=== PATIENT | female | born 1935 | race Caucasian/White ===

== ENCOUNTER → 2017-12-08 15:29 | Outpatient (REF) | payer MEDICARE, SELFPAY | LOC: LAB 15:29 | PROVIDERS: Family Provider Internal Medicine; PCP Internal Medicine; Visit Provider Otolaryngology | DX: R19.7 Diarrhea, unspecified (principal); Z53.9 Procedure and treatment not carried out, unspecified reason ==

== ENCOUNTER 2017-12-13 20:22 | Emergency (ER) | payer MEDICARE, OTHER, SELFPAY ==
[2017-12-13 20:31] VITALS: BP 154/69; PULSE 68; RESP 20; TEMP 37.3; O2SAT 98
--- NOTE | 2017-12-13 21:31 | ED_ITS ---
HPI - Abdominal Pain General Chief Complaint: Abdominal Pain Stated Complaint: C-DIFF, DIARRHEA Time Seen by Provider: 12/13/17 21:10 Source: patient and EMS Mode of arrival: EMS Limitations: no limitations History of Present Illness HPI narrative: Patient is an 82-year-old female presenting with abdominal pain. She was diagnosed with C diff last week and started on vancomycin orally. She actually had C diff in October of 2017. She says that she is now having formed stool. She ate for the 1st time today when had a small amount of hamburger. She then started having abdominal pain and nausea no actual vomiting.. She denies any fever or chills she was drinking fluids pretty regularly until she started having pain. MD complaint: abdominal pain Onset (ago): hour(s) Pain Consistency: constant Location: diffuse Related Data Home Medications Medication Instructions Recorded Confirmed glimepiride [Amaryl] 2 mg PO QDAY #0 09/29/12 oxybutynin chloride 5 mg PO BID #0 10/13/16 [LACTOBACILLIS RHAMNO] 2 cap PO QDAY #0 11/11/17 [OMEGA 3 DHA-EPA FISH] 1,000 mg PO QDAY #0 11/11/17 acetaminophen 650 mg PO Q6HP PRN #0 11/11/17 aspirin 81 mg PO QDAY #0 11/11/17 atorvastatin 40 mg PO HS #0 11/11/17 calcium carbonate-vitamin D3 1 tab PO BIDCC #0 11/11/17 [Oyster Shell Calcium-Vit D3] carvedilol [Coreg] 3.125 mg PO BIDCC #0 11/11/17 insulin aspart U-100 [Novolog 100 u SQ SLIDE #0 11/11/17 PenFill U-100 Insulin] insulin glargine [Lantus Solostar 22 unit SQ QPM #0 11/11/17 U-100 Insulin] lisinopril 10 mg PO QDAY #0 11/11/17 zktpsevk-hmov-WD-calcium-mins 1 tab PO QDAY #0 11/11/17 [Thera M Plus (ferrous fumarat)] nitroglycerin [Nitrostat] 0.4 mg SUBLINGUAL PRN PRN #0 11/11/17 nystatin [Nystop] 100,000 unit TOPICAL QID #0 11/11/17 ondansetron HCl 8 mg PO Q8HP PRN #0 11/11/17 pantoprazole 20 mg PO QDAY #0 11/11/17 polyethylene glycol 3350 [Miralax] 17 gm PO QDAYP PRN #0 11/11/17 vit C,I-Tz-vkjej-lutein-zeaxan 1 cap PO QDAY #0 11/11/17 [Ocuvite Lutein and Zeaxanthin] Previous Rx's Medication Instructions Recorded ondansetron [Zofran ODT] 4 mg PO Q6H PRN #10 tab 12/14/17 Allergies Allergy/AdvReac Type Severity Reaction Status Date / Time Sulfa (Sulfonamide Allergy Severe hives Verified 12/13/17 20:35 Antibiotics) [SULFA (SULFONAMIDE ANTIBIOTICS)] adhesive [ADHESIVE] AdvReac Severe tape Verified 12/13/17 20:35 causes blisters Review of Systems Review of Systems All systems reviewed & are unremarkable except as noted in HPI and below Constitutional Reports anorexia, Denies fever(s), Denies frequent falls and Reports poor appetite ENT Ears, Nose, Mouth, and Throat: Denies vertigo, Denies dizziness and Denies dry mouth Cardiovascular Denies chest pain, Denies syncope, Denies lightheadedness and Denies dyspnea Respiratory Denies cough and Denies dyspnea Gastrointestinal Gastrointestinal: Reports as per HPI, Reports abdominal pain, Denies coffee ground emesis and Reports nausea Genitourinary Denies urinary frequency Neurologic Denies vertigo, Denies dizziness, Denies syncope and Denies frequent falls PFSH Medical History C. difficile colitis (Acute) Diabetes (Acute) Diarrhea (Acute) Surgical History H/O hemicolectomy (Acute) Social History Smoking Status: Unknown if ever smoked Exam Const General: cooperative and No acute distress Nutritional Appearance: obese Orientation: alert, awake and oriented x3 HENMT Head: normal to inspection and normocephalic Mouth: No moist mucous membranes Eyes General: appearance normal, both eyes and all related structures Neck Neck: normal visual inspection and trachea midline Resp Effort & Inspection: normal respiratory effort and able to speak in complete sentences Cardio Rate: regular rate Rhythm: regular rhythm Heart Sounds: S1 normal and S2 normal GI Inspection: obesity Palpation: soft Other: Mild epigastric pain no guarding no rebound no real localization of pain Skin General: no rashes or lesions noted, turgor normal, No dry skin and No ecchymosis Neuro General: alert and awake MDM - Abdominal Pain MDM Narrative Medical decision making narrative: The patient initially still having some nausea. CT ordered shows large a ventral hernia without obstruction. Blood work within normal limits. Now tolerating a small amount of water. Lab Data Attestation: I reviewed the patient's lab results. Result diagrams: 12/13/17 22:40 12/13/17 22:40 Lab Results 12/13/17 12/13/17 12/13/17 Range/Units 22:40 22:40 22:40 WBC 8.5 (4.5-11.0) X10^3/uL RBC 3.90 L (4.0-5.2) X10^6/uL Hgb 11.3 L (12.0-16.0) g/dL Hct 33.7 L (36-46) % MCV 86.4 (80-100) fL MCH 28.9 (26-34) PG MCHC 33.5 (30-36) % RDW 14.6 (11.6-14.8) % Plt Count 363 (150-400) X10^3/uL Neut % (Auto) 63.0 (50-75) % Lymph % (Auto) 25.4 (25-40) % [place] % (Auto) 7.6 (3-14) % Eos % (Auto) 3.0 (2-4) % Baso % (Auto) 1.0 (0-2) % Neut # (Auto) 5400 (1545-9719) /uL Sodium 139 (137-145) mmol/L Potassium 3.2 L (3.4-5.1) mmol/L Chloride 100.0 (98-107) mmol/L Carbon Dioxide 28.0 (22-32) mmol/L BUN 8.0 (7-17) mg/dL Creatinine 0.50 L (0.52-1.04) mg/dL Estimated GFR > 60.0 (>60) mL/min BUN/Creatinine Ratio 16.0 (6-22) Glucose 217 H (80-110) mg/dL Lactate 1.3 (0.7-2.1) mmol/L Calcium 8.8 (8.4-10.2) mg/dL Total Bilirubin 0.3 (0.2-1.3) mg/dL AST 17 (14-36) IU/L ALT 18 (9-52) IU/L Alkaline Phosphatase 89 (38-126) U/L Total Protein 6.4 (6.3-8.2) g/dL Albumin 3.3 L (3.5-5.0) g/dL Globulin 3.1 (1.7-4.1) g/dL Albumin/Globulin Ratio 1.1 (1.0-2.8) Lipase 123 (23-300) U/L Imaging Data CT scan - abdomen: Radiologist's impression: 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 No proximal obstruction. Incarceration and strangulation cannot usual out by CT. Discharge Plan Departure Patient Disposition: Home, Self-Care Clinical Impression: Abdominal pain Discharge Date/Time: 12/14/17 04:19 Interventions: ED Discharge Assessment Last Done: 12/14/17 03:23 Instructions: DI for Abdominal Pain-Adult Activity Restrictions/Additional Instructions: *You have been diagnosed with abdominal pain *What to do: At this time blood work and CAT scan within normal limits, increase diet as tolerated, continue drinking fluids *Take medications as directed -Zofran all 4 mg every 4-6 hours if needed for nausea or vomiting *Follow up with your primary care provider in 2-3 days *Return to ER if you should have worsening abdominal pain, inability to tolerate fluids or any new, worsening or concerning symptoms Prescriptions: New ondansetron [Zofran ODT] 4 mg tablet,disintegrating 4 mg PO Q6H PRN (Reason: nausea and vomiting) Qty: 10 RF: 0 No Action glimepiride [Amaryl] 2 MG tablet 2 mg PO QDAY Qty: 0 RF: 0 oxybutynin chloride 5 MG tablet 5 mg PO BID Qty: 0 RF: 0 acetaminophen 325 MG tablet 650 mg PO Q6HP PRNQty: 0 RF: 0 atorvastatin 40 MG tablet 40 mg PO HS Qty: 0 RF: 0 aspirin 81 MG tablet,delayed release (DR/EC) 81 mg PO QDAY Qty: 0 RF: 0 carvedilol [Coreg] 3.125 MG tablet 3.125 mg PO BIDCC Qty: 0 RF: 0 calcium carbonate-vitamin D3 [Oyster Shell Calcium-Vit D3] 500 mg(1,250mg) - 200 unit Tablet 1 tab PO BIDCC Qty: 0 RF: 0 insulin aspart U-100 [Novolog PenFill U-100 Insulin] 100 UNIT/1 ML cartridge 100 u SQ SLIDE Qty: 0 RF: 0 insulin glargine [Lantus Solostar U-100 Insulin] 100 UNIT/1 ML insulin pen 22 unit SQ QPM Qty: 0 RF: 0 [LACTOBACILLIS RHAMNO] 2 cap PO QDAY Qty: 0 RF: 0 lisinopril 10 MG tablet 10 mg PO QDAY Qty: 0 RF: 0 vit C,S-Cl-oeusk-lutein-zeaxan [Ocuvite Lutein and Zeaxanthin] 1 EACH capsule 1 cap PO QDAY Qty: 0 RF: 0 szvmauiw-aqvu-VG-calcium-mins [Thera M Plus (ferrous fumarat)] 1 EACH tablet 1 tab PO QDAY Qty: 0 RF: 0 nitroglycerin [Nitrostat] 0.4 MG tablet, sublingual 0.4 mg Sublingual PRN PRNQty: 0 RF: 0 nystatin [Nystop] 30 GM powder 100,000 unit Topical QID Qty: 0 RF: 0 [OMEGA 3 DHA-EPA FISH] 1,000 mg PO QDAY Qty: 0 RF: 0 ondansetron HCl 8 MG tablet 8 mg PO Q8HP PRNQty: 0 RF: 0 polyethylene glycol 3350 [Miralax] 17 GM powder in packet 17 gm PO QDAYP PRNQty: 0 RF: 0 pantoprazole 20 MG tablet,delayed release (DR/EC) 20 mg PO QDAY Qty: 0 RF: 0 Referrals: Tyson Wang MD [Primary Care Provider] -
[2017-12-13] MEDS: SODIUM CHLORIDE 0.9% 1,000 ML 150 ML IV (22:45)
[2017-12-13 22:58] VITALS: BP 167/56; PULSE 70; RESP 16; O2SAT 97
[2017-12-13 23:01] LABS: Add Manual Diff / Slide Review NO; Hematocrit 33.7 % (36-46); Hemoglobin 11.3 g/dL (12.0-16.0); Lymphocytes Percent Auto 25.4 % (25-40); Mean Corpuscular HGB Conc 33.5 % (30-36); Mean Corpuscular Hemoglobin 28.9 PG (26-34); Mean Corpuscular Volume 86.4 fL (80-100); Monocytes Percent Auto 7.6 % (3-14); Neutrophils Absolute Auto 5400 /uL (3000-5900); Platelet Count 363 X10^3/uL (150-400); Red Cell Distribution Width 14.6 % (11.6-14.8); White Blood Cell Count 8.5 X10^3/uL (4.5-11.0)
[2017-12-13 23:06] VITALS: BP 167/56; PULSE 76; RESP 13; O2SAT 95
[2017-12-13 23:14] LABS: Alanine Aminotransferase 18 IU/L (9-52); Albumin 3.3 g/dL (3.5-5.0); Albumin Globulin Ratio 1.1 (1.0-2.8); Alkaline Phosphatase 89 U/L (38-126); Aspartate Aminotransferase 17 IU/L (14-36); Bilirubin Total 0.3 mg/dL (0.2-1.3); Calcium 8.8 mg/dL (8.4-10.2); Estimated Glomerular Filt Rate > 60.0 mL/min (>60); Globulin 3.1 g/dL (1.7-4.1); Glucose 217 mg/dL (80-110); HEMOLYSIS < 15 (0-50); Lactate (Lactic Acid) 1.3 mmol/L (0.7-2.1); Lipase 123 U/L (23-300); Potassium 3.2 mmol/L (3.4-5.1); Sodium 139 mmol/L (137-145); Total Protein 6.4 g/dL (6.3-8.2)
[2017-12-13] MEDS: ONDANSETRON 4 MG/2 ML INJ IV (23:15)
--- NOTE | 2017-12-14 00:53 | DI.CT.S_ITS ---
PROCEDURE: CT ABDOMEN PELVIS W CON INDICATIONS: abdomal pain persistant with vomiting TECHNIQUE: After the administration of intravenous contrast, 5 mm thick sections acquired from the diaphragm to the symphysis. 5 mm coronal and sagittal reformats were acquired. For radiation dose reduction, the following was used: automated exposure control, adjustment of mA and/or kV according to patient size. COMPARISON: [facility], MR, MR LUMBAR SPINE WO CON, 05/02/2015, 15:29. FINDINGS: Image quality: Excellent. ABDOMEN: Lung bases: Scattered bibasilar scarring/atelectasis. Nonspecific 3 mm right middle lobe pulmonary nodule image 5 series 3, technically indeterminate the absence of a relevant comparison study. Solid organs: Liver is normal in size and enhancement. Gallbladder contains a 9 mm gallstone, however no definite gallbladder wall thickening or pericholecystic inflammation. . Biliary system is non dilated. Pancreas enhances normally. Spleen is normal in size and enhancement. No adrenal nodules. Kidneys demonstrate normal size and enhancement, without hydronephrosis. Large simple appearing left renal cyst measuring 9.5 cm. Subcentimeter right renal lesion demonstrates mildly increased attenuation measuring 22 Hounsfield units. This could be hyperdense/hemorrhagic renal cyst, technically indeterminate and recommend followup. Peritoneum and bowel: Small hiatal hernia. No evidence of bowel obstruction. A ventral wall hernia containing loop of colon however no evidence of bowel obstruction at this time. Of note, technically incarceration or strangulation cannot be excluded by CT. No associated bowel wall thickening is seen. The appendix is not seen however no definite secondary signs of acute appendicitis Nodes and vessels: No retroperitoneal or mesenteric adenopathy by size criteria. Aorta and inferior vena cava are normal in size. Miscellaneous: No ventral hernias. PELVIS: Genitourinary: Bladder wall thickness is normal. Miscellaneous: No inguinal hernias or adenopathy. Bones: Possible chronic appearing right sacral ala insufficiency fracture with sclerosis. Diffuse degenerative changes throughout the thoracic and lumbar spine. IMPRESSION: Midline ventral hernia containing bowel loops however no CT evidence of obstruction at this time. Recommend clinical correlation to exclude incarceration or strangulation. Large exophytic simple appearing left renal cyst. Hyperdense subcentimeter right renal lesion, possibly hemorrhagic/hyperdense cyst although technically indeterminate. Recommend followup with dedicated renal ultrasound to exclude solid lesion/neoplasm. Incidental cholelithiasis. Additional chronic incidental findings as above. Dictated by: Nash Byrnes M.D. on 12/14/2017 at 7:37 Approved by: Nash Byrnes M.D. on 12/14/2017 at 7:48
[2017-12-14 01:29] VITALS: BP 155/66; PULSE 74; O2SAT 97
[2017-12-14] MEDS: ONDANSETRON 4 MG/2 ML INJ IV (02:18)
[2017-12-14 02:54] VITALS: BP 144/71; PULSE 71; RESP 16; O2SAT 99
--- NOTE | 2017-12-14 02:56 | PC.NURSE ---
pt incontinet of urine.
--- NOTE | 2018-01-13 13:00 | PC.NURSE ---
Pt IV stopped at 0323, 900ml's intake of NS.
== END 2017-12-14 04:19 | disposition home or self-care (01) ==
PROVIDERS: Emergency Provider Emergency Medicine; Family Provider Internal Medicine; PCP Internal Medicine
DX: R10.9 Unspecified abdominal pain (principal)
CPT/HCPCS: 36591; 74177; 80053; 83605; 83690; 85025; 87040; 96361; 96374; 96376; 99283; 99284; J2405; Q9967

== ENCOUNTER → 2018-01-06 15:15 | Outpatient (CLI) | payer MEDICARE, OTHER, SELFPAY ==
[2018-01-06 16:35] LABS: Blood Urea Nitrogen 16 mg/dL (7-17); Calcium 8.9 mg/dL (8.4-10.2); Carbon Dioxide 28 mmol/L (22-32); Chloride 95 mmol/L (98-107); Estimated Glomerular Filt Rate > 60.0 mL/min (>60); Glucose 270 mg/dL (80-110); HEMOLYSIS < 15 (0-50); Potassium 4.5 mmol/L (3.4-5.1); Sodium 135 mmol/L (137-145)
== END ==
PROVIDERS: Family Provider Internal Medicine; PCP Internal Medicine; Visit Provider Student in an Organized Health Care Education/Training Program
DX: R19.7 Diarrhea, unspecified (principal)
CPT/HCPCS: 36415; 80048

== ENCOUNTER 2018-01-20 17:55 | Observation (INO) | payer MEDICARE, OTHER, SELFPAY ==
[2018-01-20 18:10] VITALS: BP 143/63; PULSE 70; RESP 16; TEMP 36.9; O2SAT 94; BMI 47.2
--- NOTE | 2018-01-20 18:15 | DI.RAD.S_ITS ---
PROCEDURE: XR CHEST 2V INDICATIONS: shortness of breath TECHNIQUE: 2 views of the chest were acquired. COMPARISON: [facility], CHEST 1 VIEW, 11/11/2017, 8:35. [facility], CHEST 2 VIEW, 12/15/2007, 11:33. FINDINGS: Surgical changes and devices: None. Lungs and pleura: No pleural effusions or pneumothorax. Lungs are clear. Shallow inspiration. Mediastinum: Enlarged cardiomediastinal contours. Bones and chest wall: No suspicious bony abnormalities. Soft tissues appear unremarkable. IMPRESSION: No radiographic evidence of acute cardiopulmonary pathology. Dictated by: Mitch Angeles M.D. on 01/20/2018 at 19:13 Approved by: Mitch Angeles M.D. on 01/20/2018 at 19:13
[2018-01-20 18:25] LABS: Add Manual Diff / Slide Review NO; Basophils Percent Auto 1.2 % (0-2); Eosinophils Percent Auto 2.3 % (2-4); Hematocrit 27.7 % (36-46); Hemoglobin 9.3 g/dL (12.0-16.0); Lymphocytes Percent Auto 27.3 % (25-40); Mean Corpuscular HGB Conc 33.5 % (30-36); Mean Corpuscular Volume 83.6 fL (80-100); Monocytes Percent Auto 6.9 % (3-14); Neutrophils Absolute Auto 6300 /uL (3000-5900); Neutrophils Percent Auto 62.3 % (50-75); Platelet Count 370 X10^3/uL (150-400); Red Blood Cell Count 3.32 X10^6/uL (4.0-5.2); Red Cell Distribution Width 15.4 % (11.6-14.8); White Blood Cell Count 10.2 X10^3/uL (4.5-11.0)
[2018-01-20 18:28] LABS: Alanine Aminotransferase 22 IU/L (9-52); Albumin 3.5 g/dL (3.5-5.0); Albumin Globulin Ratio 1.1 (1.0-2.8); Alkaline Phosphatase 71 U/L (38-126); Aspartate Aminotransferase 22 IU/L (14-36); BUN Creatinine Ratio 23.3 (6-22); Bilirubin Total 0.4 mg/dL (0.2-1.3); Blood Urea Nitrogen 14 mg/dL (7-17); Calcium 8.8 mg/dL (8.4-10.2); Carbon Dioxide 26 mmol/L (22-32); Chloride 101 mmol/L (98-107); Estimated Glomerular Filt Rate > 60.0 mL/min (>60); Globulin 3.1 g/dL (1.7-4.1); Glucose 136 mg/dL (80-110); HEMOLYSIS 49 (0-50); Potassium 4.1 mmol/L (3.4-5.1); Sodium 138 mmol/L (137-145); Total Protein 6.6 g/dL (6.3-8.2)
[2018-01-20] MEDS: ONDANSETRON 4 MG/2 ML INJ IV ×2 (18:31→22:53)
--- NOTE | 2018-01-20 18:32 | PC.NURSE ---
GRANDDAUGHTER RANI IN ROOM AT THIS TIME--REPORTS THAT SHE WILL BE ABLE TO PICK PT UP IF D/C [phone] ADVISED TO CALL DAUGHTER BRITTANYSHIRLENE WHO LIVES IN [place] WITH PLAN OF CARE UPDATE [phone].
--- NOTE | 2018-01-20 18:33 | ED_ITS ---
HPI - SOB/Dyspnea General Chief Complaint: Shortness of Breath/Dyspnea Stated Complaint: Shortness of Breath Time Seen by Provider: 01/20/18 18:14 Source: patient Mode of arrival: ambulatory Limitations: no limitations History of Present Illness The patient developed shortness of breath about 4:00 p.m. today, she was not exerting herself at that time. She has no asthma, she denies peripheral edema or orthopnea. She has had no fever, cough or rhinorrhea. She denies chest pain. She does have a history of CAD. She does have mid abdominal discomfort. She denies vomiting but has had nausea. She has a history of C diff, apparently recently treated. She denies current diarrhea. She denies hematemesis or melena. The shortness of breath has resolved when she arrived to the ER. She arrives by EMS, she is not requiring oxygen. Related Data Home Medications Medication Instructions Recorded Confirmed glimepiride [Amaryl] 2 mg PO QDAY #0 09/29/12 01/20/18 oxybutynin chloride 5 mg PO BID #0 10/13/16 01/20/18 acetaminophen 650 mg PO Q6HP PRN #0 11/11/17 01/20/18 aspirin 81 mg PO QDAY #0 11/11/17 01/20/18 calcium carbonate-vitamin D3 1 tab PO BIDCC #0 11/11/17 01/20/18 [Oyster Shell Calcium-Vit D3] carvedilol [Coreg] 3.125 mg PO BIDCC #0 11/11/17 01/20/18 insulin glargine [Lantus Solostar 22 unit SQ QPM #0 11/11/17 01/20/18 U-100 Insulin] nitroglycerin [Nitrostat] 0.4 mg SUBLINGUAL PRN PRN #0 11/11/17 01/20/18 nystatin [Nystop] 100,000 unit TOPICAL QID #0 11/11/17 01/20/18 pantoprazole 40 mg PO BID #0 11/11/17 01/20/18 polyethylene glycol 3350 [Miralax] 17 gm PO QDAYP PRN #0 11/11/17 01/20/18 Acidophilus Probiotic Complex 1 tab PO DAILY 01/20/18 01/20/18 atorvastatin 40 mg PO DAILY 01/20/18 01/20/18 bisacodyl 10 mg OK DAILY 01/20/18 01/20/18 citalopram 10 mg PO DAILY 01/20/18 01/20/18 cranberry 500 mg PO DAILY 01/20/18 01/20/18 ibuprofen 200 mg PO DAILY 01/20/18 01/20/18 insulin lispro [Humalog KwikPen See Label Instructions .ROUTE 01/20/18 01/20/18 Insulin] .COMPLEX omega 0-qvc-wgv-fish oil [Fish Oil] 1,000 mg PO DAILY 01/20/18 01/20/18 promethazine 25 mg PO Q12H PRN 01/20/18 01/20/18 simvastatin 20 mg PO QPM 01/20/18 01/20/18 vancomycin 125 mg PO QID 01/20/18 01/20/18 vit A,C and X-iifycn-nnfuxojp 1 tab PO DAILY 01/20/18 01/20/18 [I-Mellisa] Previous Rx's Medication Instructions Recorded ondansetron [Zofran ODT] 4 mg PO Q6H PRN #10 tab 12/14/17 Allergies Allergy/AdvReac Type Severity Reaction Status Date / Time Sulfa (Sulfonamide Allergy Severe hives Verified 12/13/17 20:35 Antibiotics) [SULFA (SULFONAMIDE ANTIBIOTICS)] metformin Allergy Mild Diarrhea Verified 01/20/18 23:13 darifenacin [From [employer]] Allergy Unknown Verified 01/20/18 23:13 ketoconazole Allergy Unknown Verified 01/20/18 23:13 adhesive [ADHESIVE] AdvReac Severe tape Verified 12/13/17 20:35 causes blisters Review of Systems Review of Systems All systems reviewed & are unremarkable except as noted in HPI and below Constitutional Denies chills, Denies fever(s), Denies lethargy and Denies weakness Eyes Denies change in vision, Denies eye discharge, Denies irritation and Denies loss of vision ENT Ears, Nose, Mouth, and Throat: Denies change in voice, Denies neck pain and Denies sore throat Cardiovascular Denies chest pain, Denies irregular heart rhythm, Denies lightheadedness, Denies palpitations, Reports dyspnea and Denies orthopnea Respiratory Reports as per HPI, Denies cough, Denies hemoptysis and Reports dyspnea Gastrointestinal Gastrointestinal: Reports abdominal pain, Denies change in bowel habits, Denies diarrhea, Denies nausea and Denies vomiting Genitourinary Denies dysuria and Denies urinary urgency Musculoskeletal Denies arthralgias and Denies neck pain Comments: No back pain Integumentary/Breasts Denies pruritus, Denies erythema, Denies rash and Denies wounds Neurologic Denies loss of vision and Denies weakness Endocrine Denies palpitations [facility] Medical History Anxiety disorder (Acute) Colon cancer (Acute) Hypercholesteremia (Acute) Mild cognitive impairment, so stated (Acute) Obesity (Acute) Other sleep apnea (Acute) Postprocedural hypertension (Acute) Solitary pulmonary nodule (Acute) Spinal stenosis of lumbar region (Acute) Syncope and collapse (Acute) Unspecified urinary incontinence (Acute) C. difficile colitis (Acute) Diabetes (Acute) Diarrhea (Acute) Surgical History H/O hemicolectomy (Acute) Social History Smoking Status: Former smoker Exam Initial Vital Signs Initial Vital Signs: Vital Signs Temperature 98.5 F 01/20/18 18:10 Pulse Rate 70 01/20/18 18:10 Respiratory Rate 16 01/20/18 18:10 Blood Pressure 143/63 H 01/20/18 18:10 Pulse Oximetry 94 01/20/18 18:10 Const General: cooperative and well developed Nutritional Appearance: well nourished Orientation: alert, awake, oriented x3 and not confused Other: She seems fatigued. [facility] Head: normal to inspection, normocephalic and atraumatic Face and sinus: normal facial exam and sinuses nontender Mouth: oral mucosae normal Throat: posterior oropharynx normal Eyes Conjunctivae: conjunctivae normal Sclera: sclerae normal Pupils: PERRL EOM: EOM intact bilaterally Neck Neck: normal visual inspection Thyroid: thyroid normal Carotids: normal carotid upstroke Lymphatic: No lymphadenopathy Other: No JVD Resp Effort & Inspection: normal respiratory effort Auscultation: clear to auscultation bilaterally Cardio Rhythm: regular rhythm Heart Sounds: S1 normal, S2 normal, no gallops and no murmurs GI Inspection: non-distended Palpation: soft, no hepatosplenomegaly, No guarding, No pulsatile mass and No tender Auscultation: normal bowel sounds Rectal Exam: visual inspection normal, normal sphincter tone and heme positive stool Back/Spine/Pelvis Back: No CVA tenderness Cervical Spine: cervical ROM normal and No pain with cervical ROM Thoracic/Lumbar Spine: thoracic and lumbar spine normal to inspection Skin General: no rashes or lesions noted, No jaundice and No petechiae Neuro General: alert, oriented x3, gait normal and no focal motor deficits Speech: speech normal Extrem General: full ROM, no clubbing, cyanosis or edema, no pedal edema and no calf tenderness Course Orders Ordered: ED Orders 01/20/18 18:08 Complete Blood Count AUTO DIFF Stat Comprehensive Metabolic Panel Stat 01/20/18 18:15 Consult to Respiratory Therapy Evaluate & Treat XR chest 2V Stat EKG-12 Lead Stat Sodium Chloride (Normal Saline 0.9%) 1,000 mls @ 125 mls/hr IV CONT ZURI Last Admin: 01/20/18 23:06 Dose: 125 mls/hr Discontinued Medications Ondansetron HCl (Zofran) 4 mg IV NOW ONE Stop: 01/20/18 18:31 Last Admin: 01/20/18 18:31 Dose: 4 mg Ondansetron HCl (Zofran) 4 mg IV NOW ONE Stop: 01/20/18 23:05 Last Admin: 01/20/18 22:53 Dose: 4 mg Pantoprazole Sodium (Protonix) 40 mg IV NOW ONE Stop: 01/20/18 20:24 Last Admin: 01/20/18 20:46 Dose: 40 mg Vital Signs - 8 hr 01/20/18 18:10 01/20/18 21:10 01/20/18 22:00 Temperature 98.5 F Pulse Rate 70 83 81 Respiratory Rate 16 11 L 17 Blood Pressure 143/63 H Blood Pressure [Right Arm] 176/98 H 170/58 H Pulse Oximetry 94 94 93 01/20/18 22:30 Temperature Pulse Rate 83 Respiratory Rate 14 Blood Pressure Blood Pressure [Right Arm] 172/81 H Pulse Oximetry 94 MDM - SOB/Dyspnea Medical Records Attestation: I reviewed the patient's medical records. Lab Data Attestation: I reviewed the patient's lab results. Result diagrams: 01/20/18 18:08 01/20/18 18:08 Lab Results 01/20/18 01/20/18 01/20/18 Range/Units 18:08 18:08 Unknown WBC 10.2 (4.5-11.0) X10^3/uL RBC 3.32 L (4.0-5.2) X10^6/uL Hgb 9.3 L (12.0-16.0) g/dL Hct 27.7 L (36-46) % MCV 83.6 (80-100) fL MCH 28.0 (26-34) PG MCHC 33.5 (30-36) % RDW 15.4 H (11.6-14.8) % Plt Count 370 (150-400) X10^3/uL Neut % (Auto) 62.3 (50-75) % Lymph % (Auto) 27.3 (25-40) % [place] % (Auto) 6.9 (3-14) % Eos % (Auto) 2.3 (2-4) % Baso % (Auto) 1.2 (0-2) % Neut # (Auto) 6300 H (8559-9316) /uL Sodium 138 (137-145) mmol/L Potassium 4.1 (3.4-5.1) mmol/L Chloride 101 (98-107) mmol/L Carbon Dioxide 26 (22-32) mmol/L BUN 14 (7-17) mg/dL Creatinine 0.60 (0.52-1.04) mg/dL Estimated GFR > 60.0 (>60) mL/min BUN/Creatinine Ratio 23.3 H (6-22) Glucose 136 H (80-110) mg/dL Lactate 0.8 (0.7-2.1) mmol/L Calcium 8.8 (8.4-10.2) mg/dL Total Bilirubin 0.4 (0.2-1.3) mg/dL AST 22 (14-36) IU/L ALT 22 (9-52) IU/L Alkaline Phosphatase 71 (38-126) U/L Total Protein 6.6 (6.3-8.2) g/dL Albumin 3.5 (3.5-5.0) g/dL Globulin 3.1 (1.7-4.1) g/dL Albumin/Globulin Ratio 1.1 (1.0-2.8) Imaging Data Chest x-ray: Radiologist's impression: Normal, no acute findings. ECG Data Attestation: I personally reviewed and interpreted this ECG as follows: (Normal sinus rhythm rate [address] T wave changes. No ectopy. QT interval of 466, intervals are otherwise normal. No acute findings.) MDM Narrative Medical decision making narrative: I reviewed labs back over the last 6 months. She has had a slow, progressive decline in her H/H. She has intermittent abdominal pain over the last several months. On rectal exam she is heme- positive. I have started her on maintenance IV fluids and IV Protonix. I discussed her care with the hospitalist, Dr. Martinez. The patient will be admitted. Discharge Plan Departure Patient Disposition: Admitted as Observation Clinical Impression: GI (gastrointestinal bleed), Anemia Admit Date/Time: 01/20/18 23:25 Admit Provider: Raquel Martinez
--- NOTE | 2018-01-20 18:35 | PC.NURSE ---
PT SITTING UP IN BED- HELPED WITH REPOSITIONING. WAS SIPPING ONWATER, STARTING TO FEEL NAUSEOUS, WATER TAKEN AWAY AND PT GIVEN EMESIS BAG AND ZOFRAN. ADVISED NPO AT THIS TIME. SATS 95% ON RA, SOB WITH EXERTION AND SPEAKING IN SHORT CLEAR SENTENCES. REPORTS 31 YEAR SMOKER AND INCREASED SOB AND ABD STARTED THIS MORNING. H/O CDIFF WITH TREATMENT AND REPORTS HAVING FORMED STOOLS. VITALS ALL WITHIN NORMAL AND PT RESTING.
[2018-01-20 18:56] LABS: Lactate (Lactic Acid) 0.8 mmol/L (0.7-2.1)
[2018-01-20] MEDS: PANTOPRAZOLE 40 MG VIAL IV (20:46)
[2018-01-20 21:10] VITALS: BP 176/98; PULSE 83; RESP 11; O2SAT 94
[2018-01-20 22:00] VITALS: BP 170/58; PULSE 81; RESP 17; O2SAT 93
[2018-01-20 22:30] VITALS: BP 172/81; PULSE 83; RESP 14; O2SAT 94
--- NOTE | 2018-01-20 22:57 | PC.NURSE ---
Addendum entered by Erlinda Simmons R.N. 01/20/18 23:00: Previous note written by LINDSAY Coffey accidentally charted under LINDSAY Perdomo. Original Note: Spoke to daughter Cindy, gave her the plan of care that pt will be admitted for GI Bleed. Reports that she will call tomorrow. Checked on pt. Reports nausea and dry mouth. Given wet mouth swab. NS bolus infusing and pt given another dose of IV Zofran for nausea. Awaiting admit bed upstairs. Pt content at this time. Needs met.
[2018-01-20] MEDS: SODIUM CHLORIDE 0.9% 1,000 ML 125 ML IV (23:06)
[2018-01-20 23:46] VITALS: BP 171/70; PULSE 83; RESP 14; O2SAT 96
--- NOTE | 2018-01-20 23:47 | PC.NURSE ---
2316: RN witnessed run of SVT at 160 H for 6 seconds on cafeteria monitor. Pt converted back into NSR, entered room to find pt resting. Dr Lilly immediately made aware. No new orders at this time.
[2018-01-21 00:03] LABS: Troponin I 0.033 ng/mL (0.01-0.034)
[2018-01-21 00:12] VITALS: BP 151/75; PULSE 85; RESP 16; O2SAT 94
[2018-01-21 00:15] VITALS: BP 174/81; PULSE 85; RESP 15; TEMP 36.9; O2SAT 93
[2018-01-21 00:29] VITALS: BMI 47.2
--- NOTE | 2018-01-21 01:22 | PC.NURSE ---
pt arrived at 0015 via stretcher. pt was able to get up and transfer to the bed via stand and pivot. intermittent dry heaves. 94%RA. BTX4. passing gas. pt reports she is dealing with a lot of stress at home. bed alarm active. call light in reach. oriented pt to the room .
[2018-01-21] MEDS: ONDANSETRON 4 MG/2 ML INJ IV (05:19)
[2018-01-21 05:34] VITALS: BP 132/70; PULSE 84; RESP 14; TEMP 36.9; O2SAT 95
[2018-01-21 05:52] LABS: Add Manual Diff / Slide Review NO; Basophils Percent Auto 0.8 % (0-2); Hematocrit 30.3 % (36-46); Hemoglobin 9.9 g/dL (12.0-16.0); Lymphocytes Percent Auto 15.6 % (25-40); Mean Corpuscular HGB Conc 32.5 % (30-36); Mean Corpuscular Hemoglobin 27.1 PG (26-34); Mean Corpuscular Volume 83.3 fL (80-100); Monocytes Percent Auto 2.3 % (3-14); Neutrophils Absolute Auto 8900 /uL (3000-5900); Neutrophils Percent Auto 81.3 % (50-75); Platelet Count 408 X10^3/uL (150-400); Red Blood Cell Count 3.64 X10^6/uL (4.0-5.2)
[2018-01-21 05:58] LABS: Blood Urea Nitrogen 11 mg/dL (7-17); Calcium 8.8 mg/dL (8.4-10.2); Carbon Dioxide 23 mmol/L (22-32); Chloride 97 mmol/L (98-107); Estimated Glomerular Filt Rate > 60.0 mL/min (>60); Glucose 219 mg/dL (80-110); HEMOLYSIS < 15 (0-50); Potassium 3.7 mmol/L (3.4-5.1); Sodium 134 mmol/L (137-145)
[2018-01-21 08:00] VITALS: BP 136/54; PULSE 84; RESP 16; TEMP 37; O2SAT 97
[2018-01-21] MEDS: PROCHLORPERAZINE 10 MG/2 ML VIAL IV (08:55)
[2018-01-21] MEDS: INSULIN ASPART 100 UNIT/ML INSULN PEN SUBCUT ×2 (08:58→12:27)
[2018-01-21 12:00] VITALS: BP 121/57; PULSE 74; RESP 18; TEMP 36.4; O2SAT 95
[2018-01-21] MEDS: DEXTROSE 5%-0.45% NS 1,000 ML 125 ML IV (12:25)
--- NOTE | 2018-01-21 12:32 | PM.HP.1 ---
History of Present Illness Date Patient Seen: 01/21/18 Time Patient Seen: 09:20 Chief complaint: Shortness of Breath Narrative: The patient states that she woke up feeling poorly yesterday, with poor appetite. This may have been going on for couple of days. In the afternoon she started to have more abdominal discomfort and bloating and a feeling of shortness of breath with gasping, and presented to the emergency department for evaluation. There she had a fairly unremarkable evaluation and was admitted overnight for further observation. She is seen with her at bedside. She states she feels much better this morning after hydration and antiemetic overnight. She had a history of Clostridium difficile colitis treated last month but denies any diarrhea lately. Patient History Medical History Anxiety disorder (Acute) Clostridium difficile colitis (Acute) Colon cancer (Acute) Coronary artery disease (Acute) Hypercholesteremia (Acute) Mild cognitive impairment, so stated (Acute) Obesity (Acute) Other sleep apnea (Acute) Postprocedural hypertension (Acute) Solitary pulmonary nodule (Acute) Spinal stenosis of lumbar region (Acute) Syncope and collapse (Acute) Unspecified urinary incontinence (Acute) C. difficile colitis (Acute) Diabetes (Acute) Diarrhea (Acute) Surgical History H/O peritonsillar abscess drainage (Acute) History of partial colectomy (Acute) Hx of cataract surgery (Acute) H/O hemicolectomy (Acute) Family & Social History Family History: Reviewed 01/21/18 by Dario Ramos MD Social History: household members spouse Prior Living Arrangements House Safety & Behavioral: Feels Safe in Current Yes Environment Been Physically Hurt or No Threatened By a Person Suicidal Ideation Description None Suicide Plan Description No Plan Tobacco & Substance use: Smoking Status Former smoker alcohol intake never alcohol intake frequency other Substance Use Type does not use Meds Home Medications Medication Instructions Recorded Confirmed Type glimepiride [Amaryl] 2 mg PO QDAY #0 09/29/12 01/20/18 History oxybutynin chloride 5 mg PO BID #0 10/13/16 01/20/18 History acetaminophen 650 mg PO Q6HP PRN #0 11/11/17 01/20/18 History aspirin 81 mg PO QDAY #0 11/11/17 01/20/18 History calcium carbonate-vitamin D3 1 tab PO BIDCC #0 11/11/17 01/20/18 History [Oyster Shell Calcium-Vit D3] carvedilol [Coreg] 3.125 mg PO BIDCC #0 11/11/17 01/20/18 History insulin glargine [Lantus Solostar 22 unit SQ QPM #0 11/11/17 01/20/18 History U-100 Insulin] nitroglycerin [Nitrostat] 0.4 mg SUBLINGUAL PRN PRN #0 11/11/17 01/20/18 History nystatin [Nystop] 100,000 unit TOPICAL QID #0 11/11/17 01/20/18 History pantoprazole 40 mg PO BID #0 11/11/17 01/20/18 History polyethylene glycol 3350 [Miralax] 17 gm PO QDAYP PRN #0 11/11/17 01/20/18 History ondansetron [Zofran ODT] 4 mg PO Q6H PRN #10 tab 12/14/17 01/20/18 Rx Acidophilus Probiotic Complex 1 tab PO DAILY 01/20/18 01/20/18 History atorvastatin 40 mg PO DAILY 01/20/18 01/20/18 History bisacodyl 10 mg [place] DAILY 01/20/18 01/20/18 History citalopram 10 mg PO DAILY 01/20/18 01/20/18 History cranberry 500 mg PO DAILY 01/20/18 01/20/18 History ibuprofen 200 mg PO DAILY 01/20/18 01/20/18 History insulin lispro [Humalog KwikPen See Label Instructions .ROUTE 01/20/18 01/20/18 History Insulin] .COMPLEX omega 2-sru-fat-fish oil [Fish Oil] 1,000 mg PO DAILY 01/20/18 01/20/18 History promethazine 25 mg PO Q12H PRN 01/20/18 01/20/18 History simvastatin 20 mg PO QPM 01/20/18 01/20/18 History vancomycin 125 mg PO QID 01/20/18 01/20/18 History vit A,C and Y-lrkhwq-yfvongul 1 tab PO DAILY 01/20/18 01/20/18 History [I-Mellisa] Allergies Allergy/AdvReac Type Severity Reaction Status Date / Time Sulfa (Sulfonamide Allergy Severe hives Verified 12/13/17 20:35 Antibiotics) [SULFA (SULFONAMIDE ANTIBIOTICS)] metformin Allergy Mild Diarrhea Verified 01/20/18 23:13 darifenacin [From Enablex] Allergy Unknown Verified 01/20/18 23:13 ketoconazole Allergy Unknown Verified 01/20/18 23:13 adhesive [ADHESIVE] AdvReac Severe tape Verified 12/13/17 20:35 causes blisters Review of Systems Review of Systems All systems reviewed & are unremarkable except as noted in HPI and below Cardiovascular Cardiovascular: Denies chest pain, Denies shortness of breath and Denies shortness of breath with activity Respiratory Respiratory: Denies chest congestion, Denies cough, Denies pain on inspiration, Denies dyspnea, Denies dyspnea on exertion and Denies wheezing Gastrointestinal Gastrointestinal: Denies melena, Denies change in bowel habits, Denies change in stool character, Denies constipation, Denies loose stools, Reports nausea, Denies vomiting, Denies hematemesis and Reports other Allergic/Immunologic Allergic/Immunologic: Denies wheezing Exam Vital Signs (past 8 hours): Vital Signs - 8 hr 01/21/18 05:34 01/21/18 08:00 Temperature 98.4 F 98.6 F Pulse Rate 84 84 Respiratory Rate 14 16 Blood Pressure 132/70 H 136/54 H Pulse Oximetry 95 97 Pulse Oximetry 97 Oxygen Delivery Method Room Air Oxygen Flow Rate 0 Narrative Exam Narrative: General: Pleasant, obese female, appears comfortable HEENT: Pupils equal round reactive, mucous membranes pink and moist Neck: Supple Lungs: Clear to auscultation Cardiac: Regular rate and rhythm Abdomen: Soft, obese, nontender; large reducible nontender ventral hernia palpable Extremities: Without edema Neurologic: Alert, oriented, no focal deficits Dermatologic: No rash or skin lesions Objective Imaging Chest x-ray: Radiologist's impression: No radiographic evidence of acute cardiopulmonary pathology. CT scan - abdomen: Radiologist's impression: Midline ventral hernia containing bowel loops however no CT evidence of obstruction at this time. Recommend clinical correlation to exclude incarceration or strangulation. Large exophytic simple appearing left renal cyst. Hyperdense subcentimeter right renal lesion, possibly hemorrhagic/hyperdense cyst although technically indeterminate. Recommend followup with dedicated renal ultrasound to exclude solid lesion/neoplasm. Incidental cholelithiasis. Additional chronic incidental findings as above. Labs Result Diagrams: 01/21/18 05:20 01/21/18 05:20 Labs: Laboratory Results - last 24 hr 01/20/18 01/20/18 01/20/18 18:08 18:08 Unknown WBC 10.2 RBC 3.32 L Hgb 9.3 L Hct 27.7 L MCV 83.6 MCH 28.0 MCHC 33.5 RDW 15.4 H Plt Count 370 Neut % (Auto) 62.3 Lymph % (Auto) 27.3 [place] % (Auto) 6.9 Eos % (Auto) 2.3 Baso % (Auto) 1.2 Neut # (Auto) 6300 H Sodium 138 Potassium 4.1 Chloride 101 Carbon Dioxide 26 BUN 14 Creatinine 0.60 Estimated GFR > 60.0 BUN/Creatinine Ratio 23.3 H Glucose 136 H Lactate 0.8 Calcium 8.8 Total Bilirubin 0.4 AST 22 ALT 22 Alkaline Phosphatase 71 Troponin I B-Natriuretic Peptide Total Protein 6.6 Albumin 3.5 Globulin 3.1 Albumin/Globulin Ratio 1.1 01/20/18 01/20/18 01/21/18 Unknown Unknown 05:20 WBC 11.0 RBC 3.64 L Hgb 9.9 L Hct 30.3 L MCV 83.3 MCH 27.1 MCHC 32.5 RDW 15.0 H Plt Count 408 H Neut % (Auto) 81.3 H Lymph % (Auto) 15.6 L [place] % (Auto) 2.3 L Eos % (Auto) 0.0 L Baso % (Auto) 0.8 Neut # (Auto) 8900 H Sodium Potassium Chloride Carbon Dioxide BUN Creatinine Estimated GFR BUN/Creatinine Ratio Glucose Lactate Calcium Total Bilirubin AST ALT Alkaline Phosphatase Troponin I 0.033 B-Natriuretic Peptide 160.0 H Total Protein Albumin Globulin Albumin/Globulin Ratio 01/21/18 05:20 WBC RBC Hgb Hct MCV MCH MCHC RDW Plt Count Neut % (Auto) Lymph % (Auto) [place] % (Auto) Eos % (Auto) Baso % (Auto) Neut # (Auto) Sodium 134 L Potassium 3.7 Chloride 97 L Carbon Dioxide 23 BUN 11 Creatinine 0.50 L Estimated GFR > 60.0 BUN/Creatinine Ratio 22.0 Glucose 219 H Lactate Calcium 8.8 Total Bilirubin AST ALT Alkaline Phosphatase Troponin I B-Natriuretic Peptide Total Protein Albumin Globulin Albumin/Globulin Ratio Assessment & Plan Plan: Assessment/Plan Narrative: 1. Nausea, abdominal pain. Etiology unclear. Possible viral gastroenteritis. No evidence of recurrent Clostridium difficile colitis. Clinically improved this morning. Advance diet, stop IV hydration and follow clinically. Possible discharge home if doing well. 2. Heme-positive stool, anemia. Etiology unclear she has chronic anemia with hematocrit near baseline, improved today. Possibly secondary to 1. Continue to monitor but possible discharge home if doing well with outpatient follow-up and workup if indicated. 3. Renal cysts, possibly hemorrhagic on the right. Outpatient renal ultrasound advised in primary care follow-up. 4. Diabetes mellitus, type 2. Resume routine insulin dosing when taking orals. 5. Other medical issues appear stable. She will resume her routine medications when taking orals. 6. Disposition: Admit to observation status. Possibly discharge home later if doing well, otherwise further evaluation as indicated. Quality VTE Deep Vein Thrombosis/Pulmonary Embolism Present on Admission: No
--- NOTE | 2018-01-21 13:37 | CM.DANOTE ---
DCP: assessment: case received, EMR reviewed, noted that Dr. Ramos anticipates likely d/c home later today is all tests continue to support this. Met with pt and her Campos. Introduced self and role. DCP: template completed with info currently available. Pt is an 82 year old female who lives with her in [place]. Admitted late last night to care of hospitalist team. PCP: Dr. Wang Payer: Medicare and [facility] Admission status: currently observation: confirmed by UR RN. Pt and her are supported at home by his sister : Victoria Flaherty. She is at the home 3x week to help pt. Rest of time spouse says he assists. [facility] RN and PT are involved. (see template for specifics) Meals on Wheels is ongoing. Victoria has brought pt's here today and is currently at lunch, standing by to take pt home if she is ok'd for same. P: home as stated, either today or tomorrow.
== END 2018-01-21 15:20 | disposition home or self-care (01) ==
LOC: ED 20:33 → AC 23:26
PROVIDERS: Admitting Provider Internal Medicine; Emergency Provider Emergency Medicine; Family Provider Internal Medicine; PCP Internal Medicine; Visit Provider Internal Medicine
DX: R06.00 Dyspnea, unspecified (principal); F41.9 Anxiety disorder, unspecified; E78.00 Pure hypercholesterolemia, unspecified; E66.9 Obesity, unspecified; G47.33 Obstructive sleep apnea (adult) (pediatric); E11.9 Type 2 diabetes mellitus without complications; Z87.891 Personal history of nicotine dependence; Z79.4 Long term (current) use of insulin; N28.1 Cyst of kidney, acquired; E86.0 Dehydration; D64.9 Anemia, unspecified; K92.1 Melena; R19.5 Other fecal abnormalities
CPT/HCPCS: 36415; 36591; 71046; 80048; 80053; 82962; 83605; 83880; 84484; 85025; 93005; 99283; G0378; C9113; J0780; J2405

== ENCOUNTER 2018-01-24 17:56 | Inpatient (IN) | payer MEDICARE, OTHER, SELFPAY ==
[2018-01-24] VITALS (8 sets, daily range): BP systolic 92–120; BP diastolic 32–64; PULSE 76–82; RESP 15–22; TEMP 36.4–36.6; O2SAT 95–100; BMI 40.8
--- NOTE | 2018-01-24 18:29 | DI.RAD.S_ITS ---
PROCEDURE: XR CHEST 2V INDICATIONS: presyncope TECHNIQUE: 2 views of the chest were acquired. COMPARISON: [facility], CR, XR CHEST 2V, 01/20/2018, 18:36. FINDINGS: Surgical changes and devices: None. Lungs and pleura: No pleural effusions or pneumothorax. Lungs are clear. Mediastinum: Mediastinal contours are normal. Heart size is normal. Bones and chest wall: No suspicious bony abnormalities. Soft tissues appear unremarkable. IMPRESSION: No acute process. Dictated by: Juan Carson M.D. on 01/24/2018 at 19:15 Approved by: Juan Carson M.D. on 01/24/2018 at 19:16
[2018-01-24 18:38] LABS: Add Manual Diff / Slide Review NO; Basophils Percent Auto 0.5 % (0-2); Eosinophils Percent Auto 0.5 % (2-4); Hematocrit 31.8 % (36-46); Hemoglobin 10.3 g/dL (12.0-16.0); INR 1.2 (0.9-1.3); Lymphocytes Percent Auto 13.5 % (25-40); Mean Corpuscular HGB Conc 32.5 % (30-36); Mean Corpuscular Volume 83.3 fL (80-100); Monocytes Percent Auto 8.3 % (3-14); Neutrophils Absolute Auto 13200 /uL (3000-5900); Neutrophils Percent Auto 77.2 % (50-75); Platelet Count 427 X10^3/uL (150-400); Prothrombin Time 13.2 SECONDS (10.1-12.7); Red Blood Cell Count 3.82 X10^6/uL (4.0-5.2); Red Cell Distribution Width 15.2 % (11.6-14.8); White Blood Cell Count 17.1 X10^3/uL (4.5-11.0)
[2018-01-24 18:42] LABS: Alanine Aminotransferase 19 IU/L (9-52); Albumin 3.6 g/dL (3.5-5.0); Albumin Globulin Ratio 1.1 (1.0-2.8); Alkaline Phosphatase 74 U/L (38-126); Aspartate Aminotransferase 17 IU/L (14-36); BUN Creatinine Ratio 17.3 (6-22); Bilirubin Total 0.6 mg/dL (0.2-1.3); Blood Urea Nitrogen 19 mg/dL (7-17); Carbon Dioxide 26 mmol/L (22-32); Chloride 96 mmol/L (98-107); Estimated Glomerular Filt Rate 47.7 mL/min (>60); Globulin 3.2 g/dL (1.7-4.1); Glucose 169 mg/dL (80-110); HEMOLYSIS < 15 (0-50); Potassium 3.4 mmol/L (3.4-5.1); Sodium 135 mmol/L (137-145); Total Protein 6.8 g/dL (6.3-8.2)
[2018-01-24 18:54] LABS: Troponin I 0.077 ng/mL (0.01-0.034)
[2018-01-24] MEDS: SODIUM CHLORIDE 0.9% 1,000 ML 1000 ML IV ×2 (19:15→20:27)
[2018-01-24] MEDS: ASPIRIN 81 MG TAB 324 MG PO (20:26)
[2018-01-24 20:37] LABS: RBC Urine None Seen (0-5/HPF)
[2018-01-24 20:39] LABS: Bilirubin Urine UA NEGATIVE (NEGATIVE); Color Urine UA YELLOW; Glucose Urine UA NEGATIVE (Normal); Ketones Urine UA 1+ (NEGATIVE); Leukocyte Esterase Urine UA 1+ (NEGATIVE); Nitrite Urine UA POSITIVE (Negative); Occult Blood Urine UA TRACE-LYSED (Negative); Protein Urine UA 1+ (Negative); Specific Gravity Urine UA 1.025 (1.000-1.035); Urobilinogen Urine UA 0.2 E.U./dL (0.2)
[2018-01-24 20:44] LABS: Appearance Urine UA Slightly Cloudy
[2018-01-24 21:03] LABS: Bacteria Urine Many (>30); Culture Indicated Urine Specimen Cultured; Hyaline Casts Urine 1-5/LPF; Mucus Urine 1+ (Negative); Squamous Epithelial Cell Urine 0-1 /HPF; WBC Urine 10-30/HPF (0-5/HPF)
--- NOTE | 2018-01-24 21:09 | ED_ITS ---
HPI - Nausea/Vomiting/Diarrhea General Chief complaint: Nausea/Vomiting/Diarrhea Stated complaint: Diarrhea, recent C-Dif Time Seen by Provider: 01/24/18 17:57 History of Present Illness HPI Narrative: HPI 82-year-old obese female with history of GI bleed, DM, C. difficile, colon CA, and anxiety presents for evaluation of an episode of weakness/presyncope, patient was leaving the shower at home when she became weak and was unable to stand. Patient notes that she also had one episode of loose watery stools this afternoon is concerned that she may now have C. difficile. Patient denies recent antibiotics. * Denies chest pain, shortness of breath, double vision, neck pain, vertigo, headache, arm pain, arm paresthesias, arm numbness, or focal weakness or sensory at change now or the time of their event. * Denies a history of seizures. No incontinence today, denies post-syncope confusion. M/S/F/SocHx notable for: please see HPI; remainder reviewed with patient and in chart. ROS: Negative constitutional, eye, cardiovascular, pulmonary, GI, , MSK, skin , neurologic, psychiatric, endocrine unless noted in the HPI. Exam Gen: Pleasant, non-toxic appearing, resting comfortably. HEENT: NC, AT, PEERL, EOMI. Resp: Clear to auscultation bilaterally with a normal work of breathing and no accessory muscle usage. Card: Regular rate and rhythm with no murmurs rubs or gallops, extremities are warm and well perfused, no JVD. GI: Nontender to palpation throughout all quadrants, nondistended : Deferred MSK: No visible deformities, strength and tone WNL. Skin: mildly pale skin, otherwise normal color with no visible lesions. Neuro: Gen AO x 3, no facial asymmetry, no gaze preference, no slurring of speech. Pupils equal and reactive, EOMI, no facial asymmetry, no nystagmus, phonation intact, SCM 5/5 bilaterally. Cerebellar: bilateral upper extremities without dysmetria. Psych: Mood and affect appropriate. Labs / Imaging (pertinent): WBC 17.1, HB 10.3, PT/INR 1.2, Na 135, K 3.4, Cr 1.1 (baseline 0.50), troponin 0.077, lactic 2.0 UA - positive nitrate, 1+ leukocyte esterase. CXR: no acute cardiopulmonary disease process. EKG: SR with sinus arrhythmia and PACs with a ventricular rate at [address]-segment elevations or depressions, T-wave inversions or new LBBB. KS interval 176 msec, QTc 375 msec, no delta waves, epsilon waves, coved or saddle ST-segment changes in leads V1-3, preseptal or inferior lead Q-waves, biphasic P -waves, or T-wave inversions; no LVH. MDM Previous chart, nursing note, and vitals reviewed. A: 82-year-old obese female with history of GI bleed, DM, C. difficile, colon CA , and anxiety presents for evaluation of an episode of weakness/presyncope, patient was leaving the shower at home when she became weak and was unable to stand. DDx and evaluation: patient with weakness, JOAQUIN, and an inability to walk, given her marked leukocytosis and loose watery stools suspect suspect recurrent C. difficile with secondary dehydration leading to renal injury. Patient given 2 L normal saline, C. difficile studies ordered, and patient given p.o. vancomycin. Patient has a mild troponin elevation, no clear evidence of ischemia on ECG, tentatively suspect this is secondary to demand. Patient was given p.o. aspirin. Patient will require trending of troponins and further evaluation as appropriate. Patient is also noted to have UTI, however given the absence of dysuria or urinary frequency it is unclear if this is the cause of the patient weakness and leukocytosis. As or urinary tract infection may be causing her overall symptoms she was given ciprofloxacin. Patient admitted for further care. Impression: suspected C. difficile colitis, JOAQUIN, NSTEMI (type II suspected). (please reference below for remainder of encounter information) Critical Care Time Organ system(s): Cardiopulmonary, renal Intervention: Assessment of the patient, interpretation of studies, communication related to patient care. Time: 30 minutes were spent directly related to patient care exclusive of separately billed procedures. Related Data Home Medications Medication Instructions Recorded Confirmed glimepiride [Amaryl] 2 mg PO QDAY #0 09/29/12 01/20/18 oxybutynin chloride 5 mg PO BID #0 10/13/16 01/20/18 acetaminophen 650 mg PO Q6HP PRN #0 11/11/17 01/20/18 aspirin 81 mg PO QDAY #0 11/11/17 01/20/18 calcium carbonate-vitamin D3 1 tab PO BIDCC #0 11/11/17 01/20/18 [Oyster Shell Calcium-Vit D3] carvedilol [Coreg] 3.125 mg PO BIDCC #0 11/11/17 01/20/18 insulin glargine [Lantus Solostar 22 unit SQ QPM #0 11/11/17 01/20/18 U-100 Insulin] nitroglycerin [Nitrostat] 0.4 mg SUBLINGUAL PRN PRN #0 11/11/17 01/20/18 nystatin [Nystop] 100,000 unit TOPICAL QID #0 11/11/17 01/20/18 pantoprazole 40 mg PO BID #0 11/11/17 01/20/18 polyethylene glycol 3350 [Miralax] 17 gm PO QDAYP PRN #0 11/11/17 01/20/18 Acidophilus Probiotic Complex 1 tab PO DAILY 01/20/18 01/20/18 atorvastatin 40 mg PO DAILY 01/20/18 01/20/18 bisacodyl 10 mg KS DAILY 01/20/18 01/20/18 citalopram 10 mg PO DAILY 01/20/18 01/20/18 cranberry 500 mg PO DAILY 01/20/18 01/20/18 ibuprofen 200 mg PO DAILY 01/20/18 01/20/18 insulin lispro [Humalog KwikPen See Label Instructions .ROUTE 01/20/18 01/20/18 Insulin] .COMPLEX omega 3-ugf-uhg-fish oil [Fish Oil] 1,000 mg PO DAILY 01/20/18 01/20/18 promethazine 25 mg PO Q12H PRN 01/20/18 01/20/18 simvastatin 20 mg PO QPM 01/20/18 01/20/18 vancomycin 125 mg PO QID 01/20/18 01/20/18 vit A,C and K-nxepqp-vlyfdfmf 1 tab PO DAILY 01/20/18 01/20/18 [I-Mellisa] Previous Rx's Medication Instructions Recorded ondansetron [Zofran ODT] 4 mg PO Q6H PRN #10 tab 12/14/17 Allergies Allergy/AdvReac Type Severity Reaction Status Date / Time Sulfa (Sulfonamide Allergy Severe hives Verified 12/13/17 20:35 Antibiotics) [SULFA (SULFONAMIDE ANTIBIOTICS)] metformin Allergy Mild Diarrhea Verified 01/20/18 23:13 darifenacin [From Enablex] Allergy Unknown Verified 01/20/18 23:13 ketoconazole Allergy Unknown Verified 01/20/18 23:13 adhesive [ADHESIVE] AdvReac Severe tape Verified 12/13/17 20:35 causes blisters PFSH Social History household members: spouse and caregiver Smoking Status: Former smoker alcohol intake: never Exam Initial Vital Signs Initial Vital Signs: Vital Signs Pulse Rate 80 01/24/18 18:02 Respiratory Rate 22 01/24/18 18:02 Blood Pressure 92/34 L 01/24/18 18:02 Pulse Oximetry 96 01/24/18 18:02 Course Orders Ordered: ED Orders 01/24/18 18:05 Complete Blood Count AUTO DIFF Stat Comprehensive Metabolic Panel Stat Lactate (Lactic Acid) Stat Procalcitonin Stat Prothrombin Time INR Stat Troponin I Stat 01/24/18 18:29 XR chest 2V Stat Clostridium Difficile Tox PCR Stat EKG-12 Lead Stat 01/24/18 20:08 Urinalysis and Microscopic Stat Urine Culture Stat 01/24/18 20:45 Lactate (Lactic Acid) Stat Discontinued Medications Aspirin (Aspirin Chew) 324 mg PO NOW ONE Stop: 01/24/18 19:49 Last Admin: 01/24/18 20:26 Dose: 324 mg Ciprofloxacin (Cipro) 500 mg PO NOW ONE Stop: 01/24/18 20:55 Sodium Chloride (Normal Saline 0.9%) 1,000 mls @ 1,000 mls/hr IV BOLUS ONE Stop: 01/24/18 19:28 Last Infusion: 01/24/18 20:53 Dose: 0 mls/hr Admin: 01/24/18 19:15 Dose: 1,000 mls/hr Sodium Chloride (Normal Saline 0.9%) 1,000 mls @ 1,000 mls/hr IV BOLUS ONE Stop: 01/24/18 20:32 Last Admin: 01/24/18 20:27 Dose: 1,000 mls/hr Vancomycin HCl (Vancomycin) 125 mg PO NOW ONE Stop: 01/24/18 20:55 Vital Signs - 8 hr 01/24/18 18:02 01/24/18 18:20 01/24/18 19:11 Pulse Rate 80 81 78 Respiratory Rate 22 18 Blood Pressure 92/34 L Blood Pressure [Left Arm] 106/32 L 119/52 L Pulse Oximetry 96 98 98 01/24/18 20:18 Pulse Rate 78 Respiratory Rate 15 Blood Pressure Blood Pressure [Left Arm] 116/55 L Pulse Oximetry 98 MDM - Nausea/Vomiting/Diarrhea Lab Data Result diagrams: 01/24/18 18:05 01/24/18 18:05 Lab Results 01/24/18 01/24/18 01/24/18 Range/Units 18:05 18:05 18:05 WBC 17.1 H (4.5-11.0) X10^3/uL RBC 3.82 L (4.0-5.2) X10^6/uL Hgb 10.3 L (12.0-16.0) g/dL Hct 31.8 L (36-46) % MCV 83.3 (80-100) fL MCH 27.0 (26-34) PG MCHC 32.5 (30-36) % RDW 15.2 H (11.6-14.8) % Plt Count 427 H (150-400) X10^3/uL Neut % (Auto) 77.2 H (50-75) % Lymph % (Auto) 13.5 L (25-40) % [place] % (Auto) 8.3 (3-14) % Eos % (Auto) 0.5 L (2-4) % Baso % (Auto) 0.5 (0-2) % Neut # (Auto) 11067 H (8498-1246) /uL PT (10.1-12.7) SECONDS INR (0.9-1.3) Sodium 135 L (137-145) mmol/L Potassium 3.4 (3.4-5.1) mmol/L Chloride 96 L (98-107) mmol/L Carbon Dioxide 26 (22-32) mmol/L BUN 19 H (7-17) mg/dL Creatinine 1.10 H (0.52-1.04) mg/dL Estimated GFR 47.7 L (>60) mL/min BUN/Creatinine Ratio 17.3 (6-22) Glucose 169 H (80-110) mg/dL Lactate 2.0 (0.7-2.1) mmol/L Calcium 9.0 (8.4-10.2) mg/dL Total Bilirubin 0.6 (0.2-1.3) mg/dL AST 17 (14-36) IU/L ALT 19 (9-52) IU/L Alkaline Phosphatase 74 (38-126) U/L Troponin I 0.077 H (0.01-0.034) ng/mL Total Protein 6.8 (6.3-8.2) g/dL Albumin 3.6 (3.5-5.0) g/dL Globulin 3.2 (1.7-4.1) g/dL Albumin/Globulin Ratio 1.1 (1.0-2.8) Urine Color Urine Appearance Urine pH (4.5-8.0) Ur Specific [place] (1.000-1.035) Urine Protein (Negative) Urine Glucose (UA) (Normal) g/dL Urine Ketones (NEGATIVE) Urine Occult Blood (Negative) Urine Nitrate (Negative) Urine Bilirubin (NEGATIVE) Urine Urobilinogen (0.2) E.U./dL Ur Leukocyte Esterase (NEGATIVE) Urine RBC (0-5/HPF) Urine WBC (0-5/HPF) Ur Squamous Epith Cells Urine Bacteria (None) Hyaline Casts (None) Urine Mucus (Negative) Ur Culture Indicated? Micro UA Comment 01/24/18 01/24/18 Range/Units 18:05 20:08 WBC (4.5-11.0) X10^3/uL RBC (4.0-5.2) X10^6/uL Hgb (12.0-16.0) g/dL Hct (36-46) % MCV (80-100) fL MCH (26-34) PG MCHC (30-36) % RDW (11.6-14.8) % Plt Count (150-400) X10^3/uL Neut % (Auto) (50-75) % Lymph % (Auto) (25-40) % [place] % (Auto) (3-14) % Eos % (Auto) (2-4) % Baso % (Auto) (0-2) % Neut # (Auto) (4124-9455) /uL PT 13.2 H (10.1-12.7) SECONDS INR 1.2 (0.9-1.3) Sodium (137-145) mmol/L Potassium (3.4-5.1) mmol/L Chloride (98-107) mmol/L Carbon Dioxide (22-32) mmol/L BUN (7-17) mg/dL Creatinine (0.52-1.04) mg/dL Estimated GFR (>60) mL/min BUN/Creatinine Ratio (6-22) Glucose (80-110) mg/dL Lactate (0.7-2.1) mmol/L Calcium (8.4-10.2) mg/dL Total Bilirubin (0.2-1.3) mg/dL AST (14-36) IU/L ALT (9-52) IU/L Alkaline Phosphatase (38-126) U/L Troponin I (0.01-0.034) ng/mL Total Protein (6.3-8.2) g/dL Albumin (3.5-5.0) g/dL Globulin (1.7-4.1) g/dL Albumin/Globulin Ratio (1.0-2.8) Urine Color Yellow Urine Appearance Slightly cloudy Urine pH 5.0 (4.5-8.0) Ur Specific [place] 1.025 (1.000-1.035) Urine Protein 1+ H (Negative) Urine Glucose (UA) Negative (Normal) g/dL Urine Ketones 1+ H (NEGATIVE) Urine Occult Blood Trace-lysed (Negative) Urine Nitrate Positive H (Negative) Urine Bilirubin Negative (NEGATIVE) Urine Urobilinogen 0.2 (0.2) E.U./dL Ur Leukocyte Esterase 1+ H (NEGATIVE) Urine RBC None seen (0-5/HPF) Urine WBC 10-30/hpf H (0-5/HPF) Ur Squamous Epith Cells 0-1 /hpf Urine Bacteria Many (>30) H (None) Hyaline Casts 1-5/lpf (None) Urine Mucus 1+ H (Negative) Ur Culture Indicated? Specimen cultured Micro UA Comment Not Reportable Discharge Plan Departure Prescriptions: No Action glimepiride [Amaryl] 2 MG tablet 2 mg PO QDAY Qty: 0 RF: 0 oxybutynin chloride 5 MG tablet 5 mg PO BID Qty: 0 RF: 0 acetaminophen 325 MG tablet 650 mg PO Q6HP PRN (Reason: Pain (Scale Score 1-3)) Qty: 0 RF: 0 aspirin 81 MG tablet,delayed release (DR/EC) 81 mg PO QDAY Qty: 0 RF: 0 carvedilol [Coreg] 3.125 MG tablet 3.125 mg PO BIDCC Qty: 0 RF: 0 calcium carbonate-vitamin D3 [Oyster Shell Calcium-Vit D3] 500 mg(1,250mg) - 200 unit Tablet 1 tab PO BIDCC Qty: 0 RF: 0 insulin glargine [Lantus Solostar U-100 Insulin] 100 UNIT/1 ML insulin pen 22 unit SQ QPM Qty: 0 RF: 0 nitroglycerin [Nitrostat] 0.4 MG tablet, sublingual 0.4 mg Sublingual PRN PRN (Reason: Chest Pain) Qty: 0 RF: 0 nystatin [Nystop] 30 GM powder 100,000 unit Topical QID Qty: 0 RF: 0 polyethylene glycol 3350 [Miralax] 17 GM powder in packet 17 gm PO QDAYP PRN (Reason: Constipation) Qty: 0 RF: 0 pantoprazole 20 MG tablet,delayed release (DR/EC) 40 mg PO BID Qty: 0 RF: 0 ondansetron [Zofran ODT] 4 mg tablet,disintegrating 4 mg PO Q6H PRN (Reason: nausea and vomiting) Qty: 10 RF: 0 Acidophilus Probiotic Complex 1 tab PO DAILY RF: 0 atorvastatin 40 mg Tablet 40 mg PO DAILY RF: 0 citalopram 10 mg Tablet 10 mg PO DAILY RF: 0 bisacodyl 10 mg Suppository 10 mg KS DAILY RF: 0 simvastatin 20 mg Tablet 20 mg PO QPM RF: 0 cranberry 500 mg Capsule 500 mg PO DAILY RF: 0 vit A,C and P-ammozb-todnentj [I-Mellisa] 1,000 unit-200 mg-60 unit-2 mg Tablet 1 tab PO DAILY RF: 0 omega 7-lva-zfi-fish oil [Fish Oil] 1,000 mg (120 mg-180 mg) Capsule 1,000 mg PO DAILY RF: 0 vancomycin 125 mg Capsule 125 mg PO QID RF: 0 promethazine 25 mg Tablet 25 mg PO Q12H PRN (Reason: Nausea) RF: 0 ibuprofen 200 mg Tablet 200 mg PO DAILY RF: 0 insulin lispro [Humalog KwikPen Insulin] 100 unit/mL Insulin Pen See Label Instructions .ROUTE .COMPLEX RF: 0
[2018-01-24 21:11] LABS: Lactate (Lactic Acid) 0.8 mmol/L (0.7-2.1)
[2018-01-24 21:20] LABS: Procalcitonin 0.12 ng/mL (<0.5)
--- NOTE | 2018-01-24 22:04 | PC.NURSE ---
Nursing Coorinator notified for PO antibiotic meds from night pharmacy. She will pull and give to floor nurse to administer upstairs.
[2018-01-24] MEDS: VANCOMYCIN 125 MG CAPSULE PO (22:27)
[2018-01-24] MEDS: CIPROFLOXACIN 500 MG TABLET PO (22:27)
[2018-01-25 00:59] LABS: Clostridium Difficile Tox PCR Positive for C. diff
--- NOTE | 2018-01-25 01:00 | PC.NURSE ---
stool sample sent to lab aprx 0030, call rec'd at 0100 Gretchen in lab to report stool is positive for C-diff. pt has been on contact precautions since admitted to floor.
[2018-01-25 04:35] VITALS: BP 106/56; PULSE 63; RESP 16; TEMP 36.4; O2SAT 94
[2018-01-25 08:00] VITALS: BP 126/59; PULSE 71; RESP 16; TEMP 36.9; O2SAT 98
--- NOTE | 2018-01-25 08:53 | CM.DANOTE ---
DCP/Assessment: Reviewed chart. Patient is a 82yr old female admitted under OBS status with diarrhea/C-Dif. PCP is Dr. Dev Martinez. Primary payor is 1)[employer] 2)[facility]. Met with patient explained CM/SW role. Patient alert during visit, on the phone with her spouse upon POWER WHEELCHAIR MECHANIC arrival. Patient reports that she has not been the same since heart attack in July 2017. Patient resides with spouse in 1 level home in [place]. Patient uses both walker/wheelchair at baseline. Patient has ramp to enter residence. Patient and spouse currently receive meals on wheels daily. Patient reports that she is no longer able to prepare daily meals. Currently patient reports that she receives HH from [facility] for CHARGING OPERATOR. Patient unsure if she still has additional services such as PT/OT/RN. Patient believes that skilled services have been stopped? POWER WHEELCHAIR MECHANIC placed call to Sana ph# [phone] at [facility]. Sana reports that she will check with agency and patient's current services. POWER WHEELCHAIR MECHANIC requested that Sana let POWER WHEELCHAIR MECHANIC know if anything needed prior to discharge for PT/OT/RN/CHARGING OPERATOR/POWER WHEELCHAIR MECHANIC. At this time unclear if patient will remain OBS status or switch to inpatient. Patient would benefit from PT/OT evaluations during hospitalization for weakness and ADL training. P: Pending. CM team to follow closely for d/c planning needs. Anticipate that patient will return home with HH resumed through [facility]. CHARITY Knox
--- NOTE | 2018-01-25 08:59 | P.HP_ITS ---
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 She was in the shower in either slipped or fell her I had difficulty and unable to get back up however at baseline she does not get out of the wheelchair and walk so that is not too unusual for her although she does feeling weaker. She has had this ongoing complaint of abdominal discomfort and pain she has been in and out of the hospital with C diff over the past several months 2 previously documented episodes. She was seen in the emergency room earlier this month with some nausea vomiting and epigastric pain she had a guaiac-positive stool that time but hematocrit did not drop significantly with that she stop the aspirin and was sent home after overnight observation she was then seen by Dr. Martinez who is her new primary care provider after having transferred physicians again and at that time Dr. Martinez ordered an EGD and a CT scan to further evaluate her symptoms. CT scan was actually scheduled for today. She had completed the treatment for clostridia back in December and really has not had any symptoms of diarrhea since then until Thursday evening when she came into the hospital she denies any fevers. Patient History Medical History Diarrhea (Acute) Anxiety disorder (Chronic) C. difficile colitis (Chronic) Colon cancer (Chronic) Coronary artery disease (Chronic) Diabetes (Chronic) Hypercholesteremia (Chronic) Mild cognitive impairment, so stated (Chronic) Obesity (Chronic) Other sleep apnea (Chronic) Solitary pulmonary nodule (Chronic) Spinal stenosis of lumbar region (Chronic) Unspecified urinary incontinence (Chronic) Clostridium difficile colitis (Resolved) Postprocedural hypertension (Resolved) Syncope and collapse (Resolved) Surgical History H/O peritonsillar abscess drainage (Acute) History of partial colectomy (Acute) Hx of cataract surgery (Acute) H/O hemicolectomy (Chronic) Family & Social History Social History: household members spouse,caregiver Safety & Behavioral: Feels Safe in Current Yes Environment Been Physically Hurt or No Threatened By a Person Suicidal Ideation Description None Suicide Plan Description No Plan Tobacco & Substance use: Smoking Status Former smoker alcohol intake never alcohol intake frequency other Substance Use Type does not use Meds Home Medications Medication Instructions Recorded Confirmed Type glimepiride [Amaryl] 2 mg PO QDAY #0 09/29/12 01/20/18 History oxybutynin chloride 5 mg PO BID #0 10/13/16 01/20/18 History acetaminophen 650 mg PO Q6HP PRN #0 11/11/17 01/20/18 History aspirin 81 mg PO QDAY #0 11/11/17 01/20/18 History calcium carbonate-vitamin D3 1 tab PO BIDCC #0 11/11/17 01/20/18 History [Oyster Shell Calcium-Vit D3] carvedilol [Coreg] 3.125 mg PO BIDCC #0 11/11/17 01/20/18 History insulin glargine [Lantus Solostar 22 unit SQ QPM #0 11/11/17 01/20/18 History U-100 Insulin] nitroglycerin [Nitrostat] 0.4 mg SUBLINGUAL PRN PRN #0 11/11/17 01/20/18 History nystatin [Nystop] 100,000 unit TOPICAL QID #0 11/11/17 01/20/18 History pantoprazole 40 mg PO BID #0 11/11/17 01/20/18 History polyethylene glycol 3350 [Miralax] 17 gm PO QDAYP PRN #0 11/11/17 01/20/18 History ondansetron [Zofran ODT] 4 mg PO Q6H PRN #10 tab 12/14/17 01/20/18 Rx Acidophilus Probiotic Complex 1 tab PO DAILY 01/20/18 01/20/18 History atorvastatin 40 mg PO DAILY 01/20/18 01/20/18 History bisacodyl [address] DAILY 01/20/18 01/20/18 History citalopram 10 mg PO DAILY 01/20/18 01/20/18 History cranberry 500 mg PO DAILY 01/20/18 01/20/18 History ibuprofen 200 mg PO DAILY 01/20/18 01/20/18 History insulin lispro [Humalog KwikPen See Label Instructions .ROUTE 01/20/18 01/20/18 History Insulin] .COMPLEX omega 4-tjl-xsg-fish oil [Fish Oil] 1,000 mg PO DAILY 01/20/18 01/20/18 History promethazine 25 mg PO Q12H PRN 01/20/18 01/20/18 History simvastatin 20 mg PO QPM 01/20/18 01/20/18 History vancomycin 125 mg PO QID 01/20/18 01/20/18 History vit A,C and N-pqxcct-xuvzqnpn 1 tab PO DAILY 01/20/18 01/20/18 History [I-Mellisa] Allergies Allergy/AdvReac Type Severity Reaction Status Date / Time Sulfa (Sulfonamide Allergy Severe hives Verified 12/13/17 20:35 Antibiotics) [SULFA (SULFONAMIDE ANTIBIOTICS)] metformin Allergy Mild Diarrhea Verified 01/20/18 23:13 darifenacin [From Enablex] Allergy Unknown Verified 01/20/18 23:13 ketoconazole Allergy Unknown Verified 01/20/18 23:13 adhesive [ADHESIVE] AdvReac Severe tape Verified 12/13/17 20:35 causes blisters Review of Systems Review of Systems All systems reviewed & are unremarkable except as noted in HPI and below Exam Vital Signs (past 8 hours): Vital Signs - 8 hr 3 01/25/18 04:35 01/25/18 08:00 Temperature 97.6 F 98.4 F Pulse Rate 63 71 Respiratory Rate 16 16 Blood Pressure 106/56 L 126/59 H Pulse Oximetry 94 98 Pulse Oximetry 98 Oxygen Delivery Method Room Air Narrative Exam Narrative: Awake alert pleasant in no acute distress she readily recognizes me speech normal HEENT exam unremarkable oropharynx clear Neck is supple Lungs Clear to auscultation Heart regular rhythm Abdomen obese mild generalized tenderness bowel sounds present Lower extremities trace edema Skin warm and dry Neuro exam awake alert no focal deficits Objective Labs Result Diagrams: 01/24/18 18:05 01/24/18 18:05 Labs: Laboratory Results - last 24 hr 01/24/18 01/24/18 01/24/18 18:05 18:05 18:05 WBC 17.1 H RBC 3.82 L Hgb 10.3 L Hct 31.8 L MCV 83.3 MCH 27.0 MCHC 32.5 RDW 15.2 H Plt Count 427 H Neut % (Auto) 77.2 H Lymph % (Auto) 13.5 L [place] % (Auto) 8.3 Eos % (Auto) 0.5 L Baso % (Auto) 0.5 Neut # (Auto) 40633 H PT INR Sodium 135 L Potassium 3.4 Chloride 96 L Carbon Dioxide 26 BUN 19 H Creatinine 1.10 H Estimated GFR 47.7 L BUN/Creatinine Ratio 17.3 Glucose 169 H Lactate 2.0 Calcium 9.0 Total Bilirubin 0.6 AST 17 ALT 19 Alkaline Phosphatase 74 Troponin I 0.077 H Total Protein 6.8 Albumin 3.6 Globulin 3.2 Albumin/Globulin Ratio 1.1 Procalcitonin Urine Color Urine Appearance Urine pH Ur Specific [place] Urine Protein Urine Glucose (UA) Urine Ketones Urine Occult Blood Urine Nitrate Urine Bilirubin Urine Urobilinogen Ur Leukocyte Esterase Urine RBC Urine WBC Ur Squamous Epith Cells Urine Bacteria Hyaline Casts Urine Mucus Ur Culture Indicated? Micro UA Comment C. difficile Tox (PCR) 01/24/18 01/24/18 01/24/18 18:05 18:05 20:08 WBC RBC Hgb Hct MCV MCH MCHC RDW Plt Count Neut % (Auto) Lymph % (Auto) [place] % (Auto) Eos % (Auto) Baso % (Auto) Neut # (Auto) PT 13.2 H INR 1.2 Sodium Potassium Chloride Carbon Dioxide BUN Creatinine Estimated GFR BUN/Creatinine Ratio Glucose Lactate Calcium Total Bilirubin AST ALT Alkaline Phosphatase Troponin I Total Protein Albumin Globulin Albumin/Globulin Ratio Procalcitonin 0.12 Urine Color Yellow Urine Appearance Slightly cloudy Urine pH 5.0 Ur Specific [place] 1.025 Urine Protein 1+ H Urine Glucose (UA) Negative Urine Ketones 1+ H Urine Occult Blood Trace-lysed Urine Nitrate Positive H Urine Bilirubin Negative Urine Urobilinogen 0.2 Ur Leukocyte Esterase 1+ H Urine RBC None seen Urine WBC 10-30/hpf H Ur Squamous Epith Cells 0-1 /hpf Urine Bacteria Many (>30) H Hyaline Casts 1-5/lpf Urine Mucus 1+ H Ur Culture Indicated? Specimen cultured Micro UA Comment Not Reportable C. difficile Tox (PCR) 01/24/18 01/24/18 20:45 23:30 WBC RBC Hgb Hct MCV MCH MCHC RDW Plt Count Neut % (Auto) Lymph % (Auto) [place] % (Auto) Eos % (Auto) Baso % (Auto) Neut # (Auto) PT INR Sodium Potassium Chloride Carbon Dioxide BUN Creatinine Estimated GFR BUN/Creatinine Ratio Glucose Lactate 0.8 Calcium Total Bilirubin AST ALT Alkaline Phosphatase Troponin I Total Protein Albumin Globulin Albumin/Globulin Ratio Procalcitonin Urine Color Urine Appearance Urine pH Ur Specific [place] Urine Protein Urine Glucose (UA) Urine Ketones Urine Occult Blood Urine Nitrate Urine Bilirubin Urine Urobilinogen Ur Leukocyte Esterase Urine RBC Urine WBC Ur Squamous Epith Cells Urine Bacteria Hyaline Casts Urine Mucus Ur Culture Indicated? Micro UA Comment C. difficile Tox (PCR) Positive for c. diff H Assessment & Plan Plan: Assessment/Plan Narrative: One. Acute C difficile colitis with elevated white counts systemic symptoms weakness. This is her 3rd episode documented in the past several months. Patient we placed on IV fluids placed her on oral vancomycin she might need a tapered dose slowly with the vancomycin and since this is her 3rd episode consider a fecal stool transplant at some point. 2. Urinary tract infection she is growing out a gram-negative bacillus in her urine this will need to be treated will plan to place her on ceftriaxone initially. 3. Generalized weakness this is been ongoing for months 4. Anemia plan to check iron levels her hematocrit is stable from previous she had a endoscopy back in October that showed hiatal hernia otherwise no gastritis was seen. 5. Ongoing abdominal discomfort is again been going on for several months off and on a CT scan was scheduled for today we will hold on that get the clostridia treated and diarrhea controlled and then follow up with a CT scan at some point she does have a previous history of colon cancer. 6. Coronary artery disease with a non ST elevation [place] back in July 2017 plan to hold her aspirin for now due to the possible GI bleeding 7. Diabetes type 2 on insulin plan to continue I will hold the glimepiride for now. While she is NPO. Time Spent With Patient Time with patient: Greater than 35 minutes Quality VTE Deep Vein Thrombosis/Pulmonary Embolism Present on Admission: No
[2018-01-25] MEDS: CARVEDILOL 3.125 MG TABLET PO ×2 (09:29→21:23)
[2018-01-25] MEDS: SODIUM CHLORIDE 0.9% 1,000 ML 100 ML IV (09:30)
[2018-01-25] MEDS: CEFTRIAXONE 1 GM/50 ML FROZ.PIGGY IV (09:30)
[2018-01-25] MEDS: VANCOMYCIN 125 MG CAPSULE 250 MG PO ×4 (09:30→21:24)
[2018-01-25] MEDS: OXYBUTYNIN 5 MG TABLET PO ×2 (09:31→21:32)
[2018-01-25 09:50] LABS: Troponin I 0.094 ng/mL (0.01-0.034)
--- NOTE | 2018-01-25 10:40 | PC.NURSE ---
Addendum entered by Ani Victor R.N. 01/25/18 14:26: Patient has continued to have loose/diarrhea stools during shift (4-5). Family in room (educated on contact precautions). Original Note: Ceftriaxone started for UTI. Vanco, PO, started for c.dif. Patient denies pain/n/v and has had one bout of diarrhea thus far. Patient is poor historian and unable to assist with med rec; awaiting for pharmacy to assist with reconciliation.
--- NOTE | 2018-01-25 11:00 | CM.DPC ---
DCP/continued: Patient inpatient status from time of admit 01-24-18. [facility] confirmed with Dr. Wang and UR/RN Shanti. Dr. Wang anticipates that patient will return home when medically stable with HH resumed. P: CM team to follow closely. CHARITY Knox
[2018-01-25 11:27] VITALS: BMI 40.8
[2018-01-25 11:52] LABS: HEMOLYSIS 18 (0-50); Iron 24 ug/dL (37-170)
[2018-01-25 12:02] LABS: Percent Iron Saturation 6 % (15-50); Total Iron Binding Capacity 389 ug/dL (265-497); Transferrin 296 mg/dL (206-381)
[2018-01-25 12:12] VITALS: BP 113/57; PULSE 62; RESP 16; TEMP 36.7; O2SAT 95
[2018-01-25] MEDS: INSULIN ASPART 100 UNIT/ML INSULN PEN SUBCUT ×2 (12:52→16:59)
[2018-01-25 15:19] VITALS: BP 117/64; PULSE 61; RESP 20; TEMP 36.2; O2SAT 97
[2018-01-25 20:47] VITALS: BP 135/69; PULSE 57; RESP 20; TEMP 36.1; O2SAT 96
[2018-01-25] MEDS: ATORVASTATIN 20 MG TABLET 40 MG PO (21:23)
[2018-01-25] MEDS: INSULIN GLARGINE 100 UNIT/ML 3ML PEN 30 UNIT SUBCUT (21:23)
[2018-01-26] VITALS (8 sets, daily range): BP systolic 113–149; BP diastolic 46–70; PULSE 56–78; RESP 14–20; TEMP 36.1–36.8; O2SAT 92–99
[2018-01-26] MEDS: SODIUM CHLORIDE 0.9% 1,000 ML 100 ML IV (05:59)
[2018-01-26] MEDS: ONDANSETRON 4 MG/2 ML INJ IV (06:24)
[2018-01-26 06:54] LABS: Add Manual Diff / Slide Review NO; Basophils Percent Auto 0.6 % (0-2); Eosinophils Percent Auto 4.7 % (2-4); Hematocrit 27.5 % (36-46); Lymphocytes Percent Auto 19.8 % (25-40); Mean Corpuscular HGB Conc 32.9 % (30-36); Mean Corpuscular Hemoglobin 27.4 PG (26-34); Mean Corpuscular Volume 83.4 fL (80-100); Neutrophils Absolute Auto 7000 /uL (3000-5900); Neutrophils Percent Auto 65.9 % (50-75); Platelet Count 320 X10^3/uL (150-400); Red Blood Cell Count 3.29 X10^6/uL (4.0-5.2); Red Cell Distribution Width 15.5 % (11.6-14.8); White Blood Cell Count 10.7 X10^3/uL (4.5-11.0)
[2018-01-26 07:06] LABS: HEMOLYSIS < 15 (0-50)
[2018-01-26 07:07] LABS: Alanine Aminotransferase 16 IU/L (9-52); Albumin 2.9 g/dL (3.5-5.0); Alkaline Phosphatase 64 U/L (38-126); Aspartate Aminotransferase 12 IU/L (14-36); Bilirubin Total 0.3 mg/dL (0.2-1.3); Blood Urea Nitrogen 10 mg/dL (7-17); Calcium 8.2 mg/dL (8.4-10.2); Carbon Dioxide 26 mmol/L (22-32); Chloride 105 mmol/L (98-107); Estimated Glomerular Filt Rate > 60.0 mL/min (>60); Globulin 2.8 g/dL (1.7-4.1); Glucose 97 mg/dL (80-110); Potassium 2.8 mmol/L (3.4-5.1); Sodium 138 mmol/L (137-145); Total Protein 5.7 g/dL (6.3-8.2)
[2018-01-26] MEDS: OXYBUTYNIN 5 MG TABLET PO ×2 (08:21→19:24)
[2018-01-26] MEDS: VANCOMYCIN 125 MG CAPSULE 250 MG PO ×4 (08:21→22:11)
[2018-01-26] MEDS: CARVEDILOL 3.125 MG TABLET PO ×2 (08:21→19:24)
[2018-01-26] MEDS: CEFTRIAXONE 1 GM/50 ML FROZ.PIGGY IV (08:22)
--- NOTE | 2018-01-26 11:17 | P.PN_ITS ---
Subjective Date Patient Seen: 01/26/18 Time Patient Seen: 11:12 Interval history: Feeling better and diarrhea has improved already no abdominal pain heating better once more diet Exam Vital Signs (past 8 hours): Vital Signs - 8 hr 3 01/26/18 06:26 01/26/18 08:21 01/26/18 08:52 Temperature 97.7 F 97.0 F L Pulse Rate 60 78 Respiratory Rate 18 14 Blood Pressure 146/70 H 118/63 149/68 H Pulse Oximetry 97 92 Pulse Oximetry 92 Oxygen Delivery Method Room Air Oxygen Flow Rate 0 Narrative Exam Narrative: Resting comfortably HEENT exam unremarkable oropharynx clear mucous membranes moist Lungs are clear Heart regular rhythm Abdomen was soft nontender today to palpation bowel sounds are present no masses Lower extremities no edema Neuro exam awake alert no focal deficits Objective Labs Result Diagrams: 01/26/18 06:40 01/26/18 06:40 Labs: Laboratory Results - last 24 hr 01/24/18 01/25/18 01/26/18 18:05 09:15 06:40 WBC 10.7 RBC 3.29 L Hgb 9.0 L Hct 27.5 L MCV 83.4 MCH 27.4 MCHC 32.9 RDW 15.5 H Plt Count 320 Neut % (Auto) 65.9 Lymph % (Auto) 19.8 L [place] % (Auto) 9.0 Eos % (Auto) 4.7 H Baso % (Auto) 0.6 Neut # (Auto) 7000 H Sodium Potassium Chloride Carbon Dioxide BUN Creatinine Estimated GFR BUN/Creatinine Ratio Glucose Calcium Iron 24 L TIBC 389 % Saturation 6 L Transferrin 296 Ferritin 16.0 Total Bilirubin AST ALT Alkaline Phosphatase Total Protein Albumin Globulin Albumin/Globulin Ratio 01/26/18 06:40 WBC RBC Hgb Hct MCV MCH MCHC RDW Plt Count Neut % (Auto) Lymph % (Auto) [place] % (Auto) Eos % (Auto) Baso % (Auto) Neut # (Auto) Sodium 138 Potassium 2.8 L Chloride 105 Carbon Dioxide 26 BUN 10 Creatinine 0.50 L Estimated GFR > 60.0 BUN/Creatinine Ratio 20.0 Glucose 97 Calcium 8.2 L Iron TIBC % Saturation Transferrin Ferritin Total Bilirubin 0.3 AST 12 L ALT 16 Alkaline Phosphatase 64 Total Protein 5.7 L Albumin 2.9 L Globulin 2.8 Albumin/Globulin Ratio 1.0 Assessment & Plan Plan: Assessment/Plan Narrative: One. Acute C difficile colitis with elevated white counts systemic symptoms weakness. This is her 3rd episode documented in the past several months. Patient we placed on IV fluids placed her on oral vancomycin she might need a tapered dose slowly with the vancomycin and since this is her 3rd episode consider a fecal stool transplant at some point. She has improved and the diarrhea already isn't getting better. 2. Urinary tract infection she is growing out a gram-negative bacillus in her urine this will need to be treated will plan to place her on ceftriaxone initially. Klebsiella has grown out and is sensitive to ceftriaxone also sensitive to Keflex 3. Generalized weakness this is been ongoing for months 4. Anemia her hematocrit is stable from previous she had a endoscopy back in October that showed hiatal hernia otherwise no gastritis was seen. She does have low iron. Probably needs and a colonoscopy with a history of colon cancer although she has been very hesitant are resistant to do a colonoscopy because it is so uncomfortable for her the prep. She is no longer having any CT scan 5. Ongoing abdominal discomfort is again been going on for several months off and on a CT scan was scheduled for January 25 we will hold on that get the clostridia treated and diarrhea controlled and then follow up with a CT scan at some point she does have a previous history of colon cancer. 6. Coronary artery disease with a non ST elevation [place] back in July 2017 plan to hold her aspirin for now due to the possible GI bleeding 7. Diabetes type 2 on insulin plan to continue I will hold the glimepiride for now. Plan to advance her diet Quality VTE Deep Vein Thrombosis/Pulmonary Embolism Present on Admission: No
[2018-01-26] MEDS: INSULIN ASPART 100 UNIT/ML INSULN PEN SUBCUT (12:17)
--- NOTE | 2018-01-26 16:09 | PT.IPTN ---
Physical Therapy Treatment Note M3 PT-IP Subjective Start: 01/26/18 16:08 Freq: NEEDED Status: Active Protocol: Document 01/26/18 16:08 AB (Rec: 01/26/18 16:09 AB [id number]) Subjective Physical Therapy Visit Type Type Patient Refusal Notes checked on pt for PT eval but pt refused. pt educated on importance of PT but pt continues to refuse. PLOF and home set up obtained from pt.
[2018-01-26] MEDS: POTASSIUM CHLORIDE 20 MEQ TAB PO (19:21)
[2018-01-26] MEDS: ATORVASTATIN 20 MG TABLET 40 MG PO (19:24)
[2018-01-26] MEDS: INSULIN GLARGINE 100 UNIT/ML 3ML PEN 30 UNIT SUBCUT (21:24)
--- NOTE | 2018-01-26 21:56 | PC.NURSE ---
Pt had uneventful evening. Denies any discomfort. CBG = 179 & 198. One stool this evening. Taking full liqs w/o incidence. Call light w/in reach. Bed alarm on for pt safety. Continue w/plan of care.
[2018-01-27 03:36] VITALS: BP 120/54; PULSE 63; RESP 16; TEMP 36.7; O2SAT 97
[2018-01-27 05:55] LABS: Add Manual Diff / Slide Review NO; Basophils Percent Auto 0.6 % (0-2); Eosinophils Percent Auto 5.6 % (2-4); Hematocrit 26.5 % (36-46); Hemoglobin 8.7 g/dL (12.0-16.0); Lymphocytes Percent Auto 22.5 % (25-40); Mean Corpuscular HGB Conc 32.9 % (30-36); Mean Corpuscular Hemoglobin 27.4 PG (26-34); Mean Corpuscular Volume 83.4 fL (80-100); Monocytes Percent Auto 9.1 % (3-14); Neutrophils Absolute Auto 6100 /uL (3000-5900); Neutrophils Percent Auto 62.2 % (50-75); Platelet Count 311 X10^3/uL (150-400); Red Blood Cell Count 3.18 X10^6/uL (4.0-5.2); Red Cell Distribution Width 14.8 % (11.6-14.8); White Blood Cell Count 9.9 X10^3/uL (4.5-11.0)
[2018-01-27 06:08] LABS: Alanine Aminotransferase 23 IU/L (9-52); Albumin 2.5 g/dL (3.5-5.0); Albumin Globulin Ratio 0.9 (1.0-2.8); Alkaline Phosphatase 60 U/L (38-126); Aspartate Aminotransferase 12 IU/L (14-36); Bilirubin Total 0.2 mg/dL (0.2-1.3); Blood Urea Nitrogen 6 mg/dL (7-17); Calcium 8.2 mg/dL (8.4-10.2); Carbon Dioxide 28 mmol/L (22-32); Chloride 105 mmol/L (98-107); Estimated Glomerular Filt Rate > 60.0 mL/min (>60); Globulin 2.8 g/dL (1.7-4.1); Glucose 103 mg/dL (80-110); HEMOLYSIS < 15 (0-50); Potassium 3.1 mmol/L (3.4-5.1); Sodium 138 mmol/L (137-145); Total Protein 5.3 g/dL (6.3-8.2)
[2018-01-27 08:00] VITALS: BP 137/63; PULSE 62; RESP 14; TEMP 36.7; O2SAT 97
[2018-01-27] MEDS: POTASSIUM CHLORIDE 20 MEQ TAB PO ×2 (08:17→17:04)
[2018-01-27] MEDS: CARVEDILOL 3.125 MG TABLET PO ×2 (08:17→21:16)
[2018-01-27] MEDS: CEFTRIAXONE 1 GM/50 ML FROZ.PIGGY IV (08:17)
[2018-01-27] MEDS: ACIDOPHILUS/L.BULG/BIF.B/S.THERMOP TABLET 1 EACH PO (08:17)
[2018-01-27] MEDS: VANCOMYCIN 125 MG CAPSULE 250 MG PO ×4 (08:17→21:12)
[2018-01-27] MEDS: OXYBUTYNIN 5 MG TABLET PO ×2 (08:17→21:13)
[2018-01-27] MEDS: ONDANSETRON 4 MG/2 ML INJ IV (09:00)
--- NOTE | 2018-01-27 12:07 | PT.IPTN ---
Current Diagnoses Weakness (01/24/18) Physical Therapy Treatment Note M3 PT-IP Subjective Start: 01/26/18 16:08 Freq: NEEDED Status: Active Protocol: Document 01/27/18 11:56 AB (Rec: 01/27/18 12:07 AB [id number]) Subjective Physical Therapy Visit Type Type Patient Refusal Notes checked on ~905 am and pt refused PT. stated that he is just getting comfortable and she does not want PT. checked on pt again ~ 1035 am and pt again refused PT stated that she is just getting settled. pt is getting agitated and refused PT. educated pt on importance of PT but continues to refuse. informed nurse regarding refusal and that PT will d/c PT order due to pt's refusals . nurse agreed.
[2018-01-27 12:15] VITALS: BP 118/48; PULSE 64; RESP 16; TEMP 36.7; O2SAT 95
[2018-01-27] MEDS: INSULIN ASPART 100 UNIT/ML INSULN PEN SUBCUT ×2 (13:12→17:03)
--- NOTE | 2018-01-27 13:20 | PM.PN.1 ---
Subjective Date Patient Seen: 01/27/18 Time Patient Seen: 13:20 Interval history: She denies any abdominal pain still has intermittent loose stool Exam Vital Signs (past 8 hours): Vital Signs - 8 hr 01/27/18 08:00 Temperature 98.1 F Pulse Rate 62 Respiratory Rate 14 Blood Pressure 137/63 H Pulse Oximetry 97 Pulse Oximetry 97 Oxygen Delivery Method Room Air Oxygen Flow Rate 0 Narrative Exam Narrative: Sitting up in a chair she is conversant HEENT exam unremarkable Lungs clear Heart regular rhythm Abdomen soft nontender bowel sounds present Lower extremities trace edema Neuro exam awake alert oriented x3 no focal deficits Skin warm and dry Objective Labs Result Diagrams: 01/27/18 05:31 01/27/18 05:31 Labs: Laboratory Results - last 24 hr 01/27/18 01/27/18 05:31 05:31 WBC 9.9 RBC 3.18 L Hgb 8.7 L Hct 26.5 L MCV 83.4 MCH 27.4 MCHC 32.9 RDW 14.8 Plt Count 311 Neut % (Auto) 62.2 Lymph % (Auto) 22.5 L [place] % (Auto) 9.1 Eos % (Auto) 5.6 H Baso % (Auto) 0.6 Neut # (Auto) 6100 H Sodium 138 Potassium 3.1 L Chloride 105 Carbon Dioxide 28 BUN 6 L Creatinine 0.50 L Estimated GFR > 60.0 BUN/Creatinine Ratio 12.0 Glucose 103 Calcium 8.2 L Total Bilirubin 0.2 AST 12 L ALT 23 Alkaline Phosphatase 60 Total Protein 5.3 L Albumin 2.5 L Globulin 2.8 Albumin/Globulin Ratio 0.9 L Assessment & Plan Plan: Assessment/Plan Narrative: One. Acute C difficile colitis with elevated white counts systemic symptoms weakness. This is her 3rd episode documented in the past several months. Patient we placed on IV fluids placed her on oral vancomycin she might need a tapered dose slowly with the vancomycin and since this is her 3rd episode consider a fecal stool transplant at some point. Diarrhea has improved. The plan would be for her to go home on a slow vancomycin taper which would be 125 vancomycin q.i.d. for 14 days then 125 twice a day for 7 days then 125 once a day for 7 days then 125 every 2 days for 2-4 weeks and then stop. If that does not work then a fecal transplant may be considered 2. Urinary tract infection she is growing out Klebsiella in her urine this will need to be treated will plan to place her on ceftriaxone initially. Klebsiella has grown out and is sensitive to ceftriaxone also sensitive to Keflex. At this point we will stop the IV ceftriaxone and switch her to Keflex for a total of 7 days treatment 3. Generalized weakness this is been ongoing for months 4. Anemia her hematocrit is stable from previous she had a endoscopy back in October that showed hiatal hernia otherwise no gastritis was seen. She does have low iron. Probably needs and a colonoscopy with a history of colon cancer although she has been very hesitant are resistant to do a colonoscopy because it is so uncomfortable for her the prep. 5. Ongoing abdominal discomfort is again been going on for several months off and on a CT scan was scheduled for January 25 this was not done because she was here in the hospital. Since being here this abdominal pain and discomfort has resolved so I will not pursue a CT scan at this point but this can be done again as an outpatient if needed 6. Coronary artery disease with a non ST elevation [place] back in July 2017 plan to hold her aspirin for now due to the possible GI bleeding 7. Diabetes type 2 on insulin plan to continue advance her diet and place her back on glimepiride 8. Disposition. Most likely being able to discharge home tomorrow. She has lots of help at home she is basically wheelchair bound at home so her level of functioning is about the same now. She should follow up with Dr. Martinez with whom she has recently established care in the next week or 2. Quality VTE Deep Vein Thrombosis/Pulmonary Embolism Present on Admission: No
--- NOTE | 2018-01-27 15:18 | PC.NURSE ---
dc worklist filled out in error (wrong patient).
--- NOTE | 2018-01-27 15:18 | PC.NURSE ---
Patient without complaint today, wants to be discharged soon. Refused P.T. up to chair and commode with [address], using barrier cream for moisture associated damage due to stool and urine incontinence. Assist with barbra care and brief changes. Guiac stool today negative. Tolerating full liquids, states she's hungry and wants more food. chair and bed alarm for safety. Call light within reach.
[2018-01-27 15:26] LABS: Magnesium 1.9 mg/dL (1.6-2.3)
[2018-01-27 15:45] VITALS: BP 119/55; PULSE 65; RESP 18; TEMP 36.6; O2SAT 97
[2018-01-27] MEDS: cephALEXin 250 MG CAPSULE PO ×2 (17:03→21:12)
[2018-01-27 20:30] VITALS: BP 142/60; PULSE 69; RESP 18; TEMP 37; O2SAT 97
[2018-01-27] MEDS: ATORVASTATIN 20 MG TABLET 40 MG PO (21:12)
[2018-01-27] MEDS: INSULIN GLARGINE 100 UNIT/ML 3ML PEN 30 UNIT SUBCUT (21:14)
[2018-01-27 21:16] VITALS: BP 142/60; PULSE 69
[2018-01-28] VITALS: BP 136/59; PULSE 66; RESP 18; TEMP 36.9; O2SAT 97
[2018-01-28 05:33] VITALS: BP 113/62; PULSE 64; RESP 20; TEMP 37; O2SAT 97
[2018-01-28 05:39] LABS: Add Manual Diff / Slide Review NO; Basophils Percent Auto 0.7 % (0-2); Eosinophils Percent Auto 5.5 % (2-4); Hematocrit 26.7 % (36-46); Hemoglobin 8.8 g/dL (12.0-16.0); Lymphocytes Percent Auto 23.1 % (25-40); Mean Corpuscular HGB Conc 32.9 % (30-36); Mean Corpuscular Hemoglobin 27.4 PG (26-34); Mean Corpuscular Volume 83.2 fL (80-100); Monocytes Percent Auto 11.1 % (3-14); Neutrophils Absolute Auto 6100 /uL (3000-5900); Neutrophils Percent Auto 59.6 % (50-75); Platelet Count 303 X10^3/uL (150-400); Red Blood Cell Count 3.21 X10^6/uL (4.0-5.2); Red Cell Distribution Width 15.1 % (11.6-14.8); White Blood Cell Count 10.3 X10^3/uL (4.5-11.0)
[2018-01-28 05:50] LABS: Alanine Aminotransferase 16 IU/L (9-52); Albumin 2.6 g/dL (3.5-5.0); Albumin Globulin Ratio 0.9 (1.0-2.8); Alkaline Phosphatase 56 U/L (38-126); Aspartate Aminotransferase 10 IU/L (14-36); Bilirubin Total 0.2 mg/dL (0.2-1.3); Blood Urea Nitrogen 7 mg/dL (7-17); Calcium 8.3 mg/dL (8.4-10.2); Carbon Dioxide 28 mmol/L (22-32); Chloride 101 mmol/L (98-107); Estimated Glomerular Filt Rate > 60.0 mL/min (>60); Globulin 2.9 g/dL (1.7-4.1); Glucose 129 mg/dL (80-110); HEMOLYSIS < 15 (0-50); Potassium 3.9 mmol/L (3.4-5.1); Sodium 138 mmol/L (137-145); Total Protein 5.5 g/dL (6.3-8.2)
[2018-01-28 08:24] VITALS: BP 117/57; PULSE 66; RESP 15; TEMP 36.7; O2SAT 100
[2018-01-28] MEDS: CARVEDILOL 3.125 MG TABLET PO (09:05)
[2018-01-28] MEDS: POTASSIUM CHLORIDE 20 MEQ TAB PO (09:05)
[2018-01-28] MEDS: OXYBUTYNIN 5 MG TABLET PO (09:05)
[2018-01-28] MEDS: VANCOMYCIN 125 MG CAPSULE 250 MG PO ×2 (09:05→12:23)
[2018-01-28] MEDS: ACIDOPHILUS/L.BULG/BIF.B/S.THERMOP TABLET 1 EACH PO (09:05)
[2018-01-28] MEDS: GLIMEPIRIDE 2 MG TABLET PO (09:06)
[2018-01-28] MEDS: cephALEXin 250 MG CAPSULE PO ×2 (09:06→12:23)
--- NOTE | 2018-01-28 11:41 | P.DS_ITS ---
History of Present Illness Date Patient Seen: 01/28/18 Time Patient Seen: 11:37 Chief complaint: Diarrhea, recent C-Dif Narrative: 82-year-old female whose had recurrent C difficile colitis presents with sudden onset of diarrhea and weakness. She was in the shower in either slipped or fell her I had difficulty and unable to get back up however at baseline she does not get out of the wheelchair and walk so that is not too unusual for her although she does feeling weaker. She has had this ongoing complaint of abdominal discomfort and pain she has been in and out of the hospital with C diff over the past several months 2 previously documented episodes. She was seen in the emergency room earlier this month with some nausea vomiting and epigastric pain she had a guaiac-positive stool that time but hematocrit did not drop significantly with that she stop the aspirin and was sent home after overnight observation she was then seen by Dr. Martinez who is her new primary care provider after having transferred physicians again and at that time Dr. Martinez ordered an EGD and a CT scan to further evaluate her symptoms. CT scan was actually scheduled for today. She had completed the treatment for clostridia back in December and really has not had any symptoms of diarrhea since then until Thursday evening when she came into the hospital she denies any fevers. Discharge Providers Date of admission: 01/24/18 21:45 Primary care physician: Raquel Martinez MD Consults: 01/24/18 21:10 Consult to Physician Routine Comment: Consulting Provider: Tyson Wang Reason for consultation: JOAQUIN, diarrhea, UTI, troponin elevation Has provider been notified: Yes 01/24/18 22:20 Consult to Dietitian, Adult Routine Comment: Reason For Exam: pt states she has not been able to eat 01/26/18 11:17 Consult to Physical Therapy Evaluate & Treat Comment: Physician Instructions: Evaluate and Treat Discharge provider: ESSENCE Zimmer Summary Discharge Diagnosis: 1. Acute C diff colitis 2. Urinary tract infection 3. Generalized weakness 4. Anemia (chronic) 5. Coronary artery disease (chronic) 6. Type 2 diabetes Hospital Course: This is a summary for 3 day hospitalization for this pleasant 82-year-old patient who came in initially with complaints of sudden onset diarrhea and weakness. Serology was positive for C diff. Urine cultures positive for Klebsiella pneumoniae sensitive to cephalosporins. She was placed on appropriate isolation precautions and started Rocephin which was changed to oral Keflex and oral vancomycin. Her appetite is improved, she is without nausea, abdominal discomfort resolved and her weakness has also resolved. She has been afebrile since admission and denies any dysuria at this point in time. She has refused to work with physical therapy over the past several days but ambulates with a walker to the bathroom without difficulty. Her stools have become less frequent and less in volume over the last 24 hr. In light of her recurrent episodes of C diff her family is considering a fecal transplant and will follow up with primary care provider to see if this is a possibility. Regarding her anemia, she has had no active bleeding in the hospital but her hematocrit is stable from previous. She had an endoscopy back in October that showed a hiatal hernia with no gastritis. She does have a low iron content and needs a colonoscopy since there is a history of colon cancer in the family. Advise holding aspirin and ibuprofen which places her at risk for bleeding. She will continue to be treated on her outpatient medications for coronary artery disease and her type 2 diabetes. New discharge medications include vancomycin at a tapering scale for her C diff. In addition she is being discharged on Keflex and management of the UTI. Exam Vital Signs (past 8 hours): Vital Signs - 8 hr 3 01/28/18 05:33 01/28/18 08:24 Temperature 98.6 F 98.0 F Pulse Rate 64 66 Respiratory Rate 20 15 Blood Pressure 113/62 117/57 L Pulse Oximetry 97 100 Pulse Oximetry 100 Oxygen Delivery Method Room Air Oxygen Flow Rate 0 Const General: cooperative and comfortable Nutritional Appearance: obese Orientation: alert, awake and oriented x3 [facility] Head: normal to inspection, normocephalic and atraumatic Eyes General: appearance normal, both eyes and all related structures Pupils: PERRL Neck Neck: normal visual inspection and supple Other: No neck vein distention or lymphadenopathy. Chest Chest: normal inspection of the chest Resp Effort & Inspection: normal respiratory effort and able to speak in complete sentences Auscultation: clear to auscultation bilaterally Cardio Rate: regular rate Heart Sounds: S1 normal and S2 normal GI Inspection: obesity Palpation: soft Auscultation: normal bowel sounds Other: Nontender to palpation Other: No dysuria Skin General: no rashes or lesions noted Neuro General: alert, awake and oriented x3 Cognition: normal cognition Speech: speech normal Gait: gait assisted Method: walker Motor: muscle tone normal throughout Sensory Exam: no sensory deficits noted Extrem General: normal to inspection and no pedal edema Psych Appearance: grossly normal Mental Status: mental status grossly normal Mood: congruent mood Affect: normal affect Attitude: cooperative Thought Process: normal Thought Content: normal Judgment: judgment good Objective Labs Result Diagrams: 01/28/18 05:20 01/28/18 05:20 Labs: Laboratory Results - last 24 hr 01/27/18 01/28/18 01/28/18 14:40 05:20 05:20 WBC 10.3 RBC 3.21 L Hgb 8.8 L Hct 26.7 L MCV 83.2 MCH 27.4 MCHC 32.9 RDW 15.1 H Plt Count 303 Neut % (Auto) 59.6 Lymph % (Auto) 23.1 L [place] % (Auto) 11.1 Eos % (Auto) 5.5 H Baso % (Auto) 0.7 Neut # (Auto) 6100 H Sodium 138 Potassium 3.9 Chloride 101 Carbon Dioxide 28 BUN 7 Creatinine 0.50 L Estimated GFR > 60.0 BUN/Creatinine Ratio 14.0 Glucose 129 H Calcium 8.3 L Magnesium 1.9 Total Bilirubin 0.2 AST 10 L ALT 16 Alkaline Phosphatase 56 Total Protein 5.5 L Albumin 2.6 L Globulin 2.9 Albumin/Globulin Ratio 0.9 L Discharge Plan Discharge Plan Patient Disposition: Home, Self-Care Provider Discharge Instructions Diet: Carb-consistent/Diabetic Activity: As tolerated with walker Oxygen: Room air Discharge Data Primary Care Provider: Raquel Martinez Attending Provider: Tyson Wang Admit Date/Time: 01/24/18 21:45 Quality VTE Deep Vein Thrombosis/Pulmonary Embolism Present on Admission: No
[2018-01-28] MEDS: INSULIN ASPART 100 UNIT/ML INSULN PEN SUBCUT (12:23)
--- NOTE | 2018-01-28 13:44 | CM.DPNOTE ---
DC Note: DC order for home completed. Spoke w/pt, her family is on the way this afternoon to p/u and take her home. Pt eager to leave hospital and remains agreeable to [facility] . No PT assessment while pt admitted, pt refused. TC placed to [facility], spoke w/Maylin. 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 Faxed order and DC summary to [facility] at F [phone]. Updated pt. MEHREEN
--- NOTE | 2018-01-28 14:51 | PC.NURSE ---
patient discharged to home with and daughter. discharge instructions and home care handouts reviewed with patient and daughter, they state understanding and have no further questions or concerns. iv dc'd intact. patient assisted to wheelchair and escorted out via sheet metal lay out worker to be discharged to home. Patient instructed to follow up with Dr Martinez in one week.
== END 2018-01-28 14:54 | disposition home or self-care (01) | DRG 372 ==
LOC: ED 21:42 → AC 21:45
PROVIDERS: Admitting Provider Internal Medicine; Emergency Provider Emergency Medicine; Family Provider Internal Medicine; PCP Internal Medicine; Visit Provider Internal Medicine
DX: A04.71 Enterocolitis due to Clostridium difficile, recurrent (principal); N39.0 Urinary tract infection, site not specified; Z68.41 Body mass index [BMI] 40.0-44.9, adult; B96.1 Klebsiella pneumoniae [K. pneumoniae] as the cause of diseases classified elsewhere; E66.9 Obesity, unspecified; R53.1 Weakness; D50.9 Iron deficiency anemia, unspecified; I25.10 Atherosclerotic heart disease of native coronary artery without angina pectoris; E11.9 Type 2 diabetes mellitus without complications; Z79.4 Long term (current) use of insulin
CPT/HCPCS: 36415; 36591; 71046; 80048; 80053; 81001; 82728; 82962; 83540; 83550; 83605; 83735; 83880; 84145; 84484; 85025; 85610; 87077; 87086; 87186; 87493; 93005; 96360; 96361; 99283; 99284; 99285; G0378; C9113; J0780; J2405

== ENCOUNTER → 2018-03-12 12:11 | Outpatient (CLI) | payer MEDICARE, OTHER, SELFPAY ==
[2018-01-24 22:03] VITALS: BMI 40.8
--- NOTE | 2018-03-12 | DI.CT.S_ITS ---
PROCEDURE: CT CHEST ABDOMEN PELVIS W CON INDICATIONS: COLON MASS. TECHNIQUE: After the administration of oral and intravenous contrast, 5 mm thick sections acquired from the thoracic inlet to the pubic symphysis. 5 mm thick coronal and sagittal reformats were performed. For radiation dose reduction, the following was used: automated exposure control, adjustment of mA and/or kV according to patient size. COMPARISON: [facility], CT, CT ABDOMEN PELVIS W CON, 12/14/2017, 1:28. FINDINGS: Image quality: Excellent. Thoracic inlet: Subcentimeter hypoattenuating oval thyroid nodules noted anteriorly. No subclavicular lymphadenopathy. Mediastinum: No pericardial effusion. Mild coronary artery calcifications noted. There is mild calcification of the aortic arch and branch vessels. No mediastinal lymphadenopathy. No cardiac chamber enlargement. Lungs and pleura: Multiple bilateral lower lobe and right middle lobe pulmonary nodules, measuring up to 6 mm in greatest diameter. No pleural effusion or pneumothorax. Mild bilateral posterior dependent atelectasis. Solid organs: 4 mm hypoattenuating focus in hepatic segment 4A is too small to characterize on this exam but is unchanged from prior exam, and likely represents a hepatic cyst or hemangioma. Cholelithiasis again demonstrated. No intrahepatic or extrahepatic biliary ductal dilatation. Pancreas is unremarkable. There is a small anteroinferior splenule. The adrenal glands are unremarkable. 9.8 cm simple renal cyst arising from the mid-left kidney, not significantly changed from prior exam. 1.8 cm oval hypoattenuating cystic focus demonstrates attenuation characteristics of 30 Hounsefield units, arises from the anterior right kidney, and is unchanged from prior exam; this may represent a hemorrhagic or proteinaceous cyst. Peritoneum and bowel: There is redemonstration of a wide-mouth midline ventral abdominal hernia containing a herniated loop of transverse colon. A short segment of the partially herniated transverse colon on the right of the hernia measuring approximately 6.3 cm in length demonstrates increased circumferential wall thickening and pericolonic fat stranding consistent with edema. There is no evidence of bowel disruption. Anastomotic suture is noted along the colon and the left lower quadrant of the abdomen. Nodes and vessels: No retroperitoneal or mesenteric adenopathy. Aorta and inferior vena cava are normal in caliber. There is mild calcification of the abdominal aorta and branch vessels. Miscellaneous: There is a small fat-containing ventral abdominal hernia just superior to the bowel-containing ventral abdominal hernia described above. Genitourinary: Bladder is decompressed, precluding full evaluation of the bladder wall. Bones: There are moderate multilevel degenerative changes of the spine with resultant 0.9 cm of anterolisthesis of L4 on L5 and narrowing of the spinal canal at this level. There are mild degenerative changes of the bilateral glenohumeral joints. IMPRESSION: #1. Findings concerning for short segment colitis of the right transverse colon versus a circumferential colonic mass with surrounding mesenteric edema. #2. Multiple bilateral pulmonary nodules measuring up to 6 mm in greatest diameter. Followup CT of the chest recommended in 6-12 months. #3. Multilevel degenerative changes of the spine with resultant 0.9 cm of anterolisthesis of L4 on L5 resulting in moderate spinal canal stenosis at that level. Dictated by: Reed Harrison M.D. on 03/12/2018 at 13:29 Approved by: Reed Harrison M.D. on 03/12/2018 at 14:13
--- NOTE | 2018-04-15 11:06 | ONC.NAV ---
Description: Home Health Referral Activity: Compiled pt's ONC records, completed the referral form and faxed to [facility].
== END ==
PROVIDERS: Family Provider Internal Medicine; PCP Internal Medicine; Visit Provider Internal Medicine Gastroenterology
DX: K63.89 Other specified diseases of intestine (principal); R91.8 Other nonspecific abnormal finding of lung field; M48.061 Spinal stenosis, lumbar region without neurogenic claudication
CPT/HCPCS: 71260; 74177; Q9967

== ENCOUNTER → 2018-03-23 17:01 | Outpatient (CLI) | payer MEDICARE, OTHER, SELFPAY ==
[2018-03-17 11:38] VITALS: BMI 40.8
[2018-03-23 20:02] LABS: Add Manual Diff / Slide Review NO; Basophils Percent Auto 0.9 % (0-2); Eosinophils Percent Auto 4.7 % (2-4); Hematocrit 23.3 % (36-46); Hemoglobin 7.4 g/dL (12.0-16.0); Lymphocytes Percent Auto 31.5 % (25-40); Mean Corpuscular HGB Conc 31.8 % (30-36); Mean Corpuscular Hemoglobin 23.1 PG (26-34); Mean Corpuscular Volume 72.8 fL (80-100); Monocytes Percent Auto 8.8 % (3-14); Neutrophils Absolute Auto 4400 /uL (3000-5900); Neutrophils Percent Auto 54.1 % (50-75); Platelet Count 395 X10^3/uL (150-400); Red Cell Distribution Width 16.8 % (11.6-14.8); White Blood Cell Count 8.1 X10^3/uL (4.5-11.0)
[2018-03-23 20:36] LABS: HEMOLYSIS < 15 (0-50); Iron 11 ug/dL (37-170)
[2018-03-23 20:38] LABS: Alanine Aminotransferase 17 IU/L (9-52); Albumin 3.2 g/dL (3.5-5.0); Albumin Globulin Ratio 1.1 (1.0-2.8); Alkaline Phosphatase 70 U/L (38-126); Aspartate Aminotransferase 14 IU/L (14-36); Bilirubin Total 0.2 mg/dL (0.2-1.3); Blood Urea Nitrogen 15 mg/dL (7-17); Carbon Dioxide 29 mmol/L (22-32); Chloride 102 mmol/L (98-107); Estimated Glomerular Filt Rate > 60.0 mL/min (>60); Globulin 2.8 g/dL (1.7-4.1); Glucose 109 mg/dL (80-110); HEMOLYSIS < 15 (0-50); Potassium 4.6 mmol/L (3.4-5.1); Sodium 141 mmol/L (137-145)
[2018-03-23 20:47] LABS: Percent Iron Saturation 3 % (15-50); Total Iron Binding Capacity 374 ug/dL (265-497); Transferrin 321 mg/dL (206-381)
[2018-03-23 21:14] LABS: Ferritin 6.8 ng/mL (11.1-264)
--- NOTE | 2018-06-29 10:18 | ONC.NAV ---
Description: Transportation Activity: Pt called to request assistance with obtaining transportation to her appointment on Thursday, 07/05 at 4:00pm. DIRECTOR OF PRODUCT MARKETING called the [employer], provided pt's info and requested the ride. They will f/u with her by tomorrow to make arrangements.
== END ==
PROVIDERS: Family Provider Internal Medicine; PCP Internal Medicine; Visit Provider Internal Medicine Hematology & Oncology
DX: I10 Essential (primary) hypertension (principal)
CPT/HCPCS: 36415; 80053; 82728; 83540; 83550; 85025

== ENCOUNTER → 2018-04-05 09:29 | Outpatient (CLI) | payer MEDICARE, OTHER, SELFPAY ==
[2018-03-17 11:38] VITALS: BMI 40.8
--- NOTE | 2018-04-05 09:36 | DI.RAD.S_ITS ---
PROCEDURE: XR CHEST 2V INDICATIONS: Multiple pulmonary nodules. TECHNIQUE: 2 views of the chest were acquired. COMPARISON: [facility], CT, CT CHEST ABD PEL W CON, 03/12/2018, 13:01. [facility], CR, XR CHEST 2V, 01/24/2018, 18:17. [facility], CR, XR CHEST 2V, 01/20/2018, 18:36. [facility], CR, CHEST 1 VIEW, 11/11/2017, 8:35. [facility], CR, CHEST 2 VIEW, 12/15/2007, 11:33. FINDINGS: Surgical changes and devices: None. Lungs and pleura: No pleural effusions or pneumothorax. There is prominence of the bilateral pulmonary vasculature. Minimal left basilar atelectasis noted. Pulmonary nodules seen on comparison CT of the chest of 03/12/18 are not radiographically apparent on this exam. Mediastinum: Mediastinal contours are normal. Heart size is normal. Bones and chest wall: No suspicious bony abnormalities. Soft tissues appear unremarkable. There are multilevel degenerative changes of the spine. IMPRESSION: #1. Minimal left basilar atelectasis. #2. Pulmonary nodules apparent on comparison CT of the chest of 03/12/18 are not radiographically apparent on this exam. Recommend followup CT of the chest in 6-12 months. Dictated by: Reed Harrison M.D. on 04/05/2018 at 10:59 Approved by: Reed Harrison M.D. on 04/05/2018 at 11:15
== END ==
PROVIDERS: Family Provider Internal Medicine; PCP Internal Medicine; Visit Provider Internal Medicine Hematology & Oncology
DX: R91.8 Other nonspecific abnormal finding of lung field (principal); C18.9 Malignant neoplasm of colon, unspecified; Z53.8 Procedure and treatment not carried out for other reasons
CPT/HCPCS: 71046

== ENCOUNTER → 2018-06-04 12:15 | Outpatient (CLI) | payer MEDICARE, OTHER, SELFPAY ==
[2018-04-05 11:56] VITALS: BMI 40.8
--- NOTE | 2018-06-04 12:19 | DI.CT.S_ITS ---
PROCEDURE: CT CHEST ABD PEL W CON INDICATIONS: Colon cancer surveillance TECHNIQUE: After the administration of oral and intravenous contrast, 5 mm thick sections acquired from the lung apices to the symphysis. 5 mm coronal and sagittal reformats were performed, with additional 7 mm coronal MIP reformats through the lungs. For radiation dose reduction, the following was used: automated exposure control, adjustment of mA and/or kV according to patient size. COMPARISON: [facility], CT, CT ABDOMEN PELVIS W CON, 12/14/2017, 1:28. [facility], CT, CT CHEST ABD PEL W CON, 03/12/2018, 13:01. FINDINGS: Image quality: Excellent. CHEST: Lungs and pleura: No acute consolidation. There is scattered scarring/atelectasis. 4 mm subpleural left lower lobe pulmonary nodule image 40 series 3 spheres slightly increased in size previously 3 mm. Additional subpleural right pulmonary nodule measuring 4 mm also appears slightly more conspicuous previously 3 mm. However at this size, slice registration artifact is a consideration. 3 mm up subpleural right upper lobe pulmonary nodule grossly unchanged. No pleural effusions or pneumothorax. Central and peripheral airways appear patent and normal in caliber. Mediastinum: Heart size is enlarged. No pericardial effusion. Coronary artery calcifications are present. No mediastinal or hilar adenopathy by size criteria. Thoracic aorta and central pulmonary arteries are normal in size. Esophagus is normal in caliber. No hiatal hernia. Chest wall: No axillary or supraclavicular adenopathy by size criteria. Thyroid gland negative. ABDOMEN: Solid organs: Nonspecific 3 mm hypodensity seen in the dome of the liver on image 42, too small to characterize although grossly stable. Gallbladder contains a 7 mm presumed non-radiopaque gallstone grossly unchanged. Biliary system is non dilated. Pancreas enhances normally. Spleen is normal in size and enhancement. No adrenal nodules. Kidneys demonstrate normal size and enhancement, without hydronephrosis. Large simple appearing left renal cyst measuring 9.9 cm in diameter. Simple appearing small right renal cyst is seen measuring 1.5 cm. Peritoneum and bowel: There is redemonstration of right colon segmental wall thickening, most of which appears to be located outside of the previously seen ventral hernia which may reflect slight repositioning of bowel since the prior study. Left abdominal surgical bowel anastomosis is again noted. No free fluid or air. Nodes and vessels: No retroperitoneal or mesenteric adenopathy by size criteria. Aorta and inferior vena cava are normal in size. Miscellaneous: Redemonstration of grossly unchanged midline ventral hernia containing loop of colon. No evidence of bowel obstruction currently. PELVIS: Genitourinary: Bladder is largely collapsed otherwise unremarkable. Miscellaneous: Small bilateral fat containing inguinal hernias. No pelvic adenopathy by size criteria. Bones: No suspicious bony lesions. No vertebral body compression fractures. IMPRESSION: Redemonstration of bilateral subcentimeter pulmonary nodules as detailed above, a few of which appear to be slightly increased in size although this is within the realm of slice registration artifact. Therefore recommend continued close observation on subsequent CT examinations. Segmental right colonic wall thickening, as before although surrounding inflammatory appearance is slightly less conspicuous. Differential again includes colitis versus neoplasm. Elsewhere, stable examination with chronic and incidental findings as above. Dictated by: Nash Byrnes M.D. on 06/04/2018 at 14:57 Approved by: Nash Byrnes M.D. on 06/04/2018 at 15:13
== END ==
PROVIDERS: PCP Internal Medicine; Visit Provider Nurse Practitioner Gerontology
DX: C18.9 Malignant neoplasm of colon, unspecified (principal); R91.8 Other nonspecific abnormal finding of lung field
CPT/HCPCS: 71260; 74177

== ENCOUNTER → 2018-06-09 13:53 | Outpatient (CLI) | payer MEDICARE, OTHER, SELFPAY ==
[2018-04-05 11:56] VITALS: BMI 40.8
--- NOTE | 2018-06-09 13:57 | DI.ECHO.S_ITS ---
[place] +---------+ [facility] +---------+ : : [address] : : : : [id number] : : : : Phone: [phone] Echocardiogram Report + + :Name: GAIL RAZA Study Date: 06/09/2018 Height: 62 in : :[facility] Exam Location: [facility] Weight: 218 lb : : Gender: Female BSA: 2.0 m2 : :: 1935 Age: 83 yrs BP: 112/58 mmHg: :Reason For Study: Pre-Operative : : Performed By: Whitney Dejesus : :Referring: TEDDY PAREDES : + + Interpretation Summary 1) Mild concentric left ventricular hypertrophy with normal size, wall motion, and systolic function (EF 65-70%). 2) Normal right ventricular size with low normal function. 3) No significant valvular abnormalities. 4) Compared to the Echo done 08/05/2017, no significant change. Procedure: A two-dimensional transthoracic echocardiogram with color flow and Doppler was performed. The study quality was technically adequate. Comparison is made with the echocardiogram of 08/05/2017. The patient was in normal sinus rhythm during the exam. Left Ventricle: The left ventricle is normal in size. There is mild concentric left ventricular hypertrophy. The ejection fraction is estimated to be 65-70%. Left ventricular systolic function is normal without focal wall motion abnormalities. Right Ventricle: The right ventricle is normal size. Right ventricular systolic function is at the lower limits of normal. Atria: The left atrium is mildly dilated. Right atrial size is normal. The interatrial septum is intact with no evidence for an atrial septal defect. Mitral Valve: The mitral valve is normal in structure and function. There is trace mitral regurgitation. Aortic Valve: The aortic valve is grossly normal. There is no aortic valve stenosis. No aortic regurgitation is present. Tricuspid Valve: The tricuspid valve is not well visualized, but is grossly normal. There is a trace or physiologic amount of tricuspid regurgitation. The right ventricular systolic pressure is estimated to be at least 21 mmHg based on an estimated right atrial pressure of 3 mm Hg. Pulmonic Valve: The pulmonic valve is not well visualized. Great Vessels: The ascending aorta is at the upper limits of normal in size. The IVC is of normal diameter and collapses greater than 50% with a sniff. This suggests a low right atrial pressure of 3 mm Hg. Pericardium/ Pleura There is no pericardial effusion. There is an anterior echo-free space consistent with a fat pad. There is no pleural effusion. MMode/2D Measurements & Calculations LVIDd: 4.0 cm LVOT diam: 2.4 cm LVIDs: 2.5 cm asc Aorta Diam: 4.0 cm FS: 37.1 % IVSd: 1.2 cm LVPWd: 1.1 cm LV park. diameter/BSA (cm/m^2): 2.0 LV sys. diameter/BSA (cm/m^2): 1.3 LA A2 area: 17.9 cm2 RA long axis: 3.8 cm LA A4 area: 26.5 cm2 RA area: 8.3 cm2 LA length (vol): 5.5 cm RA vol: 15.3 ml LA vol: 73.2 ml RA : 7.7 ml/m2 LA vol index: 36.9 ml/m2 TAPSE: 1.6 cm Doppler Measurements & Calculations Ao V2 max: 112.9 cm/sec LVOT Max Abraham: 94.7 cm/sec Ao V2 mean: 83.7 cm/sec LV V1 max P.6 mmHg Ao max P.1 mmHg LV V1 VTI: 22.2 cm Ao mean P.1 mmHg SYDNI(I,D): 4.0 cm2 Ao V2 VTI: 24.6 cm SYDNI(V,D): 3.7 cm2 sev ratio: 0.90 SYDNI indexed to BSA (cm^2/m^2): 2.0 MV E max abraham: 55.7 cm/sec TR max abraham: 210.1 cm/sec MV A max abraham: 71.7 cm/sec TR max P.7 mmHg MV E/A: 0.78 PA V2 max: 103.3 cm/sec MV dec time: 0.23 sec PA V2 mean: 60.5 cm/sec PA mean P.7 mmHg PA pr(Accel): 6.6 mmHg Reading Physician:06:21 PM
== END ==
PROVIDERS: PCP Internal Medicine; Visit Provider Internal Medicine Hematology & Oncology
DX: Z01.810 Encounter for preprocedural cardiovascular examination (principal); C18.9 Malignant neoplasm of colon, unspecified
CPT/HCPCS: 93306

== ENCOUNTER → 2018-09-16 11:57 | Outpatient (CLI) | payer MEDICARE, OTHER, SELFPAY ==
[2018-04-05 11:56] VITALS: BMI 40.8
--- NOTE | 2018-09-16 12:53 | DI.CT.S_ITS ---
PROCEDURE: CT CHEST ABD PEL W CON INDICATIONS: Colon cancer. surveillance TECHNIQUE: After the administration of oral and intravenous contrast, 5 mm thick sections acquired from the lung apices to the symphysis. 5 mm coronal and sagittal reformats were performed, with additional 7 mm coronal MIP reformats through the lungs. For radiation dose reduction, the following was used: automated exposure control, adjustment of mA and/or kV according to patient size. COMPARISON: [facility], CT, CT CHEST ABD PEL W CON, 06/04/2018, 13:19. FINDINGS: Image quality: Excellent. CHEST: Lungs and pleura: No acute airspace opacities. Scattered atelectasis/scarring are again seen. Previously described 4 mm subpleural nodule in left lower lobe is unchanged in size and appearance series 3 image 45. Previously noted 4 mm subpleural right middle lobe nodule is also unchanged series 3 image 43. Bibasilar scarring/atelectasis is seen. No new pulmonary nodular mass is noted. No pleural effusions or pneumothorax. Central and peripheral airways appear patent and normal in caliber. Mediastinum: Heart size is enlarged. No pericardial effusion. No mediastinal or hilar adenopathy by size criteria. Thoracic aorta and central pulmonary arteries are normal in size. Esophagus is normal in caliber. No hiatal hernia. Chest wall: Right chest wall Port-A-Cath tip is in SVC. No axillary or supraclavicular adenopathy by size criteria. Thyroid gland is within normal limits. ABDOMEN: Solid organs: Liver is normal in size. Nonspecific 3 mm hypodensity in left hepatic dome is again seen and unchanged. Gallbladder again show multiple calcified stones in its dependent portion. No gross gallbladder wall thickening or pericholecystic fluid.. Biliary system is non dilated. Pancreas enhances normally. Spleen is normal in size and enhancement. No adrenal nodules. Kidneys demonstrate normal size and enhancement, without hydronephrosis. Large left renal cyst is again seen and unchanged. Small right renal cyst is also unchanged. Peritoneum and bowel: Previously described segmental wall thickening involving right colonic wall is again seen outside of ventral herniation sac. No evidence of bowel obstruction. No area of abnormal bowel thickening. No free fluid or free air. Nodes and vessels: No retroperitoneal or mesenteric adenopathy by size criteria. Aorta and inferior vena cava are normal in size. Miscellaneous: Ventral hernia is again seen containing a segment of transverse colon. No evidence of incarceration. PELVIS: Genitourinary: Urinary bladder is partially distended. Mild diffuse bladder wall thickening is seen. No gross discrete bladder wall mass is noted. Miscellaneous: Small bilateral fat-containing inguinal hernias are again seen. No pelvic lymphadenopathy. Bones: No suspicious bony lesions. No vertebral body compression fractures. Degenerative disc disease throughout thoracic and lumbar spine is seen with grade 1 anterolisthesis of L4 on L5. IMPRESSION: 1. No significant changes from previous study. Stable subcentimeter bilateral pulmonary nodules unchanged from previous study. No new pulmonary nodule mass is seen. 2. Stable segmental right colonic wall thickening not significantly changed from prior study. This could represent posttreatment changes. Local recurrence cannot be entirely excluded. 3. Cholelithiasis, no CT evidence of acute cholecystitis. 4. Mild diffuse bladder wall thickening. Bilateral renal cysts. No hydronephrosis. Dictated by: Christos Luna M.D. on 09/16/2018 at 15:21 Approved by: Christos Luna M.D. on 09/16/2018 at 15:49
== END ==
PROVIDERS: Family Provider Internal Medicine; PCP Internal Medicine; Visit Provider Internal Medicine Hematology & Oncology
DX: C18.9 Malignant neoplasm of colon, unspecified (principal); R91.8 Other nonspecific abnormal finding of lung field; K80.80 Other cholelithiasis without obstruction; N28.1 Cyst of kidney, acquired; K40.20 Bilateral inguinal hernia, without obstruction or gangrene, not specified as recurrent
CPT/HCPCS: 71260; 74177; Q9967

== ENCOUNTER 2019-04-25 15:00 | Inpatient (IN) | payer MEDICARE, OTHER, SELFPAY ==
[2018-04-05 11:56] VITALS: BMI 40.8
[2019-04-25 15:01] VITALS: BP 146/69; PULSE 72; RESP 16; TEMP 37.1; O2SAT 96
--- NOTE | 2019-04-25 15:05 | DI.RAD.S_ITS ---
PROCEDURE: XR CHEST 1V INDICATIONS: CHEST PAIN TECHNIQUE: One view of the chest was acquired. COMPARISON: [facility], CR, XR CHEST 2V, 04/05/2018, 9:22. FINDINGS: Lung apices are partially obscured secondary to kyphotic position by the patient's chin. Surgical changes and devices: Right IJ Mediport. Lungs and pleura: Mild linear horizontal left lateral lung base scar. Mild chronic thickening of the interstitium, decreased compared to the prior study. Lungs are otherwise clear. No pleural effusions or pneumothorax. Mediastinum: Mediastinal contours appear normal. Heart size is normal. Bones and chest wall: No suspicious bony lesions. Overlying soft tissues appear unremarkable. IMPRESSION: 1. Interval placement of right IJ Mediport. 2. Given kyphotic position, the visible lung mccoy demonstrate chronic, slightly improved interstitial congestion and left lateral lower lung scarring. No acute process. Dictated by: Marilin Horvath M.D. on 04/25/2019 at 15:44 Approved by: Marilin Horvath M.D. on 04/25/2019 at 15:46
[2019-04-25 15:27] LABS: Add Manual Diff / Slide Review NO; Basophils Absolute Auto 100 /uL (0-100); Basophils Percent Auto 0.8 % (0-2); Eosinophils Absolute Auto 0 /uL (0-450); Eosinophils Percent Auto 0.2 % (2-4); Hematocrit 42.5 % (36-46); Hemoglobin 14.4 g/dL (12.0-16.0); Lymphocytes Absolute Auto 1100 /uL (1100-4500); Lymphocytes Percent Auto 8.8 % (25-40); Mean Corpuscular Volume 91.4 fL (80-100); Monocytes Absolute Auto 1000 /uL (0-900); Monocytes Percent Auto 7.5 % (3-14); Neutrophils Absolute Auto 10700 /uL (1500-7000); Neutrophils Percent Auto 82.7 % (50-75); Platelet Count 329 X10^3/uL (150-400); Red Blood Cell Count 4.65 X10^6/uL (4.0-5.2); Red Cell Distribution Width 13.1 % (11.6-14.8)
[2019-04-25 15:28] LABS: INR 1.1 (0.9-1.3); Prothrombin Time 12.4 SECONDS (10.1-12.7)
--- NOTE | 2019-04-25 15:30 | ED_ITS ---
HPI - Altered Mental Status General Chief Complaint: Altered Mental Status Stated Complaint: ams - UTI Time Seen by Provider: 04/25/19 15:13 Source: patient and EMS Limitations: no limitations History of Present Illness HPI narrative: Patient is an 84-year-old female with history of stage III colon cancer, diabetes and NE presents with increased confusion and urinary incontinence. Her in February she has had a hard time breathing according to the daughter. Last week she was able to walk to and from the car she seemed to be okay yesterday daughter noticed significant change in mental status and had significant urinary incontinence. She is shaking but is afebrile in the. She does seem mildly confused but able to follow commands she denies having any pain although daughter states she has had some right upper quadrant pain. MD complaint: confusion Related Data Home Medications Medication Instructions Recorded Confirmed oxybutynin chloride 10 mg PO BID #0 10/13/16 04/25/19 Lantus Solostar U-100 Insulin 15 unit SQ QPM #0 11/11/17 04/25/19 nitroglycerin [Nitrostat] 0.4 mg SUBLINGUAL PRN PRN #0 11/11/17 04/25/19 atorvastatin 10 mg PO DAILY 09/09/18 04/25/19 nystatin 1 applic TOPICAL BID 04/25/19 04/25/19 sertraline 100 mg PO DAILY 04/25/19 04/25/19 Previous Rx's Medication Instructions Recorded polyethylene glycol 3350 [Miralax] 17 g PO DAILY #30 ea 08/19/18 levothyroxine 50 mcg PO DAILY #60 tab 12/06/18 Allergies Allergy/AdvReac Type Severity Reaction Status Date / Time Sulfa (Sulfonamide Allergy Severe hives Verified 04/25/19 15:01 Antibiotics) [SULFA (SULFONAMIDE ANTIBIOTICS)] metformin Allergy Mild Diarrhea Verified 04/25/19 15:01 darifenacin [From Enablex] Allergy Unknown Verified 04/25/19 15:01 ketoconazole Allergy Unknown Verified 04/25/19 15:01 promethazine [From Phenergan] Allergy Verified 04/25/19 15:01 adhesive [ADHESIVE] AdvReac Severe tape Verified 04/25/19 15:01 causes blisters Review of Systems Constitutional Constitutional: Reports chills, Denies increased appetite, Reports poor appetite and Reports weakness Cardiovascular Cardiovascular: Denies chest pain, Denies dyspnea and Denies dyspnea on exertion Respiratory Respiratory: Denies cough, Denies dyspnea, Denies dyspnea on exertion and Denies wheezing Gastrointestinal Gastrointestinal: Reports abdominal pain (Right upper quadrant) Genitourinary Genitourinary: Reports as per HPI Musculoskeletal Musculoskeletal: Denies back pain, Denies muscle weakness, Denies numbness and Denies tingling Integumentary/Breasts Skin/Breast: Denies pruritus, Denies erythema, Denies rash and Denies wounds Neurologic Neurologic: Denies numbness, Denies tingling and Reports weakness Allergic/Immunologic Allergic/Immunologic: Denies wheezing Exam Initial Vital Signs Initial Vital Signs: Vital Signs Temperature 98.7 F 04/25/19 15:01 Pulse Rate 72 04/25/19 15:01 Respiratory Rate 16 04/25/19 15:01 Blood Pressure 146/69 H 04/25/19 15:01 Pulse Oximetry 96 04/25/19 15:01 GENERAL: Alert week elderly oriented to person only HEENT: Head atraumatic,EOMI, pupils reactive, face symmetric, no meningeal signs CARDIOVASCULAR: Regular rate and rhythm without murmurs, rubs or gallops. RESPIRATORY: Breath sounds equal bilaterally, no wheezes rales or rhonchi. ABDOMEN: Soft, minimal right upper quadrant pain no guarding no rebound EXTREMITIES: Normal range of motion, no clubbing or edema. Neurovascularly intact NEUROLOGICAL: Alert. Generalized weakness pulp grinder strength equal by laterally a little lift both legs up off the gurney SKIN: Warm, dry, no laceration, no petechiae, no rashes or lesions. Scores GCS [place] coma scale eye opening: Spontaneous [place] coma scale verbal response: Confused [place] coma scale motor response: Obey commands [place] coma scale total score: 14 Course Orders Ordered: ED Orders 04/25/19 13:05 Complete Blood Count AUTO DIFF Stat Comprehensive Metabolic Panel Stat Lactate (Lactic Acid) Stat Partial Thromboplastin Time Stat Procalcitonin Stat Prothrombin Time INR Stat 04/25/19 15:05 XR chest 1V Stat 04/25/19 15:13 Ictotest Urine Stat Urinalysis Sreen (Dip Only) Stat 04/25/19 15:36 Blood Culture Stat 04/25/19 15:52 CT abdomen pelvis w con Stat 04/25/19 17:56 CT head/brain wo con Stat 04/25/19 18:46 Urine Microscopic Stat Discontinued Medications Sodium Chloride (Normal Saline 0.9%) 1,000 mls @ 1,000 mls/hr IV BOLUS ONE Stop: 04/25/19 16:42 Last Infusion: 04/25/19 17:50 Dose: 0 mls/hr Documented by: Admin: 04/25/19 15:51 Dose: 1,000 mls/hr Documented by: [email or web address] Vital Signs Vital signs: Vital Signs - 8 hr 04/25/19 15:01 04/25/19 16:30 04/25/19 17:30 Temperature 98.7 F Pulse Rate 72 77 78 Respiratory Rate 16 Blood Pressure 146/69 H Blood Pressure [Right Arm] 169/105 H 154/110 H Pulse Oximetry 96 98 97 MDM - Altered Mental Status Lab Data Attestation: I reviewed the patient's lab results. Result diagrams: 04/25/19 13:05 04/25/19 13:05 Labs: Lab Results 04/25/19 04/25/19 04/25/19 Range/Units 13:05 13:05 13:05 WBC 13.0 H (4.5-11.0) X10^3/uL RBC 4.65 (4.0-5.2) X10^6/uL Hgb 14.4 (12.0-16.0) g/dL Hct 42.5 (36-46) % MCV 91.4 (80-100) fL MCH 31.0 (26-34) PG MCHC 34.0 (30-36) % RDW 13.1 (11.6-14.8) % Plt Count 329 (150-400) X10^3/uL Neut % (Auto) 82.7 H (50-75) % Lymph % (Auto) 8.8 L (25-40) % [place] % (Auto) 7.5 (3-14) % Eos % (Auto) 0.2 L (2-4) % Baso % (Auto) 0.8 (0-2) % Neut # (Auto) 51217 H (7248-4194) /uL Lymph # (Auto) 1100 (8057-2643) /uL [place] # (Auto) 1000 H (0-900) /uL Eos # (Auto) 0 (0-450) /uL Baso # (Auto) 100 (0-100) /uL PT 12.4 (10.1-12.7) SECONDS INR 1.1 (0.9-1.3) APTT 30 (26.4-36.2) SECONDS Sodium (137-145) mmol/L Potassium (3.4-5.1) mmol/L Chloride (98-107) mmol/L Carbon Dioxide (22-32) mmol/L BUN (7-17) mg/dL Creatinine (0.52-1.04) mg/dL Estimated GFR (>60) mL/min BUN/Creatinine Ratio (6-22) Glucose (80-110) mg/dL Lactate (0.7-2.1) mmol/L Calcium (8.4-10.2) mg/dL Total Bilirubin (0.2-1.3) mg/dL AST (14-36) IU/L ALT (9-52) IU/L Alkaline Phosphatase (38-126) U/L Total Protein (6.3-8.2) g/dL Albumin (3.5-5.0) g/dL Globulin (1.7-4.1) g/dL Albumin/Globulin Ratio (1.0-2.8) Procalcitonin < 0.05 (<0.5) ng/mL Urine Color Urine Appearance Urine pH (4.5-8.0) Ur Specific [place] (1.000-1.035) Urine Protein (Negative) Urine Glucose (UA) (Negative) g/dL Urine Ketones (NEGATIVE) Urine Occult Blood (Negative) Urine Nitrate (Negative) Urine Bilirubin (NEGATIVE) Urine Ictotest (Negative) Urine Urobilinogen (0.2) E.U./dL Ur Leukocyte Esterase (NEGATIVE) 04/25/19 04/25/19 04/25/19 Range/Units 13:05 13:05 15:13 WBC (4.5-11.0) X10^3/uL RBC (4.0-5.2) X10^6/uL Hgb (12.0-16.0) g/dL Hct (36-46) % MCV (80-100) fL MCH (26-34) PG MCHC (30-36) % RDW (11.6-14.8) % Plt Count (150-400) X10^3/uL Neut % (Auto) (50-75) % Lymph % (Auto) (25-40) % [place] % (Auto) (3-14) % Eos % (Auto) (2-4) % Baso % (Auto) (0-2) % Neut # (Auto) (7961-3196) /uL Lymph # (Auto) (9971-7879) /uL [place] # (Auto) (0-900) /uL Eos # (Auto) (0-450) /uL Baso # (Auto) (0-100) /uL PT (10.1-12.7) SECONDS INR (0.9-1.3) APTT (26.4-36.2) SECONDS Sodium 139 (137-145) mmol/L Potassium 4.4 (3.4-5.1) mmol/L Chloride 96 L (98-107) mmol/L Carbon Dioxide 27 (22-32) mmol/L BUN 24 H (7-17) mg/dL Creatinine 0.70 (0.52-1.04) mg/dL Estimated GFR > 60.0 (>60) mL/min BUN/Creatinine Ratio 34.3 H (6-22) Glucose 247 H (80-110) mg/dL Lactate 1.9 (0.7-2.1) mmol/L Calcium 10.0 (8.4-10.2) mg/dL Total Bilirubin 0.9 (0.2-1.3) mg/dL AST 51 H (14-36) IU/L ALT 18 (9-52) IU/L Alkaline Phosphatase 87 (38-126) U/L Total Protein 8.4 H (6.3-8.2) g/dL Albumin 4.4 (3.5-5.0) g/dL Globulin 4.0 (1.7-4.1) g/dL Albumin/Globulin Ratio 1.1 (1.0-2.8) Procalcitonin (<0.5) ng/mL Urine Color Yellow Urine Appearance Sl cloudy Urine pH 5.0 (4.5-8.0) Ur Specific [place] 1.025 (1.000-1.035) Urine Protein 1+ H (Negative) Urine Glucose (UA) Trace H (Negative) g/dL Urine Ketones Negative (NEGATIVE) Urine Occult Blood Trace-lysed (Negative) Urine Nitrate Negative (Negative) Urine Bilirubin 1+ H (NEGATIVE) Urine Ictotest Negative (Negative) Urine Urobilinogen 1.0 (0.2) E.U./dL Ur Leukocyte Esterase Negative (NEGATIVE) Imaging Data Chest x-ray: Radiologist's impression: PROCEDURE: XR CHEST 1V INDICATIONS: CHEST PAIN TECHNIQUE: One view of the chest was acquired. COMPARISON: [facility], CR, XR CHEST 2V, 04/05/2018, 9:22. FINDINGS: Lung apices are partially obscured secondary to kyphotic position by the patient's chin. Surgical changes and devices: Right IJ Mediport. Lungs and pleura: Mild linear horizontal left lateral lung base scar. Mild chronic thickening of the interstitium, decreased compared to the prior study. Lungs are otherwise clear. No pleural effusions or pneumothorax. Mediastinum: Mediastinal contours appear normal. Heart size is normal. Bones and chest wall: No suspicious bony lesions. Overlying soft tissues appear unremarkable. IMPRESSION: 1. Interval placement of right IJ Mediport. 2. Given kyphotic position, the visible lung mccoy demonstrate chronic, slight ly improved interstitial congestion and left lateral lower lung scarring. No acute process. Dictated by: Marilin Horvath M.D. on 04/25/2019 at 15:44 CT scan - abdomen: Radiologist's impression: PROCEDURE: CT ABDOMEN PELVIS W CON INDICATIONS: ruq pain hx conon ca TECHNIQUE: After the administration of intravenous contrast, 5 mm thick sections acquired from the diaphragm to the symphysis. 5 mm coronal and sagittal reformats were acquired. For radiation dose reduction, the following was used: automated exposure control, adjustment of mA and/or kV according to patient size. COMPARISON: [facility], CT, CT CHEST ABD PEL W CON, 09/16/2018, 12:52. [facility], CT, CT ABDOMEN PELVIS W CON, 12/14/2017, 1:28. FINDINGS: Image quality: Excellent. ABDOMEN: Lung bases: Scarring/atelectasis in posterior aspect of bilateral lung bases are seen. Heart size is normal. Solid organs: Liver is normal in size and enhancement. Stable 3 mm hypodensity in hepatic dome is again seen and unchanged likely represent tiny hepatic cyst. Gallbladder contains a calcified stone within its dependent portion. No CT evidence of acute cholecystitis. Biliary system is non dilated. Pancreas enhances normally. Spleen is normal in size and enhancement. No adrenal nodules. Kidneys demonstrate normal size and enhancement, without hydronephrosis. Bilateral renal cysts are unchanged in size and appearance. Peritoneum and bowel: There is prior partial colectomy. No evidence of bowel obs truction. Fecal stasis in the colon is seen. No abnormal bowel wall thickening or mesenteric fat stranding. No free fluid or free air. Nodes and vessels: No retroperitoneal or mesenteric adenopathy by size criteria. Aorta and inferior vena cava are normal in size. Miscellaneous: Previously described large ventral hernia is again seen containing a segment of transverse colon. No evidence of incarceration. PELVIS: Genitourinary: Carrizales catheter is seen in the decompressed urinary bladder. No gross abnormality is seen in uterus and bilateral adnexa. Miscellaneous: No inguinal hernias or adenopathy. Bones: No suspicious bony lesions. No vertebral body compression fractures. Degenerative disc disease throughout lower thoracic and lumbar spine is again seen. IMPRESSION: 1. Large ventral hernia containing a segment of transverse colon. No abnormal bowel wall thickening. No evidence of incarceration. Prior partial colectomy. No bowel obstruction. No free fluid or free air. 2. Cholelithiasis, no CT evidence of acute cholecystitis. No biliary ductal dilatation. 3. Stable tiny hypodensity in left hepatic dome likely represent benign cysts. 4. Large left renal cyst and small right renal cyst. No hydronephrosis. Dictated by: Christos Luna M.D. on 04/25/2019 at 16:30 CT scan - head: Radiologist's impression: PROCEDURE: CT HEAD/BRAIN WO CON INDICATIONS: confusion per dr james TECHNIQUE: Noncontrast 4.5 mm thick angled axial sections acquired from the foramen magnum to the vertex, with coronal and sagittal reformats. For radiation dose reduction, the following was used: automated exposure control, adjustment of mA and/or kV according to patient size. COMPARISON: [facility], MR, BRAIN WITHOUT CONTRAST, 11/11/2017, 15:20. [facility], CT, CT ABDOMEN PELVIS W CON, 04/25/2019, 15:56. [facility], CT, HEAD WITHOUT CONTRAST, 11/11/2017, 9:07. FINDINGS: Image quality: Excellent. CSF spaces: Basal cisterns are patent. No extra-axial fluid collections. The ventricles are symmetric in size and shape. Brain: No intracranial bleeds or masses. There is cerebral volume loss for age, with resultant ventricular and sulcal prominence. There are periventricular and deep white matter chronic small vessel ischemic changes. There is intracranial internal carotid artery atherosclerosis. Skull and face: Calvarium and visualized facial bones appear intact, without suspicious lesions. Sinuses: Visualized sinuses and mastoids are clear. IMPRESSION: No acute intracranial abnormality can be seen. Age-appropriate brain parenchymal volume loss and chronic small vessel ischemic changes are seen. No significant change from the prior examinations. Dictated by: Tyron Lott M.D. on 04/25/2019 at 18:19 MDM Narrative Medical decision making narrative: Patient has significant confusion. Daughter states this is new for in the last 2 days. She is clearly you went urinary incontinent however urine does not indicate any sort of infection. His have called lab to ask for a micro however is not indicated they will run 1 anyway. Blood cultures pending. She is afebrile no pneumonia she has no meningeal signs. She really has no abdominal pain of although slightly tender in her right upper quadrant. She scheduled for an outpatient CT at this time will get that done now.. No cause of in infection identified abdominal CT is negative. Spoken with who is requesting head CT. She will admit for metabolic encephalopathy probable UTI however only observation at this time Discharge Plan Departure Patient Disposition: Admitted as Observation Clinical Impression: Acute metabolic encephalopathy Discharge Date/Time: 04/25/19 19:46 Admit Date/Time: 04/25/19 19:39 Admit Provider: Brianna James
[2019-04-25 15:31] LABS: PTT Partial Thromboplastin Tim 30 SECONDS (26.4-36.2)
[2019-04-25 15:34] LABS: Appearance Urine UA SL CLOUDY; Bilirubin Urine UA 1+ (NEGATIVE); Color Urine UA YELLOW; Glucose Urine UA TRACE g/dL (Negative); Ketones Urine UA NEGATIVE (NEGATIVE); Leukocyte Esterase Urine UA NEGATIVE (NEGATIVE); Nitrite Urine UA NEGATIVE (Negative); Occult Blood Urine UA TRACE-LYSED (Negative); Protein Urine UA 1+ (Negative); Specific Gravity Urine UA 1.025 (1.000-1.035)
--- NOTE | 2019-04-25 15:37 | PC.NURSE ---
Pt arrived via EMS, AAOx1. confused. daughter arrived with pt. Daughter reports that pt lost her in february and has been grieving and not acting right. reports she is usually self care and uses mobile WC and has caregiver named Riana. Daughter found pt this morning in WC soaked in urine and feces. reports pt is not usually incontinent although pt arrived wearing 2+ briefs. Strong smell of urine. h/o colon CA being treated with chemo. last chemo 4 days ago. denies pain at this time, although confused. Pt straight cath'd. Dark cloudy yellow urine. appears to be retaining. Carrizales placed and draining appropriately. IV by EMS, labs drawn including BC x 1 and lactate. placed on cardiac monitoring. NSR 80-90. RR even and unlabored. Daughter inquiring about placement into custodial and advised she will be able to speak with social work after admission.
--- NOTE | 2019-04-25 15:44 | PC.NURSE ---
Skin noted to be red on inner thighs and buttock and sacral area. Nonblanchable. Barrier cream applied. Pt noted to have large amount of yeast under skin folds which was cleansed and barrier cream applied.
[2019-04-25 15:47] LABS: Alanine Aminotransferase 18 IU/L (9-52); Albumin 4.4 g/dL (3.5-5.0); Albumin Globulin Ratio 1.1 (1.0-2.8); Alkaline Phosphatase 87 U/L (38-126); Aspartate Aminotransferase 51 IU/L (14-36); BUN Creatinine Ratio 34.3 (6-22); Bilirubin Total 0.9 mg/dL (0.2-1.3); Blood Urea Nitrogen 24 mg/dL (7-17); Carbon Dioxide 27 mmol/L (22-32); Chloride 96 mmol/L (98-107); Estimated Glomerular Filt Rate > 60.0 mL/min (>60); Glucose 247 mg/dL (80-110); HEMOLYSIS 17 (0-50); Lactate (Lactic Acid) 1.9 mmol/L (0.7-2.1); Potassium 4.4 mmol/L (3.4-5.1); Sodium 139 mmol/L (137-145); Total Protein 8.4 g/dL (6.3-8.2)
[2019-04-25] MEDS: SODIUM CHLORIDE 0.9% 1,000 ML 1000 ML IV (15:51)
--- NOTE | 2019-04-25 15:52 | DI.CT.S_ITS ---
PROCEDURE: CT ABDOMEN PELVIS W CON INDICATIONS: ruq pain hx conon ca TECHNIQUE: After the administration of intravenous contrast, 5 mm thick sections acquired from the diaphragm to the symphysis. 5 mm coronal and sagittal reformats were acquired. For radiation dose reduction, the following was used: automated exposure control, adjustment of mA and/or kV according to patient size. COMPARISON: [facility], CT, CT CHEST ABD PEL W CON, 09/16/2018, 12:52. [facility], CT, CT ABDOMEN PELVIS W [facility], 12/14/2017, 1:28. FINDINGS: Image quality: Excellent. ABDOMEN: Lung bases: Scarring/atelectasis in posterior aspect of bilateral lung bases are seen. Heart size is normal. Solid organs: Liver is normal in size and enhancement. Stable 3 mm hypodensity in hepatic dome is again seen and unchanged likely represent tiny hepatic cyst. Gallbladder contains a calcified stone within its dependent portion. No CT evidence of acute cholecystitis. Biliary system is non dilated. Pancreas enhances normally. Spleen is normal in size and enhancement. No adrenal nodules. Kidneys demonstrate normal size and enhancement, without hydronephrosis. Bilateral renal cysts are unchanged in size and appearance. Peritoneum and bowel: There is prior partial colectomy. No evidence of bowel obstruction. Fecal stasis in the colon is seen. No abnormal bowel wall thickening or mesenteric fat stranding. No free fluid or free air. Nodes and vessels: No retroperitoneal or mesenteric adenopathy by size criteria. Aorta and inferior vena cava are normal in size. Miscellaneous: Previously described large ventral hernia is again seen containing a segment of transverse colon. No evidence of incarceration. PELVIS: Genitourinary: Carrizales catheter is seen in the decompressed urinary bladder. No gross abnormality is seen in uterus and bilateral adnexa. Miscellaneous: No inguinal hernias or adenopathy. Bones: No suspicious bony lesions. No vertebral body compression fractures. Degenerative disc disease throughout lower thoracic and lumbar spine is again seen. IMPRESSION: 1. Large ventral hernia containing a segment of transverse colon. No abnormal bowel wall thickening. No evidence of incarceration. Prior partial colectomy. No bowel obstruction. No free fluid or free air. 2. Cholelithiasis, no CT evidence of acute cholecystitis. No biliary ductal dilatation. 3. Stable tiny hypodensity in left hepatic dome likely represent benign cysts. 4. Large left renal cyst and small right renal cyst. No hydronephrosis. Dictated by: Christos Luna M.D. on 04/25/2019 at 16:30 Approved by: Christos Luna M.D. on 04/25/2019 at 16:43
[2019-04-25 15:53] LABS: Ictotest Urine Negative (Negative)
[2019-04-25 16:03] LABS: Procalcitonin < 0.05 ng/mL (<0.5)
[2019-04-25 16:30] VITALS: BP 169/105; PULSE 77; RESP 19; O2SAT 98
[2019-04-25 17:30] VITALS: BP 154/110; PULSE 78; RESP 19; O2SAT 97
--- NOTE | 2019-04-25 17:56 | DI.CT.S_ITS ---
PROCEDURE: CT HEAD/BRAIN WO CON INDICATIONS: confusion per dr james TECHNIQUE: Noncontrast 4.5 mm thick angled axial sections acquired from the foramen magnum to the vertex, with coronal and sagittal reformats. For radiation dose reduction, the following was used: automated exposure control, adjustment of mA and/or kV according to patient size. COMPARISON: [facility], MR, BRAIN WITHOUT CONTRAST, 11/11/2017, 15:20. [facility], CT, CT ABDOMEN PELVIS W CON, 04/25/2019, 15:56. [facility], CT, HEAD WITHOUT CONTRAST, 11/11/2017, 9:07. FINDINGS: Image quality: Excellent. CSF spaces: Basal cisterns are patent. No extra-axial fluid collections. The ventricles are symmetric in size and shape. Brain: No intracranial bleeds or masses. There is cerebral volume loss for age, with resultant ventricular and sulcal prominence. There are periventricular and deep white matter chronic small vessel ischemic changes. There is intracranial internal carotid artery atherosclerosis. Skull and face: Calvarium and visualized facial bones appear intact, without suspicious lesions. Sinuses: Visualized sinuses and mastoids are clear. IMPRESSION: No acute intracranial abnormality can be seen. Age-appropriate brain parenchymal volume loss and chronic small vessel ischemic changes are seen. No significant change from the prior examinations. Dictated by: Tyron Lott M.D. on 04/25/2019 at 18:19 Approved by: Tyron Lott M.D. on 04/25/2019 at 18:21
[2019-04-25 19:46] LABS: Amorphous Sediment Urine 2+; Bacteria Urine Few (2-10); Culture Indicated Urine Specimen Cultured; Mucus Urine 2+ (Negative); RBC Urine 0-1/HPF (0-5/HPF); Squamous Epithelial Cell Urine 1-5 /HPF (0-5/HPF); WBC Urine 1-5/HPF (0-5/HPF)
[2019-04-25 19:55] VITALS: BP 134/74; PULSE 74; RESP 15; TEMP 36.6
[2019-04-25 20:03] VITALS: BMI 37.9
--- NOTE | 2019-04-25 20:33 | PC.NURSE ---
1945 - Pt to room from ER. Transfer via sliderboard. Pt oriented to self and place, but unable to reports circumstances of admission. No family with pt at time of admission. Pt denies pain at rest, however grimaces with light stimuli. When reviewing admission question, pt is poor historian and not able to answer all the questions however when asked about self harm pt reports having suicidal thoughts since my . Pt denies having a plan. Reports feeling depressed. Pt reports decreased PO intake and recent weight loss, but not able to stay how much weight. When asking if she has been feeling confused in the last couple of days, the pt states yes, but unsure why. Also states that she thinks that she has been hearing her 's voice at home. Denies hearing anything since she has been at the hospital. Pt reports hx of urinary inc. Skin to barbra-anal erythemic will several areas that are non-blanchable. Photos taken. Barrier cream. Oriented to room and routine, safety and call light use. Call light in reach. Bed alarm on.
--- NOTE | 2019-04-25 22:31 | P.HP_ITS ---
History of Present Illness History of Present Illness Date Patient Seen: 04/25/19 Time Patient Seen: 22:31 Chief complaint: ams - UTI Narrative: HPI is obtained via direct patient interview, review of records, communication/feedbac from patient's nurse and daughter's comments left in the form of a note. The patient is an 84-year-old female with PMH of CAD (prior h/o [place], 07/2017), IDDM 2T, FRANCISCO J (poor adherence w/ CPAP), obesity, Fe deficiency anemia, hypothyroidism, HLD, cognitive/memory impairment, anxiety disorder, spinal stenosis, large ventral hernia, priro GIB, h/o c diff and h/o of colon cancer. Colon cancer stage III (initially dx in 2001, s/p resection w/ 6 mo of leucovorin and 5FU; 03/29/18 dx w/ recurrence and tx w/4 cycles of 5 FU, marivel covorin, and Keytruda). Currently patient is undergoing immunotherapy with pembrolizumab. Her oncologist is Dr. Emery. Patient presented to the ED on 04/25/2019 out of concern for confusion. Associ ated symptoms include lower extremity weakness and difficulty with mobility at least 4-5 days. Also, recently complaining of RUQ and epigastric pain. Patient lives with daughter. She is known to have underlying memory deficits, however no diagnosis of dementia. Patient was noted to have progressive confusion with an 24 hours prior to ED presentation. Patient was found this morning by daughter in a wheelchair in continent of urine and stool. Records note that patient does not have urinary fecal incontinence; however, there are multiple notations in regard to prior urinary frequency and urinary incontinence. No prior mention of fecal incontinence. It is being reported that patient has recently suffered a of her in February of 2019. It appears she's had hard time with coping. Family notes patient is grieving. The daughter also communicated that patient has expressed thoughts of harming self; however, does not have a plan in place. Patient herself has also noted thoughts of harm full ideation toward self. ED presentation and workup VS: T 98.7 BP 146/69 HR 72 RR 16 04/25/2019 @ 1305 WBC 13.0 HGB 14.4 HCT 42.5 PLT 329 Lactate 1.9 PT 12.4 INR 1.1 APTT 30 NA 139 K 4.4 CL 96 CA 10 GLU 247 CO2 27 BUN 24 CR 0.7 AST 51 ALT 18 Alk Phos 87 T.BILI 0.9 CXR. Chronic, slightly improved interstitial congestion and left lateral lower lung scarring. No acute process. Head CT. No intra cranial bleeds or masses. Cerebral volume loss for age. Chronic small vessel ischemic changes. CT A/P. Large ventral hernia containing a segment of transverse colon. No abnormal bowel wall thickening. No evidence of incarceration. Prior partial colectomy. No bowel obstruction. No free fluid or free air. Cholelithiasis, no CT evidence of acute cholecystitis. No biliary ductal dilatation. Stable tiny hypodensity in left hepatic dome likely represent benign cysts. Large left renal cyst and small right renal cyst. No hydronephrosis. In the ED patient received 1 L of normal saline. Patient is being admitted for acute metabolic encephalopathy. Patient History Medical History Anxiety disorder (Chronic) Asthma (Chronic) C. difficile colitis (Chronic) Clostridium difficile colitis (Resolved) Colon cancer (Chronic) COPD (chronic obstructive pulmonary disease) (Chronic) Coronary artery disease (Chronic) Diabetes (Chronic) Diarrhea (Acute) DJD (degenerative joint disease) (Chronic) History of tremor (Chronic) Hypercholesteremia (Chronic) Mild cognitive impairment, so stated (Chronic) Neuropathy (Chronic) Obesity (Chronic) Other sleep apnea (Chronic) Postprocedural hypertension (Resolved) Sleep apnea (Chronic) Solitary pulmonary nodule (Chronic) Spinal stenosis of lumbar region (Chronic) Syncope and collapse (Resolved) Unspecified urinary incontinence (Chronic) Surgical History H/O hemicolectomy (Chronic) H/O peritonsillar abscess drainage (Resolved) History of partial colectomy (Inactive) Hx of cataract surgery (Resolved) Family History Father No problems noted. Mother Age: 100 No problems noted. Sister Breast cancer Diabetes mellitus Social History household members: caregiver Smoking Status: Former smoker alcohol intake: never Family & Social History Family History Father No problems noted. Mother Age: 100 No problems noted. Sister Breast cancer Diabetes mellitus Social History: household members caregiver Prior Living Arrangements House Safety & Behavioral: Feels Safe in Current Yes Environment Been Physically Hurt or No Threatened By a Person Suicidal Ideation Description Vague Suicide Plan Description No Plan Tobacco & Substance use: Smoking Status Former smoker alcohol intake never alcohol intake frequency other Substance Use Type does not use Meds Home Medications and Allergies Home Medications Medication Instructions Recorded Confirmed Type oxybutynin chloride 10 mg PO BID #0 10/13/16 04/25/19 History Lantus Solostar U-100 Insulin 15 unit SQ QPM #0 11/11/17 04/25/19 History nitroglycerin [Nitrostat] 0.4 mg SUBLINGUAL PRN PRN #0 11/11/17 04/25/19 History polyethylene glycol 3350 [Miralax] 17 g PO DAILY #30 ea 08/19/18 04/25/19 Rx atorvastatin 10 mg PO DAILY 09/09/18 04/25/19 History levothyroxine 50 mcg PO DAILY #60 tab 12/06/18 03/10/19 Rx nystatin 1 applic TOPICAL BID 04/25/19 04/25/19 History sertraline 100 mg PO DAILY 04/25/19 04/25/19 History Allergies Allergy/AdvReac Type Severity Reaction Status Date / Time Sulfa (Sulfonamide Allergy Severe hives Verified 04/25/19 15:01 Antibiotics) [SULFA (SULFONAMIDE ANTIBIOTICS)] metformin Allergy Mild Diarrhea Verified 04/25/19 15:01 darifenacin [From Enablex] Allergy Unknown Verified 04/25/19 15:01 ketoconazole Allergy Unknown Verified 04/25/19 15:01 promethazine [From Phenergan] Allergy Verified 04/25/19 15:01 adhesive [ADHESIVE] AdvReac Severe tape Verified 04/25/19 15:01 causes blisters Review of Systems Review of Systems ROS Unobtainable: unobtainable due to mental condition and unobtainable due to mental status (minimally communicative, metabolic encephalopathy) Exam Vital Signs (past 8 hours): - 04/25/19 15:01 04/25/19 16:30 04/25/19 17:30 Temperature 98.7 F Pulse Rate 72 77 78 Respiratory Rate 16 19 19 Blood Pressure 146/69 H Blood Pressure [Right Arm] 169/105 H 154/110 H Pulse Oximetry 96 98 97 04/25/19 19:55 Temperature 97.9 F Pulse Rate 74 Respiratory Rate 15 Blood Pressure 134/74 Blood Pressure [Right Arm] Pulse Oximetry Oxygen Delivery Method Room Air Narrative Exam Narrative: Constitutional: NAD, sleeping on presentation, easily arousable with verbal stimuli Neurologic: Oriented to person and place. Recalls that she was soiled and b javiereves this is the reason she is in the hospital. Unable to name correct year or month, not attempting, minimally communicative She does follow commands. There appears to be diminished movement of RLE. Generalized weakness. Psych: Flat affect Head: NC, AT Eyes: PERRL, EOMI, Ears: external ears normal, no otorrhea Nose: external nose normal, no rhinorrhea or epistaxis Throat: MMM, oropharynx w/o exudate Neck: no masses, lymphadenopathy, or JVD Chest / Respiratory: equal chest rise, unlabored respiratory effort, no tachypnea, diminished bases bilaterally, on room air Heart / CV: S1S2, no murmur Abdomen / GI: round, NT, ND, hypoactive bowel sounds : no suprapubic tenderness, barragan catheter present / to DD, draining cadence appearing contents Peripheral / Vascular: warm to touch, DP and PT pulses palpable BLE edema, R 3+ > L 1-2+, pitting, tenderness of right cath and hip Musc: RLE with diminished ROM Skin: no ecchymosis, coccyx / sacral area with stage I pressure ulcer Objective Labs Result Diagrams: 04/25/19 13:05 04/25/19 13:05 Labs: Laboratory Results - last 24 hr 04/25/19 04/25/19 04/25/19 13:05 13:05 13:05 WBC 13.0 H RBC 4.65 Hgb 14.4 Hct 42.5 MCV 91.4 MCH 31.0 MCHC 34.0 RDW 13.1 Plt Count 329 Neut % (Auto) 82.7 H Lymph % (Auto) 8.8 L [place] % (Auto) 7.5 Eos % (Auto) 0.2 L Baso % (Auto) 0.8 Neut # (Auto) 07612 H Lymph # (Auto) 1100 [place] # (Auto) 1000 H Eos # (Auto) 0 Baso # (Auto) 100 PT 12.4 INR 1.1 APTT 30 Sodium Potassium Chloride Carbon Dioxide BUN Creatinine Estimated GFR BUN/Creatinine Ratio Glucose Lactate Calcium Total Bilirubin AST ALT Alkaline Phosphatase Total Protein Albumin Globulin Albumin/Globulin Ratio Procalcitonin < 0.05 Urine Color Urine Appearance Urine pH Ur Specific [place] Urine Protein Urine Glucose (UA) Urine Ketones Urine Occult Blood Urine Nitrate Urine Bilirubin Urine Ictotest Urine Urobilinogen Ur Leukocyte Esterase Urine RBC Urine WBC Ur Squamous Epith Cells Amorphous Sediment Urine Bacteria Urine Mucus Ur Culture Indicated? Nasal Screen MRSA (PCR) 04/25/19 04/25/19 04/25/19 13:05 13:05 15:13 WBC RBC Hgb Hct MCV MCH MCHC RDW Plt Count Neut % (Auto) Lymph % (Auto) [place] % (Auto) Eos % (Auto) Baso % (Auto) Neut # (Auto) Lymph # (Auto) [place] # (Auto) Eos # (Auto) Baso # (Auto) PT INR APTT Sodium 139 Potassium 4.4 Chloride 96 L Carbon Dioxide 27 BUN 24 H Creatinine 0.70 Estimated GFR > 60.0 BUN/Creatinine Ratio 34.3 H Glucose 247 H Lactate 1.9 Calcium 10.0 Total Bilirubin 0.9 AST 51 H ALT 18 Alkaline Phosphatase 87 Total Protein 8.4 H Albumin 4.4 Globulin 4.0 Albumin/Globulin Ratio 1.1 Procalcitonin Urine Color Yellow Urine Appearance Sl cloudy Urine pH 5.0 Ur Specific [place] 1.025 Urine Protein 1+ H Urine Glucose (UA) Trace H Urine Ketones Negative Urine Occult Blood Trace-lysed Urine Nitrate Negative Urine Bilirubin 1+ H Urine Ictotest Negative Urine Urobilinogen 1.0 Ur Leukocyte Esterase Negative Urine RBC Urine WBC Ur Squamous Epith Cells Amorphous Sediment Urine Bacteria Urine Mucus Ur Culture Indicated? Nasal Screen MRSA (PCR) 04/25/19 04/25/19 15:13 19:45 WBC RBC Hgb Hct MCV MCH MCHC RDW Plt Count Neut % (Auto) Lymph % (Auto) [place] % (Auto) Eos % (Auto) Baso % (Auto) Neut # (Auto) Lymph # (Auto) [place] # (Auto) Eos # (Auto) Baso # (Auto) PT INR APTT Sodium Potassium Chloride Carbon Dioxide BUN Creatinine Estimated GFR BUN/Creatinine Ratio Glucose Lactate Calcium Total Bilirubin AST ALT Alkaline Phosphatase Total Protein Albumin Globulin Albumin/Globulin Ratio Procalcitonin Urine Color Urine Appearance Urine pH Ur Specific [place] Urine Protein Urine Glucose (UA) Urine Ketones Urine Occult Blood Urine Nitrate Urine Bilirubin Urine Ictotest Urine Urobilinogen Ur Leukocyte Esterase Urine RBC 0-1/hpf Urine WBC 1-5/hpf Ur Squamous Epith Cells 1-5 /hpf Amorphous Sediment 2+ Urine Bacteria Few (2-10) H Urine Mucus 2+ H Ur Culture Indicated? Specimen cultured Nasal Screen MRSA (PCR) Negative for mrsa Assessment & Plan Assessment & Plan narrative: Patient is being admitted for acute metabolic encephalopathy. Metabolic encephalopathy, acute, present on admission, active Cause is not entirely clear. Potentially in the setting of dehydration. No s/s of SIRS or sepsis. Mild leukocytosis, WBC 13. Lactate 1.9. PCT < 0.05. No overt electrolyte abnormalities. - CT Head negative - blood cultures collected in ED, results pending - urinalysis is not indicative of an infection, however was sent for culture - received 1L NS in ED, will continue maintenance IVF overnight - neuro and loc checks Q4H - check ammonia level ( x < 9, negative) - re-evaluate patient in a.m., after hydration; potentially consider MRI of head d/t RLE weakness History of malignancy, currently on immunotherapy, not anti-coagulated; at risk for DVT, consider RLE venous duplex Dehydration, acute, present on admission, active Patient is known to have had diminished appetite and progressive weight loss. - IV fluids - Check CK level, seems to have areas of tenderness on exam, concern for myopathy result reviewed: CK mildly elevated 469. Hold MOTOR ROOM [employer] statin. Trend CK function. DM 2T w/ hyperglycemia, chronic condition, poorly controlled, active A1C 8.5 on 11/24/2017. - Check A1C - AC/HS, SSI low dose. Resume [employer]OM [employer] long-acting insulin. - consistent carb diet Leukocytosis (WBC 13), present on admission, active WBC 13, lactate 1.9, PCT < 0.05. No s/s of sepsis. Potentially reactive. Patient is also on immunotherapy w/ Keytruda. - Trend leukocytosis and monitor for sx of an acute reaction Hypothyroidism, chronic condition, present on admission, active /stable Most recent oncology note comments on labile thyroid function. Thyroid function has been closely monitored by Oncology. TSH 1.15 on 04/21/2019 - resume [employer] regimen of levothyroxine Generalized weakness, subacute, present on admission, active -consult PT/OT Grief reaction with prolonged bereavement, acute, present on admission, active Research has shown that loss of a spouse can lead to psychological and physical health consequences and make a person vulnerable to illness. Patient noted to be speaking to her . Appears to be depressed and withdrawn. Risk of suicide. - Patient is weak and has diminished mobility. At present time will not place her on suicide precautions; however, will implement close monitoring of patient. - Consult to pastoral care - Resume sertraline. Consider Psychiatry consult. - No hallucinations or delirium present. Right hip pain on exam, acute, present on admission, active Patient denies falls. -XR of right hip, results pending CAD, chronic condition, present on admission, active Patient is not on ASA. She is on a statin. Denies chest pain and angina like symptoms. - Hold statin due to elevated CK level Colon cancer Stage III, chronic condition, present on admission, active Currently undergoing immunotherapy with Keytruda since 07/09/2018. Completed cycle 14 on 04/21/2019. Per Oncology has been tolerating treatments well. RUQ abdominal pain, subacute, present on admission, active - CT of A/P without acute findings - Liver enzymes, essentially normal. AST mildly elevated at 51. Check Lipase. Patient is full code. Daughter is the surrogate decision maker. Home medications reviewed and reconciled. VTE prophylaxis w/ SCDs and SQ Lovenox
--- NOTE | 2019-04-25 23:04 | DI.RAD.S_ITS ---
PROCEDURE: XR HIP W PEL IF DONE LT 2V INDICATIONS: acute right hip pain TECHNIQUE: AP pelvis with lateral view(s) of the right hip(s). COMPARISON: [facility], CT, CT ABDOMEN PELVIS W CON, 04/25/2019, 15:56. FINDINGS: Bones: No fractures or dislocations. Pelvic ring appears intact. No suspicious bony lesions. Soft tissues: The visualized bowel gas pattern is normal. No suspicious soft tissue calcifications. The what appears to be a Carrizales catheter extends into the midline of the low pelvis. IMPRESSION: HR subacute onset right hip pain is not seen. There is only a mild degree of hip joint osteoarthritis, symmetric bilaterally. Dictated by: Jeyson Fang M.D. on 04/26/2019 at 8:37 Approved by: Jeyson Fang M.D. on 04/26/2019 at 8:39
[2019-04-25 23:29] VITALS: BP 122/55; PULSE 79; RESP 18; TEMP 36.8; O2SAT 93
[2019-04-25 23:33] LABS: Ammonia (NH3) < 9.0 umol/L (9-30)
[2019-04-25 23:40] LABS: Creatine Kinase 469 U/L (30-135)
[2019-04-26] MEDS: SODIUM CHLORIDE 0.9% 1,000 ML 84 ML IV (00:33)
[2019-04-26 03:24] LABS: Lipase 65 U/L (23-300)
[2019-04-26 03:45] LABS: Troponin I 0.103 ng/mL (0.01-0.034)
[2019-04-26 03:46] VITALS: BP 116/49; PULSE 68; RESP 12; O2SAT 93
--- NOTE | 2019-04-26 06:42 | PC.NURSE ---
Patient is drowsy and has slept through the night, does rouse during assessment and care, oriented to person and place, follows simple directions. Grimaces and moans with movement, but is vague about location of pain, has delayed responses. SA, PACs on monitor, VSS, SpO2 90-94% on RA, shallow breathing with diminished breath sounds.
[2019-04-26 06:48] LABS: Add Manual Diff / Slide Review NO; Basophils Absolute Auto 100 /uL (0-100); Eosinophils Absolute Auto 200 /uL (0-450); Eosinophils Percent Auto 2.2 % (2-4); Hematocrit 36.5 % (36-46); Hemoglobin 12.5 g/dL (12.0-16.0); Lymphocytes Absolute Auto 1700 /uL (1100-4500); Mean Corpuscular HGB Conc 34.3 % (30-36); Mean Corpuscular Hemoglobin 31.2 PG (26-34); Mean Corpuscular Volume 90.9 fL (80-100); Monocytes Absolute Auto 800 /uL (0-900); Monocytes Percent Auto 9.1 % (3-14); Neutrophils Absolute Auto 6300 /uL (1500-7000); Neutrophils Percent Auto 68.7 % (50-75); Platelet Count 281 X10^3/uL (150-400); Red Blood Cell Count 4.02 X10^6/uL (4.0-5.2); Red Cell Distribution Width 13.1 % (11.6-14.8); White Blood Cell Count 9.2 X10^3/uL (4.5-11.0)
[2019-04-26 06:59] LABS: Alanine Aminotransferase 20 IU/L (9-52); Albumin 3.1 g/dL (3.5-5.0); Alkaline Phosphatase 63 U/L (38-126); Aspartate Aminotransferase 35 IU/L (14-36); BUN Creatinine Ratio 28.3 (6-22); Bilirubin Total 0.7 mg/dL (0.2-1.3); Blood Urea Nitrogen 17 mg/dL (7-17); Calcium 8.7 mg/dL (8.4-10.2); Carbon Dioxide 26 mmol/L (22-32); Chloride 104 mmol/L (98-107); Creatine Kinase 278 U/L (30-135); Estimated Glomerular Filt Rate > 60.0 mL/min (>60); Globulin 3.2 g/dL (1.7-4.1); Glucose 131 mg/dL (80-110); HEMOLYSIS < 15 (0-50); Potassium 3.8 mmol/L (3.4-5.1); Sodium 136 mmol/L (137-145); Total Protein 6.3 g/dL (6.3-8.2)
[2019-04-26 07:00] VITALS: BP 118/49; PULSE 70; RESP 18; TEMP 36.4; O2SAT 94
[2019-04-26 07:14] LABS: CKMB % Relative Index 0.9 % (1.5-5.0); Creatine Kinase MB 2.59 ng/mL (<2.37)
[2019-04-26 07:35] LABS: Troponin I 0.153 ng/mL (0.01-0.034)
[2019-04-26] MEDS: ENOXAPARIN 40 MG/0.4 ML SYRINGE SUBCUT (09:25)
[2019-04-26] MEDS: INSULIN ASPART 100 UNIT/ML INSULN PEN SUBCUT ×4 (09:25→21:41)
[2019-04-26] MEDS: SERTRALINE 50 MG TABLET 100 MG PO (09:25)
--- NOTE | 2019-04-26 10:15 | PT.IIE ---
Surgical History (Last Reviewed 04/26/19 @ 03:33 by ESSENCE Scales) H/O hemicolectomy (Chronic) H/O peritonsillar abscess drainage (Resolved) History of partial colectomy (Inactive) Hx of cataract surgery (Resolved) Medical History (Last Reviewed 04/26/19 @ 03:33 by ESSENCE Scales) Anxiety disorder (Chronic) Asthma (Chronic) C. difficile colitis (Chronic) Clostridium difficile colitis (Resolved) Colon cancer (Chronic) COPD (chronic obstructive pulmonary disease) (Chronic) Coronary artery disease (Chronic) Diabetes (Chronic) Diarrhea (Acute) DJD (degenerative joint disease) (Chronic) History of tremor (Chronic) Hypercholesteremia (Chronic) Mild cognitive impairment, so stated (Chronic) Neuropathy (Chronic) Obesity (Chronic) Other sleep apnea (Chronic) Postprocedural hypertension (Resolved) Sleep apnea (Chronic) Solitary pulmonary nodule (Chronic) Spinal stenosis of lumbar region (Chronic) Syncope and collapse (Resolved) Unspecified urinary incontinence (Chronic) Physical Therapy Inpatient Evaluation/Re-Eval M1 PT/OT-IP Prior Functional Status Start: 04/26/19 12:14 Freq: NEEDED Status: Active Protocol: Document 04/26/19 12:15 CGR (Rec: 04/26/19 12:34 CGR [id number]) Medical Review Prior Functional Status Medical History Reviewed Yes Communication Pt is able to communicate effictively but need extra time for processing of information. Mobility and Gait Pt was MOD I for mobility prior to admit. Pt used a transport chair and her feet to push herself around her home. Activities of Daily Living and IADL's Per pt, she was able to perform all self care but had some help with meals from a hired professor of environmental studies that checks in on her multiple times a day. Social History Household Members caregiver Living Arrangements House Number of Floors (Floors) One Floor Number of Stairs To Enter/Railing? Pt has a ramp to enter the house. Home Environment High Toilet,Walk in Shower, Built-In Shower Seat,Ramp Home Equipment Four Wheel Walker,Straight Cane,Manual Wheelchair,Shower Seat with Backrest,Hand Held Shower,Grab Bars Near Toilet, Grab Bars In Shower Employment Status Retired Additional Social History Comment Per pt, she has a built in shower seat but uses a plastic one with back. February 2019 and pt is still having difficulty. Pt has a dog candy that she loves dearly. M1 PT/OT-IP Prior Functional Status Start: 04/26/19 12:33 Freq: NEEDED Status: Active Protocol: Document 04/26/19 10:15 AB (Rec: 04/26/19 12:47 [id number]) Medical Review Prior Functional Status Medical History Reviewed Yes Communication able to make needs known but with confusion Mobility and Gait pt stted that she is modified independent with mobilities and ambulation using 4WW. does not go outdoors much. stated that when her caregivers are not around, she just sleep. per daughter: pt uses a transport chair at home for mobility and not really walking around. Social History Household Members caregiver Living Arrangements House Number of Floors (Floors) One Floor Number of Stairs To Enter/Railing? no steps to enter Home Environment High Toilet,Walk in Shower Home Equipment Four Wheel Walker,Tub Transfer Bench,Hand Held Shower,Grab Bars Near Toilet,Grab Bars In Shower Additional Social History Comment has a transport chair stated that a caregiver comes in 5x/wk for 3-4 hours (per daughter, pt is in/out during the day) and another caregiver comes in on the weekends for ~ 30 min M2 PT-IP Current Condition Start: 04/26/19 12:33 Freq: NEEDED Status: Active Protocol: Document 04/26/19 10:15 AB (Rec: 04/26/19 12:47 [id number]) Physical Therapy Current Condition Current Condition Evaluation Date 04/26/19 Treatment Diagnosis acute metabolic encephalopathy ; difficulty in walking Onset Date 04/25/19 Precautions Other Precautions falls M3 PT-IP Subjective Start: 04/26/19 12:33 Freq: NEEDED Status: Active Protocol: Document 04/26/19 10:15 AB (Rec: 04/26/19 12:47 AB [id number]) Subjective Physical Therapy Visit Type Type Initial Evaluation Visit Start Time 10:15 Visit Stop Time 11:10 Total Visit Minutes 55 Number of CIVIL DRAFTING TECHNICIAN Visits 0 Physical Therapy Visit Comments Patient Comments pt sleepy and needs cues to keep eyes open but after sitting on EOB was more alert M4 PT-IP Mobility and Gait Start: 04/26/19 12:33 Freq: NEEDED Status: Active Protocol: Document 04/26/19 10:15 AB (Rec: 04/26/19 12:47 AB [id number]) PT-Bed Mobility Assessment Supine to Sit Supine to Sit Maximum Assistance,1 Person Assistance,Head of Bed Elevated Scooting Scooting to Edge of Bed Maximum Assistance PT-Transfer Assessment Sit to and From Stand Sit to and from Stand Maximum Assistance,1 Person Assistance,2 Person Assistance ,Use of Upper Extremities Equipment Transfer Assistive Device Gait Belt,Front Wheeled Walker Transfers Transfer Destination Chair,Bedside Commode Transfer Technique Stand Step Pivot Transfer Ability Level of Assist Maximum Assistance,1 Person Assistance,2 Person Assistance ,Use of Upper Extremities Comments Mobility Comments pt completed supine to sit max A and max cues with HOB elevated. pt required initial mod A to maintain sitting on EOB but after repositioning only required SBA. completed sit <>stand x 2 attempts before able to complete requiring max A and max cues. pt completed stand pivot transfer bed to bedside commode max A x 2 and max cues . pt completed sit to stand max A x 1-2 from the commode. was able to maintain standing using FWW for support mod to max A and max cues. completed stand step transfer to the chair max A x 1-2 and max cues . positioned pt on the chair. call light and table placed within reach. left pt with her daughter and the doctor. Gait Assessment Comments Gait Comments unable at this time PT-Balance Assessment Sitting Balance and Reactions Static Sitting Balance Ability Good Dynamic Sitting Balance Ability Fair Standing Balance and Reactions Static Standing Balance Ability Poor Dynamic Standing Balance Ability Poor Device Used FWW M5 PT-IP Objective Assessments Start: 04/26/19 12:33 Freq: NEEDED Status: Active Protocol: Document 04/26/19 10:15 AB (Rec: 04/26/19 12:47 AB [id number]) Orientation Orientation/Cognition Level of Alertness Confusional State Orientation Name Safety Awareness Decreased Safety Awareness Memory Description Short Term Impaired,Systems Accountant Impaired Gross Range of Motion Lower Extremity ROM Assessment Within Functional Limits Strength Lower Extremity Strength Assessment Bilaterally Impaired Comments Strength Comments RLE: 3-/5 LLE: 3+/5 Coordination Assessment Gross Coordination Gross Coordination WNL Muscle Tone Muscle Tone WNL Yes M6 PT-IP Treatment Start: 04/26/19 12:33 Freq: NEEDED Status: Active Protocol: Document 04/26/19 10:15 AB (Rec: 04/26/19 12:47 AB [id number]) Physical Therapy Treatment Education Education Provided Safety M7 PT-IP Assessment and Plan Start: 04/26/19 12:33 Freq: NEEDED Status: Active Protocol: Document 04/26/19 10:15 (Rec: 04/26/19 12:47 AB [id number]) PT Summary Assessment and Plan Potential Rehabilitation Potential Good Status of Condition at Evaluation Evolving Summary Impairments Pain,ROM,Strength,Balance, Coordination,Sensation,Tone, Cognition,Bed Mobility, Transfers,Gait,Activity Tolerance Assessment Summary pt requiring max A x 1-2 and max cues with all tasks. pt unable to tolerate much activity and is not consistent with level of assistance and has decrease safety awareness. pt needs 24/ assist and will require SNF rehab to improve strenght and function. Goals Bed Mobility Goal Standby Assistance Transfer Goal Standby Assistance,Front Wheeled Walker Gait Goal Standby Assistance,Front Wheel Walker Gait Distance 100 Days to Meet Goals 10 Frequency of Treatment Frequency Of Treatment Once a Day Treatment Plan Physical Therapy Treatment Plan Bed Mobility Training,Transfer Training,Gait Training, Therapeutic Exercise,Balance Retraining,Discharge Planning, Neuromuscular Re-ed, Coordination Retraining,Manual Therapy Recommendations To Nursing Amount of Assist Needed 2 Person Assist Discharge Recommendations PT Discharge Recommendations SNF Rehab
--- NOTE | 2019-04-26 11:30 | P.PN_ITS ---
Subjective Subjective Date Patient Seen: 04/26/19 Interval history: The patient is an 84-year-old female who was admitted to the hospital last night for acute encephalopathy. The patient was confused. She was found covered in urine and feces. Her daughter is at the bedside today and reports that since the patient's in February she has had a downhill decline. She has a long history of mental disorders, per report of the daughter her patient has had some auditory hallucination, she denies at this morning. She is not short of breath. She does report some right upper quadrant pain. Daughter states that the pain started when her moved her mom but CT scan has been negative. Exam Vital Signs (past 8 hours): - 04/26/19 03:46 04/26/19 07:00 Temperature 97.6 F Pulse Rate 68 70 Respiratory Rate 12 18 Blood Pressure 116/49 L 118/49 L Pulse Oximetry 93 94 Oxygen Delivery Method Room Air Oxygen Flow Rate 0 Narrative Exam Narrative: Pleasant elderly female resting comfort only in no obvious distress Lungs: Decreased breath S with occasional scattered crackles in the bases Cardiac exam: Irregularly irregular normal S1-S2 Abdomen: Soft nontender nondistended inguinal fold revealed Yeast Extremities: No edema Psychiatric exam: Patient know she is at [facility], she does not recall why she is here, she denies any active auditory hallucinations at this time. She is awake and alert, she answers questions appropriately. Objective Labs Result Diagrams: 04/26/19 06:30 04/26/19 06:30 Labs: Laboratory Results - last 24 hr 04/25/19 04/25/19 04/25/19 13:05 13:05 13:05 WBC 13.0 H RBC 4.65 Hgb 14.4 Hct 42.5 MCV 91.4 MCH 31.0 MCHC 34.0 RDW 13.1 Plt Count 329 Neut % (Auto) 82.7 H Lymph % (Auto) 8.8 L [place] % (Auto) 7.5 Eos % (Auto) 0.2 L Baso % (Auto) 0.8 Neut # (Auto) 40863 H Lymph # (Auto) 1100 [place] # (Auto) 1000 H Eos # (Auto) 0 Baso # (Auto) 100 PT 12.4 INR 1.1 APTT 30 Sodium Potassium Chloride Carbon Dioxide BUN Creatinine Estimated GFR BUN/Creatinine Ratio Glucose Hemoglobin A1c Lactate Calcium Total Bilirubin AST ALT Alkaline Phosphatase Ammonia Total Creatine Kinase CK-MB (CK-2) CK-MB (CK-2) Rel Index Troponin I Total Protein Albumin Globulin Albumin/Globulin Ratio Lipase Procalcitonin < 0.05 Urine Color Urine Appearance Urine pH Ur Specific [place] Urine Protein Urine Glucose (UA) Urine Ketones Urine Occult Blood Urine Nitrate Urine Bilirubin Urine Ictotest Urine Urobilinogen Ur Leukocyte Esterase Urine RBC Urine WBC Ur Squamous Epith Cells Amorphous Sediment Urine Bacteria Urine Mucus Ur Culture Indicated? Nasal Screen MRSA (PCR) 04/25/19 04/25/19 04/25/19 13:05 13:05 15:03 WBC RBC Hgb Hct MCV MCH MCHC RDW Plt Count Neut % (Auto) Lymph % (Auto) [place] % (Auto) Eos % (Auto) Baso % (Auto) Neut # (Auto) Lymph # (Auto) [place] # (Auto) Eos # (Auto) Baso # (Auto) PT INR APTT Sodium 139 Potassium 4.4 Chloride 96 L Carbon Dioxide 27 BUN 24 H Creatinine 0.70 Estimated GFR > 60.0 BUN/Creatinine Ratio 34.3 H Glucose 247 H Hemoglobin A1c Lactate 1.9 Calcium 10.0 Total Bilirubin 0.9 AST 51 H ALT 18 Alkaline Phosphatase 87 Ammonia Total Creatine Kinase 469 H CK-MB (CK-2) CK-MB (CK-2) Rel Index Troponin I Total Protein 8.4 H Albumin 4.4 Globulin 4.0 Albumin/Globulin Ratio 1.1 Lipase Procalcitonin Urine Color Urine Appearance Urine pH Ur Specific [place] Urine Protein Urine Glucose (UA) Urine Ketones Urine Occult Blood Urine Nitrate Urine Bilirubin Urine Ictotest Urine Urobilinogen Ur Leukocyte Esterase Urine RBC Urine WBC Ur Squamous Epith Cells Amorphous Sediment Urine Bacteria Urine Mucus Ur Culture Indicated? Nasal Screen MRSA (PCR) 04/25/19 04/25/19 04/25/19 15:03 15:03 15:13 WBC RBC Hgb Hct MCV MCH MCHC RDW Plt Count Neut % (Auto) Lymph % (Auto) [place] % (Auto) Eos % (Auto) Baso % (Auto) Neut # (Auto) Lymph # (Auto) [place] # (Auto) Eos # (Auto) Baso # (Auto) PT INR APTT Sodium Potassium Chloride Carbon Dioxide BUN Creatinine Estimated GFR BUN/Creatinine Ratio Glucose Hemoglobin A1c Lactate Calcium Total Bilirubin AST ALT Alkaline Phosphatase Ammonia Total Creatine Kinase CK-MB (CK-2) CK-MB (CK-2) Rel Index Troponin I 0.103 H Total Protein Albumin Globulin Albumin/Globulin Ratio Lipase 65 Procalcitonin Urine Color Yellow Urine Appearance Sl cloudy Urine pH 5.0 Ur Specific [place] 1.025 Urine Protein 1+ H Urine Glucose (UA) Trace H Urine Ketones Negative Urine Occult Blood Trace-lysed Urine Nitrate Negative Urine Bilirubin 1+ H Urine Ictotest Negative Urine Urobilinogen 1.0 Ur Leukocyte Esterase Negative Urine RBC Urine WBC Ur Squamous Epith Cells Amorphous Sediment Urine Bacteria Urine Mucus Ur Culture Indicated? Nasal Screen MRSA (PCR) 04/25/19 04/25/19 04/25/19 15:13 19:45 22:50 WBC RBC Hgb Hct MCV MCH MCHC RDW Plt Count Neut % (Auto) Lymph % (Auto) [place] % (Auto) Eos % (Auto) Baso % (Auto) Neut # (Auto) Lymph # (Auto) [place] # (Auto) Eos # (Auto) Baso # (Auto) PT INR APTT Sodium Potassium Chloride Carbon Dioxide BUN Creatinine Estimated GFR BUN/Creatinine Ratio Glucose Hemoglobin A1c Lactate Calcium Total Bilirubin AST ALT Alkaline Phosphatase Ammonia < 9.0 L Total Creatine Kinase CK-MB (CK-2) CK-MB (CK-2) Rel Index Troponin I Total Protein Albumin Globulin Albumin/Globulin Ratio Lipase Procalcitonin Urine Color Urine Appearance Urine pH Ur Specific [place] Urine Protein Urine Glucose (UA) Urine Ketones Urine Occult Blood Urine Nitrate Urine Bilirubin Urine Ictotest Urine Urobilinogen Ur Leukocyte Esterase Urine RBC 0-1/hpf Urine WBC 1-5/hpf Ur Squamous Epith Cells 1-5 /hpf Amorphous Sediment 2+ Urine Bacteria Few (2-10) H Urine Mucus 2+ H Ur Culture Indicated? Specimen cultured Nasal Screen MRSA (PCR) Negative for mrsa 04/26/19 04/26/19 04/26/19 06:30 06:30 06:30 WBC 9.2 RBC 4.02 Hgb 12.5 Hct 36.5 MCV 90.9 MCH 31.2 MCHC 34.3 RDW 13.1 Plt Count 281 Neut % (Auto) 68.7 Lymph % (Auto) 19.0 L [place] % (Auto) 9.1 Eos % (Auto) 2.2 Baso % (Auto) 1.0 Neut # (Auto) 6300 Lymph # (Auto) 1700 [place] # (Auto) 800 Eos # (Auto) 200 Baso # (Auto) 100 PT INR APTT Sodium 136 L Potassium 3.8 Chloride 104 Carbon Dioxide 26 BUN 17 Creatinine 0.60 Estimated GFR > 60.0 BUN/Creatinine Ratio 28.3 H Glucose 131 H D Hemoglobin A1c 7.0 H Lactate Calcium 8.7 Total Bilirubin 0.7 AST 35 ALT 20 Alkaline Phosphatase 63 Ammonia Total Creatine Kinase 278 H CK-MB (CK-2) 2.59 H CK-MB (CK-2) Rel Index 0.9 L Troponin I 0.153 H* Total Protein 6.3 Albumin 3.1 L Globulin 3.2 Albumin/Globulin Ratio 1.0 Lipase Procalcitonin Urine Color Urine Appearance Urine pH Ur Specific [place] Urine Protein Urine Glucose (UA) Urine Ketones Urine Occult Blood Urine Nitrate Urine Bilirubin Urine Ictotest Urine Urobilinogen Ur Leukocyte Esterase Urine RBC Urine WBC Ur Squamous Epith Cells Amorphous Sediment Urine Bacteria Urine Mucus Ur Culture Indicated? Nasal Screen MRSA (PCR) Assessment & Plan Assessment & Plan narrative: 1. Acute metabolic encephalopathy, present on admission, improving. Patient has long history of mental health issues, requiring multiple hospital admissions many years ago. According to her daughter the patient has had slow but steady decline in her functional status since her in February. The patient is awake and alert today. She has no specific complaints. However she lives at home alone and has been unable to manage with her caregivers. We discussed the possibility of physical therapy occupational therapy consultation with removal of her Car[place] catheter and IV fluids. It is our hope that she will be able to go to a alf facility prior to an assisted living placement. The daughter lives in [place] but is here to assist with her mom for she returns home. There is no underlying urinary tract infection, her white count is normal today, no evidence of pneumonia on exam. Other issues include possible dementia versus cognitive decline. OT will perform a cognitive evaluation today. 2. Dehydration, present on admission improved. Plan today Hep-Lock IV fluids, DC Carrizales catheter, continue hydration or 3. Type 2 diabetes, poorly controlled, will continue her on a basal insulin will add bolus insulin to control her blood sugars. 4. Hypothyroidism, continue her home thyroid medication 5. Stage III colon cancer, previously on ketruda, according to daughter this has been in remission 6. depression, prolonged bereavement, continue zoloft, will ask social work to evaluate.
[2019-04-26 12:00] VITALS: BP 134/53; PULSE 63; RESP 20; TEMP 36.6; O2SAT 93
--- NOTE | 2019-04-26 12:34 | OT.IP.EVAL ---
Past Medical History (Last Reviewed 04/26/19 @ 03:33 by ESSENCE Scales) Anxiety disorder (Chronic) Asthma (Chronic) C. difficile colitis (Chronic) Clostridium difficile colitis (Resolved) Colon cancer (Chronic) COPD (chronic obstructive pulmonary disease) (Chronic) Coronary artery disease (Chronic) Diabetes (Chronic) Diarrhea (Acute) DJD (degenerative joint disease) (Chronic) History of tremor (Chronic) Hypercholesteremia (Chronic) Mild cognitive impairment, so stated (Chronic) Neuropathy (Chronic) Obesity (Chronic) Other sleep apnea (Chronic) Postprocedural hypertension (Resolved) Sleep apnea (Chronic) Solitary pulmonary nodule (Chronic) Spinal stenosis of lumbar region (Chronic) Syncope and collapse (Resolved) Unspecified urinary incontinence (Chronic) Surgical History (Last Reviewed 04/26/19 @ 03:33 by ESSENCE Scales) H/O hemicolectomy (Chronic) H/O peritonsillar abscess drainage (Resolved) History of partial colectomy (Inactive) Hx of cataract surgery (Resolved) Occupational Therapy Inpatient Evaluation/Re-Eval M1 PT/OT-IP Prior Functional Status Start: 04/26/19 12:14 Freq: NEEDED Status: Active Protocol: Document 04/26/19 12:15 CGR (Rec: 04/26/19 12:34 CGR [id number]) Medical Review Prior Functional Status Medical History Reviewed Yes Communication Pt is able to communicate effictively but need extra time for processing of information. Mobility and Gait Pt was MOD I for mobility prior to admit. Pt used a transport chair and her feet to push herself around her home. Activities of Daily Living and IADL's Per pt, she was able to perform all self care but had some help with meals from a hired canal tender that checks in on her multiple times a day. Social History Household Members caregiver Living Arrangements House Number of Floors (Floors) One Floor Number of Stairs To Enter/Railing? Pt has a ramp to enter the house. Home Environment High Toilet,Walk in Shower, Built-In Shower Seat,Ramp Home Equipment Four Wheel Walker,Straight Cane,Manual Wheelchair,Shower Seat with Backrest,Hand Held Shower,Grab Bars Near Toilet, Grab Bars In Shower Employment Status Retired Additional Social History Comment Per pt, she has a built in shower seat but uses a plastic one with back. February 2019 and pt is still having difficulty. Pt has a dog candy that she loves dearly. M2 OT-IP Current Condition Start: 04/26/19 12:14 Freq: Status: Active Protocol: Document 04/26/19 12:15 CGR (Rec: 04/26/19 12:34 CGR [id number]) Occupational Therapy Current Condition Current Condition Evaluation Date 04/26/19 Treatment Diagnosis Metabolic encephalopathy Diagnosis Onset Date 04/25/19 M3 OT- IP Subjective and Pain Start: 04/26/19 12:14 Freq: Status: Active Protocol: Document 04/26/19 12:15 CGR (Rec: 04/26/19 12:34 CGR [id number]) OT- Subjective Occupational Therapy Visit Type Type Initial Evaluation Visit Start Time 11:13 Visit Stop Time 12:12 Total Visit Minutes 59 Notes Pt's daughter present throughout session except for cog assessment. Pt looks to daughter for all questions asked. Occupational Therapy Visit Comments Patient Comments I have been having a difficult time sine my passed. OT Pain Assessment Pain When Pain Assessed At Rest Pain Present Pain Present Denied Pain M4 OT- IP ADL's Start: 04/26/19 12:14 Freq: Status: Active Protocol: Document 04/26/19 12:15 CGR (Rec: 04/26/19 12:34 CGR [id number]) OT [id number] Comments OT Self-Feeding Comments Not meal time but fine motor seen in session indicates that she should not have difficulty feeding herself. OT ADL-Grooming General Evaluation Grooming Ability Standby Assistance Areas Needing Assistance Combing/Brushing Hair Comments OT Grooming Comments seated in chair. OT ADL-Oral Care Comments Oral Care Comments Not performed, pt states she already performed. OT ADL-Dressing Comments OT Dressing Comments Not performed on this date. OT ADL-Toileting Comments OT Toileting Comments Not performed OT ADL-Bathing Comments OT Bathing Comments Not performed M5 OT- IP IADL's Start: 04/26/19 12:14 Freq: Status: Active Protocol: Document 04/26/19 12:15 CGR (Rec: 04/26/19 12:34 CGR [id number]) OT-Instrumental Activities of Daily Living Deficits IADL Deficits Identified Deficits Home Safety Awareness Awareness of Need for Assistance at Home Decreased Awareness Ability to Problem Solve Emergency Unable to Problem Solve Situations M6 OT- IP Functional Cognition Start: 04/26/19 12:14 Freq: Status: Active Protocol: Document 04/26/19 12:15 CGR (Rec: 04/26/19 12:34 CGR [id number]) Cognitive Factors Limiting Selfcare Function Cognitive Ability Level of Alertness Alert Patient Orientation Name,Age,Birthday,Month,Date, Year,Place,Situation Attention Span Ability Capable of Focused Attention, Unable to Sustain Attention Ability to Follow Commands Able to Follow One Step Commands with Increased Time, Able to Follow One Step Commands with Repetition Safety Awareness Underestimates Need for Assistance Problem Solving Ability Unable to Identify Errors, Needs Assist to Identify Solutions Cognitive Tests SLUMS Pt performed alone in quiet room. achieved. Cognitive Comments Cognitive Assessment Comments Recommend retesting in a few days. OT- Vision and Hearing OT- Hearing Assessment OT- Hearing Assessment WFL OT- Vision Assessment Visual Acuity Glasses All The Time,No Vision Aides At Hospital Visual Attentiveness WFL Occular Pursuits WFL Visual Convergence WFL Visual Forde WFL Vision Assessment Comments Pt states that she typically wears bifocals. M7 OT- IP Mobility and Balance Start: 04/26/19 12:14 Freq: Status: Active Protocol: Document 04/26/19 12:15 CGR (Rec: 04/26/19 12:34 CGR [id number]) OT-Transfer Assessment Sit to and From Stand Sit to and from Stand Moderate Assistance,1 Person Assistance Technique Transfer Destination Chair Devices Transfer Assistive Devices Gait Belt,Front Wheeled Walker Comments Mobility Comments Sit to stand from chair with B handrails. Pt leans heavy on handrails but was able to scoot forward with VC and sit to stand with mod a. Standing balance and endurance poor. Needs cues for full stand and unsafe return to chair. Sit to stand performed x 2. OT- Balance Assessment Sitting Balance and Reactions Static Sitting Balance Ability Fair Dynamic Sitting Balance Ability Poor Standing Balance and Reactions Static Standing Balance Ability Poor M8 OT- IP Objective Assessments Start: 04/26/19 12:14 Freq: Status: Active Protocol: Document 04/26/19 12:15 CGR (Rec: 04/26/19 12:34 CGR [id number]) OT Gross Range of Motion Upper Extremity Range of Motion Assessment Within Functional Limits OT Strength Upper Extremity Strength Assessment Bilaterally Impaired Comments Strength Comments Grossly 3+/5 throughout. Poor effort vs weakness vs fatigue? OT- Coordination Assessment Upper Extremity Finger to Nose Test Within Functional Limits Finger Tapping Test Within Functional Limits OT-Muscle Tone Assessment Muscle Tone WNL Yes OT Sensation Assessment Comments Summary Comments Pt states typical sensation. Edema Edema Absent M9 OT- IP Assessment and Plan Start: 04/26/19 12:14 Freq: Status: Active Protocol: Document 04/26/19 12:15 CGR (Rec: 04/26/19 12:34 CGR [id number]) OT Summary Assessment and Plan Potential Rehabilitation Potential Good Analytic Complexity at Evaluation Moderate Summary OT Impairments Strength,Balance,Functional Cognition,Functional Mobility, Grooming,Dressing,Toileting, Bathing,Toilet Transfers, Shower Transfers Progress Towards Goals Slow Progress due to Activity Tolerance,Slow Progress due to Cognition Assessment Summary Pt presents as a mod complexity evaluation. Pt admitted with generalized weakness and decreased cog. Pt will benefit from continued OT services and recommend pt dishcarge to SNF for rehab. Pt and family are agreeable. Goals Grooming Goal Independent Dressing Goal Independent Toileting Goal Independent Bathing Goal Independent,Grab Bars,Hand Held Shower Sprayer Toilet Transfer Goal Independent Shower Transfer Goal Independent Days to Meet Goals 10 Frequency of Treatment Frequency Of Treatment Once a Day Treatment Plan OT Treatment Plan ADL Training,Functional Cognition Training,Functional Mobility,Therapeutic Exercises ,Patient/Family Education, Discharge Planning Other Treatment Recommendations and Next Follow up cog assessment. Treatment Focus Endurance activities for ADLs. Discharge Recommendations OT Discharge Recommendations SNF Rehab Home Equipment Needs TBD
--- NOTE | 2019-04-26 13:07 | CM.DANOTE ---
Addendum entered by Taylor Taylor LPN 04/26/19 13:49: Dr. Hoyt is updated. Readily agrees that a psychiatric consult is indicated and will put in the consult. Original Note: Discharge Planning/Care Management DCP: assessment: case received, EMR reviewed and went to pt's room in the ICu setting to see pt. Introduced self and role. Pt was found up in bedside chair, alert and agreeable to talk. She had just completed a session with OT. She reported that her daughter Tricia was just here and would return soon.. Pt is an 84 year old female who admitted last night to care of the hospitalist team. PCP: Dr. Raquel Martinez. Oncologist: Dr. Byrnes Payer: Medicare and [facility]. Noted that RISK SPECIALIST/oncology pt navigator: Giovanna Romano has been following pt at the oncology clinic and her last note in March is reviewed. She is alerted to pt's admission, plans to see her as a clinic rep at [address] Byrnes to pt's presence in the hospital. She stated pt's family has been working on getting her to an [facility] in [place] where family reside. Admission status: was under review: now confirmed INPT: as of 04/25: UR RN Roge. Pt acknowledged that things had been difficult for her at home since her in February. She knows her daughter is trying to get a better situation set up for her and says she is ready for this. Agreed to call her daughter for further discussion/done: spoke with Frannie Barbosa: [phone]. She stated that the [place] plan had not been considered for some time...pt and family felt she would be better off staying in [place] where her oncologist is and Tricia and her have a second home in [place] that they purchased when pt first became ill a few years ago. (Their primary home and business is in [place].) Tricia states, as Dr. Hoyt in her note of today, that she would like pt to go for SNF level treatment: choice: [facility] as in the only facility in [place] and then to an assisted setting. The funds are available for assisted care. Did advise that she look for a facility that has LN availability 02/03. Tricia confirms that pt has basically been living alone with a caregiver coming in about 3x week but providing only supportive assist, not hands on ADL or mobility assistance. PT and OT are ordered. Dr. Byrnes and Dr. Hoyt have now discussed case. CHARITY Heredia has just had conversation with pt and Tricia in pt's room and she is recommending that pt have a psychiatric evalution while in the hospital: through the [facility] providers to help in management of pt's depression which she states seems to have worsened with of her . She will contact Dr. Hoyt now to make this recommendation. In meantime, have given referral for [facility] to [facility] with plan then for [facility]. She is reviewing. DCP team will be following. CM Discharge Assessment Start: 04/26/19 13:04 Freq: Status: Active Protocol: Document 04/26/19 13:04 ITV (Rec: 04/26/19 13:07 ITV [id number]) Discharge Planning Assessment Advance Directives? Yes Advance Directives on File No History Provided By Patient,Family Member,Medical Record Has Patient been admitted in last 30 No days? Prior Living Arrangements House Type of transporation used prior to Relies on Others admit Patient/Family [facility] Comment SNF then plan for [facility] : pt and family hoping these facilities will all be in [place] Review Status In Process
[2019-04-26] MEDS: NYSTATIN POWDER 30 GM 1 APPLIC TOP (13:57)
[2019-04-26] MEDS: ASPIRIN 325 MG TABLET PO (13:57)
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
--- NOTE | 2019-04-26 15:11 | DIET.PN ---
Dietary Note Assessment: Ms. Morton was assessed at high risk for low MNA score with low PO's, decreased weight, dementia, and psychological stress. She was admitted with acute metabolic encephalopathy, dehydration. She lives with her daughter since the recent passing of her (February 2019) which has caused her great grief largely effecting her quality of life. DX: AMS, UTI PMHX: CAD, IDDMT2, Fe Def Anemia, Colon Cancer Stage III on immunotherapy HT: 162.56cm WT: 97kg UBW: 101.3 (1yr ago) BMI: 36.7 (obese) Labs: Na: 136 Gluc: 131 A1c: 7.0 (8.5- 11/2017) Alb: 3.1 MNA: 6 (malnutrition) Adien: 13 Nutrition Diagnosis: 1. Unintentional weight loss r/t psychological causes (dementia/depression) aeb poor intake, conditions associated w/ diagnosis/treatment (Colon Cancer), recent loss of . 2. Altered nutrition related labs r/t impaired glucose metabolism aeb DX IDDM. Interventions: 1. Discuss Carb Consistent Diet w/ patient. 2. Provide ONS glucerna if PO's <70% x 3 d. Diet Order: CCD 3 PO's: 100 % Monitoring/Evaluations: Wt, PO intake. If PO's < 70%, initiate ONS glucerna. Reassess for Malnutrition.
[2019-04-26 16:00] VITALS: BP 123/49; PULSE 61; RESP 14; TEMP 36.7; O2SAT 96
[2019-04-26] MEDS: INSULIN GLARGINE 100 UNIT/ML 3ML PEN 15 UNIT SUBCUT (17:33)
--- NOTE | 2019-04-26 18:01 | P.CONS_ITS ---
History of Present Illness Consult details Date Patient Seen: 04/26/19 Time Patient Seen: 17:00 Chief complaint: ams - UTI Reason for consult: Depression Requesting provider: Windy Hoyt Narrative: REASON FOR CONSULT REQUEST: Jade Morton is an 84-year-old female admitted for acute encephalopathy and referred for evaluation of severe depression. CHIEF COMPLAINT: ?It has been difficult since my .? HISTORY OF PRESENT ILLNESS: Ms. Morton has a long history of depression dating back many years, possibly into the 1950s when she miscarried and lost her 1st child. She reports a somewhat tumultuous relationship with her of over 60 years who 3 months ago. However, throughout their life, there were several ups and Downs that did not settle down until later in their marriage. Whenever they had marital difficulties she also went through significant bouts of depression that would last many months. She has been treated on numerous antidepressant medications and most recently has been on Zoloft for many years. The patient's this past February and since then her depressive symptoms have become much worse. They had been living in an older adult community but had a caregiver come in 3 times a day to check on them and do light housework. Two days ago, the caregiver came to find the patient confused and lying and soiled clothing with feces and urine. The patient was confused. The patient's family brought her to the emergency department where she was admitted for further evaluation of encephalopathy. HOSPITAL COURSE: The patient underwent a number of laboratory and diagnostic imaging tests with no underlying infection or other pathology to explain her change in mental status except for dehydration and decline in nutrition. After receiving IV f luids the patient?s mental status improved markedly and she was able to provide a much more coherent history. The patient reports that she has been neglecting her own self-care and admits to significant symptoms of depression. The patient reports profoundly depressed sad and apathetic mood. She endorses anhedonia, poor appetite, increased sleep, severe fatigue and loss of energy, feelings of hopelessness helplessness and worthlessness, poor concentration, and thoughts of . She denies overt suicidal ideation, but does question why she is even still alive. She also notes that for a period of 9 days in a row recently she woke up in the middle of night hearing things and thought her was still there. Upon investigation there was nothing, and other than that she did not hear any other disturbances. The patient denies anything else that sounds like psychotic symptoms. Patient denies symptoms of mehdi, psychosis, or panic or anxiety. COLLATERAL FROM STAFF: Patient has been cooperative and appears to be much improved since her admission. PAST PSYCHIATRIC HISTORY: As noted above significant history of depression in the past and treatment with multiple antidepressants, none of which the patient is able to name except for Zoloft. SUBSTANCE USE HISTORY: The patient has no history of substance use disorder. FAMILY HISTORY: The patient is the oldest of 4 sisters from a [place] family. Mother is still alive at the age of 100. Both the patient and her sister suspect that there may have been some history of depression in her mother. SOCIAL HISTORY: The patient lives alone in an adult living environment in her own apartment. She has a caregiver who comes in a couple of times a day to assist her. DEVELOPMENTAL HISTORY: Unremarkable. The patient apparently reached normal developmental milestones. PCP: [] SIGNIFICANT MEDICAL HISTORY: Patient's medical history is significant for colon cancer, COPD, asthma, C difficile colitis, and diabetes. [facility] Medical History Anxiety disorder (Chronic) Asthma (Chronic) C. difficile colitis (Chronic) Clostridium difficile colitis (Resolved) Colon cancer (Chronic) COPD (chronic obstructive pulmonary disease) (Chronic) Coronary artery disease (Chronic) Diabetes (Chronic) Diarrhea (Acute) DJD (degenerative joint disease) (Chronic) History of tremor (Chronic) Hypercholesteremia (Chronic) Mild cognitive impairment, so stated (Chronic) Neuropathy (Chronic) Obesity (Chronic) Other sleep apnea (Chronic) Postprocedural hypertension (Resolved) Sleep apnea (Chronic) Solitary pulmonary nodule (Chronic) Spinal stenosis of lumbar region (Chronic) Syncope and collapse (Resolved) Unspecified urinary incontinence (Chronic) Surgical History H/O hemicolectomy (Chronic) H/O peritonsillar abscess drainage (Resolved) History of partial colectomy (Inactive) Hx of cataract surgery (Resolved) Family History Father No problems noted. Mother Age: 100 No problems noted. Sister Breast cancer Diabetes mellitus Social History household members: caregiver Smoking Status: Former smoker alcohol intake: never Family History Father No problems noted. Mother Age: 100 No problems noted. Sister Breast cancer Diabetes mellitus Social History household members: caregiver Smoking Status: Former smoker alcohol intake: never Meds Home Medications and Allergies Home Medications Medication Instructions Recorded Confirmed Type oxybutynin chloride 10 mg PO BID #0 10/13/16 04/25/19 History Lantus Solostar U-100 Insulin 15 unit SQ QPM #0 11/11/17 04/25/19 History nitroglycerin [Nitrostat] 0.4 mg SUBLINGUAL PRN PRN #0 11/11/17 04/25/19 History polyethylene glycol 3350 [Miralax] 17 g PO DAILY #30 ea 08/19/18 04/25/19 Rx atorvastatin 10 mg PO DAILY 09/09/18 04/25/19 History levothyroxine 50 mcg PO DAILY #60 tab 12/06/18 03/10/19 Rx nystatin 1 applic TOPICAL BID 04/25/19 04/25/19 History sertraline 100 mg PO DAILY 04/25/19 04/25/19 History Allergies Allergy/AdvReac Type Severity Reaction Status Date / Time Sulfa (Sulfonamide Allergy Severe hives Verified 04/25/19 15:01 Antibiotics) [SULFA (SULFONAMIDE ANTIBIOTICS)] metformin Allergy Mild Diarrhea Verified 04/25/19 15:01 darifenacin [From Enablex] Allergy Unknown Verified 04/25/19 15:01 ketoconazole Allergy Unknown Verified 04/25/19 15:01 promethazine [From Phenergan] Allergy Verified 04/25/19 15:01 adhesive [ADHESIVE] AdvReac Severe tape Verified 04/25/19 15:01 causes blisters Review of Systems Review of Systems ROS Unobtainable: All systems reviewed & are unremarkable except as noted in HPI and below Exam Vital Signs (past 8 hours): - 04/26/19 12:00 04/26/19 16:00 Temperature 97.8 F 98.0 F Pulse Rate 63 61 Respiratory Rate 20 14 Blood Pressure 134/53 L 123/49 L Pulse Oximetry 93 96 Oxygen Delivery Method Room Air Oxygen Flow Rate 0 Narrative Exam Narrative: MENTAL STATUS EXAM: Appearance: Patient is a moderately obese female seen in the ICU seated in a hospital chair. She is neatly groomed dressed in [facility]. She appears stated age Behavior: Calm, cooperative, good eye contact, no psychomotor agitation or slowing, no tremor or involuntary movements observed Gait: Not observed Speech: Normal rate, volume, and tabatha Mood: I do not know why I am alive. Affect: Moderately dysphoric, somewhat constricted but congruent with content. Thought Process: Linear, logical, goal-directed Thought Content: Thought content consists of vague nihilistic thoughts of but no overt suicidal or homicidal ideation, intent, or plan. There was no evidence of a formal thought or perceptual disturbance. Attention: Attentive to interview Orientation: Oriented to person place and time Memory: Intact for interview, not formally tested Insight: Fair Judgment: Fair Objective Labs Result Diagrams: 04/26/19 06:30 04/26/19 06:30 Labs: Laboratory Results - last 24 hr 04/25/19 04/25/19 04/25/19 15:03 15:03 15:03 WBC RBC Hgb Hct MCV MCH MCHC RDW Plt Count Neut % (Auto) Lymph % (Auto) [place] % (Auto) Eos % (Auto) Baso % (Auto) Neut # (Auto) Lymph # (Auto) [place] # (Auto) Eos # (Auto) Baso # (Auto) Sodium Potassium Chloride Carbon Dioxide BUN Creatinine Estimated GFR BUN/Creatinine Ratio Glucose Hemoglobin A1c Calcium Total Bilirubin AST ALT Alkaline Phosphatase Ammonia Total Creatine Kinase 469 H CK-MB (CK-2) CK-MB (CK-2) Rel Index Troponin I 0.103 H Total Protein Albumin Globulin Albumin/Globulin Ratio Lipase 65 Urine RBC Urine WBC Ur Squamous Epith Cells Amorphous Sediment Urine Bacteria Urine Mucus Ur Culture Indicated? Nasal Screen MRSA (PCR) 04/25/19 04/25/19 04/25/19 15:13 19:45 22:50 WBC RBC Hgb Hct MCV MCH MCHC RDW Plt Count Neut % (Auto) Lymph % (Auto) [place] % (Auto) Eos % (Auto) Baso % (Auto) Neut # (Auto) Lymph # (Auto) [place] # (Auto) Eos # (Auto) Baso # (Auto) Sodium Potassium Chloride Carbon Dioxide BUN Creatinine Estimated GFR BUN/Creatinine Ratio Glucose Hemoglobin A1c Calcium Total Bilirubin AST ALT Alkaline Phosphatase Ammonia < 9.0 L Total Creatine Kinase CK-MB (CK-2) CK-MB (CK-2) Rel Index Troponin I Total Protein Albumin Globulin Albumin/Globulin Ratio Lipase Urine RBC 0-1/hpf Urine WBC 1-5/hpf Ur Squamous Epith Cells 1-5 /hpf Amorphous Sediment 2+ Urine Bacteria Few (2-10) H Urine Mucus 2+ H Ur Culture Indicated? Specimen cultured Nasal Screen MRSA (PCR) Negative for mrsa 04/26/19 04/26/19 04/26/19 06:30 06:30 06:30 WBC 9.2 RBC 4.02 Hgb 12.5 Hct 36.5 MCV 90.9 MCH 31.2 MCHC 34.3 RDW 13.1 Plt Count 281 Neut % (Auto) 68.7 Lymph % (Auto) 19.0 L [place] % (Auto) 9.1 Eos % (Auto) 2.2 Baso % (Auto) 1.0 Neut # (Auto) 6300 Lymph # (Auto) 1700 [place] # (Auto) 800 Eos # (Auto) 200 Baso # (Auto) 100 Sodium 136 L Potassium 3.8 Chloride 104 Carbon Dioxide 26 BUN 17 Creatinine 0.60 Estimated GFR > 60.0 BUN/Creatinine Ratio 28.3 H Glucose 131 H D Hemoglobin A1c 7.0 H Calcium 8.7 Total Bilirubin 0.7 AST 35 ALT 20 Alkaline Phosphatase 63 Ammonia Total Creatine Kinase 278 H CK-MB (CK-2) 2.59 H CK-MB (CK-2) Rel Index 0.9 L Troponin I 0.153 H* Total Protein 6.3 Albumin 3.1 L Globulin 3.2 Albumin/Globulin Ratio 1.0 Lipase Urine RBC Urine WBC Ur Squamous Epith Cells Amorphous Sediment Urine Bacteria Urine Mucus Ur Culture Indicated? Nasal Screen MRSA (PCR) Assessment & Plan Assessment and plan (1) Acute metabolic encephalopathy: Current visit: Yes Status: Acute (2) Major depressive disorder, recurrent severe without psychotic features: Current visit: Yes Status: Acute Assessment & Plan narrative: ASSESSMENT: Jade Morton is an 84-year-old woman with a long history of depression who lost her of over 64 years 3 months ago. Since that time the patient has become more depressed exhibiting profound fatigue, loss of energy, hypersomnia, anhedonia, and demoralization which has led to neglect in her basic needs resulting in dehydration and metabolic encephalopathy. DIAGNOSES: Major depressive disorder, recurrent, severe without psychotic features RECOMMENDATIONS: 1. Increase sertraline 150 mg PO QDay. 2. Patient may benefit from augmenting sertraline with Adderall 5 mg PO QDay to increase activation and motivation. This is a low dose, but always cautious in elderly to start low and go slow. Watch for agitation and increased blood pressure, but if well tolerated could help with increasing energy and motivation. 3. Continue metabolic support as you are already doing. 4. Recommend placement in higher level of care to ensure nutritional needs are met, but she would also benefit from increased social support vs living alone. 5. Will continue to follow with you while she is in the hospital. Time Spent With Patient Time with patient: 25 - 35 minutes
[2019-04-26 20:00] VITALS: BP 122/62; PULSE 64; RESP 17; TEMP 36.5; O2SAT 96
[2019-04-26] MEDS: OXYBUTYNIN 5 MG TABLET PO (21:41)
[2019-04-27] VITALS: BP 129/64; PULSE 89; RESP 20; TEMP 36.4; O2SAT 96
[2019-04-27 04:45] VITALS: BP 149/54; PULSE 55; RESP 16; TEMP 35.8; O2SAT 96
[2019-04-27] MEDS: LEVOTHYROXINE 50 MCG TABLET PO (05:58)
[2019-04-27 07:35] VITALS: BP 144/69; PULSE 70; RESP 20; TEMP 36.4; O2SAT 93
[2019-04-27] MEDS: ASPIRIN 325 MG TABLET PO (09:44)
[2019-04-27] MEDS: OXYBUTYNIN 5 MG TABLET PO ×2 (09:44→21:08)
[2019-04-27] MEDS: INSULIN ASPART 100 UNIT/ML INSULN PEN SUBCUT ×4 (09:44→21:06)
[2019-04-27] MEDS: ENOXAPARIN 40 MG/0.4 ML SYRINGE SUBCUT (09:45)
[2019-04-27] MEDS: SODIUM CHLORIDE 0.9% FLUSH 10 ML IV ×2 (09:47→21:07)
--- NOTE | 2019-04-27 10:38 | P.CONS_ITS ---
History of Present Illness Consult details Date Patient Seen: 04/27/19 Time Patient Seen: 10:10 Chief complaint: ams - UTI Reason for consult: Follow up from yesterday, depression, mental status changes Requesting provider: Windy Hoyt Narrative: The patient was seen today in follow-up from yesterday's consult. As previously noted, the patient is an 84-year-old recently female who was brought in to the emergency department 3 days ago after being found by a caregiver with altered mental status and soiled with both urine and feces. After being brought to the ER, no acute cause for mental status change was found other than severe dehydration and hyponatremia. The patient was rehydrated and nutritional status was improved to the point that her mental status has recovered significantly over the past 48 hours. She reports feeling better today and describes her mood as ?good.? We continue to discuss her recent history and decline into depression. She states that prior to her 's in February she was relatively stable and had no difficulty with any cognitive tasks. Memory was good. She was not missing appointments. She could remember people's names, faces, and events. She also reports that depressive symptoms were relatively well controlled on her current dose of sertraline. She states that when her she was thrown for loss. This worsened her symptoms of depression and likely contributed to events that led up to her admission. Patient denies any suicidal ideation, intent, or plan. She generally reports feeling more hopeful and better today. [facility] Medical History Anxiety disorder (Chronic) Asthma (Chronic) C. difficile colitis (Chronic) Clostridium difficile colitis (Resolved) Colon cancer (Chronic) COPD (chronic obstructive pulmonary disease) (Chronic) Coronary artery disease (Chronic) Diabetes (Chronic) Diarrhea (Acute) DJD (degenerative joint disease) (Chronic) History of tremor (Chronic) Hypercholesteremia (Chronic) Mild cognitive impairment, so stated (Chronic) Neuropathy (Chronic) Obesity (Chronic) Other sleep apnea (Chronic) Postprocedural hypertension (Resolved) Sleep apnea (Chronic) Solitary pulmonary nodule (Chronic) Spinal stenosis of lumbar region (Chronic) Syncope and collapse (Resolved) Unspecified urinary incontinence (Chronic) Surgical History H/O hemicolectomy (Chronic) H/O peritonsillar abscess drainage (Resolved) History of partial colectomy (Inactive) Hx of cataract surgery (Resolved) Family History Father No problems noted. Mother Age: 100 No problems noted. Sister Breast cancer Diabetes mellitus Social History household members: caregiver Smoking Status: Former smoker alcohol intake: never Family History Father No problems noted. Mother Age: 100 No problems noted. Sister Breast cancer Diabetes mellitus Social History household members: caregiver Smoking Status: Former smoker alcohol intake: never Meds Home Medications and Allergies Home Medications Medication Instructions Recorded Confirmed Type oxybutynin chloride 10 mg PO BID #0 10/13/16 04/25/19 History Lantus Solostar U-100 Insulin 15 unit SQ QPM #0 11/11/17 04/25/19 History nitroglycerin [Nitrostat] 0.4 mg SUBLINGUAL PRN PRN #0 11/11/17 04/25/19 History polyethylene glycol 3350 [Miralax] 17 g PO DAILY #30 ea 08/19/18 04/25/19 Rx atorvastatin 10 mg PO DAILY 09/09/18 04/25/19 History levothyroxine 50 mcg PO DAILY #60 tab 12/06/18 03/10/19 Rx nystatin 1 applic TOPICAL BID 04/25/19 04/25/19 History sertraline 100 mg PO DAILY 04/25/19 04/25/19 History Allergies Allergy/AdvReac Type Severity Reaction Status Date / Time Sulfa (Sulfonamide Allergy Severe hives Verified 04/25/19 15:01 Antibiotics) [SULFA (SULFONAMIDE ANTIBIOTICS)] metformin Allergy Mild Diarrhea Verified 04/25/19 15:01 darifenacin [From Enablex] Allergy Unknown Verified 04/25/19 15:01 ketoconazole Allergy Unknown Verified 04/25/19 15:01 promethazine [From Phenergan] Allergy Verified 04/25/19 15:01 adhesive [ADHESIVE] AdvReac Severe tape Verified 04/25/19 15:01 causes blisters Review of Systems Constitutional Constitutional: Reports as per HPI Exam Vital Signs (past 8 hours): - 04/27/19 04:45 04/27/19 07:35 Temperature 96.5 F L 97.6 F Pulse Rate 55 L 70 Respiratory Rate 16 20 Blood Pressure 149/54 H 144/69 H Pulse Oximetry 96 93 Oxygen Delivery Method Room Air Oxygen Flow Rate 0 Narrative Exam Narrative: MENTAL STATUS EXAM: Appearance: Patient is a moderately obese female seen in the ICU seated in a hospital chair. She is neatly groomed dressed in [employer] [employer]. She appears stated age Behavior: Calm, cooperative, good eye contact, no psychomotor agitation or slowing, no tremor or involuntary movements observed Gait: Not observed Speech: Normal rate, volume, and tabatha Mood: I feel a lot better. Affect: Generally euthymic with only mild dysphoria, somewhat constricted but able to smile and converse pleasantly. Thought Process: Linear, logical, goal-directed Thought Content: Thought content consists of vague nihilistic thoughts of but no overt suicidal or homicidal ideation, intent, or plan. There was no teri dence of a formal thought or perceptual disturbance. Attention: Attentive to interview Orientation: Oriented to person place and time Memory: Intact for interview, not formally tested Insight: Fair Judgment: Fair Objective Labs Result Diagrams: 04/26/19 06:30 04/26/19 06:30 Assessment & Plan Assessment and plan (1) Acute metabolic encephalopathy: Current visit: Yes Status: Acute (2) Major depressive disorder, recurrent severe without psychotic features: Current visit: Yes Status: Acute Assessment & Plan narrative: ASSESSMENT: Jade Morton is an 84-year-old woman with a long history of depression who lost her of over 64 years 3 months ago. Since that time the patient has become more depressed exhibiting profound fatigue, loss of energy, hypersomnia, anhedonia, and demoralization which has led to neglect in her basic needs resulting in dehydration and metabolic encephalopathy. DIAGNOSES: Major depressive disorder, recurrent, severe without psychotic features RECOMMENDATIONS: 1. Continue sertraline increae to 150 mg PO QDay. 2. Patient may benefit from augmenting sertraline with psychostimulant. Since Adderallis unavailable with the inpatient pharmace, recommend Methylphenidate 5 mg PO QDay to increase activation and motivation. This is a low dose, but always cautious in elderly to start low and go slow. Watch for agitation and increased blood pressure, but if well tolerated could help with increasing energy and motivation. 3. Continue metabolic support as you are already doing. 4. Recommend placement in higher level of care to ensure nutritional needs are met, but she would also benefit from increased social support vs living alone. 5. Will continue to follow with you while she is in the hospital. Time Spent With Patient Time with patient: 25 - 35 minutes
--- NOTE | 2019-04-27 10:49 | P.PN_ITS ---
Subjective Subjective Date Patient Seen: 04/27/19 Interval history: The patient is awake and alert and appropriate today. She is sitting up into a chair. She denies any shortness of breath or pain. She has a baseline resting tremor. Patient appears improved since yesterday. She is slow to respond but accurate in her response. Patient was seen and evaluated by Dr. Park from Psychiatry. It site consult greatly appreciated medication adjustments will be made in addition the patient will be seen by PT and OT. They have initially recommended snf placement for her at discharge. Exam Vital Signs (past 8 hours): - 04/27/19 04:45 04/27/19 07:35 Temperature 96.5 F L 97.6 F Pulse Rate 55 L 70 Respiratory Rate 16 20 Blood Pressure 149/54 H 144/69 H Pulse Oximetry 96 93 Oxygen Delivery Method Room Air Oxygen Flow Rate 0 Narrative Exam Narrative: Pleasant female sitting in chair with no acute distress Lungs: Decreased breath sounds bilaterally Cardiac exam: Regular rate and rhythm normal S1-S2 with a 2/6 systolic ejection murmur Abdomen: Soft nontender nondistended Extremities: No edema Objective Labs Result Diagrams: 04/26/19 06:30 04/26/19 06:30 Assessment & Plan Assessment & Plan narrative: Impression 1. Metabolic encephalopathy, improved suspect secondary to dehydration. 2. Major depression, chronic, present on admission. This is likely complicated by prolonged grief reaction secondary to the loss of her . Appreciate psychiatric evaluation. Will increase her Zoloft to 150 q.day. Will add methylphenidate 5 mg daily to augment this as well. 3. Type 2 diabetes, blood sugars elevated. Lantus increased to 15 units 4. Hypothyroidism, continue levothyroxine 5. Dehydration, resolved 6. Paroxysmal atrial fibrillation will repeat EKG, continue aspirin at this time. 7. Stage III colon cancer, in remission Plan: Anticipate discharge to [facility] tomorrow.
--- NOTE | 2019-04-27 11:05 | PT.IPTN ---
Current Diagnoses Major depressive disorder, recurrent severe without psychotic features (04/25/19) Metabolic encephalopathy (04/25/19) Physical Therapy Treatment Note M2 PT-IP Current Condition Start: 04/26/19 12:33 Freq: NEEDED Status: Active Protocol: Document 04/26/19 10:15 AB (Rec: 04/26/19 12:47 AB [id number]) Physical Therapy Current Condition Current Condition Evaluation Date 04/26/19 Treatment Diagnosis acute metabolic encephalopathy ; difficulty in walking Onset Date 04/25/19 Precautions Other Precautions falls M3 PT-IP Subjective Start: 04/26/19 12:33 Freq: NEEDED Status: Active Protocol: Document 04/27/19 11:05 AB (Rec: 04/27/19 12:24 AB [id number]) Subjective Physical Therapy Visit Type Type Treatment Note Visit Start Time 11:05 Visit Stop Time 11:20 Total Visit Minutes 15 Number of MANIFEST/ORDER ORGANIZER PRINT ORDERS Visits 0 Physical Therapy Visit Comments Patient Comments pt agreeable to do PT but stated that she cannot walk Therapy Pain Assessment Pain When Pain Assessed During Mobility Pain Present Pain Present Pain Reported Location Right Knee Scale Used pain scale not stated Description With Movement Pain Behaviors Guarding,Holding Area Pain Management Techniques Re-positioning M4 PT-IP Mobility and Gait Start: 04/26/19 12:33 Freq: NEEDED Status: Active Protocol: Document 04/27/19 11:05 AB (Rec: 04/27/19 12:24 AB [id number]) PT-Transfer Assessment Sit to and From Stand Sit to and from Stand Contact Guard Assistance, Minimal Assistance Equipment Transfer Assistive Device Gait Belt,Front Wheeled Walker Orthotic/Prosthetic Devices or Brace: No Gait Assessment Gait Gait Assistance Required: Minimum Assistance,Moderate Assistance Distance (Feet) 10 Able to Maintain Weight Bearing Status Yes During Gait Assistive Devices Assistive Device Gait Belt,Front Wheeled Walker Orthotic/Prosthetic Devices or Brace: No Gait Deviations General Gait Pattern Antalgic,Decreased Stride Length,Decreased Feet Clearance,Flexed Trunk Factors Limiting Gait Function Factors Limiting Gait Function Decreased Activity Tolerance, Decreased Strength,Difficulty Following Directions,Limited Range of Motion,Pain,Poor Balance,Poor Safety Awareness Comments Gait Comments pt completed sit to stand min A and cues from the chair and ambulated in room using FWW min A to mod A ~ 10 ft. pt presents with unsteady antalgic gait with c/o R knee pain. pt completed sit <>stand activity x 2 reps with CGA with cues given for techniques . M5 PT-IP Objective Assessments Start: 04/26/19 12:33 Freq: NEEDED Status: Active Protocol: Document 04/26/19 10:15 AB (Rec: 04/26/19 12:47 AB [id number]) Orientation Orientation/Cognition Level of Alertness Confusional State Orientation Name Safety Awareness Decreased Safety Awareness Memory Description Short Term Impaired,Mcc Impaired Gross Range of Motion Lower Extremity ROM Assessment Within Functional Limits Strength Lower Extremity Strength Assessment Bilaterally Impaired Comments Strength Comments RLE: 3-/5 LLE: 3+/5 Coordination Assessment Gross Coordination Gross Coordination WNL Muscle Tone Muscle Tone WNL Yes M6 PT-IP Treatment Start: 04/26/19 12:33 Freq: NEEDED Status: Active Protocol: Document 04/27/19 11:05 AB (Rec: 04/27/19 12:24 AB [id number]) Physical Therapy Treatment Exercises Exercises Ankle Pumps,Seated Knee Flexion/Extension Education Education Provided Safety Other Treatments Other Treatment Performed standing bal/tolerance using FWW for support requiring CGA for steadiness and stability. cued for upright posture and correcting balance M7 PT-IP Assessment and Plan Start: 04/26/19 12:33 Freq: NEEDED Status: Active Protocol: Document 04/27/19 11:05 AB (Rec: 04/27/19 12:24 AB [id number]) PT Summary Assessment and Plan Potential Rehabilitation Potential Good Summary Impairments Pain,ROM,Strength,Balance, Coordination,Sensation,Tone, Cognition,Bed Mobility, Transfers,Gait,Activity Tolerance Progress Towards Goals Slow Progress due to Medical Issues Assessment Summary pt progressing slowly requiring min to mod A with ambulation. c/o R knee pain with weight bearing. pt continues to have decrease safety awareness affecting functional mobility. pt will require SNF rehab to improve strength and function. Goals Bed Mobility Goal Standby Assistance Transfer Goal Standby Assistance,Front Wheeled Walker Gait Goal Standby Assistance,Front Wheel Walker Gait Distance 100 Days to Meet Goals 10 Frequency of Treatment Frequency Of Treatment Once a Day Treatment Plan Physical Therapy Treatment Plan Bed Mobility Training,Transfer Training,Gait Training, Therapeutic Exercise,Balance Retraining,Discharge Planning, Neuromuscular Re-ed, Coordination Retraining,Manual Therapy Recommendations To Nursing Amount of Assist Needed 1 Person Assist Discharge Recommendations PT Discharge Recommendations SNF Rehab
--- NOTE | 2019-04-27 11:10 | CM.DPNOTE ---
Addendum entered by CHARITY Medina 04/27/19 15:36: ADD: Per Nikkie at [facility], they need a note from the Oncologist stating pt's infusion could be postponed if pt was not stable for d/c from their facility by her next infusion date of 05/12/19. ESTEFANY called Giovanna at [facility] and she was able to speak with Dr. Emery who is agreeable that pt's infusion could be postponed a few weeks if needed and Giovanna will fax the MD note directly to [facility] to review and therefore [facility] can accept pt at d/c. ESTEFANY met bedside with pt, pt's sister, and pt's Dtr and explained role and updated that [facility] can accept at d/c and they are all appreciative. Dtr states she plans to tour [facility] on Thursday and bring back pictures to the pt towards securing an apartment for the pt at [facility] when she discharges from [facility] rehab. Plan: SW to follow for likely pt d/c to [facility] tomorrow if stable. CHARITY Medina Original Note: DCP Cont: Per MD, pt seems to be more stable today and working well with PT/OT and Psychiatrist Dr. aPrk was able to consult with the pt yesterday and today with dx of Major Depressive DO w/o psychotic features and made medication recommendations. Per PT/OT, still recommending SNF rehab at d/ for safety and mobility. ESTEFANY called [facility] to discuss their review of the pt and determine if they can accept and [facility] admissions January states that the barrier to accepting pt is her Oncology infusion Keytruda as Medicare would not cover the cost of her medication for oncology and they would have to cover the cost which is high. ESTEFANY called Oncology [facility] and confirmed that pt's infusion of Keytruda looks to be around every 3-4 weeks and pt's next infusion and appointment at [facility] isn't until 05/12/19 as pt just had her latest dose on 04/21/19 at their clinic. ESTEFANY called [facility] and updated and January will review with her administrators to determine if they can accept her for 2 weeks until her next oncology appointment. Plan: SW to follow closely for [facility] decision if they can accept pt at d/c. CHARITY Medina
[2019-04-27] MEDS: METHYLPHENIDATE 5 MG TABLET PO (11:38)
--- NOTE | 2019-04-27 11:46 | PM.CHAP ---
Patient alert and feeling better. Aware she may be going to care facility soon. Prayer and encouragement.
[2019-04-27 12:00] VITALS: BP 115/70; PULSE 60; RESP 20; TEMP 36.6; O2SAT 95
[2019-04-27 12:32] LABS: Troponin I 0.147 ng/mL (0.01-0.034)
[2019-04-27] MEDS: NYSTATIN POWDER 30 GM 1 APPLIC TOP (12:40)
--- NOTE | 2019-04-27 13:42 | OT.IP.TRT ---
Current Diagnoses Major depressive disorder, recurrent severe without psychotic features (04/25/19) Metabolic encephalopathy (04/25/19) Occupational Therapy Treatment Note M2 OT-IP Current Condition Start: 04/26/19 12:14 Freq: Status: Active Protocol: Document 04/26/19 12:15 CGR (Rec: 04/26/19 12:34 CGR [id number]) Occupational Therapy Current Condition Current Condition Evaluation Date 04/26/19 Treatment Diagnosis Metabolic encephalopathy Diagnosis Onset Date 04/25/19 M3 OT- IP Subjective and Pain Start: 04/26/19 12:14 Freq: Status: Active Protocol: Document 04/27/19 13:32 CCC (Rec: 04/27/19 13:42 CCC [id number]) OT- Subjective Occupational Therapy Visit Type Type Treatment Note Visit Start Time 11:50 Visit Stop Time 12:15 Total Visit Minutes 25 Occupational Therapy Visit Comments Patient Comments Pt states tired but agreeable to do cognitive assessment. Patient/Caregiver Goals Pt states not sure where she will be going after staying here in the hospital but realizes that she is not capable to be bby herself at this time. OT Pain Assessment Pain When Pain Assessed At Rest Pain Present Pain Present Denied Pain M4 OT- IP ADL's Start: 04/26/19 12:14 Freq: Status: Active Protocol: Document 04/26/19 12:15 CGR (Rec: 04/26/19 12:34 CGR [id number]) OT DOG-Moar-Bxmtyyn Comments OT Self-Feeding Comments Not meal time but fine motor seen in session indicates that she should not have difficulty feeding herself. OT ADL-Grooming General Evaluation Grooming Ability Standby Assistance Areas Needing Assistance Combing/Brushing Hair Comments OT Grooming Comments seated in chair. OT ADL-Oral Care Comments Oral Care Comments Not performed, pt states she already performed. OT ADL-Dressing Comments OT Dressing Comments Not performed on this date. OT ADL-Toileting Comments OT Toileting Comments Not performed OT ADL-Bathing Comments OT Bathing Comments Not performed M5 OT- IP IADL's Start: 04/26/19 12:14 Freq: Status: Active Protocol: Document 04/26/19 12:15 CGR (Rec: 04/26/19 12:34 CGR [id number]) OT-Instrumental Activities of Daily Living Deficits IADL Deficits Identified Deficits Home Safety Awareness Awareness of Need for Assistance at Home Decreased Awareness Ability to Problem Solve Emergency Unable to Problem Solve Situations M6 OT- IP Functional Cognition Start: 04/26/19 12:14 Freq: Status: Active Protocol: Document 04/27/19 13:32 [facility] (Rec: 04/27/19 13:42 [facility] [id number]) Cognitive Factors Limiting Selfcare Function Cognitive Ability Level of Alertness Alert Patient Orientation Name Attention Span Ability Capable of Focused Attention, Capable of Sustained Attention Ability to Follow Commands Able to Follow One Step Commands Memory Description Short Term Impaired Safety Awareness Underestimates Need for Assistance Problem Solving Ability Unable to Identify Errors, Needs Assist to Identify Solutions Cognitive Tests ACL Pt scored 4.4 out of 6.0 which implies live with someone who does a daily check on the environment and removes any safety hazards and solves any new problems. Therefore pt may need daily routine problem solved, set reminders for activities, hazards removed from the environment, daily food planning, finances , and medications provided. M7 OT- IP Mobility and Balance Start: 04/26/19 12:14 Freq: Status: Active Protocol: Document 04/26/19 12:15 CGR (Rec: 04/26/19 12:34 CGR [id number]) OT-Transfer Assessment Sit to and From Stand Sit to and from Stand Moderate Assistance,1 Person Assistance Technique Transfer Destination Chair Devices Transfer Assistive Devices Gait Belt,Front Wheeled Walker Comments Mobility Comments Sit to stand from chair with B handrails. Pt leans heavy on handrails but was able to scoot forward with VC and sit to stand with mod a. Standing balance and endurance poor. Needs cues for full stand and unsafe return to chair. Sit to stand performed x 2. OT- Balance Assessment Sitting Balance and Reactions Static Sitting Balance Ability Fair Dynamic Sitting Balance Ability Poor Standing Balance and Reactions Static Standing Balance Ability Poor M8 OT- IP Objective Assessments Start: 04/26/19 12:14 Freq: Status: Active Protocol: Document 04/26/19 12:15 CGR (Rec: 04/26/19 12:34 CGR [id number]) OT Gross Range of Motion Upper Extremity Range of Motion Assessment Within Functional Limits OT Strength Upper Extremity Strength Assessment Bilaterally Impaired Comments Strength Comments Grossly 3+/5 throughout. Poor effort vs weakness vs fatigue? OT- Coordination Assessment Upper Extremity Finger to Nose Test Within Functional Limits Finger Tapping Test Within Functional Limits OT-Muscle Tone Assessment Muscle Tone WNL Yes OT Sensation Assessment Comments Summary Comments Pt states typical sensation. Edema Edema Absent M9 OT- IP Assessment and Plan Start: 04/26/19 12:14 Freq: Status: Active Protocol: Document 04/27/19 13:32 [facility] (Rec: 04/27/19 13:42 [facility] [id number]) OT Summary Assessment and Plan Potential Rehabilitation Potential Good Analytic Complexity at Evaluation Moderate Summary OT Impairments Strength,Balance,Functional Cognition,Functional Mobility, Grooming,Dressing,Toileting, Bathing,Toilet Transfers, Shower Transfers Progress Towards Goals Progressing Toward Goals,Slow Progress due to Activity Tolerance Assessment Summary Pt will benefit from skilled rehab initially and then afterwards may benefit from going to assistive living facility therefore would be an appropriate setting to proved assist and supervision for especially IADl, bathing, and medication needs. Goals Grooming Goal Standby Assistance Dressing Goal Standby Assistance Toileting Goal Standby Assistance Bathing Goal Contact Guard Assistance,Grab Bars,Hand Held Shower Sprayer Toilet Transfer Goal Standby Assistance Shower Transfer Goal Standby Assistance Days to Meet Goals 7 Frequency of Treatment Frequency Of Treatment Once a Day Treatment Plan OT Treatment Plan ADL Training,Functional Cognition Training,Functional Mobility,Therapeutic Exercises ,Patient/Family Education, Discharge Planning Discharge Recommendations OT Discharge Recommendations SNF Rehab Home Equipment Needs TBD
--- NOTE | 2019-04-27 14:09 | PC.NURSE ---
Pt has been up to chair most of this shift. More alert and answering more appropriately as the day has progressed. Oriented to self and family. She knows she is in the hospital but cannot readily identify hospital name, city/state. She is unable to recall specific date but does state it is morning time (on initial assessment). She is denying pain, shortness of breath, chest pain, n/v. She is incontinent of urine. She is able to feed herself and brush her own teeth. She is weak and requires extensive cues and encouragement to participate in ADLs but is cooperative and calm with care. She denies visual/auditory hallucinations. Her VSS. Plan is to dc to [facility] tomorrow if stable. Daughter at bedside aware of plan.
[2019-04-27 15:44] VITALS: BP 116/52; PULSE 98; RESP 18; TEMP 36.1; O2SAT 94
--- NOTE | 2019-04-27 16:18 | PC.NURSE ---
Addendum entered by Krysta Pagan R.N. 04/27/19 18:08: Pt up to use bedside commode. Assist x2. Barrier cream to buttocks and panus cleaned, dried with nystatin application. Pt back to bed. Original Note: VSS upon change of shift. Pt in chair sleeping. Arousable GCS of 15. Denies any pain or discomfort. Will continue to provide skin care and further breakdown to buttocks/panus. Daughter left at change of shift- verbalized desire for physician to sit with patient tomorrow and review POLST form with patient.
[2019-04-27] MEDS: INSULIN GLARGINE 100 UNIT/ML 3ML PEN 15 UNIT SUBCUT (17:19)
[2019-04-27 19:48] VITALS: BP 143/64; PULSE 60; RESP 20; TEMP 36.4
[2019-04-27] MEDS: SERTRALINE 50 MG TABLET 150 MG PO (21:07)
[2019-04-28] VITALS: BP 144/72; PULSE 65; RESP 20; TEMP 36.3; O2SAT 95
[2019-04-28 04:00] VITALS: BP 148/62; PULSE 48; RESP 18; TEMP 36.5; O2SAT 94
--- NOTE | 2019-04-28 06:38 | PC.NURSE ---
Patient is oriented to person, place, and some events, forgetful to date. Incontinent urine while she sleeps, does also get to BSC with walker and 1-2 person assist.
[2019-04-28 07:36] VITALS: BP 141/71; PULSE 53; RESP 20; TEMP 36.6; O2SAT 96
--- NOTE | 2019-04-28 08:26 | PM.DS.1 ---
History of Present Illness History of Present Illness Date Patient Seen: 04/28/19 Chief complaint: ams - UTI Narrative: The patient is an 84-year-old female with PMH of CAD (prior h/o [place], 07/2017), IDDM 2T, FRANCISCO J (poor adherence w/ CPAP), obesity, Fe deficiency anemia, hypothyroidism, HLD, cognitive/memory impairment, anxiety disorder, spinal stenosis, large ventral hernia, priro GIB, h/o c diff and h/o of colon cancer. Colon cancer stage III (initially dx in 2001, s/p resection w/ 6 mo of leucovorin and 5FU; 03/29/18 dx w/ recurrence and tx w/4 cycles of 5 FU, leucovorin, and Keytruda). Currently patient is undergoing immunotherapy with pembrolizumab. Her oncologist is Dr. Emery. Patient presented to the ED on 04/25/2019 out of concern for confusion. Associated symptoms include lower extremity weakness and difficulty with mobility at least 4-5 days. Also, recently complaining of RUQ and epigastric pain. Patient lives with daughter. She is known to have underlying memory deficits, however no diagnosis of dementia. Patient was noted to have progressive confusion with an 24 hours prior to ED presentation. Patient was found this morning by daughter in a wheelchair in continent of urine and stool. Records note that patient does not have urinary fecal incontinence; however, there are multiple notations in regard to prior urinary frequency and urinary incontinence. No prior mention of fecal incontinence. It is being reported that patient has recently suffered a of her in February of 2019. It appears she's had hard time with coping. Family notes patient is grieving. The daughter also communicated that patient has expressed thoughts of harming self; however, does not have a plan in place. Patient herself has also noted thoughts of harm full ideation toward self. Discharge Providers Provider Date of admission: 04/25/19 19:39 Discharge Date: 04/28/19 Primary care physician: Raquel Martinez MD Consults: 04/25/19 20:18 Consult to Dietitian, Adult Routine Comment: Reason For Exam: assessed at high risk Consult to Pastoral Services Routine Comment: Pt request, 04/26/19 02:55 Consult to Occupational Therapy Evaluate & Treat Comment: diminished ability to partake in ADLs Physician Instructions: Evaluate and treat Consult to Physical Therapy Evaluate & Treat Comment: generalized weakness Physician Instructions: Evaluate and Treat Discharge provider: Windy Hoyt MD Summary Hospital Course Discharge Diagnosis: 1. Acute Metabolic encephalopathy, present on admission, resolved 2. Major depression, resolved 3. Type 2 myocardial infarction, present on admission 4. Hyperlipidemia, chronic 5. Type 2 diabetes 6. Urinary incontinence 7. Hypothyroidism 8. Obstructive sleep apnea 9. Obesity 10. Large ventral hernia, nonincarcerated 11. History of C difficile colitis 12. Intertriginous Reshma Hospital Course: The patient is an 84-year-old female who was brought into the hospital with confusion, acute metabolic encephalopathy. The patient was found at home sitting in stool and in urine. She complained of some right lower quadrant pain. She did have a CT scan of the abdomen and pelvis which documented a large ventral hernia that was not incarcerated. There was no evidence of acute cholecystitis although there was cholelithiasis. The patient had complained of right hip pain. An x-ray was negative. The patient also had what looked like a UTI initially. However the urine culture results were negative. Blood culture results were negative. Patient was seen by Psychiatry. There was concern regarding major depression and the impact that was having on her inability for self-care. Dr. Park our psychiatrist recommended increasing her Zoloft to 150 per day and adding methylphenidate to her regimen. The patient was seen by Physical therapy and Occupational therapy. She was determined to have difficulty and self-care and needing ongoing rehabilitation. Recommendations were made for her to go to a shelter facility for rehabilitation before either returning home or going into an assisted living facility. Her daughter was at the bedside most days who provided much of the history. The patient was seen on the day of discharge and deemed appropriate for discharge to [facility]. She has no complaints of shortness of breath, no complaints of chest pain, mild right lower quadrant pain, she is awake conversant and alert. Status at Discharge Cognitive/behavioral status at discharge: at baseline, confused Functional status at discharge: uses cane/walker Overall status at discharge: patient is not back to baseline Time Spent with Patient Time spent: Less than 30 minutes Exam Vital Signs (past 8 hours): - 04/28/19 04:00 04/28/19 07:36 Temperature 97.7 F 97.9 F Pulse Rate 48 L 53 L Respiratory Rate 18 20 Blood Pressure 148/62 H 141/71 H Pulse Oximetry 94 96 Oxygen Delivery Method Room Air Oxygen Flow Rate 0 Narrative Exam Narrative: Pleasant female resting comfortably in no obvious distress Lungs: Decreased breath sounds but clear to auscultation Cardiac exam: Regular rate and rhythm normal S1-S2 with occasional ectopic beat Abdomen: Soft mild right lower quadrant tenderness, no palpable masses, no appreciable hepatosplenomegaly Extremities: No edema Objective Labs Result Diagrams: 04/26/19 06:30 04/26/19 06:30 Labs: Laboratory Results - last 24 hr 04/27/19 11:20 Troponin I 0.147 H* Discharge Plan Discharge Plan Patient Disposition: SNF Transfer to: [facility] Consult as needed: Dental, Hearing, Mental health, Podiatry and Vision Discharge Med Rec/Prescriptions Prescriptions: New aspirin 325 mg Tablet 325 mg PO DAILY Qty: 30 RF: 0 methylphenidate HCl 5 mg Tablet 5 mg PO DAILY Qty: 30 RF: 0 sertraline [Zoloft] 50 mg Tablet 150 mg PO BEDTIME 30 Days RF: 0 Continued oxybutynin chloride 5 MG tablet 10 mg PO BID Qty: 0 RF: 0 Lantus Solostar U-100 Insulin 100 UNIT/1 ML insulin pen 15 unit SQ QPM Qty: 0 RF: 0 nitroglycerin [Nitrostat] 0.4 MG tablet, sublingual 0.4 mg Sublingual PRN PRN (Reason: Chest Pain) Qty: 0 RF: 0 polyethylene glycol 3350 [Miralax] 17 gram Powder In Packet 17 g PO DAILY Qty: 30 RF: 1 atorvastatin 10 mg Tablet 10 mg PO DAILY RF: 0 levothyroxine 50 mcg Tablet 50 mcg PO DAILY Qty: 60 RF: 0 nystatin 100,000 unit/gram Cream 1 applic TOPICAL BID RF: 0 Discontinued sertraline 100 mg Tablet 100 mg PO DAILY RF: 0 Follow up/Referrals: Raquel Martinez MD [Primary Care Provider] - Discharge Health Status Brief summary of current health status: See dictated discharge summary Provider Discharge Instructions Diet: Carb-consistent/Diabetic, Low-sodium and Low-cholesterol Liquid consistency: Normal/Thin Food texture: Regular [facility] Reason for rehabilitation: Recovery r/t decondition Rehab type: Physical therapy, Occupational therapy and Speech therapy Discharge Data Primary Care Provider: Raquel Martinez
[2019-04-28] MEDS: METHYLPHENIDATE 5 MG TABLET PO (10:21)
[2019-04-28] MEDS: ENOXAPARIN 40 MG/0.4 ML SYRINGE SUBCUT (10:21)
[2019-04-28] MEDS: OXYBUTYNIN 5 MG TABLET PO (10:22)
[2019-04-28] MEDS: ASPIRIN 325 MG TABLET PO (10:22)
[2019-04-28] MEDS: NYSTATIN POWDER 30 GM 1 APPLIC TOP (10:23)
[2019-04-28] MEDS: LEVOTHYROXINE 50 MCG TABLET PO (10:26)
--- NOTE | 2019-04-28 11:16 | PC.NURSE ---
UPDATE TO DAUGHTER VIA TELEPHONE R/T 1400 TRANSFER TO [facility]
--- NOTE | 2019-04-28 11:19 | CM.DPC ---
DCP Cont: Faxed discharge packet: signed meds, PASRR, and discharge summary to [facility] at fax # [phone]. Fax confirmation scanned in. Gina Kaur [facility]
--- NOTE | 2019-04-28 11:53 | CM.DPC ---
DCP Discharge SNF Per MD, pt medically stable to d/c to SNF today and likely transition into assisted living for LTC. SW called [facility] and updated on pt d/c today and they request pickup time of 1400 via their facility van. Called Jazzy Heredia, and confirmed that she kindly faxed [facility] the Oncologist note regarding pt's next infusion and ability to postpone the dose if needed. ESTEFANY called RN and updated on d/c and time and RN kindly offered to call pt's Dtr and update on d/c time for today. RENETTA Fuentes faxed d/c packet to [facility] to review. Plan: Patient to d/c to [facility] today around 1400. CHARITY Medina
--- NOTE | 2019-04-28 11:56 | PM.CHAP ---
Seems comfortable re decision to transfer to [facility]. Prayer and reassurance. seems satisfied re plans to transfer to SNF
[2019-04-28] MEDS: INSULIN ASPART 100 UNIT/ML INSULN PEN SUBCUT (12:58)
--- NOTE | 2019-04-28 14:06 | PC.NURSE ---
PT TRANSFERRED TO [facility] - ATTEMPTED TPO CALL REPORT X 2 - MESSAGE LEFT
== END 2019-04-28 14:08 | DRG 70 ==
LOC: ED 19:17 → ICU 04-26 06:58
PROVIDERS: Internal Medicine; Nurse Practitioner Gerontology; Admitting Provider Internal Medicine; Emergency Provider Emergency Medicine; PCP Internal Medicine; Visit Provider Internal Medicine
DX: G93.41 Metabolic encephalopathy (principal); I21.A1 Myocardial infarction type 2; I48.0 Paroxysmal atrial fibrillation; E86.0 Dehydration; E11.65 Type 2 diabetes mellitus with hyperglycemia; M25.551 Pain in right hip; F32.89 Other specified depressive episodes; F43.21 Adjustment disorder with depressed mood; R40.2362 Coma scale, best motor response, obeys commands, at arrival to emergency department; R40.2142 Coma scale, eyes open, spontaneous, at arrival to emergency department; R40.2242 Coma scale, best verbal response, confused conversation, at arrival to emergency department; R63.4 Abnormal weight loss; Z68.36 Body mass index [BMI] 36.0-36.9, adult; I25.10 Atherosclerotic heart disease of native coronary artery without angina pectoris; G47.33 Obstructive sleep apnea (adult) (pediatric); E03.9 Hypothyroidism, unspecified; Z87.891 Personal history of nicotine dependence; Z79.4 Long term (current) use of insulin
CPT/HCPCS: 36415; 36591; 51701; 70450; 71045; 73502; 74177; 80053; 81003; 81015; 82140; 82550; 82553; 82962; 83036; 83605; 83690; 84145; 84484; 85025; 85610; 85730; 87040; 87086; 87797; 90792; 93005; 96360; 96361; 97127; 97162; 97166; 97530; 97535; 99231; 99283; 99285; J1650; Q9967

== ENCOUNTER → 2019-05-12 13:40 | Oncology outpatient (ONC) | payer MEDICARE, OTHER, SELFPAY ==
[2018-03-22 15:43] VITALS: BP 134/59; PULSE 60; RESP 18; TEMP 36.2; O2SAT 98
--- NOTE | 2018-03-22 17:01 | ONC.PN ---
Assessment and Plan (1) Personal history of colon cancer, stage III Onset Date: ~02/21/02 Problem details: s/p surgical resection followed by 6 months of treatment with 5-FU Current visit: Yes Status: Acute (2) Anemia Current visit: Yes Status: Acute 03/22/18 17:43 I talked with the patient and patient's daughter about iron supplementation. Patient's daughter insisted that the patient try the oral supplements first. I talked with them that if the patient cannot tolerate the oral iron supplementation, I will recommend intravenous iron supplementation. I will recheck the CBC and the iron panel with ferritin during her next visit. (3) Colon cancer Onset Date: ~03/11/18 Problem details: Partially obstructing mass identified in the descending colon proximal to the previous colon cancer surgical site. And staging studies reviewed questionable pulmonary metastasis manifesting as bilateral tiny pulmonary nodules measuring up to 6 mm. Normal CEA level of 3.6 from [facility]. Current visit: Yes Status: Acute 03/22/18 17:48 In my opinion, patient may have a new primary colon cancer rather than a recurrent colon cancer. Her previous colon cancer was diagnosed almost 16 years ago. The current staging studies with CT scan reviewed questionable pulmonary metastasis. Therefore, I will obtain the surgical samples for molecular studies including extended Hong/Daniel profile, MSI by PCR as well as MMR by IHC. I explained to the patient and patient's daughter about the significance of molecular studies. Especially I talked with her and her daughter that if the mismatch repair enzyme defect, patient may be a good candidate for immunotherapy. Otherwise I would think about using 5 FU only chemotherapy with purpose of palliation. Currently, there is no clear evidence of obstruction at this moment, I do not think that surgery is urgent at this moment. I will have the patient come back in 1 week to review the result. 03/22/18 17:51 03/22/18 17:54 PN -Subjective Interval history: Patient is here for follow up visit for recent findings of recurrent colon cancer. Patient was accompanied in the room by her spouse and her daughter, Mamie. She has a remote history of state III colon cancer diagnosed in February of 2002 with 2 or more mesenteric nodes being positive. The CEA was 18.9. Patient is status post resection followed by 6 months of chemotherapy with leucovorin and 5 FU completed August 2002. Per patient's daughter and patient herself, patient apparently had a ?mild heart attack? in July of 2017. The echo report from August 05, 2017 revealed the left ventricle cavity was small, mild to moderate concentric left ventricular hypertrophy, the ejection fraction estimated to be 65-70%, and no obvious focal wall motion abnormalities but poor endocardial definition, and diastolic parameters normal. Thereafter patient was discharged to correction. 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 Patient has completed the most recent course of vancomycin treatment about 2-3 weeks ago. Patient was seen by solution analyst Agnes Martinez ARNP on 02/03/2018. Colonoscopy was requested for fecal transplant. The colonoscopy was performed by Dr. Ree Jalloh on March 11, 2018. The colonoscopy revealed a malignant partially obstructing tumor at 47 cm proximal to the anus.There was evidence of previous surgery, distal to the colon mass identified. The surgical anastomosis was patent and was characterized by healthy appearing mucosa. Due to the new finding of colon mass, fecal transplant was not done. 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 On March 12, [address] scan of the chest, abdomen and pelvis with contrast. And the scan showed findings concerning for short segment colitis of the right transverse colon versus a circumferential colon mass with surrounding mesenteric edema, multiple bilateral pulmonary nodules measuring up to 6 mm in greatest diameter, and multiple level degenerative changes of the spine with resultant 0.9 cm of anterolisthesis of L4 on L5 resulting in moderate spinal canal stenosis at that level. During this period of time, patient reported significant weight loss from previous 277 down to 221 lb. She denies any nausea or vomiting. She does report some dry heaves which responded very well to use of Zofran. Patient also reported episodes of blood in the stool. At the lab results from [facility] showed that the CEA level was 3.6 on March 11 2018. CBC reviewed that the white cell count 8.4, hemoglobin 8.3, hematocrit 26.3, MCV 75.8 and platelets 371. - Patient Self-Reported Symptoms SR Constitution: Weight loss/gain, Fatigue/Malaise SR ears, nose, mouth, throat issues: Cough SR respiratory issues: Cough, Mucous SR Cardiovascular issues: Extreme swelling, Dizzy/lightheaded SR Skin issues: Dry skin, Skin rash or itching, Hair loss or scalp prob, Nail changes SR Gastrointestinal issues: Poor or no appetite, Change in bowel pattern, Nausea, Constipation, Blood in stool, Abdominal pain SR Genitourinary issues: Frequent urination, Incontinence SR Musculoskeletal issues: Joint pain or swelling, Muscle weakness, Muscle pain or cramps, Difficulty walking SR Neuro issues: Lightheaded/dizzy, Tremors or shaking SR Hematologic issues: Bleeding/bruising SR Endocrine issues: Cold intolerance, Excessive thirst Home Medications and Allergies Home Medications Medication Instructions Recorded Confirmed Type glimepiride [Amaryl] 2 mg PO QDAY #0 09/29/12 01/25/18 History oxybutynin chloride 5 mg PO BID #0 10/13/16 01/25/18 History acetaminophen 650 mg PO Q6HP PRN #0 11/11/17 01/25/18 History calcium carbonate-vitamin D3 1 tab PO BIDCC #0 11/11/17 01/25/18 History [Oyster Shell Calcium-Vit D3] carvedilol [Coreg] 3.125 mg PO BIDCC #0 11/11/17 01/25/18 History insulin glargine [Lantus Solostar 1 dose SQ QPM #0 11/11/17 01/25/18 History U-100 Insulin] nitroglycerin [Nitrostat] 0.4 mg SUBLINGUAL PRN PRN #0 11/11/17 01/25/18 History nystatin [Nystop] 100,000 unit TOPICAL QID #0 11/11/17 01/25/18 History pantoprazole 20 mg PO DAILY #0 11/11/17 01/25/18 History Acidophilus Probiotic Complex 1 tab PO DAILY 01/20/18 01/25/18 History atorvastatin 40 mg PO DAILY 01/20/18 01/25/18 History cranberry 500 mg PO DAILY 01/20/18 01/25/18 History insulin lispro [Humalog KwikPen 5 units SUB-Q TID 01/20/18 01/25/18 History Insulin] omega [id number]-[id number]-[id number]-fish oil [Fish Oil] 1,000 mg PO DAILY 01/20/18 01/25/18 History vit A,C and Q-dvihkr-zsajuzkl 1 tab PO DAILY 01/20/18 01/25/18 History [I-Mellisa] aspirin 81 mg PO DAILY 03/22/18 03/22/18 History ondansetron 8 mg PO TID PRN 03/22/18 03/22/18 History Allergies Allergy/AdvReac Type Severity Reaction Status Date / Time Sulfa (Sulfonamide Allergy Severe hives Verified 12/13/17 20:35 Antibiotics) [SULFA (SULFONAMIDE ANTIBIOTICS)] metformin Allergy Mild Diarrhea Verified 01/20/18 23:13 darifenacin [From Enablex] Allergy Unknown Verified 01/20/18 23:13 ketoconazole Allergy Unknown Verified 01/20/18 23:13 promethazine [From Phenergan] Allergy Verified 03/19/18 14:49 adhesive [ADHESIVE] AdvReac Severe tape Verified 12/13/17 20:35 causes blisters Exam Vital signs: Last Vital Signs Temp 97.2 F L 03/22/18 15:43 Pulse 60 03/22/18 15:43 Resp 18 03/22/18 15:43 BP 134/59 H 03/22/18 15:43 Pulse Ox 98 03/22/18 15:43 - Constitutional positive no acute distress, positive obese, positive chronically ill appearing - Routine HEENT Exam Head: Present: normocephalic, atraumatic Eye: Present: EOMI, PERRL, normal accommodation. Absent: conjunctival icterus ENT: Present: mucous membranes moist - Routine Neck Exam Present: supple, full ROM. Absent: JVD, lymphadenopathy, thyromegaly - Routine Respiratory Exam Present: Clear to auscultation bilaterally. Absent: rales, respiratory distress, rhonchi, wheezes - Routine Cardiovascular Exam Present: RRR, S1, S2. Absent: murmur, gallop, rubs - Routine Abdominal Exam Present: soft, normoactive bowel sounds, hernia. Absent: tenderness, distended, rebound, guarding Palpation/Percussion: Absent: hepatomegaly, splenomegaly - Routine Extremities Exam Present: edema - Routine Neurological Exam Present: alert, oriented X3, CN II-XII intact, sensory deficit, motor deficit, normal reflexes - Routine Psychiatric Exam Present: normal affect, normal thought process (2) Anemia Qualifiers: Anemia type: iron deficiency Iron deficiency anemia type: chronic blood loss Qualified Code(s): D50.0 - Iron deficiency anemia secondary to blood loss (chronic) (3) Colon cancer Qualifiers: Colon location: descending Qualified Code(s): C18.6 - Malignant neoplasm of descending colon
--- NOTE | 2018-03-22 17:37 | P.PNONC_ITS ---
Assessment and Plan (1) Personal history of colon cancer, stage III Onset Date: ~02/21/02 Problem details: s/p surgical resection followed by 6 months of treatment with 5-FU Current visit: Yes Status: Acute (2) Anemia Current visit: Yes Status: Acute 03/22/18 17:43 I talked with the patient and patient's daughter about iron supplementation. Patient's daughter insisted that the patient try the oral supplements first. I talked with them that if the patient cannot tolerate the oral iron supplementation, I will recommend intravenous iron supplementation. I will recheck the CBC and the iron panel with ferritin during her next visit. (3) Colon cancer Onset Date: ~03/11/18 Problem details: Partially obstructing mass identified in the descending colon proximal to the previous colon cancer surgical site. And staging studies reviewed questionable pulmonary metastasis manifesting as bilateral tiny pulmonary nodules measuring up to 6 mm. Normal CEA level of 3.6 from [facility]. Current visit: Yes Status: Acute 03/22/18 17:48 In my opinion, patient may have a new primary colon cancer rather than a recurrent colon cancer. Her previous colon cancer was diagnosed almost 16 years ago. The current staging studies with CT scan reviewed questionable pulmonary metastasis. Therefore, I will obtain the surgical samples for molecular studies including extended Hogn/Daniel profile, MSI by PCR as well as MMR by IHC. I explained to the patient and patient's daughter about the significance of molecular studies. Especially I talked with her and her daughter that if the mismatch repair enzyme defect, patient may be a good candidate for immunotherapy. Otherwise I would think about using 5 FU only chemotherapy with purpose of palliation. Currently, there is no clear evidence of obstruction at this moment, I do not think that surgery is urgent at this moment. I will have the patient come back in 1 week to review the result. 03/22/18 17:51 03/22/18 17:54 PN -Subjective Interval history: Patient is here for follow up visit for recent findings of recurrent colon cancer. Patient was accompanied in the room by her spouse and her daughter, Mamie. She has a remote history of state III colon cancer diagnosed in February of 2002 with 2 or more mesenteric nodes being positive. The CEA was 18.9. Patient is status post resection followed by 6 months of chemotherapy with leucovorin and 5 FU completed August 2002. Per patient's daughter and patient herself, patient apparently had a ?mild heart attack? in July of 2017. The echo report from August 05, 2017 revealed the left ventricle cavity was small , mild to moderate concentric left ventricular hypertrophy, the ejection fraction estimated to be 65-70%, and no obvious focal wall motion abnormalities but poor endocardial definition, and diastolic parameters normal. Thereafter patient was discharged to retirement. 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 Patient has completed the most recent course of vancomycin treatment about 2-3 weeks ago. Patient was seen by fish and wildlife technician Agnes Martinez ARNP on 2017. Colonoscopy was requested for fecal transplant. The colonoscopy was performed by Dr. Ree Jalloh on March 11, 2018. The colonoscopy revealed a malignant partially obstructing tumor at 47 cm proximal to the anus.There was evidence of previous surgery, distal to the colon mass identified. The surgical anastomosis was patent and was characterized by healthy appearing mucosa. Due to the new finding of colon mass, fecal transplant was not done. 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 On March 12, [address] scan of the chest, abdomen and pelvis with contrast. And the scan showed findings concerning for short segment colitis of the right transverse colon versus a circumferential colon mass with surrounding mesenteric edema, multiple bilateral pulmonary nodules measuring up to 6 mm in greatest diameter, and multiple level degenerative changes of the spine with resultant 0.9 cm of anterolisthesis of L4 on L5 resulting in moderate spinal canal stenosis at that level. During this period of time, patient reported significant weight loss from previous 277 down to 221 lb. She denies any nausea or vomiting. She does report some dry heaves which responded very well to use of Zofran. Patient also reported episodes of blood in the stool. At the lab results from [facility] showed that the CEA level was 3.6 on March 11 2018. CBC reviewed that the white cell count 8.4, hemoglobin 8.3, hematocrit 26.3, MCV 75.8 and platelets 371. - Patient Self-Reported Symptoms SR Constitution: Weight loss/gain, Fatigue/Malaise SR ears, nose, mouth, throat issues: Cough SR respiratory issues: Cough, Mucous SR Cardiovascular issues: Extreme swelling, Dizzy/lightheaded SR Skin issues: Dry skin, Skin rash or itching, Hair loss or scalp prob, Nail changes SR Gastrointestinal issues: Poor or no appetite, Change in bowel pattern, Nausea , Constipation, Blood in stool, Abdominal pain SR Genitourinary issues: Frequent urination, Incontinence SR Musculoskeletal issues: Joint pain or swelling, Muscle weakness, Muscle pain or cramps, Difficulty walking SR Neuro issues: Lightheaded/dizzy, Tremors or shaking SR Hematologic issues: Bleeding/bruising SR Endocrine issues: Cold intolerance, Excessive thirst Home Medications and Allergies Home Medications Medication Instructions Recorded Confirmed Type glimepiride [Amaryl] 2 mg PO QDAY #0 09/29/12 01/25/18 History oxybutynin chloride 5 mg PO BID #0 10/13/16 01/25/18 History acetaminophen 650 mg PO Q6HP PRN #0 11/11/17 01/25/18 History calcium carbonate-vitamin D3 1 tab PO BIDCC #0 11/11/17 01/25/18 History [Oyster Shell Calcium-Vit D3] carvedilol [Coreg] 3.125 mg PO BIDCC #0 11/11/17 01/25/18 History insulin glargine [Lantus Solostar 1 dose SQ QPM #0 11/11/17 01/25/18 History U-100 Insulin] nitroglycerin [Nitrostat] 0.4 mg SUBLINGUAL PRN PRN #0 11/11/17 01/25/18 History nystatin [Nystop] 100,000 unit TOPICAL QID #0 11/11/17 01/25/18 History pantoprazole 20 mg PO DAILY #0 11/11/17 01/25/18 History Acidophilus Probiotic Complex 1 tab PO DAILY 01/20/18 01/25/18 History atorvastatin 40 mg PO DAILY 01/20/18 01/25/18 History cranberry 500 mg PO DAILY 01/20/18 01/25/18 History insulin lispro [Humalog KwikPen 5 units SUB-Q TID 01/20/18 01/25/18 History Insulin] omega 1-tzu-hpo-fish oil [Fish Oil] 1,000 mg PO DAILY 01/20/18 01/25/18 History vit A,C and V-voaoei-semhnalw 1 tab PO DAILY 01/20/18 01/25/18 History [I-Mellisa] aspirin 81 mg PO DAILY 03/22/18 03/22/18 History ondansetron 8 mg PO TID PRN 03/22/18 03/22/18 History Allergies Allergy/AdvReac Type Severity Reaction Status Date / Time Sulfa (Sulfonamide Allergy Severe hives Verified 12/13/17 20:35 Antibiotics) [SULFA (SULFONAMIDE ANTIBIOTICS)] metformin Allergy Mild Diarrhea Verified 01/20/18 23:13 darifenacin [From Enablex] Allergy Unknown Verified 01/20/18 23:13 ketoconazole Allergy Unknown Verified 01/20/18 23:13 promethazine [From Phenergan] Allergy Verified 03/19/18 14:49 adhesive [ADHESIVE] AdvReac Severe tape Verified 12/13/17 20:35 causes blisters Exam Vital signs: Last Vital Signs Temp 97.2 F L 03/22/18 15:43 Pulse 60 03/22/18 15:43 Resp 18 03/22/18 15:43 BP 134/59 H 03/22/18 15:43 Pulse Ox 98 03/22/18 15:43 - Constitutional positive no acute distress, positive obese, positive chronically ill appearing - Routine HEENT Exam Head: Present: normocephalic, atraumatic Eye: Present: EOMI, PERRL, normal accommodation. Absent: conjunctival icterus ENT: Present: mucous membranes moist - Routine Neck Exam Present: supple, full ROM. Absent: JVD, lymphadenopathy, thyromegaly - Routine Respiratory Exam Present: Clear to auscultation bilaterally. Absent: rales, respiratory distress , rhonchi, wheezes - Routine Cardiovascular Exam Present: RRR, S1, S2. Absent: murmur, gallop, rubs - Routine Abdominal Exam Present: soft, normoactive bowel sounds, hernia. Absent: tenderness, distended , rebound, guarding Palpation/Percussion: Absent: hepatomegaly, splenomegaly - Routine Extremities Exam Present: edema - Routine Neurological Exam Present: alert, oriented X3, CN II-XII intact, sensory deficit, motor deficit, normal reflexes - Routine Psychiatric Exam Present: normal affect, normal thought process (2) Anemia Qualifiers: Anemia type: iron deficiency Iron deficiency anemia type: chronic blood loss Qualified Code(s): D50.0 - Iron deficiency anemia secondary to blood loss ( chronic) (3) Colon cancer Qualifiers: Colon location: descending Qualified Code(s): C18.6 - Malignant neoplasm of descending colon
--- NOTE | 2018-03-31 12:57 | PC.NURSE ---
Spoke with dtr today regarding recent path results on this pt. Explained the scope of being able to interpret results but was more than happy to fax her a copy directly. She also stated she was not going to be able to attend her mothers next onc visit with Dr Emery on 04/01 so I will speak with Giovanna our navigator to see about using the treatment room for a conference call. Dtr is concerned that her father who suffers with dementia will not allow her aunt (his sister) to be able to ask important questions regarding treatment, palliative care or quality of life to help make those important decisions.
--- NOTE | 2018-04-01 18:05 | ONC.PN ---
Assessment and Plan (1) Personal history of colon cancer, stage III Onset Date: ~02/21/02 Problem details: s/p surgical resection followed by 6 months of treatment with 5-FU Current visit: Yes (2) Anemia Current visit: Yes Status: Acute (3) Colon cancer Onset Date: ~03/11/18 Problem details: Partially obstructing mass identified in the descending colon proximal to the previous colon cancer surgical site. And staging studies reviewed questionable pulmonary metastasis manifesting as bilateral tiny pulmonary nodules measuring up to 6 mm. Normal CEA level of 3.6 from [facility]. Current visit: Yes Status: Acute - Time Spent with Patient I had a long and detailed discussion with the patient and patient's family and also with the daughter over the Iphone. 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 These changes indicate that the patient's colon cancer will be sensitive to immunotherapy. In addition this also raises the question whether the patient has Bergman syndrome. Patient has a remote history of colon cancer diagnosed almost 14 years ago. The metachronous occurrence of the same type of cancer is suggesting that there may be a genetic background. Patient's family was asking about if there is any testing that can be done. I explained that the Bergman syndrome is probably one of them. I will order a Bergman syndrome study for the patient. Next I talked with the patient about about options for her new colon cancer diagnosis. The patient at present has some evidence of possible pulmonary metastasis. The multiple pulmonary nodules are tiny about 5-6 mm in size. And I reviewed the images on the monitor. I am not sure if this is a metastatic pulmonary nodules by the imaging criteria. In addition there is a liver lesion which is also indeterminant. I talked with the patient that if the pulmonary nodule and the liver lesion turned out to be not a metastatic in nature, patient has a localized colon cancer. For localized colon cancer the best option is actually surgical resection followed by adjuvant chemotherapy. Occasionally if the cancer is too big, we recommend neoadjuvant chemotherapy followed by surgery followed by possible more chemotherapy. The immunotherapy to my understanding has not been approved for neoadjuvant treatment. But if the pulmonary nodules at the liver lesion turned out to be metastatic colon cancer, I would highly recommend that we proceed with immunotherapy. There is a good chance that patient will respond to the treatment with long and durable effect. The laboratory work showed that the patient has a hypochromic microcytic anemia. I will proceed with iron studies to confirm the diagnosis. If it is low I offered to give her intravenous iron. I talked with the patient that I will talk this case at our tumor board and discussed with our surgeons and radiation as radiation oncologist and radiologist as far as the optimal treatment option is concerned. I will try to update the patient and patient's family as soon as I have the information. PN -Subjective Interval history: IDENTIFICATION AND REASON FOR TODAY'S VISIT 82-year-old white female with newly diagnosed transverse colon cancer. INTERIM EVENTS Patient came in today accompanied by her , her son and her [id number] for discussion of the molecular testing results as well as for discussion of what is the next step. Patient's daughter was on Iphone for discussion while we were in the room. Clinically patient reports constipation, and was evaluated by her primary care provider. After taking MiraLax and prune juice, the constipation has improved. Patient is also taking Zofran for nausea. I advised the patient the Zofran at times can cause constipation. I would favor that patient take either Compazine or Ativan for symptoms of nausea. I explained that with a colon cancer in place, further constipation may cause acute complete block that may require urgent surgery. Patient and patient's family or voiced understanding. Clinically there is no other new signs or symptoms. 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 In addition molecular testing by PCR showed that the cancer is negative for KRAS mutation, positive for BRAF V600E mutation, and negative for NRAS mutations. SUMMARY OF ONCOLOGICAL HISTORY: She has a remote history of state III colon cancer diagnosed in February of 2002 with 2 or more mesenteric nodes being positive. The CEA was 18.9. Patient is status post resection followed by 6 months of chemotherapy with leucovorin and 5 FU completed August 2002. Per patient's daughter and patient herself, patient apparently had a ?mild heart attack? in July of 2017. The echo report from August 05, 2017 revealed the left ventricle cavity was small, mild to moderate concentric left ventricular hypertrophy, the ejection fraction estimated to be 65-70%, and no obvious focal wall motion abnormalities but poor endocardial definition, and diastolic parameters normal. Thereafter patient was discharged to retirement. 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 Patient has completed the most recent course of vancomycin treatment about 2-3 weeks ago. Patient was seen by work measurement engineer Agnes Martinez ARNP on 02/03/2018. Colonoscopy was requested for fecal transplant. The colonoscopy was performed by Dr. Ree Jalloh on March 11, 2018. The colonoscopy revealed a malignant partially obstructing tumor at 47 cm proximal to the anus.There was evidence of previous surgery, distal to the colon mass identified. The surgical anastomosis was patent and was characterized by healthy appearing mucosa. Due to the new finding of colon mass, fecal transplant was not done. 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 On March 12, [address] scan of the chest, abdomen and pelvis with contrast. And the scan showed findings concerning for short segment colitis of the right transverse colon versus a circumferential colon mass with surrounding mesenteric edema, multiple bilateral pulmonary nodules measuring up to 6 mm in greatest diameter, and multiple level degenerative changes of the spine with resultant 0.9 cm of anterolisthesis of L4 on L5 resulting in moderate spinal canal stenosis at that level. During this period of time, patient reported significant weight loss from previous 277 down to 221 lb. She does report some dry heaves which responded very well to use of Zofran. Patient also reported episodes of blood in the stool. At the lab results from [facility] showed that the CEA level was 3.6 on March 11 2018. CBC reviewed that the white cell count 8.4, hemoglobin 8.3, hematocrit 26.3, MCV 75.8 and platelets 371. - Patient Self-Reported Symptoms SR Constitution: Weight loss/gain, Fatigue/Malaise SR ears, nose, mouth, throat issues: Cough SR respiratory issues: Cough, Mucous SR Cardiovascular issues: Extreme swelling, Dizzy/lightheaded SR Skin issues: Dry skin, Skin rash or itching, Hair loss or scalp prob, Nail changes SR Gastrointestinal issues: Poor or no appetite, Change in bowel pattern, Nausea, Constipation, Blood in stool, Abdominal pain SR Genitourinary issues: Frequent urination, Incontinence SR Musculoskeletal issues: Joint pain or swelling, Muscle weakness, Muscle pain or cramps, Difficulty walking SR Neuro issues: Lightheaded/dizzy, Tremors or shaking SR Hematologic issues: Bleeding/bruising SR Endocrine issues: Cold intolerance, Excessive thirst Results - Labs Please see med documentation. Home Medications and Allergies Home Medications Medication Instructions Recorded Confirmed Type glimepiride [Amaryl] 2 mg PO QDAY #0 09/29/12 01/25/18 History oxybutynin chloride 5 mg PO BID #0 10/13/16 01/25/18 History acetaminophen 650 mg PO Q6HP PRN #0 11/11/17 01/25/18 History calcium carbonate-vitamin D3 1 tab PO BIDCC #0 11/11/17 01/25/18 History [Oyster Shell Calcium-Vit D3] carvedilol [Coreg] 3.125 mg PO BIDCC #0 11/11/17 01/25/18 History insulin glargine [Lantus Solostar 1 dose SQ QPM #0 11/11/17 01/25/18 History U-100 Insulin] nitroglycerin [Nitrostat] 0.4 mg SUBLINGUAL PRN PRN #0 11/11/17 01/25/18 History nystatin [Nystop] 100,000 unit TOPICAL QID #0 11/11/17 01/25/18 History pantoprazole 20 mg PO DAILY #0 11/11/17 01/25/18 History Acidophilus Probiotic Complex 1 tab PO DAILY 01/20/18 01/25/18 History atorvastatin 40 mg PO DAILY 01/20/18 01/25/18 History cranberry 500 mg PO DAILY 01/20/18 01/25/18 History insulin lispro [Humalog KwikPen 5 units SUB-Q TID 01/20/18 01/25/18 History Insulin] omega 8-atl-sod-fish oil [Fish Oil] 1,000 mg PO DAILY 01/20/18 01/25/18 History vit A,C and B-entrnb-qpjbysjr 1 tab PO DAILY 01/20/18 01/25/18 History [I-Mellisa] aspirin 81 mg PO DAILY 03/22/18 03/22/18 History ondansetron 8 mg PO TID PRN 03/22/18 03/22/18 History Allergies Allergy/AdvReac Type Severity Reaction Status Date / Time Sulfa (Sulfonamide Allergy Severe hives Verified 12/13/17 20:35 Antibiotics) [SULFA (SULFONAMIDE ANTIBIOTICS)] metformin Allergy Mild Diarrhea Verified 01/20/18 23:13 darifenacin [From Enablex] Allergy Unknown Verified 01/20/18 23:13 ketoconazole Allergy Unknown Verified 01/20/18 23:13 promethazine [From Phenergan] Allergy Verified 03/19/18 14:49 adhesive [ADHESIVE] AdvReac Severe tape Verified 12/13/17 20:35 causes blisters Exam Vital signs: TEMPERATURE 97.9?, HEART RATE 64, RESPIRATORY RATE 16 18, BLOOD PRESSURE 115/60, PULSE OX 100% ON ROOM AIR. - Constitutional positive no acute distress, positive obese, positive chronically ill appearing, positive cooperative - Routine HEENT Exam Head: Present: normocephalic, atraumatic Eye: Present: EOMI, PERRL, normal accommodation. Absent: conjunctival icterus ENT: Present: mucous membranes moist - Routine Neck Exam Present: supple, full ROM. Absent: JVD, carotid bruit - Routine Respiratory Exam Present: Clear to auscultation bilaterally. Absent: decreased breath sounds, wheezes - Routine Cardiovascular Exam Present: RRR, S1, S2. Absent: murmur, gallop, rubs - Routine Abdominal Exam Present: soft, normoactive bowel sounds Palpation/Percussion: Absent: hepatomegaly, splenomegaly - Routine Extremities Exam Present: full ROM. Absent: edema - Routine Back/Spine Exam Back/Spine: Present: full ROM - Routine Neurological Exam Present: alert, oriented X3, CN II-XII intact. Absent: sensory deficit, motor deficit - Routine Psychiatric Exam Present: normal affect, cooperative, good insight, good judgment (2) Anemia Qualifiers: Anemia type: iron deficiency Iron deficiency anemia type: chronic blood loss Qualified Code(s): D50.0 - Iron deficiency anemia secondary to blood loss (chronic) (3) Colon cancer Qualifiers: Colon location: descending Qualified Code(s): C18.6 - Malignant neoplasm of descending colon
--- NOTE | 2018-04-01 18:12 | P.PNONC_ITS ---
Assessment and Plan (1) Personal history of colon cancer, stage III Onset Date: ~02/21/02 Problem details: s/p surgical resection followed by 6 months of treatment with 5-FU Current visit: Yes (2) Anemia Current visit: Yes Status: Acute (3) Colon cancer Onset Date: ~03/11/18 Problem details: Partially obstructing mass identified in the descending colon proximal to the previous colon cancer surgical site. And staging studies reviewed questionable pulmonary metastasis manifesting as bilateral tiny pulmonary nodules measuring up to 6 mm. Normal CEA level of 3.6 from [facility], [place], [facility]. Current visit: Yes Status: Acute - Time Spent with Patient I had a long and detailed discussion with the patient and patient's family and also with the daughter over the Iphone. 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 These changes indicate that the patient's colon cancer will be sensitive to immunotherapy. In addition this also raises the question whether the patient has Bergman syndrome. Patient has a remote history of colon cancer diagnosed almost 14 years ago. The metachronous occurrence of the same type of cancer is suggesting that there may be a genetic background. Patient's family was asking about if there is any testing that can be done. I explained that the Bergman syndrome is probably one of them. I will order a Bergman syndrome study for the patient. Next I talked with the patient about about options for her new colon cancer diagnosis. The patient at present has some evidence of possible pulmonary metastasis. The multiple pulmonary nodules are tiny about 5-6 mm in size. And I reviewed the images on the monitor. I am not sure if this is a metastatic pulmonary nodules by the imaging criteria. In addition there is a liver lesion which is also indeterminant. I talked with the patient that if the pulmonary nodule and the liver lesion turned out to be not a metastatic in nature, patient has a localized colon cancer. For localized colon cancer the best option is actually surgical resection followed by adjuvant chemotherapy. Occasionally if the cancer is too big, we recommend neoadjuvant chemotherapy followed by surgery followed by possible more chemotherapy. The immunotherapy to my understanding has not been approved for neoadjuvant treatment. But if the pulmonary nodules at the liver lesion turned out to be metastatic colon cancer, I would highly recommend that we proceed with immunotherapy. There is a good chance that patient will respond to the treatment with long and durable effect. The laboratory work showed that the patient has a hypochromic microcytic anemia. I will proceed with iron studies to confirm the diagnosis. If it is low I offered to give her intravenous iron. I talked with the patient that I will talk this case at our tumor board and discussed with our surgeons and radiation as radiation oncologist and radiologist as far as the optimal treatment option is concerned. I will try to update the patient and patient's family as soon as I have the information. PN -Subjective Interval history: IDENTIFICATION AND REASON FOR TODAY'S VISIT 82-year-old white female with newly diagnosed transverse colon cancer. INTERIM EVENTS Patient came in today accompanied by her , her son and her daughter-in- law for discussion of the molecular testing results as well as for discussion of what is the next step. Patient's daughter was on Iphone for discussion while we were in the room. Clinically patient reports constipation, and was evaluated by her primary care provider. After taking MiraLax and prune juice, the constipation has improved. Patient is also taking Zofran for nausea. I advised the patient the Zofran at times can cause constipation. I would favor that patient take either Compazine or Ativan for symptoms of nausea. I explained that with a colon cancer in place, further constipation may cause acute complete block that may require urgent surgery. Patient and patient's family or voiced understanding. Clinically there is no other new signs or symptoms. 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 In addition molecular testing by PCR showed that the cancer is negative for KRAS mutation, positive for BRAF V600E mutation, and negative for NRAS mutations. SUMMARY OF ONCOLOGICAL HISTORY: She has a remote history of state III colon cancer diagnosed in February of 2002 with 2 or more mesenteric nodes being positive. The CEA was 18.9. Patient is status post resection followed by 6 months of chemotherapy with leucovorin and 5 FU completed August 2002. Per patient's daughter and patient herself, patient apparently had a ?mild heart attack? in July of 2017. The echo report from August 05, 2017 revealed the left ventricle cavity was small, mild to moderate concentric left ventricular hypertrophy, the ejection fraction estimated to be 65-70%, and no obvious focal wall motion abnormalities but poor endocardial definition, and diastolic parameters normal. Thereafter patient was discharged to skilled nursing. 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 Patient has completed the most recent course of vancomycin treatment about 2-3 weeks ago. Patient was seen by research test engine operator Agnes Martinez ARNP on 02/03/2018. Colonoscopy was requested for fecal transplant. The colonoscopy was performed by Dr. Ree Jalloh on March 11, 2018. The colonoscopy revealed a malignant partially obstructing tumor at 47 cm proximal to the anus.There was evidence of previous surgery, distal to the colon mass identified. The surgical anastomosis was patent and was characterized by healthy appearing mucosa. Due to the new finding of colon mass, fecal transplant was not done. 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 On March 12, [address] scan of the chest, abdomen and pelvis with contrast. And the scan showed findings concerning for short segment colitis of the right transverse colon versus a circumferential colon mass with surrounding mesenteric edema, multiple bilateral pulmonary nodules measuring up to 6 mm in greatest diameter, and multiple level degenerative changes of the spine with resultant 0.9 cm of anterolisthesis of L4 on L5 resulting in moderate spinal canal stenosis at that level. During this period of time, patient reported significant weight loss from previous 277 down to 221 lb. She does report some dry heaves which responded very well to use of Zofran. Patient also reported episodes of blood in the stool. At the lab results from [facility], [place] showed that the CEA level was 3.6 on March 11 2018. CBC reviewed that the white cell count 8.4, hemoglobin 8.3, hematocrit 26.3, MCV 75.8 and platelets 371. - Patient Self-Reported Symptoms SR Constitution: Weight loss/gain, Fatigue/Malaise SR ears, nose, mouth, throat issues: Cough SR respiratory issues: Cough, Mucous SR Cardiovascular issues: Extreme swelling, Dizzy/lightheaded SR Skin issues: Dry skin, Skin rash or itching, Hair loss or scalp prob, Nail changes SR Gastrointestinal issues: Poor or no appetite, Change in bowel pattern, Nausea , Constipation, Blood in stool, Abdominal pain SR Genitourinary issues: Frequent urination, Incontinence SR Musculoskeletal issues: Joint pain or swelling, Muscle weakness, Muscle pain or cramps, Difficulty walking SR Neuro issues: Lightheaded/dizzy, Tremors or shaking SR Hematologic issues: Bleeding/bruising SR Endocrine issues: Cold intolerance, Excessive thirst Results - Labs Please see med documentation. Home Medications and Allergies Home Medications Medication Instructions Recorded Confirmed Type glimepiride [Amaryl] 2 mg PO QDAY #0 09/29/12 01/25/18 History oxybutynin chloride 5 mg PO BID #0 10/13/16 01/25/18 History acetaminophen 650 mg PO Q6HP PRN #0 11/11/17 01/25/18 History calcium carbonate-vitamin D3 1 tab PO BIDCC #0 11/11/17 01/25/18 History [Oyster Shell Calcium-Vit D3] carvedilol [Coreg] 3.125 mg PO BIDCC #0 11/11/17 01/25/18 History insulin glargine [Lantus Solostar 1 dose SQ QPM #0 11/11/17 01/25/18 History U-100 Insulin] nitroglycerin [Nitrostat] 0.4 mg SUBLINGUAL PRN PRN #0 11/11/17 01/25/18 History nystatin [Nystop] 100,000 unit TOPICAL QID #0 11/11/17 01/25/18 History pantoprazole 20 mg PO DAILY #0 11/11/17 01/25/18 History Acidophilus Probiotic Complex 1 tab PO DAILY 01/20/18 01/25/18 History atorvastatin 40 mg PO DAILY 01/20/18 01/25/18 History cranberry 500 mg PO DAILY 01/20/18 01/25/18 History insulin lispro [Humalog KwikPen 5 units SUB-Q TID 01/20/18 01/25/18 History Insulin] omega 8-aff-uzk-fish oil [Fish Oil] 1,000 mg PO DAILY 01/20/18 01/25/18 History vit A,C and N-efbxvq-sphkgtrf 1 tab PO DAILY 01/20/18 01/25/18 History [I-Mellisa] aspirin 81 mg PO DAILY 03/22/18 03/22/18 History ondansetron 8 mg PO TID PRN 03/22/18 03/22/18 History Allergies Allergy/AdvReac Type Severity Reaction Status Date / Time Sulfa (Sulfonamide Allergy Severe hives Verified 12/13/17 20:35 Antibiotics) [SULFA (SULFONAMIDE ANTIBIOTICS)] metformin Allergy Mild Diarrhea Verified 01/20/18 23:13 darifenacin [From Enablex] Allergy Unknown Verified 01/20/18 23:13 ketoconazole Allergy Unknown Verified 01/20/18 23:13 promethazine [From Phenergan] Allergy Verified 03/19/18 14:49 adhesive [ADHESIVE] AdvReac Severe tape Verified 12/13/17 20:35 causes blisters Exam Vital signs: TEMPERATURE 97.9?, HEART RATE 64, RESPIRATORY RATE 16 18, BLOOD PRESSURE 115/60 , PULSE OX 100% ON ROOM AIR. - Constitutional positive no acute distress, positive obese, positive chronically ill appearing, positive cooperative - Routine HEENT Exam Head: Present: normocephalic, atraumatic Eye: Present: EOMI, PERRL, normal accommodation. Absent: conjunctival icterus ENT: Present: mucous membranes moist - Routine Neck Exam Present: supple, full ROM. Absent: JVD, carotid bruit - Routine Respiratory Exam Present: Clear to auscultation bilaterally. Absent: decreased breath sounds, wheezes - Routine Cardiovascular Exam Present: RRR, S1, S2. Absent: murmur, gallop, rubs - Routine Abdominal Exam Present: soft, normoactive bowel sounds Palpation/Percussion: Absent: hepatomegaly, splenomegaly - Routine Extremities Exam Present: full ROM. Absent: edema - Routine Back/Spine Exam Back/Spine: Present: full ROM - Routine Neurological Exam Present: alert, oriented X3, CN II-XII intact. Absent: sensory deficit, motor deficit - Routine Psychiatric Exam Present: normal affect, cooperative, good insight, good judgment (2) Anemia Qualifiers: Anemia type: iron deficiency Iron deficiency anemia type: chronic blood loss Qualified Code(s): D50.0 - Iron deficiency anemia secondary to blood loss ( chronic) (3) Colon cancer Qualifiers: Colon location: descending Qualified Code(s): C18.6 - Malignant neoplasm of descending colon
[2018-04-05 10:47] LABS: Basophils Percent Auto 0.9 % (0-2); Eosinophils Percent Auto 4.7 % (2-4); Hematocrit 24.7 % (36-46); Hemoglobin 7.9 g/dL (12.0-16.0); Lymphocytes Percent Auto 28.2 % (25-40); Mean Corpuscular HGB Conc 31.9 % (30-36); Mean Corpuscular Hemoglobin 22.2 PG (26-34); Mean Corpuscular Volume 69.6 fL (80-100); Monocytes Percent Auto 9.4 % (3-14); Neutrophils Absolute Auto 4700 /uL (3000-5900); Neutrophils Percent Auto 56.8 % (50-75); Platelet Count 402 X10^3/uL (150-400); Red Blood Cell Count 3.55 X10^6/uL (4.0-5.2); Red Cell Distribution Width 16.5 % (11.6-14.8); White Blood Cell Count 8.2 X10^3/uL (4.5-11.0)
[2018-04-05 10:50] LABS: Add Manual Diff / Slide Review SLIDE REVIEW
[2018-04-05 11:24] LABS: HEMOLYSIS < 15 (0-50); Iron 24 ug/dL (37-170)
[2018-04-05 11:27] LABS: Anisocytosis 1+
[2018-04-05 11:28] LABS: Hypochromasia 2+
[2018-04-05 11:35] LABS: Percent Iron Saturation 6 % (15-50); Total Iron Binding Capacity 424 ug/dL (265-497); Transferrin 337 mg/dL (206-381)
--- NOTE | 2018-04-05 13:01 | ONC.PN ---
PN -Subjective Interval history: IDENTIFICATION AND REASON FOR TODAY'S VISIT 82-year-old white female with newly diagnosed transverse colon cancer. INTERIM EVENTS Patient was last seen by me about 4 days ago on April 01, 2018. We discussed with the patient and her family members and her daughter on the phone regarding our care plan. And patient presents here today as a follow-up. Patient also is here to draw blood for testing of iron deficiency anemia. Clinically there has been no new changes when compared to her previous visit. And early this morning, I went to radiology department and I talked with radiologist Dr. Smith and reviewed all the imaging studies. The pulmonary nodules have been present at least since December of 2017. At the pulmonary juice apparently have not changed in size, in number or in appearance. And most likely these pulmonary nodules representing granuloma changes rather than metastatic malignancy. We also looked at the liver images. There is no clear evidence of hepatic lesions or masses. SUMMARY OF ONCOLOGICAL HISTORY: She has a remote history of state III colon cancer diagnosed in February of 2002 with 2 or more mesenteric nodes being positive. The CEA was 18.9. Patient is status post resection followed by 6 months of chemotherapy with leucovorin and 5 FU completed August 2002. Per patient's daughter and patient herself, patient apparently had a ?mild heart attack? in July of 2017. The echo report from August 05, 2017 revealed the left ventricle cavity was small, mild to moderate concentric left ventricular hypertrophy, the ejection fraction estimated to be 65-70%, and no obvious focal wall motion abnormalities but poor endocardial definition, and diastolic parameters normal. Thereafter patient was discharged to senior living. 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 Patient has completed the most recent course of vancomycin treatment about 2-3 weeks ago. Patient was seen by bead flipper Agnes Martinez ARNP on 02/03/2018. Colonoscopy was requested for fecal transplant. The colonoscopy was performed by Dr. Ree aJlloh on March 11, 2018. The colonoscopy revealed a malignant partially obstructing tumor at 47 cm proximal to the anus.There was evidence of previous surgery, distal to the colon mass identified. The surgical anastomosis was patent and was characterized by healthy appearing mucosa. Due to the new finding of colon mass, fecal transplant was not done. 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 In addition molecular testing by PCR showed that the cancer is negative for KRAS mutation, positive for BRAF V600E mutation, and negative for NRAS mutations. On March 12, [address] scan of the chest, abdomen and pelvis with contrast. And the scan showed findings concerning for short segment colitis of the right transverse colon versus a circumferential colon mass with surrounding mesenteric edema, multiple bilateral pulmonary nodules measuring up to 6 mm in greatest diameter, and multiple level degenerative changes of the spine with resultant 0.9 cm of anterolisthesis of L4 on L5 resulting in moderate spinal canal stenosis at that level. And the lab results from [facility] showed that the CEA level was 3.6 on March 11 2018. CBC reviewed that the white cell count 8.4, hemoglobin 8.3, hematocrit 26.3, MCV 75.8 and platelets 371 - Patient Self-Reported Symptoms SR Constitution: Weight loss/gain, Fatigue/Malaise SR ears, nose, mouth, throat issues: Cough SR respiratory issues: Cough, Mucous SR Cardiovascular issues: Extreme swelling, Dizzy/lightheaded SR Skin issues: Dry skin, Skin rash or itching, Hair loss or scalp prob, Nail changes SR Gastrointestinal issues: Poor or no appetite, Change in bowel pattern, Nausea, Constipation, Blood in stool, Abdominal pain SR Genitourinary issues: Frequent urination, Incontinence SR Musculoskeletal issues: Joint pain or swelling, Muscle weakness, Muscle pain or cramps, Difficulty walking SR Neuro issues: Lightheaded/dizzy, Tremors or shaking SR Hematologic issues: Bleeding/bruising SR Endocrine issues: Cold intolerance, Excessive thirst - Additional ROS All systems PM: reviewed and no additional remarkable complaints except as stated Home Medications and Allergies Home Medications Medication Instructions Recorded Confirmed Type glimepiride [Amaryl] 2 mg PO QDAY #0 09/29/12 01/25/18 History oxybutynin chloride 5 mg PO BID #0 10/13/16 01/25/18 History acetaminophen 650 mg PO Q6HP PRN #0 11/11/17 01/25/18 History calcium carbonate-vitamin D3 1 tab PO BIDCC #0 11/11/17 01/25/18 History [Oyster Shell Calcium-Vit D3] carvedilol [Coreg] 3.125 mg PO BIDCC #0 11/11/17 01/25/18 History insulin glargine [Lantus Solostar 1 dose SQ QPM #0 11/11/17 01/25/18 History U-100 Insulin] nitroglycerin [Nitrostat] 0.4 mg SUBLINGUAL PRN PRN #0 11/11/17 01/25/18 History nystatin [Nystop] 100,000 unit TOPICAL QID #0 11/11/17 01/25/18 History pantoprazole 20 mg PO DAILY #0 11/11/17 01/25/18 History Acidophilus Probiotic Complex 1 tab PO DAILY 01/20/18 01/25/18 History atorvastatin 40 mg PO DAILY 01/20/18 01/25/18 History cranberry 500 mg PO DAILY 01/20/18 01/25/18 History insulin lispro [Humalog KwikPen 5 units SUB-Q TID 01/20/18 01/25/18 History Insulin] omega 4-pcz-vvn-fish oil [Fish Oil] 1,000 mg PO DAILY 01/20/18 01/25/18 History vit A,C and C-kdokqj-kopobsgf 1 tab PO DAILY 01/20/18 01/25/18 History [I-Mellisa] aspirin 81 mg PO DAILY 03/22/18 03/22/18 History ondansetron 8 mg PO TID PRN 03/22/18 03/22/18 History Allergies Allergy/AdvReac Type Severity Reaction Status Date / Time Sulfa (Sulfonamide Allergy Severe hives Verified 12/13/17 20:35 Antibiotics) [SULFA (SULFONAMIDE ANTIBIOTICS)] metformin Allergy Mild Diarrhea Verified 01/20/18 23:13 darifenacin [From Enablex] Allergy Unknown Verified 01/20/18 23:13 ketoconazole Allergy Unknown Verified 01/20/18 23:13 promethazine [From Phenergan] Allergy Verified 03/19/18 14:49 adhesive [ADHESIVE] AdvReac Severe tape Verified 12/13/17 20:35 causes blisters Exam Vital signs: Temperature 98.7?, heart rate 67, respiratory 18, blood pressure 127/44, saturation 100% on room air. - Constitutional positive no acute distress, positive obese, positive cooperative - Routine HEENT Exam Head: Present: normocephalic, atraumatic Eye: Present: EOMI, PERRL, normal accommodation. Absent: conjunctival icterus - Routine Neck Exam Present: supple, full ROM, JVD. Absent: carotid bruit, normal carotid upstroke, lymphadenopathy, thyromegaly - Routine Chest/Breast/Axilla Exam Axillae: Absent: lymphadenopathy, mass - Routine Respiratory Exam Present: Clear to auscultation bilaterally. Absent: wheezes - Routine Cardiovascular Exam Present: RRR, S1, S2. Absent: murmur, gallop, rubs - Routine Abdominal Exam Present: soft, normoactive bowel sounds. Absent: tenderness, distended, organomegaly - Routine Extremities Exam Absent: cyanosis, edema - Routine Neurological Exam Present: alert, oriented X3, CN II-XII intact, normal reflexes. Absent: sensory deficit, motor deficit - Routine Psychiatric Exam Present: normal affect, normal thought process, cooperative, good insight, good judgment Results - Labs Laboratory Last Values WBC 8.2 X10^3/uL (4.5-11.0) 04/05/18 10:28 RBC 3.55 X10^6/uL (4.0-5.2) L 04/05/18 10:28 Hgb 7.9 g/dL (12.0-16.0) L 04/05/18 10:28 Hct 24.7 % (36-46) L 04/05/18 10:28 MCV 69.6 fL (80-100) L 04/05/18 10:28 MCH 22.2 PG (26-34) L 04/05/18 10:28 MCHC 31.9 % (30-36) 04/05/18 10:28 RDW 16.5 % (11.6-14.8) H 04/05/18 10:28 Plt Count 402 X10^3/uL (150-400) H 04/05/18 10:28 Neut % (Auto) 56.8 % (50-75) 04/05/18 10:28 Lymph % (Auto) 28.2 % (25-40) 04/05/18 10:28 [place] % (Auto) 9.4 % (3-14) 04/05/18 10:28 Eos % (Auto) 4.7 % (2-4) H 04/05/18 10:28 Baso % (Auto) 0.9 % (0-2) 04/05/18 10:28 Neut # (Auto) 4700 /uL (5154-3267) 04/05/18 10:28 RBC Morphology Not Reportable 04/05/18 10:28 Hypochromasia 2+ H 04/05/18 10:28 Anisocytosis 1+ H 04/05/18 10:28 Iron 24 ug/dL (37-170) L 04/05/18 10:28 TIBC 424 ug/dL (265-497) 04/05/18 10:28 % Saturation 6 % (15-50) L 04/05/18 10:28 Transferrin 337 mg/dL (206-381) 04/05/18 10:28 Ferritin 7.0 ng/mL (11.1-264) L 04/05/18 10:28 Assessment and Plan (1) Colon cancer Onset Date: ~03/11/18 Problem details: Partially obstructing mass identified in the descending colon proximal to the previous colon cancer surgical site. And staging studies reviewed questionable pulmonary metastasis manifesting as bilateral tiny pulmonary nodules measuring up to 6 mm. Normal CEA level of 3.6 from [facility]. Current visit: Yes Status: Chronic I went to Radiology Depart and reviewed the CT scan with our radiologist Dr Smith. Per Dr. Smith, the pulmonary nodules most likely represent granulomatous changes. And they are unlikely due metastasis from her colon cancer. Therefore, the patient has a localized colon cancer. I talked with her that since the size of her primary colon cancer is not optimal for surgery, I agree with Dr. Kang that preoperative chemotherapy may be helpfull. I discussed with the patient that there are two options we can to chemotherapy. One is via the intravenous route versus oral option. Patient said that she does not like the oral route because of the possible significant nausea and vomiting. She would like to proceed with the port chemotherapy. The chemotherapy regimen will be 5 FU/leucovorin once every 14 days for a total of 6 months. My plan is to proceed with for about 6 cycles and we will re-evaluate and see if she is eligible for surgery. After the surgery I will complete the full course of the chemotherapy (2) Iron deficiency anemia due to chronic blood loss Onset Date: Unknown Problem details: Patient is to have iron infusion in the past. The etiology likely is related to the new diagnosis of the colon cancer. Patient has significant constipation while taking the oral iron. Current visit: Yes Status: Chronic I recommended intravenous iron supplementation. I will order Venofer 300 mg IV weekly for 4 treatments. We will follow closely the iron status. 04/05/18 13:13 (3) Personal history of colon cancer, stage III Current visit: Yes The newly diagnosed colon cancer represents separate new primary adenocarcinoma. The previous colon cancer has been likely cured 04/05/18 13:17 - Time Spent with Patient Plan in summary 1. Port placement 2. Pre authorization for 5 FU/leucovorin starting next Thursday 3. Chemo counseling 4. Venofer 300 mg weekly every week for 4 weeks 5. Return to see me in 2 weeks 6. CBC CMP and iron panels on the day of the next visit. (1) Colon cancer Qualifiers: Colon location: descending Qualified Code(s): C18.6 - Malignant neoplasm of descending colon
--- NOTE | 2018-04-05 13:07 | P.PNONC_ITS ---
PN -Subjective Interval history: IDENTIFICATION AND REASON FOR TODAY'S VISIT 82-year-old white female with newly diagnosed transverse colon cancer. INTERIM EVENTS Patient was last seen by me about 4 days ago on April 01, 2018. We discussed with the patient and her family members and her daughter on the phone regarding our care plan. And patient presents here today as a follow-up. Patient also is here to draw blood for testing of iron deficiency anemia. Clinically there has been no new changes when compared to her previous visit. And early this morning, I went to radiology department and I talked with radiologist Dr. Smith and reviewed all the imaging studies. The pulmonary nodules have been present at least since December of 2017. At the pulmonary juice apparently have not changed in size, in number or in appearance. And most likely these pulmonary nodules representing granuloma changes rather than metastatic malignancy. We also looked at the liver images. There is no clear evidence of hepatic lesions or masses. SUMMARY OF ONCOLOGICAL HISTORY: She has a remote history of state III colon cancer diagnosed in February of 2002 with 2 or more mesenteric nodes being positive. The CEA was 18.9. Patient is status post resection followed by 6 months of chemotherapy with leucovorin and 5 FU completed August 2002. Per patient's daughter and patient herself, patient apparently had a ?mild heart attack? in July of 2017. The echo report from August 05, 2017 revealed the left ventricle cavity was small, mild to moderate concentric left ventricular hypertrophy, the ejection fraction estimated to be 65-70%, and no obvious focal wall motion abnormalities but poor endocardial definition, and diastolic parameters normal. Thereafter patient was discharged to snf. 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 Patient has completed the most recent course of vancomycin treatment about 2-3 weeks ago. Patient was seen by chef & owner Agnes Martinez ARNP on 02/03/2018. Colonoscopy was requested for fecal transplant. The colonoscopy was performed by Dr. Ree Jalloh on March 11, 2018. The colonoscopy revealed a malignant partially obstructing tumor at 47 cm proximal to the anus.There was evidence of previous surgery, distal to the colon mass identified. The surgical anastomosis was patent and was characterized by healthy appearing mucosa. Due to the new finding of colon mass, fecal transplant was not done. 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 The pathology addendum to the colon mass biopsy pathology report showed that there is loss of expression of MLH1 and PMS2 mismatch repair proteins, and microsatellite instability-high based on MSI- PCR analysis. In addition molecular testing by PCR showed that the cancer is negative for KRAS mutation, positive for BRAF V600E mutation, and negative for NRAS mutations. On March 12, [address] scan of the chest, abdomen and pelvis with contrast. And the scan showed findings concerning for short segment colitis of the right transverse colon versus a circumferential colon mass with surrounding mesenteric edema, multiple bilateral pulmonary nodules measuring up to 6 mm in greatest diameter, and multiple level degenerative changes of the spine with resultant 0.9 cm of anterolisthesis of L4 on L5 resulting in moderate spinal canal stenosis at that level. And the lab results from [facility] showed that the CEA level was 3.6 on March 11 2018. CBC reviewed that the white cell count 8.4, hemoglobin 8.3, hematocrit 26.3, MCV 75.8 and platelets 371 - Patient Self-Reported Symptoms SR Constitution: Weight loss/gain, Fatigue/Malaise SR ears, nose, mouth, throat issues: Cough SR respiratory issues: Cough, Mucous SR Cardiovascular issues: Extreme swelling, Dizzy/lightheaded SR Skin issues: Dry skin, Skin rash or itching, Hair loss or scalp prob, Nail changes SR Gastrointestinal issues: Poor or no appetite, Change in bowel pattern, Nausea , Constipation, Blood in stool, Abdominal pain SR Genitourinary issues: Frequent urination, Incontinence SR Musculoskeletal issues: Joint pain or swelling, Muscle weakness, Muscle pain or cramps, Difficulty walking SR Neuro issues: Lightheaded/dizzy, Tremors or shaking SR Hematologic issues: Bleeding/bruising SR Endocrine issues: Cold intolerance, Excessive thirst - Additional ROS All systems PM: reviewed and no additional remarkable complaints except as stated Home Medications and Allergies Home Medications Medication Instructions Recorded Confirmed Type glimepiride [Amaryl] 2 mg PO QDAY #0 09/29/12 01/25/18 History oxybutynin chloride 5 mg PO BID #0 10/13/16 01/25/18 History acetaminophen 650 mg PO Q6HP PRN #0 11/11/17 01/25/18 History calcium carbonate-vitamin D3 1 tab PO BIDCC #0 11/11/17 01/25/18 History [Oyster Shell Calcium-Vit D3] carvedilol [Coreg] 3.125 mg PO BIDCC #0 11/11/17 01/25/18 History insulin glargine [Lantus Solostar 1 dose SQ QPM #0 11/11/17 01/25/18 History U-100 Insulin] nitroglycerin [Nitrostat] 0.4 mg SUBLINGUAL PRN PRN #0 11/11/17 01/25/18 History nystatin [Nystop] 100,000 unit TOPICAL QID #0 11/11/17 01/25/18 History pantoprazole 20 mg PO DAILY #0 11/11/17 01/25/18 History Acidophilus Probiotic Complex 1 tab PO DAILY 01/20/18 01/25/18 History atorvastatin 40 mg PO DAILY 01/20/18 01/25/18 History cranberry 500 mg PO DAILY 01/20/18 01/25/18 History insulin lispro [Humalog KwikPen 5 units SUB-Q TID 01/20/18 01/25/18 History Insulin] omega 6-sxg-nbt-fish oil [Fish Oil] 1,000 mg PO DAILY 01/20/18 01/25/18 History vit A,C and T-ipuaqv-lvfpqtlq 1 tab PO DAILY 01/20/18 01/25/18 History [I-Mellisa] aspirin 81 mg PO DAILY 03/22/18 03/22/18 History ondansetron 8 mg PO TID PRN 03/22/18 03/22/18 History Allergies Allergy/AdvReac Type Severity Reaction Status Date / Time Sulfa (Sulfonamide Allergy Severe hives Verified 12/13/17 20:35 Antibiotics) [SULFA (SULFONAMIDE ANTIBIOTICS)] metformin Allergy Mild Diarrhea Verified 01/20/18 23:13 darifenacin [From Enablex] Allergy Unknown Verified 01/20/18 23:13 ketoconazole Allergy Unknown Verified 01/20/18 23:13 promethazine [From Phenergan] Allergy Verified 03/19/18 14:49 adhesive [ADHESIVE] AdvReac Severe tape Verified 12/13/17 20:35 causes blisters Exam Vital signs: Temperature 98.7?, heart rate 67, respiratory 18, blood pressure 127/44, saturation 100% on room air. - Constitutional positive no acute distress, positive obese, positive cooperative - Routine HEENT Exam Head: Present: normocephalic, atraumatic Eye: Present: EOMI, PERRL, normal accommodation. Absent: conjunctival icterus - Routine Neck Exam Present: supple, full ROM, JVD. Absent: carotid bruit, normal carotid upstroke , lymphadenopathy, thyromegaly - Routine Chest/Breast/Axilla Exam Axillae: Absent: lymphadenopathy, mass - Routine Respiratory Exam Present: Clear to auscultation bilaterally. Absent: wheezes - Routine Cardiovascular Exam Present: RRR, S1, S2. Absent: murmur, gallop, rubs - Routine Abdominal Exam Present: soft, normoactive bowel sounds. Absent: tenderness, distended, organomegaly - Routine Extremities Exam Absent: cyanosis, edema - Routine Neurological Exam Present: alert, oriented X3, CN II-XII intact, normal reflexes. Absent: sensory deficit, motor deficit - Routine Psychiatric Exam Present: normal affect, normal thought process, cooperative, good insight, good judgment Results - Labs Laboratory Last Values WBC 8.2 X10^3/uL (4.5-11.0) 04/05/18 10:28 RBC 3.55 X10^6/uL (4.0-5.2) L 04/05/18 10:28 Hgb 7.9 g/dL (12.0-16.0) L 04/05/18 10:28 Hct 24.7 % (36-46) L 04/05/18 10:28 MCV 69.6 fL (80-100) L 04/05/18 10:28 MCH 22.2 PG (26-34) L 04/05/18 10:28 MCHC 31.9 % (30-36) 04/05/18 10:28 RDW 16.5 % (11.6-14.8) H 04/05/18 10:28 Plt Count 402 X10^3/uL (150-400) H 04/05/18 10:28 Neut % (Auto) 56.8 % (50-75) 04/05/18 10:28 Lymph % (Auto) 28.2 % (25-40) 04/05/18 10:28 [place] % (Auto) 9.4 % (3-14) 04/05/18 10:28 Eos % (Auto) 4.7 % (2-4) H 04/05/18 10:28 Baso % (Auto) 0.9 % (0-2) 04/05/18 10:28 Neut # (Auto) 4700 /uL (5186-3386) 04/05/18 10:28 RBC Morphology Not Reportable 04/05/18 10:28 Hypochromasia 2+ H 04/05/18 10:28 Anisocytosis 1+ H 04/05/18 10:28 Iron 24 ug/dL (37-170) L 04/05/18 10:28 TIBC 424 ug/dL (265-497) 04/05/18 10:28 % Saturation 6 % (15-50) L 04/05/18 10:28 Transferrin 337 mg/dL (206-381) 04/05/18 10:28 Ferritin 7.0 ng/mL (11.1-264) L 04/05/18 10:28 Assessment and Plan (1) Colon cancer Onset Date: ~03/11/18 Problem details: Partially obstructing mass identified in the descending colon proximal to the previous colon cancer surgical site. And staging studies reviewed questionable pulmonary metastasis manifesting as bilateral tiny pulmonary nodules measuring up to 6 mm. Normal CEA level of 3.[address] [facility]. Current visit: Yes Status: Chronic I went to Radiology Depart and reviewed the CT scan with our radiologist Dr Smith. Per Dr. Smith, the pulmonary nodules most likely represent granulomatous changes. And they are unlikely due metastasis from her colon cancer. Therefore, the patient has a localized colon cancer. I talked with her that since the size of her primary colon cancer is not optimal for surgery, I agree with Dr. Kang that preoperative chemotherapy may be helpfull. I discussed with the patient that there are two options we can to chemotherapy. One is via the intravenous route versus oral option. Patient said that she does not like the oral route because of the possible significant nausea and vomiting. She would like to proceed with the port chemotherapy. The chemotherapy regimen will be 5 FU/leucovorin once every 14 days for a total of 6 months. My plan is to proceed with for about 6 cycles and we will re- evaluate and see if she is eligible for surgery. After the surgery I will complete the full course of the chemotherapy (2) Iron deficiency anemia due to chronic blood loss Onset Date: Unknown Problem details: Patient is to have iron infusion in the past. The etiology likely is related to the new diagnosis of the colon cancer. Patient has significant constipation while taking the oral iron. Current visit: Yes Status: Chronic I recommended intravenous iron supplementation. I will order Venofer 300 mg IV weekly for 4 treatments. We will follow closely the iron status. 04/05/18 13:13 (3) Personal history of colon cancer, stage III Current visit: Yes The newly diagnosed colon cancer represents separate new primary adenocarcinoma. The previous colon cancer has been likely cured 04/05/18 13:17 - Time Spent with Patient Plan in summary 1. Port placement 2. Pre authorization for 5 FU/leucovorin starting next Thursday 3. Chemo counseling 4. Venofer 300 mg weekly every week for 4 weeks 5. Return to see me in 2 weeks 6. CBC CMP and iron panels on the day of the next visit. (1) Colon cancer Qualifiers: Colon location: descending Qualified Code(s): C18.6 - Malignant neoplasm of descending colon
--- NOTE | 2018-04-06 10:33 | ONC.SCHED ---
FLUOROURACIL/LEUCOVORIN [id number] 04/06/18 MCR OK
--- NOTE | 2018-04-06 10:57 | ONC.SCHED ---
AMMY [id number] 04/06/2018 GIDEON WHITT
--- NOTE | 2018-04-14 08:14 | PM.CHEMOCOU ---
Chemotherapy Counseling - History of present illness History of present illness: The patient is an 82-year-old female with history of colon cancer. She has now been diagnosed with a new colon cancer, previous cancer has likely been cured. She presented with a partially obstructing mass identified in the descending colon, proximal to previous colon cancer site. Patient did visit with surgery, masses to large at this time for surgical intervention. Plan is to move forward with chemotherapy with goal of shrinking the mass. Patient has met with our oncologist Dr. Emery. She will begin chemotherapy with a regimen of 5 FU/leucovorin once every 14 days for total of 6 months. Plan is to complete approximately 6 cycles and at that point re-evaluate for surgery. Plan would then be after surgical intervention to complete the full course of chemotherapy. Unfortunately Jade was 30 mins late for her appointment this morning I did not have adequate time to go through the chemotherapy counseling. I provided her with all the literature and documentation we review during chemotherapy counseling. I have asked her to take home and read with her family. We will reschedule chemotherapy counseling and go over all the material [id number] in detail. Jade is here with her and daughter Tricia today. The patient is in a wheelchair so is her . She states she has had ?chest pain? often on the last few days. She goes on to report ?it is more like palpitations, it is not like when I had my heart attack?. She denies any shortness of breath. She denies any cough, fever, chills. She does have persistent nausea also ?dry heaves?. She is taking Zofran which both the patient and her daughter state ?seems to help?. Per patient and family report the patient is able to eat ?very little?. Patient adamantly denies noting any blood in stool. No black or tarry stool. Stools have been normal aside from yesterday she had 1 episode of loose watery stool. She does have recent C difficile has been treated twice. Most recently she completed a course of oral vancomycin 1 month ago. After long discussion with patient and family regarding goals of treatment also red flags to treatment we have elected to delay initiating treatment today due to several factors. Patient does have symptomatic anemia hemoglobin 7.4 hematocrit 23. Also patient has rather significant nausea potassium is marginally low at 3.1. I am also going to check magnesium today I suspect that is low as well noting poor oral intake. We will type and cross the patient today I will ask her to return tomorrow for 1 unit of PRBCs, a 2nd unit of PRBCs the following day. Tomorrow we will also replace potassium via IV and magnesium if indicated. Patient is unable to tolerate oral potassium at this time. We will need to reschedule chemotherapy counseling. I talked extensively about the patient's disease, disease process, prognosis, treatment plan. The patient and family seem to have a very clear understanding at this point it does not look like disease is curable, this does appear to be metastatic disease noting pulmonary nodules. Prognosis will be based upon response to treatment and tolerability. If at any point patient becomes acutely ill and or functional status decreases we will have a discussion about continuing chemotherapy. Patient and her daughter reports she had ?significant problems? after having port placed. Both feel very certain she would not tolerate abdominal surgery as discussed with Dr. Kang to remove the mass in colon. Patient and family understand we will re-evaluate down the road. 45 mins spent in direct face to face consultation with pt and family. PRODUCTION LEADER also met with pt and family. - General New Chemotherapy Patient: Yes Treatment Plan Reviewed: yes - Chemotherapy Counseling Chemotherapy Counseling: Chemotherapy Education: Jade Morton provided written information on all topics discussed. Written materials printed from www.[facility].com and www.[facility].org. Jade was given an overview of cancer and mechanism of action of cancer cells, that cancer is caused by cells that are dividing rapidly, and out of control. Traditional chemotherapy works by targeting the fast dividing cells and killing them. Chemotherapy affecting healthy cells dividing quickly causes many of the side effects (hair follicles, bone marrow, mucus membranes). Overview of blood cell functions of white cells to fight infection, red cells to carry oxygen, and platelets to stop bleeding was discussed, and that when bone marrow is affected by chemo, there is a decrease in production of these cells. Home care of the patient following chemotherapy was discussed. Body fluids will be contaminated for 48 hours following treatment, and any body fluids handled by caregivers should be handled wearing gloves, surfaces need to be cleaned with soap and water, any soiled linens or clothing need to be washed separately in hot water, toilet lid should be closed when flushing, person cleaning the toilet should wear gloves. How chemotherapy is administered by the RN?s in the clinic, that orders are double checked by pharmacy and checked again by two RN?s prior to administration. Nurses wear protective gear to prevent exposure to them of the chemotherapy agents which can also cause cancer. Cancer center information discussed and written hand out provided listing on-call oncologist available weekends and after hours triage R.N. hours and infusion room guide. New patient binder given to Jade, which includes clinic names, phone numbers, clinic information, calendar, cancer glossary, and list of resources. Handout on advanced directives Common side effects of chemotherapy were discussed with self care tips for prevention of complications. Information also provided in writing. These included: Low blood counts (anemia, thrombocytopenia, neutropenia) Hair loss (alopecia) Nausea and vomiting Decreased appetite Loss of fertility Diarrhea Mouth sores Constipation Peripheral neuropathy Chemo brain/cognitive changes Fatigue Instructions on when to call your healthcare team or on-call physician immediately: Fever of 100.4 or higher, chills, any signs of infection Shortness of breath, wheezing, difficulty breathing, closing of throat, swelling of face, hives (signs of possible allergic reaction) Chest pain, fast heart beat or feelings of a different heart rhythm Swelling of an extremity with or without pain signs of stroke Instructions on when to call your healthcare team within the next 24 hours Nausea that interferes with ability to eat and unrelieved with prescribed medication Diarrhea (4-6 episodes in 24 hour period). Unusual bleeding or bruising Black or tarry stools, or blood in your stools Blood in the urine pain or burning with urination Extreme fatigue (unable to perform self-care activities) Mouth sores or sore areas in your mouth Bad headache Dizziness or lightheadedness Large weight gain over a short period of time General self-care tips while undergoing treatment discussed were as follows. Written materials were provided covering in detail and additional self care tips. Drink at least 2-3 quarts (8-10 glasses) of no-caffeinated beverages daily unless you are instructed otherwise and empty your bladder frequently Report any concerning symptoms to your healthcare team Avoid crowds and sick people, wash your hands frequently Use a soft bristled toothbrush, rinse three times a day with 1 tsp baking soda or 1 tsp salt mixed with warm water Avoid any mouthwashes or oral and skin products containing alcohol or fragrances Use electric razors to avoid cutting yourself Avoid contact sports or activities that could cause head injury or bleeding Avoid sun exposure, wear SPF 15 or higher, wear protective clothing Get plenty of rest, meter your activities Maintain good nutrition Avoid alcoholic beverages Attend your scheduled appointments and lab draws Treatment regimen reviewed and medications were discussed with attention to specific side effects and self care for the pt?s treatment regimen which includes [5 FU/leucovorin]. Jade was provided with literature regarding [5 FU/leucovorin] and common side effects. Additionally, Jade was provided with literature regarding the diagnosis of [colon cancer with a new primary adenocarcinoma]. Jade instructed to read literature at home. Keep a list of questions which we are happy to go over at future visits. For any urgent questions please feel free to call any time. - Response to Teaching Response to Teaching: Verbalizes Understanding - Referrals Referrals: Fiberglass Finisher (chemo on hold noting above )
--- NOTE | 2018-04-14 08:18 | P.CHEMO_ITS ---
Chemotherapy Counseling - History of present illness History of present illness: The patient is an 82-year-old female with history of colon cancer. She has now been diagnosed with a new colon cancer, previous cancer has likely been cured. She presented with a partially obstructing mass identified in the descending colon, proximal to previous colon cancer site. Patient did visit with surgery, masses to large at this time for surgical intervention. Plan is to move forward with chemotherapy with goal of shrinking the mass. Patient has met with our oncologist Dr. Emery. She will begin chemotherapy with a regimen of 5 FU/ leucovorin once every 14 days for total of 6 months. Plan is to complete approximately 6 cycles and at that point re-evaluate for surgery. Plan would then be after surgical intervention to complete the full course of chemotherapy. Unfortunately Jade was 30 mins late for her appointment this morning I did not have adequate time to go through the chemotherapy counseling. I provided her with all the literature and documentation we review during chemotherapy counseling. I have asked her to take home and read with her family. We will reschedule chemotherapy counseling and go over all the material [id number] in detail. Jade is here with her and daughter Tricia today. The patient is in a wheelchair so is her . She states she has had ?chest pain? often on the last few days. She goes on to report ?it is more like palpitations, it is not like when I had my heart attack?. She denies any shortness of breath. She denies any cough, fever, chills. She does have persistent nausea also ?dry heaves?. She is taking Zofran which both the patient and her daughter state ? seems to help?. Per patient and family report the patient is able to eat ?very little?. Patient adamantly denies noting any blood in stool. No black or tarry stool. Stools have been normal aside from yesterday she had 1 episode of loose watery stool. She does have recent C difficile has been treated twice. Most recently she completed a course of oral vancomycin 1 month ago. After long discussion with patient and family regarding goals of treatment also red flags to treatment we have elected to delay initiating treatment today due to several factors. Patient does have symptomatic anemia hemoglobin 7.4 hematocrit 23. Also patient has rather significant nausea potassium is marginally low at 3.1. I am also going to check magnesium today I suspect that is low as well noting poor oral intake. We will type and cross the patient today I will ask her to return tomorrow for 1 unit of PRBCs, a 2nd unit of PRBCs the following day. Tomorrow we will also replace potassium via IV and magnesium if indicated. Patient is unable to tolerate oral potassium at this time. We will need to reschedule chemotherapy counseling. I talked extensively about the patient's disease, disease process, prognosis, treatment plan. The patient and family seem to have a very clear understanding at this point it does not look like disease is curable, this does appear to be metastatic disease noting pulmonary nodules. Prognosis will be based upon response to treatment and tolerability. If at any point patient becomes acutely ill and or functional status decreases we will have a discussion about continuing chemotherapy. Patient and her daughter reports she had ?significant problems? after having port placed. Both feel very certain she would not tolerate abdominal surgery as discussed with Dr. Kang to remove the mass in colon. Patient and family understand we will re-evaluate down the road. 45 mins spent in direct face to face consultation with pt and family. DRY CELL ASSEMBLY MACHINE TENDER also met with pt and family. - General New Chemotherapy Patient: Yes Treatment Plan Reviewed: yes - Chemotherapy Counseling Chemotherapy Counseling: Chemotherapy Education: Jade Morton provided written information on all topics discussed. Written materials printed from www.[facility].com and www.[facility].org. Jade was given an overview of cancer and mechanism of action of cancer cells , that cancer is caused by cells that are dividing rapidly, and out of control. Traditional chemotherapy works by targeting the fast dividing cells and killing them. Chemotherapy affecting healthy cells dividing quickly causes many of the side effects (hair follicles, bone marrow, mucus membranes). Overview of blood cell functions of white cells to fight infection, red cells to carry oxygen, and platelets to stop bleeding was discussed, and that when bone marrow is affected by chemo, there is a decrease in production of these cells. Home care of the patient following chemotherapy was discussed. Body fluids will be contaminated for 48 hours following treatment, and any body fluids handled by caregivers should be handled wearing gloves, surfaces need to be cleaned with soap and water, any soiled linens or clothing need to be washed separately in hot water, toilet lid should be closed when flushing, person cleaning the toilet should wear gloves. How chemotherapy is administered by the RN?s in the clinic, that orders are double checked by pharmacy and checked again by two RN?s prior to administration. Nurses wear protective gear to prevent exposure to them of the chemotherapy agents which can also cause cancer. Cancer center information discussed and written hand out provided listing on- call oncologist available weekends and after hours triage R.N. hours and infusion room guide. New patient binder given to Jade, which includes clinic names, phone numbers , clinic information, calendar, cancer glossary, and list of resources. Handout on advanced directives Common side effects of chemotherapy were discussed with self care tips for prevention of complications. Information also provided in writing. These included: Low blood counts (anemia, thrombocytopenia, neutropenia) Hair loss (alopecia) Nausea and vomiting Decreased appetite Loss of fertility Diarrhea Mouth sores Constipation Peripheral neuropathy Chemo brain/cognitive changes Fatigue Instructions on when to call your healthcare team or on-call physician immediately: Fever of 100.4 or higher, chills, any signs of infection Shortness of breath, wheezing, difficulty breathing, closing of throat, swelling of face, hives (signs of possible allergic reaction) Chest pain, fast heart beat or feelings of a different heart rhythm Swelling of an extremity with or without pain signs of stroke Instructions on when to call your healthcare team within the next 24 hours Nausea that interferes with ability to eat and unrelieved with prescribed medication Diarrhea (4-6 episodes in 24 hour period). Unusual bleeding or bruising Black or tarry stools, or blood in your stools Blood in the urine pain or burning with urination Extreme fatigue (unable to perform self-care activities) Mouth sores or sore areas in your mouth Bad headache Dizziness or lightheadedness Large weight gain over a short period of time General self-care tips while undergoing treatment discussed were as follows. Written materials were provided covering in detail and additional self care tips. Drink at least 2-3 quarts (8-10 glasses) of no-caffeinated beverages daily unless you are instructed otherwise and empty your bladder frequently Report any concerning symptoms to your healthcare team Avoid crowds and sick people, wash your hands frequently Use a soft bristled toothbrush, rinse three times a day with 1 tsp baking soda or 1 tsp salt mixed with warm water Avoid any mouthwashes or oral and skin products containing alcohol or fragrances Use electric razors to avoid cutting yourself Avoid contact sports or activities that could cause head injury or bleeding Avoid sun exposure, wear SPF 15 or higher, wear protective clothing Get plenty of rest, meter your activities Maintain good nutrition Avoid alcoholic beverages Attend your scheduled appointments and lab draws Treatment regimen reviewed and medications were discussed with attention to specific side effects and self care for the pt?s treatment regimen which includes [5 FU/leucovorin]. Jade was provided with literature regarding [5 FU/leucovorin] and common side effects. Additionally, Jade was provided with literature regarding the diagnosis of [ colon cancer with a new primary adenocarcinoma]. Jade instructed to read literature at home. Keep a list of questions which we are happy to go over at future visits. For any urgent questions please feel free to call any time. - Response to Teaching Response to Teaching: Verbalizes Understanding - Referrals Referrals: Defense Attorney (chemo on hold noting above )
[2018-04-14 10:21] LABS: Add Manual Diff / Slide Review NO; Basophils Percent Auto 0.9 % (0-2); Eosinophils Percent Auto 7.8 % (2-4); Hematocrit 23.3 % (36-46); Hemoglobin 7.4 g/dL (12.0-16.0); Mean Corpuscular HGB Conc 31.6 % (30-36); Mean Corpuscular Hemoglobin 21.9 PG (26-34); Mean Corpuscular Volume 69.4 fL (80-100); Monocytes Percent Auto 8.6 % (3-14); Neutrophils Absolute Auto 4700 /uL (3000-5900); Neutrophils Percent Auto 60.7 % (50-75); Platelet Count 317 X10^3/uL (150-400); Red Blood Cell Count 3.36 X10^6/uL (4.0-5.2); Red Cell Distribution Width 16.8 % (11.6-14.8); White Blood Cell Count 7.7 X10^3/uL (4.5-11.0)
[2018-04-14 10:27] LABS: Alanine Aminotransferase 18 IU/L (9-52); Albumin 3.4 g/dL (3.5-5.0); Albumin Globulin Ratio 1.3 (1.0-2.8); Alkaline Phosphatase 57 U/L (38-126); Aspartate Aminotransferase 15 IU/L (14-36); BUN Creatinine Ratio 23.3 (6-22); Bilirubin Total 0.3 mg/dL (0.2-1.3); Blood Urea Nitrogen 14 mg/dL (7-17); Calcium 8.8 mg/dL (8.4-10.2); Carbon Dioxide 30 mmol/L (22-32); Chloride 104 mmol/L (98-107); Estimated Glomerular Filt Rate > 60.0 mL/min (>60); Globulin 2.7 g/dL (1.7-4.1); Glucose 89 mg/dL (80-110); HEMOLYSIS < 15 (0-50); Potassium 3.1 mmol/L (3.4-5.1); Sodium 142 mmol/L (137-145); Total Protein 6.1 g/dL (6.3-8.2)
[2018-04-14 10:36] VITALS: BP 98/60; PULSE 67; RESP 20; TEMP 37.1; O2SAT 99
[2018-04-14 11:33] LABS: Hypochromasia 2+; Microcytosis 2+
[2018-04-14 11:36] LABS: Magnesium 1.9 mg/dL (1.6-2.3)
--- NOTE | 2018-04-14 11:43 | ONC.NAV ---
Description: Care Coordination/Home Health Referral Activity: Met with pt, spouse and dtr, Tricia, prior to their provider appointment. Pt presents as tired, weak and physically fatigued. She was to begin treatment today, however her blood counts were too low, so she will return tomorrow and Thursday for blood transfusions, with the plan of beginning chemo next week. Discussed dtr's concerns that pt is in need of additional nursing/bathing care at home. They had used [facility] before, and prefer the referral be made to the same place. TALKING [employer] LIBRARY CLERK will f/u with completing this referral today. Pt and spouse have a normal, long-term bickering relationship, per dtr. Both pt and spouse decline any counseling at this time, and feel that having more in-home support will decrease their overall stress. Dtr is splitting her time between her home in [place], and staying here in [place] to help both pt and spouse with their many medical/care coordination needs. Plan: TALKING [employer] LIBRARY CLERK provided both pt and dtr my services card, and encouraged them to reach out for support should they need anything during future appointments.
[2018-04-15 11:21] VITALS: BP 122/59; PULSE 64; RESP 18
[2018-04-15 11:37] VITALS: BP 129/54; PULSE 70; RESP 18; TEMP 37.1
[2018-04-15] MEDS: POTASSIUM CHLORIDE 20 MEQ in SODIUM CHLORIDE 0.9% 250 ML 130 ML IV (12:44)
[2018-04-15 14:50] VITALS: BP 133/65; PULSE 69; RESP 16; TEMP 37.2
--- NOTE | 2018-04-15 15:32 | PC.NURSE ---
Port remained access per pt's request; pt will be in clinic tomorrow for 2nd unit of blood. Clear tegaderm dressing in place, CDI,. Clear cap placed and end, port clamped and locked. Pt denies chest pain and SOB. Denies lightheadedness and dizziness.
[2018-04-16 10:44] VITALS: BP 126/51; PULSE 64; RESP 18; TEMP 36.8
[2018-04-16 11:01] VITALS: BP 145/58; PULSE 65; RESP 18; TEMP 36.7
--- NOTE | 2018-04-19 11:05 | ONC.PN ---
PN -Subjective Interval history: INTERIM EVENTS Here for first cycle of 5FU/Leucovorin. Patient had port placed. According to patient's daughter and patient herself, patient has lot of problems after the port placement. Patient had to receive blood transfusions on April and April 16 due to severe anemia below 8. On April 14, 2018, patient underwent chemotherapy teaching sessions. Patient denies fever or chills, denies shortness of breath or chest pain, denies abdominal bloating, but does report abdominal location of pain. Patient has occasional diarrhea intermittent with occasionally constipation. Patient is using MiraLax on a as needed basis. SUMMARY OF ONCOLOGICAL HISTORY: She has a remote history of state III colon cancer diagnosed in February of 2002 with 2 or more mesenteric nodes being positive. The CEA was 18.9. Patient is status post resection followed by 6 months of chemotherapy with leucovorin and 5 FU completed August 2002. Per patient's daughter and patient herself, patient apparently had a ?mild heart attack? in July of 2017. The echo report from August 05, 2017 revealed the left ventricle cavity was small, mild to moderate concentric left ventricular hypertrophy, the ejection fraction estimated to be 65-70%, and no obvious focal wall motion abnormalities but poor endocardial definition, and diastolic parameters normal. Thereafter patient was discharged to senior care. 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 Patient has completed the most recent course of vancomycin treatment about 2-3 weeks ago. Patient was seen by mixing machine tender cork rod Agnes Martinez ARNP on 02/03/2018. Colonoscopy was requested for fecal transplant. The colonoscopy was performed by Dr. Ree Jalloh on March 11, 2018. The colonoscopy revealed a malignant partially obstructing tumor at 47 cm proximal to the anus.There was evidence of previous surgery, distal to the colon mass identified. The surgical anastomosis was patent and was characterized by healthy appearing mucosa. Due to the new finding of colon mass, fecal transplant was not done. 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 In addition molecular testing by PCR showed that the cancer is negative for KRAS mutation, positive for BRAF [id number] mutation, and negative for NRAS mutations. On March 12, [address] scan of the chest, abdomen and pelvis with contrast. And the scan showed findings concerning for short segment colitis of the right transverse colon versus a circumferential colon mass with surrounding mesenteric edema, multiple bilateral pulmonary nodules measuring up to 6 mm in greatest diameter, and multiple level degenerative changes of the spine with resultant 0.9 cm of anterolisthesis of L4 on L5 resulting in moderate spinal canal stenosis at that level. I went to radiology department and I talked with radiologist Dr. Smith and reviewed all the imaging studies. The pulmonary nodules have been present at least since December of 2017. And the pulmonary juice apparently have not changed in size, in number or in appearance. Most likely these pulmonary nodules represent granuloma changes rather than metastatic malignancy. We also looked at the liver images. There is no clear evidence of hepatic lesions or masses. Lab results from [facility] showed that the CEA level was 3.6 on March 11 2018. CBC reviewed that the white cell count 8.4, hemoglobin 8.3, hematocrit 26.3, MCV 75.8 and platelets 371 - Patient Self-Reported Symptoms SR Constitution: Weight loss/gain, Fatigue/Malaise SR ears, nose, mouth, throat issues: Cough (sometime at night) SR respiratory issues: Cough, Mucous SR Cardiovascular issues: Palpitations (before the blood tranfusion in early Apr. ), Extreme swelling, Dizzy/lightheaded SR Skin issues: Dry skin, Skin rash or itching, Hair loss or scalp prob, Nail changes SR Gastrointestinal issues: Poor or no appetite, Change in bowel pattern, Nausea, Vomiting (sick to her stomach on 04/16/2018), Constipation, Abdominal pain SR Genitourinary issues: Frequent urination, Incontinence SR Musculoskeletal issues: Joint pain or swelling, Muscle weakness, Muscle pain or cramps, Difficulty walking SR Neuro issues: Lightheaded/dizzy, Tremors or shaking SR Hematologic issues: Bleeding/bruising SR Endocrine issues: Cold intolerance, Excessive thirst - Additional ROS All systems PM: reviewed and no additional remarkable complaints except as stated Home Medications and Allergies Home Medications Medication Instructions Recorded Confirmed Type glimepiride [Amaryl] 2 mg PO QDAY #0 09/29/12 04/19/18 History oxybutynin chloride 5 mg PO BID #0 10/13/16 04/19/18 History calcium carbonate-vitamin D3 1 tab PO BIDCC #0 11/11/17 04/19/18 History [Oyster Shell Calcium-Vit D3] carvedilol [Coreg] 3.125 mg PO BIDCC #0 11/11/17 04/19/18 History insulin glargine [Lantus Solostar 1 dose SQ QPM #0 11/11/17 04/19/18 History U-100 Insulin] nitroglycerin [Nitrostat] 0.4 mg SUBLINGUAL PRN PRN #0 11/11/17 04/19/18 History nystatin [Nystop] 100,000 unit TOPICAL QID #0 11/11/17 04/19/18 History pantoprazole 20 mg PO DAILY #0 11/11/17 04/19/18 History Acidophilus Probiotic Complex 1 tab PO DAILY 01/20/18 04/19/18 History atorvastatin 40 mg PO DAILY 01/20/18 04/19/18 History cranberry 500 mg PO DAILY 01/20/18 04/19/18 History insulin lispro [Humalog KwikPen 5 units SUB-Q TID 01/20/18 04/19/18 History Insulin] omega 5-wxo-pug-fish oil [Fish Oil] 1,000 mg PO DAILY 01/20/18 04/19/18 History vit A,C and W-kxlgnl-jfsvufkd 1 tab PO DAILY 01/20/18 04/19/18 History [I-Mellisa] aspirin 81 mg PO DAILY 03/22/18 04/19/18 History ondansetron 8 mg PO TID PRN 03/22/18 04/19/18 History Allergies Allergy/AdvReac Type Severity Reaction Status Date / Time Sulfa (Sulfonamide Allergy Severe hives Verified 12/13/17 20:35 Antibiotics) [SULFA (SULFONAMIDE ANTIBIOTICS)] metformin Allergy Mild Diarrhea Verified 01/20/18 23:13 darifenacin [From Enablex] Allergy Unknown Verified 01/20/18 23:13 ketoconazole Allergy Unknown Verified 01/20/18 23:13 promethazine [From Phenergan] Allergy Verified 03/19/18 14:49 adhesive [ADHESIVE] AdvReac Severe tape Verified 12/13/17 20:35 causes blisters Exam Vital signs: Temperature 99.2?, heart rate 67, respiratory rate 16, pulse 98% on room air, weight 102.19 kilos. ECOG 2. - Constitutional positive no acute distress, positive obese, positive chronically ill appearing, positive cooperative - Routine HEENT Exam Head: Present: normocephalic, atraumatic Eye: Present: EOMI, PERRL, normal accommodation. Absent: conjunctival icterus ENT: Present: mucous membranes moist - Routine Neck Exam Present: supple, full ROM, JVD. Absent: lymphadenopathy, thyromegaly - Routine Respiratory Exam Present: Clear to auscultation bilaterally. Absent: accessory muscle use, rales, respiratory distress, rhonchi, stridor, wheezes - Routine Cardiovascular Exam Present: RRR, S1, S2. Absent: murmur, gallop, rubs - Routine Abdominal Exam Present: soft, normoactive bowel sounds, hernia. Absent: tenderness, distended, organomegaly, mass - Routine Extremities Exam Absent: cyanosis, clubbing, edema - Routine Neurological Exam Present: alert, oriented X3, CN II-XII intact, normal reflexes. Absent: sensory deficit, motor deficit - Routine Psychiatric Exam Present: normal affect, normal thought process, cooperative, good insight Results - Labs Labs from April 19, 2018 WBC 7.2, hemoglobin 9.2, hematocrit 28.6, MCV 73.5, platelets 326, Sodium 142, potassium 3.8, chloride 103, carbon dioxide 32, BUN 12, creatinine 0.6, glucose 129, total bilirubin 0.4, AST 20, ALT 23, alk phos 64, total protein 6.0, globulin 2.8 Assessment and Plan (1) Colon cancer Onset Date: ~03/11/18 Problem details: Partially obstructing mass identified in the descending colon proximal to the previous colon cancer surgical site. And staging studies reviewed questionable pulmonary metastasis manifesting as bilateral tiny pulmonary nodules measuring up to 6 mm. Normal CEA level of 3.6 from [facility]. Current visit: Yes Status: Chronic I talked with the patient that the current imaging studies showed that she has a localized colon cancer. For localized colon cancer, our goal of treatment is to treat with intention of cure. Because of the size of the colon cancer as well as her current comorbidities, Dr. Kang felt that will be better if we can shrink the cancer to some extent before the surgery. I talked with the patient that I would proceed with scheduled chemotherapy today which include 5 FU and leucovorin. I talked with the patient that the potential side effects including bone marrow suppression, diarrhea, nausea vomiting, and fatigue. Patient voiced understanding. I will have the patient come back in 2 weeks and will repeat CBC CMP before the 2nd cycle of the treatment. (2) Iron deficiency anemia due to chronic blood loss Onset Date: Unknown Problem details: Patient is to have iron infusion in the past. The etiology likely is related to the new diagnosis of the colon cancer. Patient has significant constipation while taking the oral iron. Current visit: Yes Status: Chronic She has severe iron deficiency anemia, that is due to gastrointestinal bleeding because of the colon cancer. Recently patient had to have blood transfusion. Given the severe iron deficiency anemia will proceed with intravenous iron supplementation with Venofer 200 mg IV weekly for 5 weeks. (3) Personal history of colon cancer, stage III Current visit: Yes The newly diagnosed colon cancer represents separate new primary adenocarcinoma. The previous colon cancer has been likely cured 04/05/18 13:17 (1) Colon cancer Qualifiers: Colon location: descending Qualified Code(s): C18.6 - Malignant neoplasm of descending colon
--- NOTE | 2018-04-19 11:09 | P.PNONC_ITS ---
PN -Subjective Interval history: INTERIM EVENTS Here for first cycle of 5FU/Leucovorin. Patient had port placed. According to patient's daughter and patient herself, patient has lot of problems after the port placement. Patient had to receive blood transfusions on April and April 16 due to severe anemia below 8. On April 14, 2018, patient underwent chemotherapy teaching sessions. Patient denies fever or chills, denies shortness of breath or chest pain, denies abdominal bloating, but does report abdominal location of pain. Patient has occasional diarrhea intermittent with occasionally constipation. Patient is using MiraLax on a as needed basis. SUMMARY OF ONCOLOGICAL HISTORY: She has a remote history of state III colon cancer diagnosed in February of 2002 with 2 or more mesenteric nodes being positive. The CEA was 18.9. Patient is status post resection followed by 6 months of chemotherapy with leucovorin and 5 FU completed August 2002. Per patient's daughter and patient herself, patient apparently had a ?mild heart attack? in July of 2017. The echo report from August 05, 2017 revealed the left ventricle cavity was small, mild to moderate concentric left ventricular hypertrophy, the ejection fraction estimated to be 65-70%, and no obvious focal wall motion abnormalities but poor endocardial definition, and diastolic parameters normal. Thereafter patient was discharged to [facility]. 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 Patient has completed the most recent course of vancomycin treatment about 2-3 weeks ago. Patient was seen by order manager Agnes Martinez ARNP on 02/03/2018. Colonoscopy was requested for fecal transplant. The colonoscopy was performed by Dr. eRe Jalloh on March 11, 2018. The colonoscopy revealed a malignant partially obstructing tumor at 47 cm proximal to the anus.There was evidence of previous surgery, distal to the colon mass identified. The surgical anastomosis was patent and was characterized by healthy appearing mucosa. Due to the new finding of colon mass, fecal transplant was not done. 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 The pathology addendum to the colon mass biopsy pathology report showed that there is loss of expression of MLH1 and PMS2 mismatch repair proteins, and microsatellite instability-high based on MSI- PCR analysis. In addition molecular testing by PCR showed that the cancer is negative for KRAS mutation, positive for BRAF V600E mutation, and negative for NRAS mutations. On March 12, [address] scan of the chest, abdomen and pelvis with contrast. And the scan showed findings concerning for short segment colitis of the right transverse colon versus a circumferential colon mass with surrounding mesenteric edema, multiple bilateral pulmonary nodules measuring up to 6 mm in greatest diameter, and multiple level degenerative changes of the spine with resultant 0.9 cm of anterolisthesis of L4 on L5 resulting in moderate spinal canal stenosis at that level. I went to radiology department and I talked with radiologist Dr. Smith and reviewed all the imaging studies. The pulmonary nodules have been present at least since December of 2017. And the pulmonary juice apparently have not changed in size, in number or in appearance. Most likely these pulmonary nodules represent granuloma changes rather than metastatic malignancy. We also looked at the liver images. There is no clear evidence of hepatic lesions or masses. Lab results from [facility] showed that the CEA level was 3.6 on March 11 2018. CBC reviewed that the white cell count 8.4, hemoglobin 8.3, hematocrit 26.3, MCV 75.8 and platelets 371 - Patient Self-Reported Symptoms SR Constitution: Weight loss/gain, Fatigue/Malaise SR ears, nose, mouth, throat issues: Cough (sometime at night) SR respiratory issues: Cough, Mucous SR Cardiovascular issues: Palpitations (before the blood tranfusion in early Apr. ), Extreme swelling, Dizzy/lightheaded SR Skin issues: Dry skin, Skin rash or itching, Hair loss or scalp prob, Nail changes SR Gastrointestinal issues: Poor or no appetite, Change in bowel pattern, Nausea , Vomiting (sick to her stomach on 04/16/2018), Constipation, Abdominal pain SR Genitourinary issues: Frequent urination, Incontinence SR Musculoskeletal issues: Joint pain or swelling, Muscle weakness, Muscle pain or cramps, Difficulty walking SR Neuro issues: Lightheaded/dizzy, Tremors or shaking SR Hematologic issues: Bleeding/bruising SR Endocrine issues: Cold intolerance, Excessive thirst - Additional ROS All systems PM: reviewed and no additional remarkable complaints except as stated Home Medications and Allergies Home Medications Medication Instructions Recorded Confirmed Type glimepiride [Amaryl] 2 mg PO QDAY #0 09/29/12 04/19/18 History oxybutynin chloride 5 mg PO BID #0 10/13/16 04/19/18 History calcium carbonate-vitamin D3 1 tab PO BIDCC #0 11/11/17 04/19/18 History [Oyster Shell Calcium-Vit D3] carvedilol [Coreg] 3.125 mg PO BIDCC #0 11/11/17 04/19/18 History insulin glargine [Lantus Solostar 1 dose SQ QPM #0 11/11/17 04/19/18 History U-100 Insulin] nitroglycerin [Nitrostat] 0.4 mg SUBLINGUAL PRN PRN #0 11/11/17 04/19/18 History nystatin [Nystop] 100,000 unit TOPICAL QID #0 11/11/17 04/19/18 History pantoprazole 20 mg PO DAILY #0 11/11/17 04/19/18 History Acidophilus Probiotic Complex 1 tab PO DAILY 01/20/18 04/19/18 History atorvastatin 40 mg PO DAILY 01/20/18 04/19/18 History cranberry 500 mg PO DAILY 01/20/18 04/19/18 History insulin lispro [Humalog KwikPen 5 units SUB-Q TID 01/20/18 04/19/18 History Insulin] omega 3-uqz-xro-fish oil [Fish Oil] 1,000 mg PO DAILY 01/20/18 04/19/18 History vit A,C and C-kfwxds-mecjjzlb 1 tab PO DAILY 01/20/18 04/19/18 History [I-Mellisa] aspirin 81 mg PO DAILY 03/22/18 04/19/18 History ondansetron 8 mg PO TID PRN 03/22/18 04/19/18 History Allergies Allergy/AdvReac Type Severity Reaction Status Date / Time Sulfa (Sulfonamide Allergy Severe hives Verified 12/13/17 20:35 Antibiotics) [SULFA (SULFONAMIDE ANTIBIOTICS)] metformin Allergy Mild Diarrhea Verified 01/20/18 23:13 darifenacin [From Enablex] Allergy Unknown Verified 01/20/18 23:13 ketoconazole Allergy Unknown Verified 01/20/18 23:13 promethazine [From Phenergan] Allergy Verified 03/19/18 14:49 adhesive [ADHESIVE] AdvReac Severe tape Verified 12/13/17 20:35 causes blisters Exam Vital signs: Temperature 99.2?, heart rate 67, respiratory rate 16, pulse 98% on room air, weight 102.19 kilos. ECOG 2. - Constitutional positive no acute distress, positive obese, positive chronically ill appearing, positive cooperative - Routine HEENT Exam Head: Present: normocephalic, atraumatic Eye: Present: EOMI, PERRL, normal accommodation. Absent: conjunctival icterus ENT: Present: mucous membranes moist - Routine Neck Exam Present: supple, full ROM, JVD. Absent: lymphadenopathy, thyromegaly - Routine Respiratory Exam Present: Clear to auscultation bilaterally. Absent: accessory muscle use, rales , respiratory distress, rhonchi, stridor, wheezes - Routine Cardiovascular Exam Present: RRR, S1, S2. Absent: murmur, gallop, rubs - Routine Abdominal Exam Present: soft, normoactive bowel sounds, hernia. Absent: tenderness, distended , organomegaly, mass - Routine Extremities Exam Absent: cyanosis, clubbing, edema - Routine Neurological Exam Present: alert, oriented X3, CN II-XII intact, normal reflexes. Absent: sensory deficit, motor deficit - Routine Psychiatric Exam Present: normal affect, normal thought process, cooperative, good insight Results - Labs Labs from April 19, 2018 WBC 7.2, hemoglobin 9.2, hematocrit 28.6, MCV 73.5 , platelets 326, Sodium 142, potassium 3.8, chloride 103, carbon dioxide 32, BUN 12, creatinine 0.6, glucose 129, total bilirubin 0.4, AST 20, ALT 23, alk phos 64, total protein 6.0, globulin 2.8 Assessment and Plan (1) Colon cancer Onset Date: ~03/11/18 Problem details: Partially obstructing mass identified in the descending colon proximal to the previous colon cancer surgical site. And staging studies reviewed questionable pulmonary metastasis manifesting as bilateral tiny pulmonary nodules measuring up to 6 mm. Normal CEA level of 3.6 from [facility]. Current visit: Yes Status: Chronic I talked with the patient that the current imaging studies showed that she has a localized colon cancer. For localized colon cancer, our goal of treatment is to treat with intention of cure. Because of the size of the colon cancer as well as her current comorbidities, Dr. Kang felt that will be better if we can shrink the cancer to some extent before the surgery. I talked with the patient that I would proceed with scheduled chemotherapy today which include 5 FU and leucovorin. I talked with the patient that the potential side effects including bone marrow suppression, diarrhea, nausea vomiting, and fatigue. Patient voiced understanding. I will have the patient come back in 2 weeks and will repeat CBC CMP before the 2nd cycle of the treatment. (2) Iron deficiency anemia due to chronic blood loss Onset Date: Unknown Problem details: Patient is to have iron infusion in the past. The etiology likely is related to the new diagnosis of the colon cancer. Patient has significant constipation while taking the oral iron. Current visit: Yes Status: Chronic She has severe iron deficiency anemia, that is due to gastrointestinal bleeding because of the colon cancer. Recently patient had to have blood transfusion. Given the severe iron deficiency anemia will proceed with intravenous iron supplementation with Venofer 200 mg IV weekly for 5 weeks. (3) Personal history of colon cancer, stage III Current visit: Yes The newly diagnosed colon cancer represents separate new primary adenocarcinoma. The previous colon cancer has been likely cured 04/05/18 13:17 (1) Colon cancer Qualifiers: Colon location: descending Qualified Code(s): C18.6 - Malignant neoplasm of descending colon
[2018-04-19 11:32] VITALS: BP 85/43; PULSE 67; RESP 16; TEMP 37.3; O2SAT 98
[2018-04-19 11:55] LABS: Add Manual Diff / Slide Review NO; Basophils Percent Auto 1.2 % (0-2); Eosinophils Percent Auto 6.5 % (2-4); Hematocrit 28.6 % (36-46); Hemoglobin 9.2 g/dL (12.0-16.0); Lymphocytes Percent Auto 23.4 % (25-40); Mean Corpuscular HGB Conc 32.2 % (30-36); Mean Corpuscular Hemoglobin 23.6 PG (26-34); Mean Corpuscular Volume 73.5 fL (80-100); Monocytes Percent Auto 7.5 % (3-14); Neutrophils Absolute Auto 4400 /uL (3000-5900); Neutrophils Percent Auto 61.4 % (50-75); Platelet Count 326 X10^3/uL (150-400); Red Blood Cell Count 3.89 X10^6/uL (4.0-5.2); Red Cell Distribution Width 21.7 % (11.6-14.8); White Blood Cell Count 7.2 X10^3/uL (4.5-11.0)
[2018-04-19 12:02] LABS: Alanine Aminotransferase 23 IU/L (9-52); Albumin 3.2 g/dL (3.5-5.0); Albumin Globulin Ratio 1.1 (1.0-2.8); Alkaline Phosphatase 64 U/L (38-126); Aspartate Aminotransferase 20 IU/L (14-36); Bilirubin Total 0.4 mg/dL (0.2-1.3); Blood Urea Nitrogen 12 mg/dL (7-17); Calcium 8.6 mg/dL (8.4-10.2); Carbon Dioxide 32 mmol/L (22-32); Chloride 103 mmol/L (98-107); Estimated Glomerular Filt Rate > 60.0 mL/min (>60); Globulin 2.8 g/dL (1.7-4.1); Glucose 129 mg/dL (80-110); HEMOLYSIS < 15 (0-50); Potassium 3.8 mmol/L (3.4-5.1); Sodium 142 mmol/L (137-145)
[2018-04-19 12:19] LABS: Anisocytosis 1+
[2018-04-19] MEDS: IRON SUCROSE 200 MG in SODIUM CHLORIDE 0.9% 100 ML 220 ML IV (12:52)
[2018-04-19 13:34] VITALS: BP 133/62; PULSE 71; RESP 14; TEMP 36.9; O2SAT 95
--- NOTE | 2018-04-19 14:11 | PC.NURSE ---
Jade comes into and received iron infusion, ..In W/C accompanied by daughter. will return earlier tomorrow to receive first dose of chemotherapy.
[2018-04-20] MEDS: LORazepam 0.5 MG TABLET PO (09:48)
[2018-04-20] MEDS: DEXAMETHASONE 10 MG/ML VIAL 8 MG IV (09:48)
[2018-04-20 09:56] VITALS: BP 143/68; PULSE 64; RESP 18; TEMP 36.7; O2SAT 99
[2018-04-20] MEDS: ONDANSETRON 8 MG in SODIUM CHLORIDE 0.9% 50 ML 216 ML IV (10:00)
[2018-04-20] MEDS: LEUCOVORIN 800 MG in DEXTROSE 5% (CHEMO IV) 250 ML 250 ML 145 ML IV (10:37)
--- NOTE | 2018-04-20 12:26 | ONC.NAV ---
*Pt received a Chemo Quilt on 04/15/18.
[2018-04-20] MEDS: FLUOROURACIL 800 MG in ISOOSMOTIC VEHICLE (CHEMO) 0 ML 96 ML IV (13:03)
--- NOTE | 2018-04-20 14:21 | PC.NURSE ---
Cadd pump settings verified with LINDSAY Gonzalez. Line flushed, equashield attached and pump connected and started without issues. Nurse review done by [employer]
[2018-04-22 12:10] VITALS: BP 129/74; PULSE 65; RESP 16; TEMP 37
--- NOTE | 2018-04-22 12:12 | PC.NURSE ---
Cadd pump dc'd, pump reservoir zero. Pt's daughter reports that pt got flushed last night for as little while, but then it went away. Denies chest pain and SOB. Temp taken by daughter when pt c/o flushing at home, afebrile. MD aware, no new orders received. Port de accessed.
[2018-04-26 11:34] LABS: Add Manual Diff / Slide Review NO; Basophils Percent Auto 0.9 % (0-2); Eosinophils Percent Auto 3.9 % (2-4); Hematocrit 28.9 % (36-46); Hemoglobin 9.3 g/dL (12.0-16.0); Lymphocytes Percent Auto 29.9 % (25-40); Mean Corpuscular Hemoglobin 23.4 PG (26-34); Monocytes Percent Auto 4.5 % (3-14); Neutrophils Absolute Auto 3300 /uL (3000-5900); Neutrophils Percent Auto 60.8 % (50-75); Platelet Count 293 X10^3/uL (150-400); Red Blood Cell Count 3.96 X10^6/uL (4.0-5.2); Red Cell Distribution Width 22.6 % (11.6-14.8); White Blood Cell Count 5.5 X10^3/uL (4.5-11.0)
[2018-04-26 11:45] LABS: Alanine Aminotransferase 20 IU/L (9-52); Albumin 3.2 g/dL (3.5-5.0); Albumin Globulin Ratio 1.1 (1.0-2.8); Alkaline Phosphatase 57 U/L (38-126); Aspartate Aminotransferase 15 IU/L (14-36); BUN Creatinine Ratio 17.1 (6-22); Bilirubin Total 0.3 mg/dL (0.2-1.3); Blood Urea Nitrogen 12 mg/dL (7-17); Carbon Dioxide 32 mmol/L (22-32); Chloride 103 mmol/L (98-107); Estimated Glomerular Filt Rate > 60.0 mL/min (>60); Globulin 2.9 g/dL (1.7-4.1); Glucose 110 mg/dL (80-110); HEMOLYSIS < 15 (0-50); Sodium 142 mmol/L (137-145); Total Protein 6.1 g/dL (6.3-8.2)
[2018-04-26 11:49] VITALS: BP 116/57; PULSE 58; RESP 16; TEMP 36.7
[2018-04-26 11:52] LABS: Poikilocytosis 1+
[2018-04-26 11:53] LABS: Anisocytosis 2+; Hypochromasia 1+; Microcytosis 1+
[2018-04-26] MEDS: IRON SUCROSE 200 MG in SODIUM CHLORIDE 0.9% 100 ML 220 ML IV (11:54)
--- NOTE | 2018-04-29 10:44 | PC.NURSE ---
Faxed [employer] Access Enrollment From for benefits investigation regarding use of Pembrolizumab off-label for colon cancer. Fawad Lira RPh
--- NOTE | 2018-05-03 08:41 | ONC.PN ---
PN -Subjective Interval history: INTERIM EVENTS Here for 2nd cycle of 5FU/Leucovorin. She is complaining of stomach pain, and is problematcic, but admit that it is not getting worse, and it is about the same. She deneis n/v, denies chest pain, denies diarrhea. On the contrary, she reports a little constipate, and had to use miralax. SUMMARY OF ONCOLOGICAL HISTORY: She has a remote history of state III colon cancer diagnosed in February of 2002 with 2 or more mesenteric nodes being positive. The CEA was 18.9. Patient is status post resection followed by 6 months of chemotherapy with leucovorin and 5 FU completed August 2002. Per patient's daughter and patient herself, patient apparently had a ?mild heart attack? in July of 2017. The echo report from August 05, 2017 revealed the left ventricle cavity was small, mild to moderate concentric left ventricular hypertrophy, the ejection fraction estimated to be 65-70%, and no obvious focal wall motion abnormalities but poor endocardial definition, and diastolic parameters normal. Thereafter patient was discharged to correction. 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 Patient has completed the most recent course of vancomycin treatment about 2-3 weeks ago. Patient was seen by transplant case manager Agnes Martinez ARNP on 02/03/2018. Colonoscopy was requested for fecal transplant. The colonoscopy was performed by Dr. Ree Jalloh on March 11, 2018. The colonoscopy revealed a malignant partially obstructing tumor at 47 cm proximal to the anus.There was evidence of previous surgery, distal to the colon mass identified. The surgical anastomosis was patent and was characterized by healthy appearing mucosa. Due to the new finding of colon mass, fecal transplant was not done. 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 In addition molecular testing by PCR showed that the cancer is negative for KRAS mutation, positive for BRAF V600E mutation, and negative for NRAS mutations. On March 12, [address] scan of the chest, abdomen and pelvis with contrast. And the scan showed findings concerning for short segment colitis of the right transverse colon versus a circumferential colon mass with surrounding mesenteric edema, multiple bilateral pulmonary nodules measuring up to 6 mm in greatest diameter, and multiple level degenerative changes of the spine with resultant 0.9 cm of anterolisthesis of L4 on L5 resulting in moderate spinal canal stenosis at that level. I went to radiology department and I talked with radiologist Dr. Smith and reviewed all the imaging studies. The pulmonary nodules have been present at least since December of 2017. And the pulmonary juice apparently have not changed in size, in number or in appearance. Most likely these pulmonary nodules represent granuloma changes rather than metastatic malignancy. We also looked at the liver images. There is no clear evidence of hepatic lesions or masses. Lab results from [facility] showed that the CEA level was 3.6 on March 11 2018. CBC reviewed that the white cell count 8.4, hemoglobin 8.3, hematocrit 26.3, MCV 75.8 and platelets 371 She was started on Venofer weekly x 5 on 04/19/2018 She was started on 5FU/Leucovorin on 04/20/2018 - Patient Self-Reported Symptoms SR Constitution: Fatigue/Malaise SR ears, nose, mouth, throat issues: Cough (dry heaves) SR respiratory issues: Cough, Mucous SR Cardiovascular issues: Palpitations (before the blood tranfusion in early Apr. ), Extreme swelling, Dizzy/lightheaded SR Skin issues: Dry skin, Skin rash or itching, Hair loss or scalp prob, Nail changes SR Gastrointestinal issues: Poor or no appetite, Change in bowel pattern, Nausea, Vomiting (sick to her stomach on 04/16/2018), Constipation, Abdominal pain SR Genitourinary issues: Frequent urination, Incontinence SR Musculoskeletal issues: Joint pain or swelling, Muscle weakness, Muscle pain or cramps, Difficulty walking SR Neuro issues: Lightheaded/dizzy, Tremors or shaking SR Hematologic issues: Bleeding/bruising SR Endocrine issues: Cold intolerance, Excessive thirst - Additional ROS All systems PM: reviewed and no additional remarkable complaints except as stated Home Medications and Allergies Home Medications Medication Instructions Recorded Confirmed Type glimepiride [Amaryl] 2 mg PO QDAY #0 09/29/12 04/19/18 History oxybutynin chloride 5 mg PO BID #0 10/13/16 04/19/18 History calcium carbonate-vitamin D3 1 tab PO BIDCC #0 11/11/17 04/19/18 History [Oyster Shell Calcium-Vit D3] carvedilol [Coreg] 3.125 mg PO BIDCC #0 04/04/18 09/10/18 History insulin glargine [Lantus Solostar 1 dose SQ QPM #0 11/11/17 04/19/18 History U-100 Insulin] nitroglycerin [Nitrostat] 0.4 mg SUBLINGUAL PRN PRN #0 11/11/17 04/19/18 History nystatin [Nystop] 100,000 unit TOPICAL QID #0 11/11/17 04/19/18 History pantoprazole 20 mg PO DAILY #0 11/11/17 04/19/18 History Acidophilus Probiotic Complex 1 tab PO DAILY 01/20/18 04/19/18 History atorvastatin 40 mg PO DAILY 01/20/18 04/19/18 History cranberry 500 mg PO DAILY 01/20/18 04/19/18 History insulin lispro [Humalog KwikPen 5 units SUB-Q TID 01/20/18 04/19/18 History Insulin] omega 3-nwr-ads-fish oil [Fish Oil] 1,000 mg PO DAILY 01/20/18 04/19/18 History vit A,C and L-udkzzm-glelesvx 1 tab PO DAILY 01/20/18 04/19/18 History [I-Mellisa] aspirin 81 mg PO DAILY 03/22/18 04/19/18 History ondansetron 8 mg PO TID PRN 03/22/18 04/19/18 History Allergies Allergy/AdvReac Type Severity Reaction Status Date / Time Sulfa (Sulfonamide Allergy Severe hives Verified 12/13/17 20:35 Antibiotics) [SULFA (SULFONAMIDE ANTIBIOTICS)] metformin Allergy Mild Diarrhea Verified 01/20/18 23:13 darifenacin [From Enablex] Allergy Unknown Verified 01/20/18 23:13 ketoconazole Allergy Unknown Verified 01/20/18 23:13 promethazine [From Phenergan] Allergy Verified 03/19/18 14:49 adhesive [ADHESIVE] AdvReac Severe tape Verified 12/13/17 20:35 causes blisters Exam Vital signs: Last Vital Signs Temp 98.1 F 04/26/18 11:49 Pulse 58 L 04/26/18 11:49 Resp 16 04/26/18 11:49 BP 116/57 L 04/26/18 11:49 Pulse Ox 99 04/20/18 09:56 Results - Labs Laboratory Last Values WBC 5.5 X10^3/uL (4.5-11.0) 04/26/18 11:25 RBC 3.96 X10^6/uL (4.0-5.2) L 04/26/18 11:25 Hgb 9.3 g/dL (12.0-16.0) L 04/26/18 11:25 Hct 28.9 % (36-46) L 04/26/18 11:25 MCV 73.0 fL (80-100) L 04/26/18 11:25 MCH 23.4 PG (26-34) L 04/26/18 11:25 MCHC 32.0 % (30-36) 04/26/18 11:25 RDW 22.6 % (11.6-14.8) H 04/26/18 11:25 Plt Count 293 X10^3/uL (150-400) 04/26/18 11:25 Neut % (Auto) 60.8 % (50-75) 04/26/18 11:25 Lymph % (Auto) 29.9 % (25-40) 04/26/18 11:25 [place] % (Auto) 4.5 % (3-14) 04/26/18 11:25 Eos % (Auto) 3.9 % (2-4) 04/26/18 11:25 Baso % (Auto) 0.9 % (0-2) 04/26/18 11:25 Neut # (Auto) 3300 /uL (8335-2598) 04/26/18 11:25 RBC Morphology Not Reportable 04/26/18 11:25 Hypochromasia 1+ H 04/26/18 11:25 Poikilocytosis 1+ H 04/26/18 11:25 Anisocytosis 2+ H 04/26/18 11:25 Microcytosis 1+ H 04/26/18 11:25 Sodium 142 mmol/L (137-145) 04/26/18 11:25 Potassium 4.0 mmol/L (3.4-5.1) 04/26/18 11:25 Chloride 103 mmol/L (98-107) 04/26/18 11:25 Carbon Dioxide 32 mmol/L (22-32) 04/26/18 11:25 BUN 12 mg/dL (7-17) 04/26/18 11:25 Creatinine 0.70 mg/dL (0.52-1.04) 04/26/18 11:25 Estimated GFR > 60.0 mL/min (>60) 04/26/18 11:25 BUN/Creatinine Ratio 17.1 (6-22) 04/26/18 11:25 Glucose 110 mg/dL (80-110) 04/26/18 11:25 Calcium 9.0 mg/dL (8.4-10.2) 04/26/18 11:25 Magnesium 1.9 mg/dL (1.6-2.3) 04/14/18 11:17 Iron 24 ug/dL (37-170) L 04/05/18 10:28 TIBC 424 ug/dL (265-497) 04/05/18 10:28 % Saturation 6 % (15-50) L 04/05/18 10:28 Transferrin 337 mg/dL (206-381) 04/05/18 10:28 Ferritin 7.0 ng/mL (11.1-264) L 04/05/18 10:28 Total Bilirubin 0.3 mg/dL (0.2-1.3) 04/26/18 11:25 AST 15 IU/L (14-36) 04/26/18 11:25 ALT 20 IU/L (9-52) 04/26/18 11:25 Alkaline Phosphatase 57 U/L (38-126) 04/26/18 11:25 Total Protein 6.1 g/dL (6.3-8.2) L 04/26/18 11:25 Albumin 3.2 g/dL (3.5-5.0) L 04/26/18 11:25 Globulin 2.9 g/dL (1.7-4.1) 04/26/18 11:25 Albumin/Globulin Ratio 1.1 (1.0-2.8) 04/26/18 11:25 Ref Test (Refrig) 04/05/18 10:28 Blood Type A Positive 04/14/18 10:05 Antibody Screen Negative 04/14/18 10:05 Crossmatch See Detail 04/14/18 10:05 Assessment and Plan (1) Colon cancer Onset Date: ~03/11/18 Problem details: Partially obstructing mass identified in the descending colon proximal to the previous colon cancer surgical site. And staging studies reviewed questionable pulmonary metastasis manifesting as bilateral tiny pulmonary nodules measuring up to 6 mm. Normal CEA level of 3.6 from [facility]. Current visit: Yes Status: Chronic She has tolerated the 1st round of chemotherapy with 5 FU/leucovorin extremely well. Clinically patient appears more energetic. And I will proceed with scheduled chemotherapy cycle 2. Or and I will have her come back in 2 weeks for 3rd cycle of the chemotherapy. Once again I talked with her and her sister Raquel who came with her today. The overall plan is to proceed with chemotherapy for about 4-6 cycles before repeat a colonoscopy/scan to decide if the cancer has responded if the patient has become eligible for surgical resection. (2) Iron deficiency anemia due to chronic blood loss Onset Date: Unknown Problem details: Patient is to have iron infusion in the past. The etiology likely is related to the new diagnosis of the colon cancer. Patient has significant constipation while taking the oral iron. Current visit: Yes Status: Chronic She has severe iron deficiency anemia, that is due to gastrointestinal bleeding because of the colon cancer. Recently patient had to have blood transfusion. Given the severe iron deficiency anemia will proceed with intravenous iron supplementation with Venofer 200 mg IV weekly for 5 weeks. Patient has received 2 infusions up until today. We will continue and complete the scheduled 5 infusions. (3) Personal history of colon cancer, stage III Current visit: Yes The newly diagnosed colon cancer represents separate new primary adenocarcinoma. The previous colon cancer has been likely cured 04/05/18 13:17 (1) Colon cancer Qualifiers: Colon location: descending Qualified Code(s): C18.6 - Malignant neoplasm of descending colon
[2018-05-03 08:43] LABS: Add Manual Diff / Slide Review NO; Basophils Percent Auto 0.7 % (0-2); Eosinophils Percent Auto 4.7 % (2-4); Hematocrit 30.9 % (36-46); Hemoglobin 9.9 g/dL (12.0-16.0); Lymphocytes Percent Auto 30.8 % (25-40); Mean Corpuscular HGB Conc 32.2 % (30-36); Mean Corpuscular Hemoglobin 24.7 PG (26-34); Mean Corpuscular Volume 76.5 fL (80-100); Monocytes Percent Auto 9.1 % (3-14); Neutrophils Absolute Auto 4000 /uL (3000-5900); Neutrophils Percent Auto 54.7 % (50-75); Platelet Count 282 X10^3/uL (150-400); Red Blood Cell Count 4.04 X10^6/uL (4.0-5.2); Red Cell Distribution Width 25.8 % (11.6-14.8); White Blood Cell Count 7.3 X10^3/uL (4.5-11.0)
[2018-05-03 08:56] LABS: Alanine Aminotransferase 22 IU/L (9-52); Albumin 3.5 g/dL (3.5-5.0); Albumin Globulin Ratio 1.2 (1.0-2.8); Alkaline Phosphatase 64 U/L (38-126); Aspartate Aminotransferase 23 IU/L (14-36); BUN Creatinine Ratio 21.4 (6-22); Bilirubin Total 0.4 mg/dL (0.2-1.3); Blood Urea Nitrogen 15 mg/dL (7-17); Carbon Dioxide 31 mmol/L (22-32); Chloride 103 mmol/L (98-107); Estimated Glomerular Filt Rate > 60.0 mL/min (>60); Globulin 2.9 g/dL (1.7-4.1); Glucose 137 mg/dL (80-110); HEMOLYSIS < 15 (0-50); Potassium 3.9 mmol/L (3.4-5.1); Sodium 141 mmol/L (137-145); Total Protein 6.4 g/dL (6.3-8.2)
[2018-05-03 09:04] LABS: Anisocytosis 2+; Hypochromasia 2+
[2018-05-03 09:08] VITALS: BP 95/53; PULSE 61; RESP 18; TEMP 36.8; O2SAT 96
[2018-05-03] MEDS: DEXAMETHASONE 10 MG/ML VIAL 8 MG IV (09:17)
[2018-05-03] MEDS: LORazepam 0.5 MG TABLET PO (09:17)
[2018-05-03] MEDS: SODIUM CHLORIDE 0.9% 100 ML 20 ML IV (09:18)
[2018-05-03] MEDS: ONDANSETRON 8 MG in SODIUM CHLORIDE 0.9% 50 ML 216 ML IV (09:37)
[2018-05-03] MEDS: IRON SUCROSE 200 MG in SODIUM CHLORIDE 0.9% 100 ML 220 ML IV (10:00)
[2018-05-03] MEDS: LEUCOVORIN 800 MG in DEXTROSE 5% (CHEMO IV) 250 ML 250 ML 145 ML IV (10:42)
[2018-05-03] MEDS: FLUOROURACIL 800 MG in ISOOSMOTIC VEHICLE (CHEMO) 0 ML 96 ML IV (12:53)
--- NOTE | 2018-05-03 14:57 | PC.NURSE ---
Connected to 5FU pump after checking dosage with Reyna MONTOYA. Blood return verified and pump initiated. Settings also verified.
--- NOTE | 2018-05-06 10:12 | ONC.NAV ---
Description: Nika/[employer] financial assistance Activity: I faxed in the prescription form for pt?s Nika, which she has qualified for financial assistance through [employer]. Dr. Emery made a start date of about 2-weeks from now, 05/24/18. They will ship here to our office attn: Molly. She said that Molly will need to contact them 5-7 days in advance to order refill shipments.
--- NOTE | 2018-05-06 10:43 | ONC.NAV ---
Late Entry: T/C 05/05/18 Description: Pt had arrived at her appointment today without her port dressing in place. The triage nurse expressed to patient that she should not be removing this dressing, however the patient stated that she was itching so much that she had to take it off. Triage nurse expressed her concerns re: high risk for infection without this dressing, however pt denied remembering that the port dressing instructions had already been provided to her and her family multiple times. This RAISE DRILLER called pt's dtr, Tricia, and explained our concerns re: removal of the dressing, as well as reiterated that if pt is having problems with the site or dressing, to be sure and call here and talk to the triage nurse. Tricia expressed understanding, and that she would follow-up with her mom to ensure that she doesn't do this again. Tricia wanted the nurses to please be aware of her mother's adhesive allergy, and to please use hypoallergenic adhesive on her next dressing change. RAISE DRILLER relayed this information and call discussion to Reyna portrait consultant.
[2018-05-10 11:22] LABS: Add Manual Diff / Slide Review NO; Eosinophils Percent Auto 5.9 % (2-4); Hematocrit 30.5 % (36-46); Hemoglobin 9.9 g/dL (12.0-16.0); Mean Corpuscular HGB Conc 32.5 % (30-36); Mean Corpuscular Hemoglobin 24.8 PG (26-34); Mean Corpuscular Volume 76.3 fL (80-100); Monocytes Percent Auto 8.7 % (3-14); Neutrophils Absolute Auto 2000 /uL (3000-5900); Neutrophils Percent Auto 39.4 % (50-75); Platelet Count 246 X10^3/uL (150-400); Red Blood Cell Count 3.99 X10^6/uL (4.0-5.2); Red Cell Distribution Width 28.1 % (11.6-14.8); White Blood Cell Count 5.1 X10^3/uL (4.5-11.0)
[2018-05-10] MEDS: IRON SUCROSE 200 MG in SODIUM CHLORIDE 0.9% 100 ML 220 ML IV (11:32)
[2018-05-10 11:36] VITALS: BP 109/46; PULSE 54; RESP 18; TEMP 37; O2SAT 97
[2018-05-10 12:03] LABS: Microcytosis 2+
[2018-05-10 12:04] LABS: Hypochromasia 1+; Macrocytosis 1+
--- NOTE | 2018-05-17 08:06 | ONC.PN ---
PN -Subjective Interval history: Chief Complaint: 83 year old female with colon cancer here for 3rd cycle of 5FU Interium Events: Here for 3rd cycle of 5FU/Leucovorin. Overall she has been doing about the same. Patient said that she is having mild nausea which responded well to medications. Patient denies any fever or chills. He denies any hand and foot problems. She said that she is having bowel movement once every other day. Patient reported that the appetite is not as good as before. And she has a metallic taste. She lost about 8 lb since her last visit. No other new events. Oncological History: She has a remote history of state III colon cancer diagnosed in February of 2002 with 2 or more mesenteric nodes being positive. The CEA was 18.9. Patient is status post resection followed by 6 months of chemotherapy with leucovorin and 5 FU completed August 2002. Per patient's daughter and patient herself, patient apparently had a ?mild heart attack? in July of 2017. The echo report from August 05, 2017 revealed the left ventricle cavity was small, mild to moderate concentric left ventricular hypertrophy, the ejection fraction estimated to be 65-70%, and no obvious focal wall motion abnormalities but poor endocardial definition, and diastolic parameters normal. Thereafter patient was discharged to correction. 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 Patient has completed the most recent course of vancomycin treatment about 2-3 weeks ago. Patient was seen by room service manager Agnes Martinez ARNP on 02/03/2018. Colonoscopy was requested for fecal transplant. The colonoscopy was performed by Dr. Facundo Jalloh on March 11, 2018. The colonoscopy revealed a malignant partially obstructing tumor at 47 cm proximal to the anus.There was evidence of previous surgery, distal to the colon mass identified. The surgical anastomosis was patent and was characterized by healthy appearing mucosa. Due to the new finding of colon mass, fecal transplant was not done. 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 In addition molecular testing by PCR showed that the cancer is negative for KRAS mutation, positive for BRAF V600E mutation, and negative for NRAS mutations. On March 12, [address] scan of the chest, abdomen and pelvis with contrast. And the scan showed findings concerning for short segment colitis of the right transverse colon versus a circumferential colon mass with surrounding mesenteric edema, multiple bilateral pulmonary nodules measuring up to 6 mm in greatest diameter, and multiple level degenerative changes of the spine with resultant 0.9 cm of anterolisthesis of L4 on L5 resulting in moderate spinal canal stenosis at that level. I went to radiology department and I talked with radiologist Dr. Smith and reviewed all the imaging studies. The pulmonary nodules have been present at least since December of 2017. And the pulmonary juice apparently have not changed in size, in number or in appearance. Most likely these pulmonary nodules represent granuloma changes rather than metastatic malignancy. We also looked at the liver images. There is no clear evidence of hepatic lesions or masses. Lab results from [facility] showed that the CEA level was 3.6 on March 11, 2018. CBC reviewed that the white cell count 8.4, hemoglobin 8.3, hematocrit 26.3, MCV 75.8 and platelets 371 She was started on Venofer weekly x 5 on 04/19/2018 She was started on 5FU/Leucovorin on 04/20/2018 - Patient Self-Reported Symptoms SR Constitution: Fatigue/Malaise SR Gastrointestinal issues: Poor or no appetite, Nausea SR Musculoskeletal issues: Difficulty walking SR Neuro issues: Tremors or shaking SR Endocrine issues: Cold intolerance, Excessive thirst - Additional ROS All systems PM: reviewed and no additional remarkable complaints except as stated Home Medications and Allergies Home Medications Medication Instructions Recorded Confirmed Type glimepiride [Amaryl] 2 mg PO QDAY #0 09/29/12 04/19/18 History oxybutynin chloride 5 mg PO BID #0 10/13/16 04/19/18 History calcium carbonate-vitamin D3 1 tab PO BIDCC #0 11/11/17 04/19/18 History [Oyster Shell Calcium-Vit D3] carvedilol [Coreg] 3.125 mg PO BIDCC #0 11/11/17 04/19/18 History insulin glargine [Lantus Solostar 1 dose SQ QPM #0 11/11/17 04/19/18 History U-100 Insulin] nitroglycerin [Nitrostat] 0.4 mg SUBLINGUAL PRN PRN #0 11/11/17 04/19/18 History nystatin [Nystop] 100,000 unit TOPICAL QID #0 11/11/17 04/19/18 History pantoprazole 20 mg PO DAILY #0 11/11/17 04/19/18 History Acidophilus Probiotic Complex 1 tab PO DAILY 01/20/18 04/19/18 History atorvastatin 40 mg PO DAILY 01/20/18 04/19/18 History cranberry 500 mg PO DAILY 01/20/18 04/19/18 History insulin lispro [Humalog KwikPen 5 units SUB-Q TID 01/20/18 04/19/18 History Insulin] omega 3-smq-lgx-fish oil [Fish Oil] 1,000 mg PO DAILY 01/20/18 04/19/18 History vit A,C and D-yuwxse-jlmkgkpn 1 tab PO DAILY 01/20/18 04/19/18 History [I-Mellisa] aspirin 81 mg PO DAILY 03/22/18 04/19/18 History ondansetron 8 mg PO TID PRN 03/22/18 04/19/18 History Allergies Allergy/AdvReac Type Severity Reaction Status Date / Time Sulfa (Sulfonamide Allergy Severe hives Verified 12/13/17 20:35 Antibiotics) [SULFA (SULFONAMIDE ANTIBIOTICS)] metformin Allergy Mild Diarrhea Verified 01/20/18 23:13 darifenacin [From Enablex] Allergy Unknown Verified 01/20/18 23:13 ketoconazole Allergy Unknown Verified 01/20/18 23:13 promethazine [From Phenergan] Allergy Verified 03/19/18 14:49 adhesive [ADHESIVE] AdvReac Severe tape Verified 12/13/17 20:35 causes blisters Exam Vital signs: Temperature 98.3?, heart rate 58, respiratory rate 18, blood pressure 94/50, saturation 95% on room air, weight 218.7 lb. ECOG performance score 2. Narrative: Constitutional: Well developed, well nourished, obese, not in any acute respiratory distress, well groomed, pleasant and cooperative. HEENT: Normocephalic atraumatic. Extraocular muscle movement intact. Pupils are round, equal and reactive to light and accommodations. Anicteric sclera. No hearing difficulty; Oral mucus membrane moist and without ulcers. Neck: Supple, symmetrical, and tracheal midline; No palpable thyromegaly and no palpable lymph nodes. Respiratory: No use of accessory muscles. Clear to auscultation, and no wheezes or rales or rubs. Cardiovascular: Regular rate and rhythm, S1 and S2 normal, no murmurs gallops or rubs. No JVD. No pitting edema of lower extremities. Abdomen: Soft, nontender, non-distended, bowel sounds normal, no palpable organomegaly, no hernia, no palpable masses. Lower extremities: No palpable pedal edema. Lymphatic: no palpable lymph nodes in the neck, axillae, or groins. Musculoskeletal: normal gait and station, no clubbing, no cyanosis, no pitting edema. Skin: no rashes, no ulcers, no petechiae Neurological: Awake and alert and oriented x3. CN II-XII grossly intact. No focal motor or sensory deficit. Psychiatric: Good judgment, good insight, normal affect, normal thought process, cooperative, no depression, no anxiety. Results - Labs All lab were reviewed. Assessment and Plan (1) Colon cancer Problem details: Desending colon adenocarcinoma, Moderately to poorly differentiated dMMR: 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 KRAS mutation: not detected BRAF V600E mutation: detected NRAS mutation: not detected I talked with the patient and patient's and his sister. I will proceed with scheduled chemotherapy today. Today is the 3rd cycle of the 5 FU infusion. I talked with them that the overall plan is to complete 4 rounds of chemotherapy followed by re-evaluation with scans as well as possible colonoscopy. The purposes to see if the cancer has shown responses to 5 FU therapy. Based on the responses, I will discuss with the patient about further options including possibly surgery versus palliative chemotherapy or immunotherapy. Patient and patient's and the sister voiced understanding. (2) Iron deficiency anemia due to chronic blood loss Problem details: Patient is to have iron infusion in the past. The etiology likely is related to the new diagnosis of the colon cancer. Patient has significant constipation while taking the oral iron. She has severe iron deficiency anemia, that is due to gastrointestinal bleeding because of the colon cancer. Patient is now getting Venofer infusion weekly with plan for 5 infusions. Patient has already completed 4 infusions. We will proceed with the final infusions. Patient's hemoglobin and hematocrit level have improved significantly after the infusion. (3) Personal history of colon cancer, stage III The newly diagnosed colon cancer represents separate new primary adenocarcinoma. The previous colon cancer has been likely cured
[2018-05-17 08:40] VITALS: BP 94/50; PULSE 58; RESP 18; TEMP 36.8; O2SAT 95
[2018-05-17 09:22] LABS: Add Manual Diff / Slide Review NO; Eosinophils Percent Auto 2.9 % (2-4); Hematocrit 33.8 % (36-46); Lymphocytes Percent Auto 30.2 % (25-40); Mean Corpuscular HGB Conc 32.6 % (30-36); Monocytes Percent Auto 9.2 % (3-14); Neutrophils Absolute Auto 3800 /uL (3000-5900); Neutrophils Percent Auto 56.7 % (50-75); Platelet Count 236 X10^3/uL (150-400); Red Blood Cell Count 4.23 X10^6/uL (4.0-5.2); Red Cell Distribution Width 31.8 % (11.6-14.8); White Blood Cell Count 6.7 X10^3/uL (4.5-11.0)
[2018-05-17 09:34] LABS: Alanine Aminotransferase 18 IU/L (9-52); Albumin 3.5 g/dL (3.5-5.0); Albumin Globulin Ratio 1.3 (1.0-2.8); Alkaline Phosphatase 68 U/L (38-126); Aspartate Aminotransferase 18 IU/L (14-36); BUN Creatinine Ratio 17.1 (6-22); Bilirubin Total 0.5 mg/dL (0.2-1.3); Blood Urea Nitrogen 12 mg/dL (7-17); Carbon Dioxide 32 mmol/L (22-32); Chloride 103 mmol/L (98-107); Estimated Glomerular Filt Rate > 60.0 mL/min (>60); Globulin 2.8 g/dL (1.7-4.1); Glucose 79 mg/dL (80-110); HEMOLYSIS < 15 (0-50); Potassium 4.2 mmol/L (3.4-5.1); Sodium 142 mmol/L (137-145); Total Protein 6.3 g/dL (6.3-8.2)
[2018-05-17 09:37] LABS: Anisocytosis 2+
[2018-05-17] MEDS: SODIUM CHLORIDE 0.9% 100 ML 20 ML IV (09:45)
[2018-05-17] MEDS: IRON SUCROSE 200 MG in SODIUM CHLORIDE 0.9% 100 ML 220 ML IV (09:57)
[2018-05-17] MEDS: LORazepam 0.5 MG TABLET PO (09:57)
[2018-05-17 10:04] LABS: Carcinoembryonic Antigen 2.5 ng/mL (0.1-3.0)
[2018-05-17] MEDS: DEXAMETHASONE 10 MG/ML VIAL 8 MG IV (10:52)
[2018-05-17] MEDS: ONDANSETRON 8 MG in SODIUM CHLORIDE 0.9% 50 ML 216 ML IV (10:56)
[2018-05-17] MEDS: LEUCOVORIN 800 MG in DEXTROSE 5% (CHEMO IV) 250 ML 250 ML 145 ML IV (11:22)
[2018-05-17] MEDS: FLUOROURACIL 800 MG in ISOOSMOTIC VEHICLE (CHEMO) 0 ML 96 ML IV (14:02)
--- NOTE | 2018-05-17 14:41 | PC.NURSE ---
Cadd pump settings verified with LINDSAY Licona. Cheikh attached, line flushed and pump verified with pt to be running.
--- NOTE | 2018-05-17 15:30 | PC.NURSE ---
Jade arrived in a w/c for Leucovorin and iron. She tolerated treatment well. Dozed throughout day, taking snacks. D/C with spouse.Will return in 48 hours for 5FU pump to be D/C.
[2018-05-19 13:27] VITALS: BP 104/50; PULSE 65; RESP 16; TEMP 36.6; O2SAT 95
--- NOTE | 2018-05-19 13:28 | PM.CHAP ---
5fu pump dc'd w/o difficulty. Port flushed per protocol. No s/s of acute distress noted.
--- NOTE | 2018-05-31 08:41 | ONC.APRN.PN ---
PN -Subjective Interval history: Chief Complaint: 83 year old female with colon cancer here for 4th cycle of 5FU Interium Events: Here for 4th cycle of 5FU/Leucovorin. Overall she has been doing about the same. Patient reports some constipation however responds to Nara Lax. Also some loss of appetite however not because I am sick because I am mad at my . Denies cough, fever, chills. No nausea. No abdominal pain. No new pain. No unexplained bleeding or bruising. No blood noted in stool or black tarry stools. Activity tolerance is quite good. She has lost about 10 lb since initiating chemotherapy. Oncological History: She has a remote history of state III colon cancer diagnosed in February of 2002 with 2 or more mesenteric nodes being positive. The CEA was 18.9. Patient is status post resection followed by 6 months of chemotherapy with leucovorin and 5 FU completed August 2002. Per patient's daughter and patient herself, patient apparently had a ?mild heart attack? in July of 2017. The echo report from August 05, 2017 revealed the left ventricle cavity was small, mild to moderate concentric left ventricular hypertrophy, the ejection fraction estimated to be 65-70%, and no obvious focal wall motion abnormalities but poor endocardial definition, and diastolic parameters normal. Thereafter patient was discharged to halfway. 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 Patient has completed the most recent course of vancomycin treatment about 2-3 weeks ago. Patient was seen by looping inspector Agnes Martinez ARNP on 02/03/2018. Colonoscopy was requested for fecal transplant. The colonoscopy was performed by Dr. Facundo Jalloh on March 11, 2018. The colonoscopy revealed a malignant partially obstructing tumor at 47 cm proximal to the anus.There was evidence of previous surgery, distal to the colon mass identified. The surgical anastomosis was patent and was characterized by healthy appearing mucosa. Due to the new finding of colon mass, fecal transplant was not done. 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 In addition molecular testing by PCR showed that the cancer is negative for KRAS mutation, positive for BRAF V600E mutation, and negative for NRAS mutations. On March 12, [address] scan of the chest, abdomen and pelvis with contrast. And the scan showed findings concerning for short segment colitis of the right transverse colon versus a circumferential colon mass with surrounding mesenteric edema, multiple bilateral pulmonary nodules measuring up to 6 mm in greatest diameter, and multiple level degenerative changes of the spine with resultant 0.9 cm of anterolisthesis of L4 on L5 resulting in moderate spinal canal stenosis at that level. I went to radiology department and I talked with radiologist Dr. Smith and reviewed all the imaging studies. The pulmonary nodules have been present at least since December of 2017. And the pulmonary juice apparently have not changed in size, in number or in appearance. Most likely these pulmonary nodules represent granuloma changes rather than metastatic malignancy. We also looked at the liver images. There is no clear evidence of hepatic lesions or masses. Lab results from [facility] showed that the CEA level was 3.6 on March 11, 2018. CBC reviewed that the white cell count 8.4, hemoglobin 8.3, hematocrit 26.3, MCV 75.8 and platelets 371 She was started on Venofer weekly x 5 on 04/19/2018 She was started on 5FU/Leucovorin on 04/20/2018 - Patient Self-Reported Symptoms SR Constitution: Fatigue/Malaise SR ears, nose, mouth, throat issues: Cough (dry heaves) SR respiratory issues: Cough, Mucous SR Cardiovascular issues: Palpitations (before the blood tranfusion in early ), Extreme swelling, Dizzy/lightheaded SR Skin issues: Dry skin, Skin rash or itching, Hair loss or scalp prob, Nail changes SR Gastrointestinal issues: Poor or no appetite, Nausea SR Genitourinary issues: Frequent urination, Incontinence SR Musculoskeletal issues: Difficulty walking SR Neuro issues: Tremors or shaking SR Hematologic issues: Bleeding/bruising SR Endocrine issues: Cold intolerance, Excessive thirst Home Medications and Allergies Home Medications Medication Instructions Recorded Confirmed Type glimepiride [Amaryl] 2 mg PO QDAY #0 09/29/12 04/19/18 History oxybutynin chloride 5 mg PO BID #0 10/13/16 04/19/18 History calcium carbonate-vitamin D3 1 tab PO BIDCC #0 11/11/17 04/19/18 History [Oyster Shell Calcium-Vit D3] carvedilol [Coreg] 3.125 mg PO BIDCC #0 11/11/17 04/19/18 History insulin glargine [Lantus Solostar 1 dose SQ QPM #0 11/11/17 04/19/18 History U-100 Insulin] nitroglycerin [Nitrostat] 0.4 mg SUBLINGUAL PRN PRN #0 11/11/17 04/19/18 History nystatin [Nystop] 100,000 unit TOPICAL QID #0 11/11/17 04/19/18 History pantoprazole 20 mg PO DAILY #0 11/11/17 04/19/18 History Acidophilus Probiotic Complex 1 tab PO DAILY 01/20/18 04/19/18 History atorvastatin 40 mg PO DAILY 01/20/18 04/19/18 History cranberry 500 mg PO DAILY 01/20/18 04/19/18 History insulin lispro [Humalog KwikPen 5 units SUB-Q TID 01/20/18 04/19/18 History Insulin] omega 8-lqn-nga-fish oil [Fish Oil] 1,000 mg PO DAILY 01/20/18 04/19/18 History vit A,C and W-nmhtoj-yoqgpcke 1 tab PO DAILY 01/20/18 04/19/18 History [I-Mellisa] aspirin 81 mg PO DAILY 03/22/18 04/19/18 History ondansetron 8 mg PO TID PRN 03/22/18 04/19/18 History Allergies Allergy/AdvReac Type Severity Reaction Status Date / Time Sulfa (Sulfonamide Allergy Severe hives Verified 12/13/17 20:35 Antibiotics) [SULFA (SULFONAMIDE ANTIBIOTICS)] metformin Allergy Mild Diarrhea Verified 01/20/18 23:13 darifenacin [From Enablex] Allergy Unknown Verified 01/20/18 23:13 ketoconazole Allergy Unknown Verified 01/20/18 23:13 promethazine [From Phenergan] Allergy Verified 03/19/18 14:49 adhesive [ADHESIVE] AdvReac Severe tape Verified 12/13/17 20:35 causes blisters Exam - Constitutional positive no acute distress, positive obese - Routine HEENT Exam Eye: Present: conjunctivae pink. Absent: conjunctival icterus, scleral injection ENT: Present: mucous membranes moist, oropharynx clear - Routine Neck Exam Present: supple. Absent: lymphadenopathy - Routine Respiratory Exam Present: Clear to auscultation bilaterally. Absent: rales, rhonchi, wheezes - Routine Cardiovascular Exam Present: RRR, S1, S2. Absent: murmur, gallop, rubs, JVD - Routine Abdominal Exam Present: soft, normoactive bowel sounds. Absent: tenderness, distended - Routine Extremities Exam Absent: edema, calf tenderness - Routine Skin Exam Present: intact, normal turgor. Absent: petechiae, rash - Routine Neurological Exam Present: alert, oriented X3 - Routine Psychiatric Exam Present: normal affect Results - Labs Laboratory Last Values WBC 6.7 X10^3/uL (4.5-11.0) 05/17/18 09:15 RBC 4.23 X10^6/uL (4.0-5.2) 05/17/18 09:15 Hgb 11.0 g/dL (12.0-16.0) L 05/17/18 09:15 Hct 33.8 % (36-46) L 05/17/18 09:15 MCV 80.0 fL (80-100) D 05/17/18 09:15 MCH 26.0 PG (26-34) 05/17/18 09:15 MCHC 32.6 % (30-36) 05/17/18 09:15 RDW 31.8 % (11.6-14.8) H 05/17/18 09:15 Plt Count 236 X10^3/uL (150-400) 05/17/18 09:15 Neut % (Auto) 56.7 % (50-75) 05/17/18 09:15 Lymph % (Auto) 30.2 % (25-40) 05/17/18 09:15 [place] % (Auto) 9.2 % (3-14) 05/17/18 09:15 Eos % (Auto) 2.9 % (2-4) 05/17/18 09:15 Baso % (Auto) 1.0 % (0-2) 05/17/18 09:15 Neut # (Auto) 3800 /uL (0540-6588) 05/17/18 09:15 RBC Morphology Not Reportable 05/17/18 09:15 Hypochromasia 1+ H 05/10/18 11:11 Poikilocytosis 1+ H 04/26/18 11:25 Anisocytosis 2+ H 05/17/18 09:15 Microcytosis 2+ H 05/10/18 11:11 Macrocytosis 1+ H 05/10/18 11:11 Sodium 142 mmol/L (137-145) 05/17/18 09:15 Potassium 4.2 mmol/L (3.4-5.1) 05/17/18 09:15 Chloride 103 mmol/L (98-107) 05/17/18 09:15 Carbon Dioxide 32 mmol/L (22-32) 05/17/18 09:15 BUN 12 mg/dL (7-17) 05/17/18 09:15 Creatinine 0.70 mg/dL (0.52-1.04) 05/17/18 09:15 Estimated GFR > 60.0 mL/min (>60) 05/17/18 09:15 BUN/Creatinine Ratio 17.1 (6-22) 05/17/18 09:15 Glucose 79 mg/dL (80-110) L 05/17/18 09:15 Calcium 9.0 mg/dL (8.4-10.2) 05/17/18 09:15 Magnesium 1.9 mg/dL (1.6-2.3) 04/14/18 11:17 Iron 24 ug/dL (37-170) L 04/05/18 10:28 TIBC 424 ug/dL (265-497) 04/05/18 10:28 % Saturation 6 % (15-50) L 04/05/18 10:28 Transferrin 337 mg/dL (206-381) 04/05/18 10:28 Ferritin 7.0 ng/mL (11.1-264) L 04/05/18 10:28 Total Bilirubin 0.5 mg/dL (0.2-1.3) 05/17/18 09:15 AST 18 IU/L (14-36) 05/17/18 09:15 ALT 18 IU/L (9-52) 05/17/18 09:15 Alkaline Phosphatase 68 U/L (38-126) 05/17/18 09:15 Total Protein 6.3 g/dL (6.3-8.2) 05/17/18 09:15 Albumin 3.5 g/dL (3.5-5.0) 05/17/18 09:15 Globulin 2.8 g/dL (1.7-4.1) 05/17/18 09:15 Albumin/Globulin Ratio 1.3 (1.0-2.8) 05/17/18 09:15 Carcinoembryonic Ag 2.5 ng/mL (0.1-3.0) 05/17/18 09:15 Ref Test (Refrig) 04/05/18 10:28 Blood Type A Positive 04/14/18 10:05 Antibody Screen Negative 04/14/18 10:05 Crossmatch See Detail 04/14/18 10:05 Assessment and Plan (1) Colon cancer Problem details: Desending colon adenocarcinoma, Moderately to poorly differentiated dMMR: 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 KRAS mutation: not detected BRAF V600E mutation: detected NRAS mutation: not detected We will proceed with scheduled chemotherapy today. Today is the 4th cycle of the 5 FU infusion. CBC is very stable with a hemoglobin of 11.5 hematocrit 35.4. White count 6.6 ANC 3200. Platelets 250,000. CMP also looking quite good with a sodium of 144 potassium 3.7 creatinine 0.80 GFR >60. CEA remains pending at time of dictation however has been trending appropriately down. No red flags on exam today, She will receive cycle 4 today. We will schedule imaging CT of chest abdomen pelvis with contrast June 09 or June 10 or June 11 in accordance with her daughters schedule. Patient will then be due for consideration of cycle 5 June 14 which we will schedule with Dr. Emery to review imaging results. We will also check CBC, CMP at this time. Patient and her daughter verbalized understanding and agree with the above plan of care. (2) Iron deficiency anemia due to chronic blood loss Problem details: Patient is to have iron infusion in the past. The etiology likely is related to the new diagnosis of the colon cancer. Patient has significant constipation while taking the oral iron. She has severe iron deficiency anemia, that is due to gastrointestinal bleeding because of the colon cancer. Patient is now getting Venofer infusion weekly with plan for 5 infusions. Patient has already completed 4 infusions. We will proceed with the final infusions. Patient's hemoglobin and hematocrit level have improved significantly after the infusion. (3) Personal history of colon cancer, stage III The newly diagnosed colon cancer represents separate new primary adenocarcinoma. The previous colon cancer has been likely cured
[2018-05-31 08:49] LABS: Basophils Percent Auto 1.3 % (0-2); Eosinophils Percent Auto 3.8 % (2-4); Hematocrit 35.4 % (36-46); Hemoglobin 11.5 g/dL (12.0-16.0); Lymphocytes Percent Auto 37.1 % (25-40); Mean Corpuscular HGB Conc 32.6 % (30-36); Mean Corpuscular Hemoglobin 26.8 PG (26-34); Mean Corpuscular Volume 82.3 fL (80-100); Monocytes Percent Auto 9.8 % (3-14); Neutrophils Absolute Auto 3200 /uL (3000-5900); Platelet Count 250 X10^3/uL (150-400); Red Blood Cell Count 4.29 X10^6/uL (4.0-5.2); Red Cell Distribution Width 34.4 % (11.6-14.8); White Blood Cell Count 6.6 X10^3/uL (4.5-11.0)
[2018-05-31 08:53] LABS: Add Manual Diff / Slide Review SLIDE REVIEW
[2018-05-31 08:58] VITALS: BP 103/56; PULSE 68; RESP 18; TEMP 36.9; O2SAT 95
[2018-05-31 09:01] LABS: Alanine Aminotransferase 24 IU/L (9-52); Albumin 3.6 g/dL (3.5-5.0); Albumin Globulin Ratio 1.3 (1.0-2.8); Alkaline Phosphatase 68 U/L (38-126); Aspartate Aminotransferase 16 IU/L (14-36); BUN Creatinine Ratio 16.3 (6-22); Bilirubin Total 0.5 mg/dL (0.2-1.3); Blood Urea Nitrogen 13 mg/dL (7-17); Calcium 9.1 mg/dL (8.4-10.2); Carbon Dioxide 31 mmol/L (22-32); Chloride 104 mmol/L (98-107); Estimated Glomerular Filt Rate > 60.0 mL/min (>60); Globulin 2.8 g/dL (1.7-4.1); Glucose 84 mg/dL (80-110); HEMOLYSIS < 15 (0-50); Potassium 3.7 mmol/L (3.4-5.1); Sodium 144 mmol/L (137-145); Total Protein 6.4 g/dL (6.3-8.2)
[2018-05-31 09:15] LABS: Anisocytosis 3+
[2018-05-31] MEDS: SODIUM CHLORIDE 0.9% 100 ML 20 ML IV (09:28)
[2018-05-31 09:32] LABS: Carcinoembryonic Antigen 2.6 ng/mL (0.1-3.0)
[2018-05-31] MEDS: ONDANSETRON 8 MG in SODIUM CHLORIDE 0.9% 50 ML 216 ML IV (09:33)
[2018-05-31] MEDS: LORazepam 0.5 MG TABLET PO (09:40)
--- NOTE | 2018-05-31 09:40 | ONC.NAV ---
Description: Transportation/Interpersonal Issues Activity: Met with pt and dtr to discuss questions that they had re: resources for transportation to appointments. Dtr already clarified with [facility] that they are not able to assist patients with transferring in and out of the car into a wheelchairl. Pt has decided that she no longer wants her [id number] to drive her to appointments, and she also doesn't want this person providing for any of her care needs as well. Discussed a few local resources for the family to explore, including [employer] and [facility] non-emergent medical transport services. N[employer] BAB[employer]ITTER also suggested that they consider hiring a private caregiver to do this, especially since pt will be needing additional care assistance in the home, and that maybe a caregiver just for her would be worthy of looking into. Plan: Family will explore these transportation resources, and get back to this N[employer] BABYSITTER re: the plan that they decide on.
[2018-05-31] MEDS: DEXAMETHASONE 10 MG/ML VIAL 8 MG IV (09:49)
[2018-05-31] MEDS: LEUCOVORIN 800 MG in DEXTROSE 5% (CHEMO IV) 250 ML 250 ML 145 ML IV (10:17)
[2018-05-31] MEDS: FLUOROURACIL 800 MG in ISOOSMOTIC VEHICLE (CHEMO) 0 ML 96 ML IV (12:32)
--- NOTE | 2018-05-31 13:39 | PC.NURSE ---
cadd pump settings verified with randall philippe. line flushed, equashield attached and pump started by jose martinrn
--- NOTE | 2018-06-01 13:54 | PC.NURSE ---
Addendum entered by Gretchen Marvin R.N. 06/01/18 13:59: Also verified with patient and daughter that they have [facility] phone number to call if this should happen in middle of night again. They state they do have it and will call if it should happen again. Original Note: Pt presents to cancer center today stating that her CADD pump was alarming consistently in middle of night. Pump is not currently alarming and noted green light flash and words running on screen of pump. Denies any pain/tenderness at port site. 5FU pump stopped. Flushed port with NS 10 ml to verify patency and blood return. Brisk blood return noted. Site does not appear red or swollen. Dressing clean dry and intact. Flushes well. Reconnected chemo and resumed infusion. Pt to return to cancer center tomorrow around 1115 for pump disconnect.
[2018-06-03 13:23] VITALS: BP 115/76; PULSE 65; RESP 65; TEMP 36.4; O2SAT 98
--- NOTE | 2018-06-03 14:52 | ONC.APRN.PN ---
PN -Subjective Interval history: Chief Complaint: 83 year old female with colon cancer here for eval following 5FU pump issue at home. Interium Events: Patient was seen here May 31 , she received C4D1 of treatment. She was then sent home with her 5FU pump. Pt awoke Jun 01 to find needle had dislodged from the port and her bed linen and night clothes were saturated with the chemotherapy. Patient was evaluated the next day by nursing. Skin was intact. No issues with port is seem to be in appropriate place flushed easily good blood return. Patient and her daughter Yelitza present today for further evaluation as well as to review plan moving forward. The patient lives at home with her who has what sounds to be rather advanced dementia. Tricia, the patient's daughter, does provided quite a bit of care and oversight however is not there all the time and in fact will be out of town for the next few weeks coming up. Patient at 1 point did have a caregiver however for some reason that does not seem to be working out. Patient spends most of her time in a wheelchair. She has difficulty toileting, bathing. Meal preparation can also be a challenge. Certainly managing the pump at home is outside of this patient's ability. The patient mccoy sno new complaints today aside from concern about her port migrating. She is concerned becuase the vein in my neck looks different. She denies pain. Again per nursing port is functioning without difficulty both drawing blood and flushing. Pt reports Skin is intact, no erythema, rash, open areas. This visit was in conjunction with [facility] [place] [place] Giovanna CarZen Juan Antonio. Options discussed with patient and DTR. Oncological History: She has a remote history of state III colon cancer diagnosed in February of 2002 with 2 or more mesenteric nodes being positive. The CEA was 18.9. Patient is status post resection followed by 6 months of chemotherapy with leucovorin and 5 FU completed August 2002. Per patient's daughter and patient herself, patient apparently had a ?mild heart attack? in July of 2017. The echo report from August 05, 2017 revealed the left ventricle cavity was small, mild to moderate concentric left ventricular hypertrophy, the ejection fraction estimated to be 65-70%, and no obvious focal wall motion abnormalities but poor endocardial definition, and diastolic parameters normal. Thereafter patient was discharged to custodial. 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 Patient has completed the most recent course of vancomycin treatment about 2-3 weeks ago. Patient was seen by bone density technician Agnes Martinez ARNP on 02/03/2018. Colonoscopy was requested for fecal transplant. The colonoscopy was performed by Dr. Facundo Jalloh on March 11, 2018. The colonoscopy revealed a malignant partially obstructing tumor at 47 cm proximal to the anus.There was evidence of previous surgery, distal to the colon mass identified. The surgical anastomosis was patent and was characterized by healthy appearing mucosa. Due to the new finding of colon mass, fecal transplant was not done. 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 In addition molecular testing by PCR showed that the cancer is negative for KRAS mutation, positive for BRAF V600E mutation, and negative for NRAS mutations. On March 12, [address] scan of the chest, abdomen and pelvis with contrast. And the scan showed findings concerning for short segment colitis of the right transverse colon versus a circumferential colon mass with surrounding mesenteric edema, multiple bilateral pulmonary nodules measuring up to 6 mm in greatest diameter, and multiple level degenerative changes of the spine with resultant 0.9 cm of anterolisthesis of L4 on L5 resulting in moderate spinal canal stenosis at that level. I went to radiology department and I talked with radiologist Dr. Smith and reviewed all the imaging studies. The pulmonary nodules have been present at least since December of 2017. And the pulmonary juice apparently have not changed in size, in number or in appearance. Most likely these pulmonary nodules represent granuloma changes rather than metastatic malignancy. We also looked at the liver images. There is no clear evidence of hepatic lesions or masses. Lab results from [facility] showed that the CEA level was 3.6 on March 11, 2018. CBC reviewed that the white cell count 8.4, hemoglobin 8.3, hematocrit 26.3, MCV 75.8 and platelets 371 She was started on Venofer weekly x 5 on 04/19/2018 She was started on 5FU/Leucovorin on 04/20/2018 - Patient Self-Reported Symptoms SR Constitution: Fatigue/Malaise SR ears, nose, mouth, throat issues: Cough (dry heaves) SR respiratory issues: Cough, Mucous SR Cardiovascular issues: Palpitations (before the blood tranfusion in early Apr. ), Extreme swelling, Dizzy/lightheaded SR Skin issues: Dry skin, Skin rash or itching, Hair loss or scalp prob, Nail changes SR Gastrointestinal issues: Poor or no appetite, Nausea SR Genitourinary issues: Frequent urination, Incontinence SR Musculoskeletal issues: Difficulty walking SR Neuro issues: Tremors or shaking SR Hematologic issues: Bleeding/bruising SR Endocrine issues: Cold intolerance, Excessive thirst Home Medications and Allergies Home Medications Medication Instructions Recorded Confirmed Type oxybutynin chloride 5 mg PO BID #0 10/13/16 04/19/18 History insulin glargine [Lantus Solostar 1 dose SQ QPM #0 11/11/17 04/19/18 History U-100 Insulin] nitroglycerin [Nitrostat] 0.4 mg SUBLINGUAL PRN PRN #0 11/11/17 04/19/18 History nystatin [Nystop] 100,000 unit TOPICAL QID #0 11/11/17 04/19/18 History cranberry 500 mg PO DAILY 01/20/18 04/19/18 History insulin lispro [Humalog KwikPen 5 units SUB-Q TID 01/20/18 04/19/18 History Insulin] aspirin 81 mg PO DAILY 03/22/18 04/19/18 History ondansetron 8 mg PO TID PRN 03/22/18 04/19/18 History Allergies Allergy/AdvReac Type Severity Reaction Status Date / Time Sulfa (Sulfonamide Allergy Severe hives Verified 12/13/17 20:35 Antibiotics) [SULFA (SULFONAMIDE ANTIBIOTICS)] metformin Allergy Mild Diarrhea Verified 01/20/18 23:13 darifenacin [From Enablex] Allergy Unknown Verified 01/20/18 23:13 ketoconazole Allergy Unknown Verified 01/20/18 23:13 promethazine [From Phenergan] Allergy Verified 03/19/18 14:49 adhesive [ADHESIVE] AdvReac Severe tape Verified 12/13/17 20:35 causes blisters Results - Labs Laboratory Last Values WBC 6.6 X10^3/uL (4.5-11.0) 05/31/18 08:24 RBC 4.29 X10^6/uL (4.0-5.2) 05/31/18 08:24 Hgb 11.5 g/dL (12.0-16.0) L 05/31/18 08:24 Hct 35.4 % (36-46) L 05/31/18 08:24 MCV 82.3 fL (80-100) 05/31/18 08:24 MCH 26.8 PG (26-34) 05/31/18 08:24 MCHC 32.6 % (30-36) 05/31/18 08:24 RDW 34.4 % (11.6-14.8) H 05/31/18 08:24 Plt Count 250 X10^3/uL (150-400) 05/31/18 08:24 Neut % (Auto) 48.0 % (50-75) L 05/31/18 08:24 Lymph % (Auto) 37.1 % (25-40) 05/31/18 08:24 [place] % (Auto) 9.8 % (3-14) 05/31/18 08:24 Eos % (Auto) 3.8 % (2-4) 05/31/18 08:24 Baso % (Auto) 1.3 % (0-2) 05/31/18 08:24 Neut # (Auto) 3200 /uL (3920-6526) 05/31/18 08:24 RBC Morphology See below 05/31/18 08:24 Hypochromasia 1+ H 05/10/18 11:11 Poikilocytosis 1+ H 04/26/18 11:25 Anisocytosis 3+ H 05/31/18 08:24 Microcytosis 2+ H 05/10/18 11:11 Macrocytosis 1+ H 05/10/18 11:11 Sodium 144 mmol/L (137-145) 05/31/18 08:24 Potassium 3.7 mmol/L (3.4-5.1) 05/31/18 08:24 Chloride 104 mmol/L (98-107) 05/31/18 08:24 Carbon Dioxide 31 mmol/L (22-32) 05/31/18 08:24 BUN 13 mg/dL (7-17) 05/31/18 08:24 Creatinine 0.80 mg/dL (0.52-1.04) 05/31/18 08:24 Estimated GFR > 60.0 mL/min (>60) 05/31/18 08:24 BUN/Creatinine Ratio 16.3 (6-22) 05/31/18 08:24 Glucose 84 mg/dL (80-110) 05/31/18 08:24 Calcium 9.1 mg/dL (8.4-10.2) 05/31/18 08:24 Magnesium 1.9 mg/dL (1.6-2.3) 04/14/18 11:17 Iron 24 ug/dL (37-170) L 04/05/18 10:28 TIBC 424 ug/dL (265-497) 04/05/18 10:28 % Saturation 6 % (15-50) L 04/05/18 10:28 Transferrin 337 mg/dL (206-381) 04/05/18 10:28 Ferritin 7.0 ng/mL (11.1-264) L 04/05/18 10:28 Total Bilirubin 0.5 mg/dL (0.2-1.3) 05/31/18 08:24 AST 16 IU/L (14-36) 05/31/18 08:24 ALT 24 IU/L (9-52) 05/31/18 08:24 Alkaline Phosphatase 68 U/L (38-126) 05/31/18 08:24 Total Protein 6.4 g/dL (6.3-8.2) 05/31/18 08:24 Albumin 3.6 g/dL (3.5-5.0) 05/31/18 08:24 Globulin 2.8 g/dL (1.7-4.1) 05/31/18 08:24 Albumin/Globulin Ratio 1.3 (1.0-2.8) 05/31/18 08:24 Carcinoembryonic Ag 2.6 ng/mL (0.1-3.0) 05/31/18 08:24 Ref Test (Refrig) 04/05/18 10:28 Blood Type A Positive 04/14/18 10:05 Antibody Screen Negative 04/14/18 10:05 Crossmatch See Detail 04/14/18 10:05 Assessment and Plan (1) Colon cancer Problem details: Desending colon adenocarcinoma, Moderately to poorly differentiated dMMR: 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 KRAS mutation: not detected BRAF V600E mutation: detected NRAS mutation: not detected We will proceed with scheduled chemotherapy today. Today is the 4th cycle of the 5 FU infusion. CBC is very stable with a hemoglobin of 11.5 hematocrit 35.4. White count 6.6 ANC 3200. Platelets 250,000. CMP also looking quite good with a sodium of 144 potassium 3.7 creatinine 0.80 GFR >60. CEA remains pending at time of dictation however has been trending appropriately down. No red flags on exam today, She will receive cycle 4 today. We will schedule imaging CT of chest abdomen pelvis with contrast June 09 or June 10 or June 11 in accordance with her daughters schedule. Patient will then be due for consideration of cycle 5 June 14 which we will schedule with Dr. Emery to review imaging results. We will also check CBC, CMP at this time. Patient and her daughter verbalized understanding and agree with the above plan of care. (2) Iron deficiency anemia due to chronic blood loss Problem details: Patient is to have iron infusion in the past. The etiology likely is related to the new diagnosis of the colon cancer. Patient has significant constipation while taking the oral iron. She has severe iron deficiency anemia, that is due to gastrointestinal bleeding because of the colon cancer. Patient is now getting Venofer infusion weekly with plan for 5 infusions. Patient has already completed 4 infusions. We will proceed with the final infusions. Patient's hemoglobin and hematocrit level have improved significantly after the infusion. (3) Personal history of colon cancer, stage III No adverse effetcs noted from mishap with port/pump. Pt is scheduled for re staging imaging with appt to review with DR Emery who will also discuss POC moving forward. The pts DTR was quite to the idea the pt would not be having anymore chemo that she would now be having surgery, I again advised her no firm plans until imaging reviewed to determine if treatment has been effective. This was discussed at previous visit as well. In regards to port on exam today unremarkable. Placement is good, nontender, skin intact no erythema edema. Flushes and draws without difficulty. I suspect the pt can now see her jugular vein due to weight loss however for ongoing concern I recommeded she re visit with surgeon at [facility] who placed port. - Time Spent with Patient 35 mins face to face 5 mins review prior 5 mins dictation 5 mins coordination of care with RN who saw firsthand pump issue
[2018-06-07 15:48] VITALS: BP 116/63; PULSE 64; RESP 18; TEMP 36.2; O2SAT 97
--- NOTE | 2018-06-07 17:30 | ONC.PN ---
PN -Subjective Interval history: Chief Complaint: 83 year old female with colon cancer now on chemotherapy with 5FU/Leucovorin. Oncological History: Zoe Silverman endorses a remote history of stage III colon cancer diagnosed in February 2002 with 2 or more mesenteric nodes being positive. The CEA was 18.9. Patient is status post resection followed by 6 months of leucovorin and 5 FU completed Aug 2002. She had a ?mild heart attack? in Jul 2017, and was hospitalized briefly. 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 Fecal transplant was proposed and she underwent pre-transplant C-scope on 03/11/[address] Bharti Jalloh. The colonoscopy revealed a malignant partially obstructing tumor at 47 cm proximal to the anus. There was evidence of previous surgery, distal to the current colon mass. 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 On Mar 12, 2018, CT chest, abdomen and pelvis with contrast showed findings concerning for short segment colitis of the right transverse colon versus a circumferential colon mass with surrounding mesenteric edema, multiple bilateral pulmonary nodules measuring up to 6 mm in greatest diameter. I went to radiology department and I talked with radiologist Dr. Smith and reviewed all the imaging studies. The pulmonary nodules have been present at least since December 2017. And the pulmonary nodules apparently have not changed in size, in number or in appearance. Most likely these pulmonary nodules represent granuloma changes rather than metastatic malignancy. We also looked at the liver images. There is no clear evidence of hepatic lesions or masses. Lab results from [facility] [place] showed that the CEA level was 3.6 on March 11, 2018. CBC reviewed that the white cell count 8.4, hemoglobin 8.3, hematocrit 26.3, MCV 75.8 and platelets 371. She was started on Venofer weekly x 5 on 04/19/2018. She was started on 5FU/Leucovorin on 04/20/2018 Interium Events: Up until now, she had completed 4 cycles of 5FU/Leucovorin. So presently, patient has tolerated the chemotherapy exceedingly well. Patient reported better energy better appetite. Patient's facial color also has improved dramatically. Patient came in here today accompanied by her daughter. She denies any hand and foot syndrome, and denies any diarrhea. On the country, patient has developed some constipation which she had to use over the counter stool softeners. Patient has mild change of taste. Patient has some hair thinning but not alopecia. On June 04, 2018, patient underwent restaging CT scan of the chest abdomen and pelvis with contrast. CT scan showed enlarged heart. Otherwise segment of right colonic wall thickening was again demonstrated with surrounding inflammatory appearance is less conspicuous. Multiple bilateral subcentimeter pulmonary nodules are again noted may be slightly increased in size but that is within the realm slice registration artifact. - Patient Self-Reported Symptoms SR Constitution: Fatigue/Malaise SR respiratory issues: Mucous SR Skin issues: Nail changes SR Gastrointestinal issues: Nausea SR Genitourinary issues: Incontinence SR Musculoskeletal issues: Difficulty walking SR Neuro issues: Tremors or shaking - Additional ROS All systems PM: reviewed and no additional remarkable complaints except as stated Home Medications and Allergies Home Medications Medication Instructions Recorded Confirmed Type oxybutynin chloride 5 mg PO BID #0 10/13/16 04/19/18 History insulin glargine [Lantus Solostar 1 dose SQ QPM #0 11/11/17 04/19/18 History U-100 Insulin] nitroglycerin [Nitrostat] 0.4 mg SUBLINGUAL PRN PRN #0 11/11/17 04/19/18 History nystatin [Nystop] 100,000 unit TOPICAL QID #0 11/11/17 04/19/18 History cranberry 500 mg PO DAILY 01/20/18 04/19/18 History insulin lispro [Humalog KwikPen 5 units SUB-Q TID 01/20/18 04/19/18 History Insulin] aspirin 81 mg PO DAILY 03/22/18 04/19/18 History ondansetron 8 mg PO TID PRN 03/22/18 04/19/18 History vit A,C and [id number]-[id number] 06/07/18 History [I-Mellisa] Allergies Allergy/AdvReac Type Severity Reaction Status Date / Time Sulfa (Sulfonamide Allergy Severe hives Verified 12/13/17 20:35 Antibiotics) [SULFA (SULFONAMIDE ANTIBIOTICS)] metformin Allergy Mild Diarrhea Verified 01/20/18 23:13 darifenacin [From Enablex] Allergy Unknown Verified 01/20/18 23:13 ketoconazole Allergy Unknown Verified 01/20/18 23:13 promethazine [From Phenergan] Allergy Verified 03/19/18 14:49 adhesive [ADHESIVE] AdvReac Severe tape Verified 12/13/17 20:35 causes blisters Exam Vital signs: Last Vital Signs Temp 97.2 F L 06/07/18 15:48 Pulse 64 06/07/18 15:48 Resp 18 06/07/18 15:48 BP 116/63 06/07/18 15:48 Pulse Ox 97 06/07/18 15:48 ECOG 1 Narrative: Constitutional: Well developed, well nourished, obese, not in any acute respiratory distress, well groomed, pleasant and cooperative, in wheelchair. HEENT: Normocephalic atraumatic. Extraocular muscle movement intact. Pupils are round, equal and reactive to light and accommodations. Anicteric sclera. No hearing difficulty; Oral mucus membrane moist and without ulcers. Neck: Supple, symmetrical, and tracheal midline; No palpable thyromegaly and no palpable lymph nodes. Respiratory: No use of accessory muscles. Clear to auscultation, and no wheezes or rales or rubs. Cardiovascular: Regular rate and rhythm, S1 and S2 normal, no murmurs gallops or rubs. No JVD. No pitting edema of lower extremities. Abdomen: Soft, nontender, non-distended, bowel sounds normal, no palpable organomegaly, no hernia, no palpable masses. Lower extremities: No palpable pedal edema. Lymphatic: no palpable lymph nodes in the neck, axillae, or groins. Musculoskeletal: normal gait and station, no clubbing, no cyanosis, no pitting edema. Skin: no rashes, no ulcers, no petechiae Neurological: Awake and alert and oriented x3. CN II-XII grossly intact. No focal motor or sensory deficit. Psychiatric: Good judgment, good insight, normal affect, normal thought process, cooperative, no depression, no anxiety. Results - Labs Laboratory Last Values WBC 6.6 X10^3/uL (4.5-11.0) 05/31/18 08:24 RBC 4.29 X10^6/uL (4.0-5.2) 05/31/18 08:24 Hgb 11.5 g/dL (12.0-16.0) L 05/31/18 08:24 Hct 35.4 % (36-46) L 05/31/18 08:24 MCV 82.3 fL (80-100) 05/31/18 08:24 MCH 26.8 PG (26-34) 05/31/18 08:24 MCHC 32.6 % (30-36) 05/31/18 08:24 RDW 34.4 % (11.6-14.8) H 05/31/18 08:24 Plt Count 250 X10^3/uL (150-400) 05/31/18 08:24 Neut % (Auto) 48.0 % (50-75) L 05/31/18 08:24 Lymph % (Auto) 37.1 % (25-40) 05/31/18 08:24 [place] % (Auto) 9.8 % (3-14) 05/31/18 08:24 Eos % (Auto) 3.8 % (2-4) 05/31/18 08:24 Baso % (Auto) 1.3 % (0-2) 05/31/18 08:24 Neut # (Auto) 3200 /uL (9430-1152) 05/31/18 08:24 RBC Morphology See below 05/31/18 08:24 Hypochromasia 1+ H 05/10/18 11:11 Poikilocytosis 1+ H 04/26/18 11:25 Anisocytosis 3+ H 05/31/18 08:24 Microcytosis 2+ H 05/10/18 11:11 Macrocytosis 1+ H 05/10/18 11:11 Sodium 144 mmol/L (137-145) 05/31/18 08:24 Potassium 3.7 mmol/L (3.4-5.1) 05/31/18 08:24 Chloride 104 mmol/L (98-107) 05/31/18 08:24 Carbon Dioxide 31 mmol/L (22-32) 05/31/18 08:24 BUN 13 mg/dL (7-17) 05/31/18 08:24 Creatinine 0.80 mg/dL (0.52-1.04) 05/31/18 08:24 Estimated GFR > 60.0 mL/min (>60) 05/31/18 08:24 BUN/Creatinine Ratio 16.3 (6-22) 05/31/18 08:24 Glucose 84 mg/dL (80-110) 05/31/18 08:24 Calcium 9.1 mg/dL (8.4-10.2) 05/31/18 08:24 Magnesium 1.9 mg/dL (1.6-2.3) 04/14/18 11:17 Iron 24 ug/dL (37-170) L 04/05/18 10:28 TIBC 424 ug/dL (265-497) 04/05/18 10:28 % Saturation 6 % (15-50) L 04/05/18 10:28 Transferrin 337 mg/dL (206-381) 04/05/18 10:28 Ferritin 7.0 ng/mL (11.1-264) L 04/05/18 10:28 Total Bilirubin 0.5 mg/dL (0.2-1.3) 05/31/18 08:24 AST 16 IU/L (14-36) 05/31/18 08:24 ALT 24 IU/L (9-52) 05/31/18 08:24 Alkaline Phosphatase 68 U/L (38-126) 05/31/18 08:24 Total Protein 6.4 g/dL (6.3-8.2) 05/31/18 08:24 Albumin 3.6 g/dL (3.5-5.0) 05/31/18 08:24 Globulin 2.8 g/dL (1.7-4.1) 05/31/18 08:24 Albumin/Globulin Ratio 1.3 (1.0-2.8) 05/31/18 08:24 Carcinoembryonic Ag 2.6 ng/mL (0.1-3.0) 05/31/18 08:24 Ref Test (Refrig) 04/05/18 10:28 Blood Type A Positive 04/14/18 10:05 Antibody Screen Negative 04/14/18 10:05 Crossmatch See Detail 04/14/18 10:05 - Imaging CT scan - abdomen: report reviewed, image reviewed CT scan - chest: report reviewed, image reviewed CT scan - pelvis: report reviewed, image reviewed Assessment and Plan (1) Colon cancer Problem details: Desending colon adenocarcinoma, Moderately to poorly differentiated dMMR: 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 KRAS mutation: not detected BRAF [id number] mutation: detected NRAS mutation: not detected Today I spent considerable amount of time talking with the patient and her daughter about the CT scan results. I pointed out to the patient that in my opinion patient's underlying colon cancer probably has responded to the treatment as there are no evidence of new lesions, and no evidence of lymphadenopathy. Clinically, patient is also feeling better compared prior to the chemotherapy. Based on the available information, I am guessing that she might have stage II colon cancer. Once again I talked with the patient that for stage II colon cancer, the recommended therapeutic option is surgical resection. Therefore I talked with her that I will refer her back to Dr. Kang to talk about repeat colonoscopy and re-evaluate for surgical resection. We also talked with her that it is her decision to make final decision about surgical resection. However, if she is deemed surgically un-resectable or the patient decides that she does not want to get surgical resection, I think we can try treatment with checkpoint inhibitors. Patient has a deficient mismatch repair enzymes that hopefully means she is going to respond to the treatment with checkpoint inhibitors. However there is no data in stage II colon cancer. Patient and patient's daughter both voiced understanding. Plan: 1. Refer back to Dr. Kang for C-scope and evaluation about surgery 2. Echocardiogram given the enlarged heart size on CT scan 3. RTC in 2 weeks for follow up visit. (2) Iron deficiency anemia due to chronic blood loss Problem details: Patient is to have iron infusion in the past. The etiology likely is related to the new diagnosis of the colon cancer. Patient has significant constipation while taking the oral iron. She has completely Venofer infusion weekly x 5. Her H/H have improved significantly. Plan: Monitor H/H and iron status with ferritin regularly Plan to repeat after her potential surgery. (3) Personal history of colon cancer, stage III Not sure the relationship with her current colon cancer diagnosis. Plan: No special intervention for now.
--- NOTE | 2018-06-22 13:08 | PC.NURSE ---
Addendum entered by Gretchen Marvin R.N. 06/22/18 13:37: Spoke with Victoria and Georges on the cell phone. Georges states he thinks Jade hasn't had a BM in about 3 days. He states that she isn't complaining of abdominal pain. He states he hasn't seen her vomiting. He said he has seen her eating and drinking without problems. Recommendations for Sunshine-Colace over the counter were given. Instructed Victoria to have Jade take meds as instructed on box. Encouraged warm teas, prune juice mixed with 7 up can also be effective, as well as Smooth move tea. Requested that Jade or Victoria call if these measures are ineffective. Original Note: Triage note: notified by front staff that sister in law Victoria is in lobby and requesting to talk to triage regarding some concerns she has about Jade. Reports to front staff that Jade is severely constipated. Noted on auth to discuss, Victoria is included. Tricia daughter is on there as a primary contact. Understand that Tricia is in [place] right now helping her who had recent surgery. Spoke with Tricia who states that her mom is being stubborn and refusing to let Victoria help, even though she is the only one who can help her. Went out to [facility] to hear Victoria's concerns but she had already left. Noted pt has an appt with Dr Emery on 06/24. Discussed this information with Giovanna as it relates to some intrafamily dynamics that are stressed.
[2018-06-24 16:14] VITALS: BP 116/64; PULSE 65; RESP 18; TEMP 36.6; O2SAT 97
--- NOTE | 2018-06-25 11:24 | ONC.APRN.PN ---
PN -Subjective Interval history: Chief Complaint: 83 year old female with colon cancer now on chemotherapy with 5FU/Leucovorin. She presents today with her sister to review Dr Pizano recommendation and develop a plan moving forward. The pt consulted with Dr Kang, she reports he wanted to repeat a colonoscopy however the patient states I am absolutely not going to do that.. She goes on to relate a horrible experience with colonoscopies in the past. Specifically severe abdominal pain and diarrhea. She states she did have a colonoscopy once where ? the stuff they gave me to drink wasnt so bad. She also states she would not consider further surgery unless I was dying and even then I dont know. She reports severe constipation this week with no BM x 5 days, finally had results with Miralax and some table in my medicine cabinet. She has a BM last night and again this morning. No nausea or vomiting. No blood noted in stools. Overall feeling quite well aside from this bout of constipation. Activity tolerance unchanged. No new lumps or bumps, no new pain. The patient states it was her understanding Dr. Emery was not going to continue infusional chemotherapy, rather he discussed with the pt immune therapy. The patient is hoping to initiate soon. The patient had recent echocardiogram June 09, 2018 which demonstrated mild concentric left ventricular hypertrophy with ejection fraction of 65-70%. No significant valvular abnormalities when compared to previous echo August 05, 2017 no significant changes. Patient does have history of recent CA. She does not have a ton container filler. She does not take a beta-elle, she does take aspirin 81 mg daily. Oncological History: Zoe Silverman endorses a remote history of stage III colon cancer diagnosed in February 2002 with 2 or more mesenteric nodes being positive. The CEA was 18.9. Patient is status post resection followed by 6 months of leucovorin and 5 FU completed Aug 2002. She had a ?mild heart attack? in Jul 2017, and was hospitalized briefly. 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 Fecal transplant was proposed and she underwent pre-transplant C-scope on 03/11/[address] Bharti Jalloh. The colonoscopy revealed a malignant partially obstructing tumor at 47 cm proximal to the anus. There was evidence of previous surgery, distal to the current colon mass. 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 On Mar 12, 2018, CT chest, abdomen and pelvis with contrast showed findings concerning for short segment colitis of the right transverse colon versus a circumferential colon mass with surrounding mesenteric edema, multiple bilateral pulmonary nodules measuring up to 6 mm in greatest diameter. I went to radiology department and I talked with radiologist Dr. Smith and reviewed all the imaging studies. The pulmonary nodules have been present at least since December 2017. And the pulmonary nodules apparently have not changed in size, in number or in appearance. Most likely these pulmonary nodules represent granuloma changes rather than metastatic malignancy. We also looked at the liver images. There is no clear evidence of hepatic lesions or masses. Lab results from [facility] showed that the CEA level was 3.6 on March 11, 2018. CBC reviewed that the white cell count 8.4, hemoglobin 8.3, hematocrit 26.3, MCV 75.8 and platelets 371. She was started on Venofer weekly x 5 on 04/19/2018. She was started on 5FU/Leucovorin on 04/20/2018 Interium Events: Up until now, she had completed 4 cycles of 5FU/Leucovorin. So presently, patient has tolerated the chemotherapy exceedingly well. Patient reported better energy better appetite. Patient's facial color also has improved dramatically. Patient came in here today accompanied by her daughter. She denies any hand and foot syndrome, and denies any diarrhea. On the country, patient has developed some constipation which she had to use over the counter stool softeners. Patient has mild change of taste. Patient has some hair thinning but not alopecia. On June 04, 2018, patient underwent restaging CT scan of the chest abdomen and pelvis with contrast. CT scan showed enlarged heart. Otherwise segment of right colonic wall thickening was again demonstrated with surrounding inflammatory appearance is less conspicuous. Multiple bilateral subcentimeter pulmonary nodules are again noted may be slightly increased in size but that is within the realm slice registration artifact. - Patient Self-Reported Symptoms SR Constitution: Weight loss/gain SR ears, nose, mouth, throat issues: Cough (dry heaves) SR respiratory issues: Mucous SR Cardiovascular issues: Palpitations (before the blood tranfusion in early Apr. ), Extreme swelling, Dizzy/lightheaded SR Skin issues: Hair loss or scalp prob, Nail changes SR Gastrointestinal issues: Nausea, Constipation SR Genitourinary issues: Frequent urination, Incontinence SR Musculoskeletal issues: Cold hands or feet SR Neuro issues: Numbness or tingling SR Hematologic issues: Bleeding/bruising SR Endocrine issues: Cold intolerance, Excessive thirst Home Medications and Allergies Home Medications Medication Instructions Recorded Confirmed Type oxybutynin chloride 5 mg PO BID #0 10/13/16 06/16/18 History insulin glargine [Lantus Solostar 1 dose SQ QPM #0 11/11/17 04/19/18 History U-100 Insulin] nitroglycerin [Nitrostat] 0.4 mg SUBLINGUAL PRN PRN #0 11/11/17 04/19/18 History nystatin [Nystop] 100,000 unit TOPICAL QID #0 11/11/17 06/16/18 History cranberry 500 mg PO DAILY 01/20/18 06/16/18 History insulin lispro [Humalog KwikPen 5 units SUB-Q TID 01/20/18 06/16/18 History Insulin] aspirin 81 mg PO DAILY 03/22/18 06/16/18 History ondansetron 8 mg PO TID PRN 03/22/18 06/16/18 History vit A,C and P-bkzjbz-zzjdodut 06/07/18 06/16/18 History [I-Mellisa] Allergies Allergy/AdvReac Type Severity Reaction Status Date / Time Sulfa (Sulfonamide Allergy Severe hives Verified 12/13/17 20:35 Antibiotics) [SULFA (SULFONAMIDE ANTIBIOTICS)] metformin Allergy Mild Diarrhea Verified 01/20/18 23:13 darifenacin [From Enablex] Allergy Unknown Verified 01/20/18 23:13 ketoconazole Allergy Unknown Verified 01/20/18 23:13 promethazine [From Phenergan] Allergy Verified 03/19/18 14:49 adhesive [ADHESIVE] AdvReac Severe tape Verified 12/13/17 20:35 causes blisters Exam - Constitutional positive no acute distress, positive obese - Routine Cardiovascular Exam Present: RRR, S1, S2. Absent: murmur, gallop, rubs, JVD - Routine Abdominal Exam Present: soft, normoactive bowel sounds, hernia. Absent: tenderness, distended, organomegaly, mass Comments: large ventral hernia - Routine Extremities Exam Absent: edema, calf tenderness - Routine Skin Exam Present: intact, normal turgor. Absent: petechiae - Routine Neurological Exam Present: alert, oriented X3 - Routine Psychiatric Exam Present: normal affect Results - Labs Laboratory Last Values WBC 6.6 X10^3/uL (4.5-11.0) 05/31/18 08:24 RBC 4.29 X10^6/uL (4.0-5.2) 05/31/18 08:24 Hgb 11.5 g/dL (12.0-16.0) L 05/31/18 08:24 Hct 35.4 % (36-46) L 05/31/18 08:24 MCV 82.3 fL (80-100) 05/31/18 08:24 MCH 26.8 PG (26-34) 05/31/18 08:24 MCHC 32.6 % (30-36) 05/31/18 08:24 RDW 34.4 % (11.6-14.8) H 05/31/18 08:24 Plt Count 250 X10^3/uL (150-400) 05/31/18 08:24 Neut % (Auto) 48.0 % (50-75) L 05/31/18 08:24 Lymph % (Auto) 37.1 % (25-40) 05/31/18 08:24 [place] % (Auto) 9.8 % (3-14) 05/31/18 08:24 Eos % (Auto) 3.8 % (2-4) 05/31/18 08:24 Baso % (Auto) 1.3 % (0-2) 05/31/18 08:24 Neut # (Auto) 3200 /uL (6248-2108) 05/31/18 08:24 RBC Morphology See below 05/31/18 08:24 Hypochromasia 1+ H 05/10/18 11:11 Poikilocytosis 1+ H 04/26/18 11:25 Anisocytosis 3+ H 05/31/18 08:24 Microcytosis 2+ H 05/10/18 11:11 Macrocytosis 1+ H 05/10/18 11:11 Sodium 144 mmol/L (137-145) 05/31/18 08:24 Potassium 3.7 mmol/L (3.4-5.1) 05/31/18 08:24 Chloride 104 mmol/L (98-107) 05/31/18 08:24 Carbon Dioxide 31 mmol/L (22-32) 05/31/18 08:24 BUN 13 mg/dL (7-17) 05/31/18 08:24 Creatinine 0.80 mg/dL (0.52-1.04) 05/31/18 08:24 Estimated GFR > 60.0 mL/min (>60) 05/31/18 08:24 BUN/Creatinine Ratio 16.3 (6-22) 05/31/18 08:24 Glucose 84 mg/dL (80-110) 05/31/18 08:24 Calcium 9.1 mg/dL (8.4-10.2) 05/31/18 08:24 Magnesium 1.9 mg/dL (1.6-2.3) 04/14/18 11:17 Iron 24 ug/dL (37-170) L 04/05/18 10:28 TIBC 424 ug/dL (265-497) 04/05/18 10:28 % Saturation 6 % (15-50) L 04/05/18 10:28 Transferrin 337 mg/dL (206-381) 04/05/18 10:28 Ferritin 7.0 ng/mL (11.1-264) L 04/05/18 10:28 Total Bilirubin 0.5 mg/dL (0.2-1.3) 05/31/18 08:24 AST 16 IU/L (14-36) 05/31/18 08:24 ALT 24 IU/L (9-52) 05/31/18 08:24 Alkaline Phosphatase 68 U/L (38-126) 05/31/18 08:24 Total Protein 6.4 g/dL (6.3-8.2) 05/31/18 08:24 Albumin 3.6 g/dL (3.5-5.0) 05/31/18 08:24 Globulin 2.8 g/dL (1.7-4.1) 05/31/18 08:24 Albumin/Globulin Ratio 1.3 (1.0-2.8) 05/31/18 08:24 Carcinoembryonic Ag 2.6 ng/mL (0.1-3.0) 05/31/18 08:24 Ref Test (Refrig) 04/05/18 10:28 Blood Type A Positive 04/14/18 10:05 Antibody Screen Negative 04/14/18 10:05 Crossmatch See Detail 04/14/18 10:05 Assessment and Plan (1) Colon cancer Problem details: Desending colon adenocarcinoma, Moderately to poorly differentiated dMMR: 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 KRAS mutation: not detected BRAF [id number] mutation: detected NRAS mutation: not detected 83 year old female with colon cancer who has completed 5 cycles of chemotherapy with 5FU/Leucovorin. The pt met with surgeon Dr Kang who is recommending a colonoscopy, then based on findings of colonoscopy possible resection. In his notes he states due to the patient's obesity and large ventral hernia this would likely be an open abdominal procedure. He does feel the patient is a high risk surgical candidate. This was discussed with the patient. Today, the patient is adamantly refusing to even move forward with colonoscopy. She is quite interested in the ?immune therapy? previously discussed with Dr. Emery. In review of the pts chart Dr Emery has begun the per-auth process for keytruda. Recent echocardiogram June 09 demonstrated normal ejection fraction, no significant valvular abnormalities which is quite reassuring noting the patient has had an CA within the past year. The patient will follow up with Dr. Emery. I am not certain the next step noting the pts reluctance for colonoscopy. However, she did say we might be able to talk her into it if the colon prep was a bit more gentle. Overall patient has had quite a good response with her chemotherapy. Additionally, she has tolerated quite well. The pt will be presented at tumor board Jun 29 with both the oncologist and surgeon weighing in. I expect a more clear path after discussing at tumor board. Plan: 1. Follow up with Dr Odalys Emery , discuss at tumor board Jun 29. 2. Cont pre auth for keytruda. The pt requests we call her next week Jun 28 or to schedule f/u appointment. (2) Iron deficiency anemia due to chronic blood loss Problem details: Patient is to have iron infusion in the past. The etiology likely is related to the new diagnosis of the colon cancer. Patient has significant constipation while taking the oral iron. She has completely Venofer infusion weekly x 5. Her H/H have improved significantly. Plan: Monitor H/H and iron status with ferritin regularly Plan to repeat after her potential surgery. (3) Personal history of colon cancer, stage III Not sure the relationship with her current colon cancer diagnosis. In review of registry notes this is a new primary. Plan: No special intervention for now.
--- NOTE | 2018-06-25 11:46 | P.PNONC_ITS ---
PN -Subjective Interval history: Chief Complaint: 83 year old female with colon cancer now on chemotherapy with 5FU/Leucovorin. She presents today with her sister to review Dr Pizano recommendation and develop a plan moving forward. The pt consulted with Dr Kang, she reports he wanted to repeat a colonoscopy however the patient states I am absolutely not going to do that.. She goes on to relate a horrible experience with colonoscopies in the past. Specifically severe abdominal pain and diarrhea. She states she did have a colonoscopy once where ? the stuff they gave me to drink wasnt so bad. She also states she would not consider further surgery unless I was dying and even then I dont know. She reports severe constipation this week with no BM x 5 days, finally had results with Miralax and some table in my medicine cabinet. She has a BM last night and again this morning. No nausea or vomiting. No blood noted in stools. Overall feeling quite well aside from this bout of constipation. Activity tolerance unchanged. No new lumps or bumps, no new pain. The patient states it was her understanding Dr. Emery was not going to continue infusional chemotherapy, rather he discussed with the pt immune therapy. The patient is hoping to initiate soon. The patient had recent echocardiogram June 09, 2018 which demonstrated mild concentric left ventricular hypertrophy with ejection fraction of 65-70%. No significant valvular abnormalities when compared to previous echo August 05, 2017 no significant changes. Patient does have history of recent OH. 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 She does not take a beta-elle, she does take aspirin 81 mg daily. Oncological History: Zoe Silverman endorses a remote history of stage III colon cancer diagnosed in February 2002 with 2 or more mesenteric nodes being positive. The CEA was 18.9. Patient is status post resection followed by 6 months of leucovorin and 5 FU completed Aug 2002. She had a ?mild heart attack? in Jul 2017, and was hospitalized briefly. 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 Fecal transplant was proposed and she underwent pre-transplant C-scope on 03/11/[address] Bharti Jalloh. The colonoscopy revealed a malignant partially obstructing tumor at 47 cm proximal to the anus. There was evidence of previous surgery, distal to the current colon mass. 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 On Mar 12, 2018, CT chest, abdomen and pelvis with contrast showed findings concerning for short segment colitis of the right transverse colon versus a circumferential colon mass with surrounding mesenteric edema, multiple bilateral pulmonary nodules measuring up to 6 mm in greatest diameter. I went to radiology department and I talked with radiologist Dr. Smith and reviewed all the imaging studies. The pulmonary nodules have been present at least since December 2017. And the pulmonary nodules apparently have not changed in size, in number or in appearance. Most likely these pulmonary nodules represent granuloma changes rather than metastatic malignancy. We also looked at the liver images. There is no clear evidence of hepatic lesions or masses. Lab results from [facility] showed that the CEA level was 3.6 on March 11, 2018. CBC reviewed that the white cell count 8.4, hemoglobin 8.3, hematocrit 26.3, MCV 75.8 and platelets 371. She was started on Venofer weekly x 5 on 04/19. She was started on 5FU/Leucovorin on 04/20/2018 Interium Events: Up until now, she had completed 4 cycles of 5FU/Leucovorin. So presently, patient has tolerated the chemotherapy exceedingly well. Patient reported better energy better appetite. Patient's facial color also has improved dramatically. Patient came in here today accompanied by her daughter. She denies any hand and foot syndrome, and denies any diarrhea. On the country, patient has developed some constipation which she had to use over the counter stool softeners. Patient has mild change of taste. Patient has some hair thinning but not alopecia. On June 04, 2018, patient underwent restaging CT scan of the chest abdomen and pelvis with contrast. CT scan showed enlarged heart. Otherwise segment of right colonic wall thickening was again demonstrated with surrounding inflammatory appearance is less conspicuous. Multiple bilateral subcentimeter pulmonary nodules are again noted may be slightly increased in size but that is within the realm slice registration artifact. - Patient Self-Reported Symptoms SR Constitution: Weight loss/gain SR ears, nose, mouth, throat issues: Cough (dry heaves) SR respiratory issues: Mucous SR Cardiovascular issues: Palpitations (before the blood tranfusion in early Apr. ), Extreme swelling, Dizzy/lightheaded SR Skin issues: Hair loss or scalp prob, Nail changes SR Gastrointestinal issues: Nausea, Constipation SR Genitourinary issues: Frequent urination, Incontinence SR Musculoskeletal issues: Cold hands or feet SR Neuro issues: Numbness or tingling SR Hematologic issues: Bleeding/bruising SR Endocrine issues: Cold intolerance, Excessive thirst Home Medications and Allergies Home Medications Medication Instructions Recorded Confirmed Type oxybutynin chloride 5 mg PO BID #0 10/13/16 06/16/18 History insulin glargine [Lantus Solostar 1 dose SQ QPM #0 11/11/17 04/19/18 History U-100 Insulin] nitroglycerin [Nitrostat] 0.4 mg SUBLINGUAL PRN PRN #0 11/11/17 04/19/18 History nystatin [Nystop] 100,000 unit TOPICAL QID #0 11/11/17 06/16/18 History cranberry 500 mg PO DAILY 01/20/18 06/16/18 History insulin lispro [Humalog KwikPen 5 units SUB-Q TID 01/20/18 06/16/18 History Insulin] aspirin 81 mg PO DAILY 03/22/18 06/16/18 History ondansetron 8 mg PO TID PRN 03/22/18 06/16/18 History vit A,C and N-[id number]-[id number] 06/07/18 06/16/18 History [I-Mellisa] Allergies Allergy/AdvReac Type Severity Reaction Status Date / Time Sulfa (Sulfonamide Allergy Severe hives Verified 12/13/17 20:35 Antibiotics) [SULFA (SULFONAMIDE ANTIBIOTICS)] metformin Allergy Mild Diarrhea Verified 01/20/18 23:13 darifenacin [From Enablex] Allergy Unknown Verified 01/20/18 23:13 ketoconazole Allergy Unknown Verified 01/20/18 23:13 promethazine [From Phenergan] Allergy Verified 03/19/18 14:49 adhesive [ADHESIVE] AdvReac Severe tape Verified 12/13/17 20:35 causes blisters Exam - Constitutional positive no acute distress, positive obese - Routine Cardiovascular Exam Present: RRR, S1, S2. Absent: murmur, gallop, rubs, JVD - Routine Abdominal Exam Present: soft, normoactive bowel sounds, hernia. Absent: tenderness, distended , organomegaly, mass Comments: large ventral hernia - Routine Extremities Exam Absent: edema, calf tenderness - Routine Skin Exam Present: intact, normal turgor. Absent: petechiae - Routine Neurological Exam Present: alert, oriented X3 - Routine Psychiatric Exam Present: normal affect Results - Labs Laboratory Last Values WBC 6.6 X10^3/uL (4.5-11.0) 05/31/18 08:24 RBC 4.29 X10^6/uL (4.0-5.2) 05/31/18 08:24 Hgb 11.5 g/dL (12.0-16.0) L 05/31/18 08:24 Hct 35.4 % (36-46) L 05/31/18 08:24 MCV 82.3 fL (80-100) 05/31/18 08:24 MCH 26.8 PG (26-34) 05/31/18 08:24 MCHC 32.6 % (30-36) 05/31/18 08:24 RDW 34.4 % (11.6-14.8) H 05/31/18 08:24 Plt Count 250 X10^3/uL (150-400) 05/31/18 08:24 Neut % (Auto) 48.0 % (50-75) L 05/31/18 08:24 Lymph % (Auto) 37.1 % (25-40) 05/31/18 08:24 [place] % (Auto) 9.8 % (3-14) 05/31/18 08:24 Eos % (Auto) 3.8 % (2-4) 05/31/18 08:24 Baso % (Auto) 1.3 % (0-2) 05/31/18 08:24 Neut # (Auto) 3200 /uL (8586-5167) 05/31/18 08:24 RBC Morphology See below 05/31/18 08:24 Hypochromasia 1+ H 05/10/18 11:11 Poikilocytosis 1+ H 04/26/18 11:25 Anisocytosis 3+ H 05/31/18 08:24 Microcytosis 2+ H 05/10/18 11:11 Macrocytosis 1+ H 05/10/18 11:11 Sodium 144 mmol/L (137-145) 05/31/18 08:24 Potassium 3.7 mmol/L (3.4-5.1) 05/31/18 08:24 Chloride 104 mmol/L (98-107) 05/31/18 08:24 Carbon Dioxide 31 mmol/L (22-32) 05/31/18 08:24 BUN 13 mg/dL (7-17) 05/31/18 08:24 Creatinine 0.80 mg/dL (0.52-1.04) 05/31/18 08:24 Estimated GFR > 60.0 mL/min (>60) 05/31/18 08:24 BUN/Creatinine Ratio 16.3 (6-22) 05/31/18 08:24 Glucose 84 mg/dL (80-110) 05/31/18 08:24 Calcium 9.1 mg/dL (8.4-10.2) 05/31/18 08:24 Magnesium 1.9 mg/dL (1.6-2.3) 04/14/18 11:17 Iron 24 ug/dL (37-170) L 04/05/18 10:28 TIBC 424 ug/dL (265-497) 04/05/18 10:28 % Saturation 6 % (15-50) L 04/05/18 10:28 Transferrin 337 mg/dL (206-381) 04/05/18 10:28 Ferritin 7.0 ng/mL (11.1-264) L 04/05/18 10:28 Total Bilirubin 0.5 mg/dL (0.2-1.3) 05/31/18 08:24 AST 16 IU/L (14-36) 05/31/18 08:24 ALT 24 IU/L (9-52) 05/31/18 08:24 Alkaline Phosphatase 68 U/L (38-126) 05/31/18 08:24 Total Protein 6.4 g/dL (6.3-8.2) 05/31/18 08:24 Albumin 3.6 g/dL (3.5-5.0) 05/31/18 08:24 Globulin 2.8 g/dL (1.7-4.1) 05/31/18 08:24 Albumin/Globulin Ratio 1.3 (1.0-2.8) 05/31/18 08:24 Carcinoembryonic Ag 2.6 ng/mL (0.1-3.0) 05/31/18 08:24 Ref Test (Refrig) 04/05/18 10:28 Blood Type A Positive 04/14/18 10:05 Antibody Screen Negative 04/14/18 10:05 Crossmatch See Detail 04/14/18 10:05 Assessment and Plan (1) Colon cancer Problem details: Desending colon adenocarcinoma, Moderately to poorly differentiated dMMR: 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 KRAS mutation: not detected BRAF [id number] mutation: detected NRAS mutation: not detected 83 year old female with colon cancer who has completed 5 cycles of chemotherapy with 5FU/Leucovorin. The pt met with surgeon Dr Kang who is recommending a colonoscopy, then based on findings of colonoscopy possible resection. In his notes he states due to the patient's obesity and large ventral hernia this would likely be an open abdominal procedure. He does feel the patient is a high risk surgical candidate. This was discussed with the patient. Today, the patient is adamantly refusing to even move forward with colonoscopy. She is quite interested in the ?immune therapy? previously discussed with Dr. Emery. In review of the pts chart Dr Emery has begun the per-auth process for keytruda. Recent echocardiogram June 09 demonstrated normal ejection fraction, no significant valvular abnormalities which is quite reassuring noting the patient has had an OH within the past year. The patient will follow up with Dr. Emery. I am not certain the next step noting the pts reluctance for colonoscopy. However, she did say we might be able to talk her into it if the colon prep was a bit more gentle. Overall patient has had quite a good response with her chemotherapy. Additionally, she has tolerated quite well. The pt will be presented at tumor board Jun 29 with both the oncologist and surgeon weighing in. I expect a more clear path after discussing at tumor board. Plan: 1. Follow up with Dr Odalys Emery , discuss at tumor board Jun 29. 2. Cont pre auth for keytruda. The pt requests we call her next week Jun 28 or to schedule f/u appointment. (2) Iron deficiency anemia due to chronic blood loss Problem details: Patient is to have iron infusion in the past. The etiology likely is related to the new diagnosis of the colon cancer. Patient has significant constipation while taking the oral iron. She has completely Venofer infusion weekly x 5. Her H/H have improved significantly. Plan: Monitor H/H and iron status with ferritin regularly Plan to repeat after her potential surgery. (3) Personal history of colon cancer, stage III Not sure the relationship with her current colon cancer diagnosis. In review of registry notes this is a new primary. Plan: No special intervention for now.
--- NOTE | 2018-07-08 14:51 | ONC.SCHED ---
KIKE [id number] [facility]
[2018-07-09 08:46] VITALS: BP 108/60; PULSE 70; RESP 18; TEMP 36.2; O2SAT 98
--- NOTE | 2018-07-09 09:26 | ONC.PN ---
PN -Subjective Interval history: 83 year old female with colon cancer presents today for evaluation of treatment with Keytruda. The patient has been doing relatively well. Patient denies any abdominal pain. Patient does have some constipation but he said there is no bloating or abdominal pain. Patient denies any diarrhea. Patient clinically seems to be doing better even without any treatment. This case was discussed at our tumor Board. Dr. Kang is on the board. And per Dr. Kang, this is not a good candidate for surgical management. In addition patient herself also vehemently against any surgeries or even colonoscopy. Oncological History: Zoe Silverman endorses a remote history of stage III colon cancer diagnosed in February 2002 with 2 or more mesenteric nodes being positive. The CEA was 18.9. Patient is status post resection followed by 6 months of leucovorin and 5 FU completed Aug 2002. She had a ?mild heart attack? in Jul 2017, and was hospitalized briefly. 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 Fecal transplant was proposed and she underwent pre-transplant C-scope on 03/11/[address] Bharti Jalloh. The colonoscopy revealed a malignant partially obstructing tumor at 47 cm proximal to the anus. There was evidence of previous surgery, distal to the current colon mass. 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 On Mar 12, 2018, CT chest, abdomen and pelvis with contrast showed findings concerning for short segment colitis of the right transverse colon versus a circumferential colon mass with surrounding mesenteric edema, multiple bilateral pulmonary nodules measuring up to 6 mm in greatest diameter. I went to radiology department and I talked with radiologist Dr. Smith and reviewed all the imaging studies. The pulmonary nodules have been present at least since December 2017. And the pulmonary nodules apparently have not changed in size, in number or in appearance. Most likely these pulmonary nodules represent granuloma changes rather than metastatic malignancy. We also looked at the liver images. There is no clear evidence of hepatic lesions or masses. Lab results from [facility] showed that the CEA level was 3.6 on March 11, 2018. CBC reviewed that the white cell count 8.4, hemoglobin 8.3, hematocrit 26.3, MCV 75.8 and platelets 371. She was started on Venofer weekly x 5 on 04/19/2018. She was started on 5FU/Leucovorin on 04/20/2018 She had completed 4 cycles of 5FU/Leucovorin. On June 04, 2018, patient underwent restaging CT scan of the chest abdomen and pelvis with contrast. CT scan showed enlarged heart. Otherwise segment of right colonic wall thickening was again demonstrated with surrounding inflammatory appearance is less conspicuous. Multiple bilateral subcentimeter pulmonary nodules are again noted may be slightly increased in size but that is within the realm slice registration artifact. - Patient Self-Reported Symptoms SR Constitution: Weight loss/gain SR ears, nose, mouth, throat issues: Cough (dry heaves) SR respiratory issues: Mucous SR Cardiovascular issues: Palpitations (before the blood tranfusion in early ), Extreme swelling, Dizzy/lightheaded SR Skin issues: Hair loss or scalp prob, Nail changes SR Gastrointestinal issues: Poor or no appetite, Constipation SR Genitourinary issues: Frequent urination, Incontinence SR Musculoskeletal issues: Cold hands or feet SR Neuro issues: Tremors or shaking SR Hematologic issues: Bleeding/bruising SR Endocrine issues: Cold intolerance, Excessive thirst - Additional ROS All systems PM: reviewed and no additional remarkable complaints except as stated Home Medications and Allergies Home Medications Medication Instructions Recorded Confirmed Type oxybutynin chloride 5 mg PO BID #0 10/13/16 06/16/18 History insulin glargine [Lantus Solostar 1 dose SQ QPM #0 11/11/17 04/19/18 History U-100 Insulin] nitroglycerin [Nitrostat] 0.4 mg SUBLINGUAL PRN PRN #0 11/11/17 04/19/18 History nystatin [Nystop] 100,000 unit TOPICAL QID #0 11/11/17 06/16/18 History cranberry 500 mg PO DAILY 01/20/18 06/16/18 History insulin lispro [Humalog KwikPen 5 units SUB-Q TID 01/20/18 06/16/18 History Insulin] aspirin 81 mg PO DAILY 03/22/18 06/16/18 History ondansetron 8 mg PO TID PRN 03/22/18 06/16/18 History vit A,C and E-lxlxeb-zltainaq 1,000 units 06/07/18 06/16/18 History [I-Mellisa] Allergies Allergy/AdvReac Type Severity Reaction Status Date / Time Sulfa (Sulfonamide Allergy Severe hives Verified 12/13/17 20:35 Antibiotics) [SULFA (SULFONAMIDE ANTIBIOTICS)] metformin Allergy Mild Diarrhea Verified 01/20/18 23:13 darifenacin [From Enablex] Allergy Unknown Verified 01/20/18 23:13 ketoconazole Allergy Unknown Verified 01/20/18 23:13 promethazine [From Phenergan] Allergy Verified 03/19/18 14:49 adhesive [ADHESIVE] AdvReac Severe tape Verified 12/13/17 20:35 causes blisters Exam Vital signs: Last Vital Signs Temp 97.2 F L 07/09/18 08:46 Pulse 70 07/09/18 08:46 Resp 18 07/09/18 08:46 BP 108/60 07/09/18 08:46 Pulse Ox 98 07/09/18 08:46 ECOG 1 Narrative: Constitutional: WDWN, obese, NAD, accompanied by her , pleasant and cooperative. HEENT: NCAT, EOMI, PERLLA, anicteric sclera. some hearing difficulty; Oral mucus membrane moist and without ulcers. Neck: Supple, symmetrical, and tracheal midline; No palpable thyromegaly and no palpable lymph nodes. Respiratory: No use of accessory muscles. Clear to auscultation, and no wheezes or rales or rubs. Cardiovascular: Regular rate and rhythm, S1 and S2 normal, no murmurs gallops or rubs. No JVD. No pitting edema of lower extremities. Abdomen: Soft, nontender, non-distended, bowel sounds normal, no palpable organomegaly, no hernia, no palpable masses. Lower extremities: No palpable pedal edema. Lymphatic: no palpable lymph nodes in the neck, axillae, or groins. Musculoskeletal: normal gait and station, no clubbing, no cyanosis, no pitting edema. Skin: no rashes, no ulcers, no petechiae Neurological: Awake and alert and oriented x3. CN II-XII grossly intact. No focal motor or sensory deficit. Psychiatric: Good judgment, good insight, normal affect, normal thought process, cooperative, no depression, no anxiety. Results - Labs Laboratory Last Values WBC 6.6 X10^3/uL (4.5-11.0) 05/31/18 08:24 RBC 4.29 X10^6/uL (4.0-5.2) 05/31/18 08:24 Hgb 11.5 g/dL (12.0-16.0) L 05/31/18 08:24 Hct 35.4 % (36-46) L 05/31/18 08:24 MCV 82.3 fL (80-100) 05/31/18 08:24 MCH 26.8 PG (26-34) 05/31/18 08:24 MCHC 32.6 % (30-36) 05/31/18 08:24 RDW 34.4 % (11.6-14.8) H 05/31/18 08:24 Plt Count 250 X10^3/uL (150-400) 05/31/18 08:24 Neut % (Auto) 48.0 % (50-75) L 05/31/18 08:24 Lymph % (Auto) 37.1 % (25-40) 05/31/18 08:24 Hartley % (Auto) 9.8 % (3-14) 05/31/18 08:24 Eos % (Auto) 3.8 % (2-4) 05/31/18 08:24 Baso % (Auto) 1.3 % (0-2) 05/31/18 08:24 Neut # (Auto) 3200 /uL (5051-8399) 05/31/18 08:24 RBC Morphology See below 05/31/18 08:24 Hypochromasia 1+ H 05/10/18 11:11 Poikilocytosis 1+ H 04/26/18 11:25 Anisocytosis 3+ H 05/31/18 08:24 Microcytosis 2+ H 05/10/18 11:11 Macrocytosis 1+ H 05/10/18 11:11 Sodium 144 mmol/L (137-145) 05/31/18 08:24 Potassium 3.7 mmol/L (3.4-5.1) 05/31/18 08:24 Chloride 104 mmol/L (98-107) 05/31/18 08:24 Carbon Dioxide 31 mmol/L (22-32) 05/31/18 08:24 BUN 13 mg/dL (7-17) 05/31/18 08:24 Creatinine 0.80 mg/dL (0.52-1.04) 05/31/18 08:24 Estimated GFR > 60.0 mL/min (>60) 05/31/18 08:24 BUN/Creatinine Ratio 16.3 (6-22) 05/31/18 08:24 Glucose 84 mg/dL (80-110) 05/31/18 08:24 Calcium 9.1 mg/dL (8.4-10.2) 05/31/18 08:24 Magnesium 1.9 mg/dL (1.6-2.3) 04/14/18 11:17 Iron 24 ug/dL (37-170) L 04/05/18 10:28 TIBC 424 ug/dL (265-497) 04/05/18 10:28 % Saturation 6 % (15-50) L 04/05/18 10:28 Transferrin 337 mg/dL (206-381) 04/05/18 10:28 Ferritin 7.0 ng/mL (11.1-264) L 04/05/18 10:28 Total Bilirubin 0.5 mg/dL (0.2-1.3) 05/31/18 08:24 AST 16 IU/L (14-36) 05/31/18 08:24 ALT 24 IU/L (9-52) 05/31/18 08:24 Alkaline Phosphatase 68 U/L (38-126) 05/31/18 08:24 Total Protein 6.4 g/dL (6.3-8.2) 05/31/18 08:24 Albumin 3.6 g/dL (3.5-5.0) 05/31/18 08:24 Globulin 2.8 g/dL (1.7-4.1) 05/31/18 08:24 Albumin/Globulin Ratio 1.3 (1.0-2.8) 05/31/18 08:24 Carcinoembryonic Ag 2.6 ng/mL (0.1-3.0) 05/31/18 08:24 Ref Test (Refrig) 04/05/18 10:28 Blood Type A Positive 04/14/18 10:05 Antibody Screen Negative 04/14/18 10:05 Crossmatch See Detail 04/14/18 10:05 Assessment and Plan (1) Colon cancer Problem details: 1. 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 KRAS mutation: not detected BRAF [id number] mutation: detected NRAS mutation: not detected 2. Status post 5FU x [address] image response. Assessment I discussed with the patient and patient's . Once again I talked with her and her that I do recommend surgical resection. However patient said that she does not want surgical resection. She does not want to do any procedures at this moment. Then I talked with her that I would proceed with scheduled immunotherapy with Keytruda. Plan: 1. Ok to proceed to Keytruda today 2. CBC, CMP, TSH today 3. RTC in 3 weeks for CBC, CMP, TSH and C2# Keytruda (2) Iron deficiency anemia due to chronic blood loss Problem details: Patient is to have iron infusion in the past. The etiology likely is related to the new diagnosis of the colon cancer. Patient has significant constipation while taking the oral iron. Assessment She has completely Venofer infusion weekly x 5. Her H/H have improved significantly. Plan: Monitor H/H and iron status with ferritin regularly Plan to repeat after her potential surgery. (3) Personal history of colon cancer, stage III Problem details: s/p surgical resection followed by 6 months of treatment with 5-FU Assessment Not sure the relationship with her current colon cancer diagnosis. In review of registry notes this is a new primary. Plan: No special intervention for now.
--- NOTE | 2018-07-09 09:30 | P.PNONC_ITS ---
PN -Subjective Interval history: 83 year old female with colon cancer presents today for evaluation of treatment with Keytruda. The patient has been doing relatively well. Patient denies any abdominal pain. Patient does have some constipation but he said there is no bloating or abdominal pain. Patient denies any diarrhea. Patient clinically seems to be doing better even without any treatment. This case was discussed at our tumor Board. Dr. Kang is on the board. And per Dr. Kang, this is not a good candidate for surgical management. In addition patient herself also vehemently against any surgeries or even colonoscopy. Oncological History: Zoe Silverman endorses a remote history of stage III colon cancer diagnosed in February 2002 with 2 or more mesenteric nodes being positive. The CEA was 18.9. Patient is status post resection followed by 6 months of leucovorin and 5 FU completed Aug 2002. She had a ?mild heart attack? in Jul 2017, and was hospitalized briefly. 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 Fecal transplant was proposed and she underwent pre-transplant C-scope on 03/11/[address] Bharti Jalloh. The colonoscopy revealed a malignant partially obstructing tumor at 47 cm proximal to the anus. There was evidence of previous surgery, distal to the current colon mass. 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 On Mar 12, 2018, CT chest, abdomen and pelvis with contrast showed findings concerning for short segment colitis of the right transverse colon versus a circumferential colon mass with surrounding mesenteric edema, multiple bilateral pulmonary nodules measuring up to 6 mm in greatest diameter. I went to radiology department and I talked with radiologist Dr. Smith and reviewed all the imaging studies. The pulmonary nodules have been present at least since December 2017. And the pulmonary nodules apparently have not changed in size, in number or in appearance. Most likely these pulmonary nodules represent granuloma changes rather than metastatic malignancy. We also looked at the liver images. There is no clear evidence of hepatic lesions or masses. Lab results from [facility] showed that the CEA level was 3.6 on March 11, 2018. CBC reviewed that the white cell count 8.4, hemoglobin 8.3, hematocrit 26.3, MCV 75.8 and platelets 371. She was started on Venofer weekly x 5 on 04/19. She was started on 5FU/Leucovorin on 04/20/2018 She had completed 4 cycles of 5FU/Leucovorin. On June 04, 2018, patient underwent restaging CT scan of the chest abdomen and pelvis with contrast. CT scan showed enlarged heart. Otherwise segment of right colonic wall thickening was again demonstrated with surrounding inflammatory appearance is less conspicuous. Multiple bilateral subcentimeter pulmonary nodules are again noted may be slightly increased in size but that is within the realm slice registration artifact. - Patient Self-Reported Symptoms SR Constitution: Weight loss/gain SR ears, nose, mouth, throat issues: Cough (dry heaves) SR respiratory issues: Mucous SR Cardiovascular issues: Palpitations (before the blood tranfusion in early ), Extreme swelling, Dizzy/lightheaded SR Skin issues: Hair loss or scalp prob, Nail changes SR Gastrointestinal issues: Poor or no appetite, Constipation SR Genitourinary issues: Frequent urination, Incontinence SR Musculoskeletal issues: Cold hands or feet SR Neuro issues: Tremors or shaking SR Hematologic issues: Bleeding/bruising SR Endocrine issues: Cold intolerance, Excessive thirst - Additional ROS All systems PM: reviewed and no additional remarkable complaints except as stated Home Medications and Allergies Home Medications Medication Instructions Recorded Confirmed Type oxybutynin chloride 5 mg PO BID #0 10/13/16 06/16/18 History insulin glargine [Lantus Solostar 1 dose SQ QPM #0 11/11/17 04/19/18 History U-100 Insulin] nitroglycerin [Nitrostat] 0.4 mg SUBLINGUAL PRN PRN #0 11/11/17 04/19/18 History nystatin [Nystop] 100,000 unit TOPICAL QID #0 11/11/17 06/16/18 History cranberry 500 mg PO DAILY 01/20/18 06/16/18 History insulin lispro [Humalog KwikPen 5 units SUB-Q TID 01/20/18 06/16/18 History Insulin] aspirin 81 mg PO DAILY 03/22/18 06/16/18 History ondansetron 8 mg PO TID PRN 03/22/18 06/16/18 History vit A,C and K-zeibrp-vhywkgzw 1,000 units 06/07/18 06/16/18 History [I-Mellisa] Allergies Allergy/AdvReac Type Severity Reaction Status Date / Time Sulfa (Sulfonamide Allergy Severe hives Verified 12/13/17 20:35 Antibiotics) [SULFA (SULFONAMIDE ANTIBIOTICS)] metformin Allergy Mild Diarrhea Verified 01/20/18 23:13 darifenacin [From Enablex] Allergy Unknown Verified 01/20/18 23:13 ketoconazole Allergy Unknown Verified 01/20/18 23:13 promethazine [From Phenergan] Allergy Verified 03/19/18 14:49 adhesive [ADHESIVE] AdvReac Severe tape Verified 12/13/17 20:35 causes blisters Exam Vital signs: Last Vital Signs Temp 97.2 F L 07/09/18 08:46 Pulse 70 07/09/18 08:46 Resp 18 07/09/18 08:46 BP 108/60 07/09/18 08:46 Pulse Ox 98 07/09/18 08:46 ECOG 1 Narrative: Constitutional: WDWN, obese, NAD, accompanied by her , pleasant and cooperative. HEENT: NCAT, EOMI, PERLLA, anicteric sclera. some hearing difficulty; Oral mucus membrane moist and without ulcers. Neck: Supple, symmetrical, and tracheal midline; No palpable thyromegaly and no palpable lymph nodes. Respiratory: No use of accessory muscles. Clear to auscultation, and no wheezes or rales or rubs. Cardiovascular: Regular rate and rhythm, S1 and S2 normal, no murmurs gallops or rubs. No JVD. No pitting edema of lower extremities. Abdomen: Soft, nontender, non-distended, bowel sounds normal, no palpable organomegaly, no hernia, no palpable masses. Lower extremities: No palpable pedal edema. Lymphatic: no palpable lymph nodes in the neck, axillae, or groins. Musculoskeletal: normal gait and station, no clubbing, no cyanosis, no pitting edema. Skin: no rashes, no ulcers, no petechiae Neurological: Awake and alert and oriented x3. CN II-XII grossly intact. No focal motor or sensory deficit. Psychiatric: Good judgment, good insight, normal affect, normal thought process , cooperative, no depression, no anxiety. Results - Labs Laboratory Last Values WBC 6.6 X10^3/uL (4.5-11.0) 05/31/18 08:24 RBC 4.29 X10^6/uL (4.0-5.2) 05/31/18 08:24 Hgb 11.5 g/dL (12.0-16.0) L 05/31/18 08:24 Hct 35.4 % (36-46) L 05/31/18 08:24 MCV 82.3 fL (80-100) 05/31/18 08:24 MCH 26.8 PG (26-34) 05/31/18 08:24 MCHC 32.6 % (30-36) 05/31/18 08:24 RDW 34.4 % (11.6-14.8) H 05/31/18 08:24 Plt Count 250 X10^3/uL (150-400) 05/31/18 08:24 Neut % (Auto) 48.0 % (50-75) L 05/31/18 08:24 Lymph % (Auto) 37.1 % (25-40) 05/31/18 08:24 Wirt % (Auto) 9.8 % (3-14) 05/31/18 08:24 Eos % (Auto) 3.8 % (2-4) 05/31/18 08:24 Baso % (Auto) 1.3 % (0-2) 05/31/18 08:24 Neut # (Auto) 3200 /uL (3260-4587) 05/31/18 08:24 RBC Morphology See below 05/31/18 08:24 Hypochromasia 1+ H 05/10/18 11:11 Poikilocytosis 1+ H 04/26/18 11:25 Anisocytosis 3+ H 05/31/18 08:24 Microcytosis 2+ H 05/10/18 11:11 Macrocytosis 1+ H 05/10/18 11:11 Sodium 144 mmol/L (137-145) 05/31/18 08:24 Potassium 3.7 mmol/L (3.4-5.1) 05/31/18 08:24 Chloride 104 mmol/L (98-107) 05/31/18 08:24 Carbon Dioxide 31 mmol/L (22-32) 05/31/18 08:24 BUN 13 mg/dL (7-17) 05/31/18 08:24 Creatinine 0.80 mg/dL (0.52-1.04) 05/31/18 08:24 Estimated GFR > 60.0 mL/min (>60) 05/31/18 08:24 BUN/Creatinine Ratio 16.3 (6-22) 05/31/18 08:24 Glucose 84 mg/dL (80-110) 05/31/18 08:24 Calcium 9.1 mg/dL (8.4-10.2) 05/31/18 08:24 Magnesium 1.9 mg/dL (1.6-2.3) 04/14/18 11:17 Iron 24 ug/dL (37-170) L 04/05/18 10:28 TIBC 424 ug/dL (265-497) 04/05/18 10:28 % Saturation 6 % (15-50) L 04/05/18 10:28 Transferrin 337 mg/dL (206-381) 04/05/18 10:28 Ferritin 7.0 ng/mL (11.1-264) L 04/05/18 10:28 Total Bilirubin 0.5 mg/dL (0.2-1.3) 05/31/18 08:24 AST 16 IU/L (14-36) 05/31/18 08:24 ALT 24 IU/L (9-52) 05/31/18 08:24 Alkaline Phosphatase 68 U/L (38-126) 05/31/18 08:24 Total Protein 6.4 g/dL (6.3-8.2) 05/31/18 08:24 Albumin 3.6 g/dL (3.5-5.0) 05/31/18 08:24 Globulin 2.8 g/dL (1.7-4.1) 05/31/18 08:24 Albumin/Globulin Ratio 1.3 (1.0-2.8) 05/31/18 08:24 Carcinoembryonic Ag 2.6 ng/mL (0.1-3.0) 05/31/18 08:24 Ref Test (Refrig) 04/05/18 10:28 Blood Type A Positive 04/14/18 10:05 Antibody Screen Negative 04/14/18 10:05 Crossmatch See Detail 04/14/18 10:05 Assessment and Plan (1) Colon cancer Problem details: 1. 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 KRAS mutation: not detected BRAF V600E mutation: detected NRAS mutation: not detected 2. Status post 5FU x [address] image response. Assessment I discussed with the patient and patient's . Once again I talked with her and her that I do recommend surgical resection. However patient said that she does not want surgical resection. She does not want to do any procedures at this moment. Then I talked with her that I would proceed with scheduled immunotherapy with Keytruda. Plan: 1. Ok to proceed to Keytruda today 2. CBC, CMP, TSH today 3. RTC in 3 weeks for CBC, CMP, TSH and C2# Keytruda (2) Iron deficiency anemia due to chronic blood loss Problem details: Patient is to have iron infusion in the past. The etiology likely is related to the new diagnosis of the colon cancer. Patient has significant constipation while taking the oral iron. Assessment She has completely Venofer infusion weekly x 5. Her H/H have improved significantly. Plan: Monitor H/H and iron status with ferritin regularly Plan to repeat after her potential surgery. (3) Personal history of colon cancer, stage III Problem details: s/p surgical resection followed by 6 months of treatment with 5 -FU Assessment Not sure the relationship with her current colon cancer diagnosis. In review of registry notes this is a new primary. Plan: No special intervention for now.
[2018-07-09] MEDS: SODIUM CHLORIDE 0.9% 100 ML 21 ML IV (10:16)
[2018-07-09] MEDS: PEMBROLIZUMAB 200 MG in SODIUM CHLORIDE 0.9% (CHEMO) 100 ML 216 ML IV (10:16)
--- NOTE | 2018-07-28 13:20 | ONC.NAV ---
Description: T/C re: Keytruda re-enrollment Activity: PRODUCT SAFETY CONSULTANT left a message for pt's dtr, Tricia, re: the need to complete new re-enrollment forms for pt, just for her info. Called pt and explained that we will have 2-forms for her to sign when she arrives for her next visit on 07/30 for her 2019 Keytruda co-pay assistance. She understood, and will plan to do this when she arrives for her visit. We will then obtain Dr. Emery's signature and fax in to [employer] Patient Assistance.
[2018-07-30 13:23] VITALS: BP 133/57; PULSE 75; RESP 18; TEMP 36.8; O2SAT 95
--- NOTE | 2018-07-30 13:27 | ONC.PN ---
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 She was deemed not a surgical candidate due to performance status. She started Keytruda on 07/09/2018. Patient said overall, she is doing probably better, definitely not worse. Patient said the main problem has been the fatigue. She said she is tired all the time. Patient denies any cough or shortness of breath, she denies any diarrhea. She does complain constipation. She is taking Dulcolax and MiraLax. She denies any fever or chills. For the last couple of days patient was having abdominal pain with some nausea. Oncological History: Ms. Morton is an 83 year old female, obse. She has a remote history of stage III colon cancer diagnosed in February 2002 with 2 or more mesenteric nodes being positive. The CEA was 18.9. Patient underwent resection followed by 6 months of leucovorin and 5 FU completed Aug 2002. She had a ?mild heart attack? in Jul 2017, and was hospitalized briefly. 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 Fecal transplant was proposed and she underwent pre-transplant C-scope on 03/11/[address] Bharti Jalloh. The colonoscopy revealed a malignant partially obstructing tumor at 47 cm proximal to the anus. There was evidence of previous surgery, distal to the current colon mass. 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 On Mar 12, 2018, CT chest, abdomen and pelvis with contrast showed findings concerning for short segment colitis of the right transverse colon versus a circumferential colon mass with surrounding mesenteric edema, multiple bilateral pulmonary nodules measuring up to 6 mm in greatest diameter. I went to radiology department and I talked with radiologist Dr. Smith and reviewed all the imaging studies. The pulmonary nodules have been present at least since December 2017. And the pulmonary nodules apparently have not changed in size, in number or in appearance. Most likely these pulmonary nodules represent granuloma changes rather than metastatic malignancy. We also looked at the liver images. There is no clear evidence of hepatic lesions or masses. Lab results from [facility] showed that the CEA level was 3.6 on March 11, 2018. CBC reviewed that the white cell count 8.4, hemoglobin 8.3, hematocrit 26.3, MCV 75.8 and platelets 371. She was started on Venofer weekly x 5 on 04/19/2018. She was started on 5FU/Leucovorin on 04/20/2018, and completed 4 cycles of 5FU/Leucovorin on 05/31/2018. Restaging CT on June 04, 2018 that showed enlarged heart. Otherwise segment of right colonic wall thickening was again demonstrated with surrounding inflammatory appearance is less conspicuous. Multiple bilateral subcentimeter pulmonary nodules are again noted may be slightly increased in size but that is within the realm slice registration artifact. The case was discussed at [facility] monthly tumor Board. And her case was deemed not a surgical candidate due to performance status. - Patient Self-Reported Symptoms SR Constitution: Fatigue/Malaise SR ears, nose, mouth, throat issues: Cough (dry heaves) SR respiratory issues: Mucous SR Cardiovascular issues: Palpitations (before the blood tranfusion in early Apr. ), Extreme swelling, Dizzy/lightheaded SR Skin issues: Hair loss or scalp prob, Nail changes SR Gastrointestinal issues: Poor or no appetite, Nausea, Vomiting, Constipation SR Genitourinary issues: Frequent urination, Incontinence SR Musculoskeletal issues: Cold hands or feet SR Neuro issues: Tremors or shaking SR Hematologic issues: Bleeding/bruising SR Endocrine issues: Cold intolerance, Excessive thirst Home Medications and Allergies Home Medications Medication Instructions Recorded Confirmed Type oxybutynin chloride 5 mg PO BID #0 10/13/16 06/16/18 History insulin glargine [Lantus Solostar 1 dose SQ QPM #0 11/11/17 04/19/18 History U-100 Insulin] nitroglycerin [Nitrostat] 0.4 mg SUBLINGUAL PRN PRN #0 11/11/17 04/19/18 History nystatin [Nystop] 100,000 unit TOPICAL QID #0 11/11/17 06/16/18 History cranberry 500 mg PO DAILY 01/20/18 06/16/18 History insulin lispro [Humalog KwikPen 5 units SUB-Q TID 01/20/18 06/16/18 History Insulin] aspirin 81 mg PO DAILY 03/22/18 06/16/18 History ondansetron 8 mg PO TID PRN 03/22/18 06/16/18 History vit A,C and W-evydmv-shzahicl 1,000 units 06/07/18 06/16/18 History [I-Mellisa] oxycodone 5 mg PO Q4-6H PRN #60 cap 07/30/18 Rx Allergies Allergy/AdvReac Type Severity Reaction Status Date / Time Sulfa (Sulfonamide Allergy Severe hives Verified 12/13/17 20:35 Antibiotics) [SULFA (SULFONAMIDE ANTIBIOTICS)] metformin Allergy Mild Diarrhea Verified 01/20/18 23:13 darifenacin [From Enablex] Allergy Unknown Verified 01/20/18 23:13 ketoconazole Allergy Unknown Verified 01/20/18 23:13 promethazine [From Phenergan] Allergy Verified 03/19/18 14:49 adhesive [ADHESIVE] AdvReac Severe tape Verified 12/13/17 20:35 causes blisters Exam Vital signs: Last Vital Signs Temp 98.3 F 07/30/18 13:23 Pulse 75 07/30/18 13:23 Resp 18 07/30/18 13:23 BP 133/57 L 07/30/18 13:23 Pulse Ox 95 07/30/18 13:23 ECOG 1 Narrative: Constitutional: WDWN, obese, NAD, accompanied by her , pleasant and cooperative. HEENT: NCAT, EOMI, PERLLA, anicteric sclera. some hearing difficulty; oral mucus membrane moist and without ulcers. Neck: Supple, symmetrical, and tracheal midline; No palpable thyromegaly and no palpable lymph nodes. Respiratory: No use of accessory muscles. Clear to auscultation, and no wheezes or rales or rubs. Cardiovascular: Regular rate and rhythm, S1 and S2 normal, no murmurs gallops or rubs. No JVD. No pitting edema of lower extremities. Abdomen: Soft, nontender, non-distended, bowel sounds normal, no palpable organomegaly, no hernia, no palpable masses. Lower extremities: No palpable pedal edema. Lymphatic: no palpable lymph nodes in the neck, axillae, or groins. Skin: no rashes, no ulcers, no petechiae Neurological: Awake and alert and oriented x3. CN II-XII grossly intact. No focal motor or sensory deficit. Psychiatric: Good judgment, good insight, normal affect, normal thought process, cooperative, no depression, no anxiety. Results - Labs Laboratory Last Values WBC 8.7 X10^3/uL (4.5-11.0) 07/30/18 13:50 RBC 4.22 X10^6/uL (4.0-5.2) 07/30/18 13:50 Hgb 13.3 g/dL (12.0-16.0) 07/30/18 13:50 Hct 39.8 % (36-46) 07/30/18 13:50 MCV 94.3 fL (80-100) 07/30/18 13:50 MCH 31.4 PG (26-34) 07/30/18 13:50 MCHC 33.3 % (30-36) 07/30/18 13:50 RDW 14.1 % (11.6-14.8) 07/30/18 13:50 Plt Count 257 X10^3/uL (150-400) 07/30/18 13:50 Neut % (Auto) 72.7 % (50-75) 07/30/18 13:50 Lymph % (Auto) 19.6 % (25-40) L 07/30/18 13:50 [place] % (Auto) 6.4 % (3-14) 07/30/18 13:50 Eos % (Auto) 0.7 % (2-4) L 07/30/18 13:50 Baso % (Auto) 0.6 % (0-2) 07/30/18 13:50 Neut # (Auto) 6300 /uL (3628-8460) 07/30/18 13:50 RBC Morphology See below 05/31/18 08:24 Hypochromasia 1+ H 05/10/18 11:11 Poikilocytosis 1+ H 04/26/18 11:25 Anisocytosis 3+ H 05/31/18 08:24 Microcytosis 2+ H 05/10/18 11:11 Macrocytosis 1+ H 05/10/18 11:11 Sodium 140 mmol/L (137-145) 07/30/18 13:50 Potassium 3.7 mmol/L (3.4-5.1) 07/30/18 13:50 Chloride 104 mmol/L (98-107) 07/30/18 13:50 Carbon Dioxide 25 mmol/L (22-32) 07/30/18 13:50 BUN 11 mg/dL (7-17) 07/30/18 13:50 Creatinine 0.70 mg/dL (0.52-1.04) 07/30/18 13:50 Estimated GFR > 60.0 mL/min (>60) 07/30/18 13:50 BUN/Creatinine Ratio 15.7 (6-22) 07/30/18 13:50 Glucose 198 mg/dL (80-110) H 07/30/18 13:50 Calcium 9.1 mg/dL (8.4-10.2) 07/30/18 13:50 Magnesium 1.9 mg/dL (1.6-2.3) 04/14/18 11:17 Iron 24 ug/dL (37-170) L 04/05/18 10:28 TIBC 424 ug/dL (265-497) 04/05/18 10:28 % Saturation 6 % (15-50) L 04/05/18 10:28 Transferrin 337 mg/dL (206-381) 04/05/18 10:28 Ferritin 7.0 ng/mL (11.1-264) L 04/05/18 10:28 Total Bilirubin 0.4 mg/dL (0.2-1.3) 07/30/18 13:50 AST 17 IU/L (14-36) 07/30/18 13:50 ALT 21 IU/L (9-52) 07/30/18 13:50 Alkaline Phosphatase 68 U/L (38-126) 07/30/18 13:50 Total Protein 6.5 g/dL (6.3-8.2) 07/30/18 13:50 Albumin 3.7 g/dL (3.5-5.0) 07/30/18 13:50 Globulin 2.8 g/dL (1.7-4.1) 07/30/18 13:50 Albumin/Globulin Ratio 1.3 (1.0-2.8) 07/30/18 13:50 Carcinoembryonic Ag 2.6 ng/mL (0.1-3.0) 05/31/18 08:24 TSH 2.58 uIU/mL (0.47-4.68) 07/30/18 13:50 Ref Test (Refrig) 04/05/18 10:28 Blood Type A Positive 04/14/18 10:05 Antibody Screen Negative 04/14/18 10:05 Crossmatch See Detail 04/14/18 10:05 Assessment and Plan (1) Colon cancer Problem details: 1. Descending colon adenocarcinoma, moderately to poorly differentiated diagnosed 03/11/2018. 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 MSI-H by PCR. BRAF V600E mutation detected. KRAS/NRAS mutations not detected 2. Status post 5FU x 4 cycles 04/20/2018 to 05/31/2018. No CT image response. 3. Pembrolizumab started 07/09/2018 Assessment Patient admitted that she is overall probably better and definitely like getting worse. Her also said that the patient clearly is doing better. And she did not have any chest pain or diarrhea. I do not think there is any evidence of immune related side effects yet. I talked with the patient that I will continue current treatment. Plan to repeat C-scope and/or CT scan after 4 treatments with keytruda. Plan: 1. Ok to proceed to cycle 2# Keytruda today 2. CBC, CMP, TSH today 3. RTC in 3 weeks for CBC, CMP, TSH, CEA and C3# Keytruda (2) Constipation Assessment and Plan: Recommended miralax 17 gram daily prn. (3) Iron deficiency anemia due to chronic blood loss Problem details: Patient is to have iron infusion in the past. The etiology likely is related to the new diagnosis of the colon cancer. Patient has significant constipation while taking the oral iron. Assessment She has completely Venofer infusion weekly x 5 completed 05/17/2018. Her H/H have improved significantly, and now normalized. Plan: Monitor H/H and iron status with ferritin regularly. IV venofer PRN. (4) Personal history of colon cancer, stage III Problem details: s/p surgical resection followed by 6 months of treatment with 5-FU Assessment Not sure the relationship with her current colon cancer diagnosis. In review of registry notes this is a new primary. Plan: No special intervention for now.
--- NOTE | 2018-07-30 13:33 | P.PNONC_ITS ---
PN -Subjective Interval history: 83 year old female with MMR deficient and [id number] positive colon cancer diagnosed 03/11/2018. She was deemed not a surgical candidate due to performance status. She started Keytruda on 07/09/2018. Patient said overall, she is doing probably better, definitely not worse. Patient said the main problem has been the fatigue. She said she is tired all the time. Patient denies any cough or shortness of breath, she denies any diarrhea. She does complain constipation. She is taking Dulcolax and MiraLax. She denies any fever or chills. For the last couple of days patient was having abdominal pain with some nausea. Oncological History: Ms. Morton is an 83 year old female, obse. She has a remote history of stage III colon cancer diagnosed in February 2002 with 2 or more mesenteric nodes being positive. The CEA was 18.9. Patient underwent resection followed by 6 months of leucovorin and 5 FU completed Aug 2002. She had a ?mild heart attack? in Jul 2017, and was hospitalized briefly. 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 Fecal transplant was proposed and she underwent pre-transplant C-scope on 03/11/[address] Bharti Jalloh. The colonoscopy revealed a malignant partially obstructing tumor at 47 cm proximal to the anus. There was evidence of previous surgery, distal to the current colon mass. 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 On Mar 12, 2018, CT chest, abdomen and pelvis with contrast showed findings concerning for short segment colitis of the right transverse colon versus a circumferential colon mass with surrounding mesenteric edema, multiple bilateral pulmonary nodules measuring up to 6 mm in greatest diameter. I went to radiology department and I talked with radiologist Dr. Smith and reviewed all the imaging studies. The pulmonary nodules have been present at least since December 2017. And the pulmonary nodules apparently have not changed in size, in number or in appearance. Most likely these pulmonary nodules represent granuloma changes rather than metastatic malignancy. We also looked at the liver images. There is no clear evidence of hepatic lesions or masses. Lab results from [facility] showed that the CEA level was 3.6 on March 11, 2018. CBC reviewed that the white cell count 8.4, hemoglobin 8.3, hematocrit 26.3, MCV 75.8 and platelets 371. She was started on Venofer weekly x 5 on 04/19. She was started on 5FU/Leucovorin on 04/20/2018, and completed 4 cycles of 5FU/ Leucovorin on 05/31/2018. Restaging CT on June 04, 2018 that showed enlarged heart. Otherwise segment of right colonic wall thickening was again demonstrated with surrounding inflammatory appearance is less conspicuous. Multiple bilateral subcentimeter pulmonary nodules are again noted may be slightly increased in size but that is within the realm slice registration artifact. The case was discussed at [facility] monthly tumor Board. And her case was deemed not a surgical candidate due to performance status. - Patient Self-Reported Symptoms SR Constitution: Fatigue/Malaise SR ears, nose, mouth, throat issues: Cough (dry heaves) SR respiratory issues: Mucous SR Cardiovascular issues: Palpitations (before the blood tranfusion in early Apr. ), Extreme swelling, Dizzy/lightheaded SR Skin issues: Hair loss or scalp prob, Nail changes SR Gastrointestinal issues: Poor or no appetite, Nausea, Vomiting, Constipation SR Genitourinary issues: Frequent urination, Incontinence SR Musculoskeletal issues: Cold hands or feet SR Neuro issues: Tremors or shaking SR Hematologic issues: Bleeding/bruising SR Endocrine issues: Cold intolerance, Excessive thirst Home Medications and Allergies Home Medications Medication Instructions Recorded Confirmed Type oxybutynin chloride 5 mg PO BID #0 10/13/16 06/16/18 History insulin glargine [Lantus Solostar 1 dose SQ QPM #0 11/11/17 04/19/18 History U-100 Insulin] nitroglycerin [Nitrostat] 0.4 mg SUBLINGUAL PRN PRN #0 11/11/17 04/19/18 History nystatin [Nystop] 100,000 unit TOPICAL QID #0 11/11/17 06/16/18 History cranberry 500 mg PO DAILY 01/20/18 06/16/18 History insulin lispro [Humalog KwikPen 5 units SUB-Q TID 01/20/18 06/16/18 History Insulin] aspirin 81 mg PO DAILY 03/22/18 06/16/18 History ondansetron 8 mg PO TID PRN 03/22/18 06/16/18 History vit A,C and E-rgjsgd-nuemfshq 1,000 units 06/07/18 06/16/18 History [I-Mellisa] oxycodone 5 mg PO Q4-6H PRN #60 cap 07/30/18 Rx Allergies Allergy/AdvReac Type Severity Reaction Status Date / Time Sulfa (Sulfonamide Allergy Severe hives Verified 12/13/17 20:35 Antibiotics) [SULFA (SULFONAMIDE ANTIBIOTICS)] metformin Allergy Mild Diarrhea Verified 01/20/18 23:13 darifenacin [From Enablex] Allergy Unknown Verified 01/20/18 23:13 ketoconazole Allergy Unknown Verified 01/20/18 23:13 promethazine [From Phenergan] Allergy Verified 03/19/18 14:49 adhesive [ADHESIVE] AdvReac Severe tape Verified 12/13/17 20:35 causes blisters Exam Vital signs: Last Vital Signs Temp 98.3 F 07/30/18 13:23 Pulse 75 07/30/18 13:23 Resp 18 07/30/18 13:23 BP 133/57 L 07/30/18 13:23 Pulse Ox 95 07/30/18 13:23 ECOG 1 Narrative: Constitutional: WDWN, obese, NAD, accompanied by her , pleasant and cooperative. HEENT: NCAT, EOMI, PERLLA, anicteric sclera. some hearing difficulty; oral mucus membrane moist and without ulcers. Neck: Supple, symmetrical, and tracheal midline; No palpable thyromegaly and no palpable lymph nodes. Respiratory: No use of accessory muscles. Clear to auscultation, and no wheezes or rales or rubs. Cardiovascular: Regular rate and rhythm, S1 and S2 normal, no murmurs gallops or rubs. No JVD. No pitting edema of lower extremities. Abdomen: Soft, nontender, non-distended, bowel sounds normal, no palpable organomegaly, no hernia, no palpable masses. Lower extremities: No palpable pedal edema. Lymphatic: no palpable lymph nodes in the neck, axillae, or groins. Skin: no rashes, no ulcers, no petechiae Neurological: Awake and alert and oriented x3. CN II-XII grossly intact. No focal motor or sensory deficit. Psychiatric: Good judgment, good insight, normal affect, normal thought process , cooperative, no depression, no anxiety. Results - Labs Laboratory Last Values WBC 8.7 X10^3/uL (4.5-11.0) 07/30/18 13:50 RBC 4.22 X10^6/uL (4.0-5.2) 07/30/18 13:50 Hgb 13.3 g/dL (12.0-16.0) 07/30/18 13:50 Hct 39.8 % (36-46) 07/30/18 13:50 MCV 94.3 fL (80-100) 07/30/18 13:50 MCH 31.4 PG (26-34) 07/30/18 13:50 MCHC 33.3 % (30-36) 07/30/18 13:50 RDW 14.1 % (11.6-14.8) 07/30/18 13:50 Plt Count 257 X10^3/uL (150-400) 07/30/18 13:50 Neut % (Auto) 72.7 % (50-75) 07/30/18 13:50 Lymph % (Auto) 19.6 % (25-40) L 07/30/18 13:50 [place] % (Auto) 6.4 % (3-14) 07/30/18 13:50 Eos % (Auto) 0.7 % (2-4) L 07/30/18 13:50 Baso % (Auto) 0.6 % (0-2) 07/30/18 13:50 Neut # (Auto) 6300 /uL (3179-5494) 07/30/18 13:50 RBC Morphology See below 05/31/18 08:24 Hypochromasia 1+ H 05/10/18 11:11 Poikilocytosis 1+ H 04/26/18 11:25 Anisocytosis 3+ H 05/31/18 08:24 Microcytosis 2+ H 05/10/18 11:11 Macrocytosis 1+ H 05/10/18 11:11 Sodium 140 mmol/L (137-145) 07/30/18 13:50 Potassium 3.7 mmol/L (3.4-5.1) 07/30/18 13:50 Chloride 104 mmol/L (98-107) 07/30/18 13:50 Carbon Dioxide 25 mmol/L (22-32) 07/30/18 13:50 BUN 11 mg/dL (7-17) 07/30/18 13:50 Creatinine 0.70 mg/dL (0.52-1.04) 07/30/18 13:50 Estimated GFR > 60.0 mL/min (>60) 07/30/18 13:50 BUN/Creatinine Ratio 15.7 (6-22) 07/30/18 13:50 Glucose 198 mg/dL (80-110) H 07/30/18 13:50 Calcium 9.1 mg/dL (8.4-10.2) 07/30/18 13:50 Magnesium 1.9 mg/dL (1.6-2.3) 04/14/18 11:17 Iron 24 ug/dL (37-170) L 04/05/18 10:28 TIBC 424 ug/dL (265-497) 04/05/18 10:28 % Saturation 6 % (15-50) L 04/05/18 10:28 Transferrin 337 mg/dL (206-381) 04/05/18 10:28 Ferritin 7.0 ng/mL (11.1-264) L 04/05/18 10:28 Total Bilirubin 0.4 mg/dL (0.2-1.3) 07/30/18 13:50 AST 17 IU/L (14-36) 07/30/18 13:50 ALT 21 IU/L (9-52) 07/30/18 13:50 Alkaline Phosphatase 68 U/L (38-126) 07/30/18 13:50 Total Protein 6.5 g/dL (6.3-8.2) 07/30/18 13:50 Albumin 3.7 g/dL (3.5-5.0) 07/30/18 13:50 Globulin 2.8 g/dL (1.7-4.1) 07/30/18 13:50 Albumin/Globulin Ratio 1.3 (1.0-2.8) 07/30/18 13:50 Carcinoembryonic Ag 2.6 ng/mL (0.1-3.0) 05/31/18 08:24 TSH 2.58 uIU/mL (0.47-4.68) 07/30/18 13:50 Ref Test (Refrig) 04/05/18 10:28 Blood Type A Positive 04/14/18 10:05 Antibody Screen Negative 04/14/18 10:05 Crossmatch See Detail 04/14/18 10:05 Assessment and Plan (1) Colon cancer Problem details: 1. Descending colon adenocarcinoma, moderately to poorly differentiated diagnosed 03/11/2018. 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 MSI-H by PCR. BRAF V600E mutation detected. KRAS/NRAS mutations not detected 2. Status post 5FU x 4 cycles 04/20/2018 to 05/31/2018. No CT image response. 3. Pembrolizumab started 07/09/2018 Assessment Patient admitted that she is overall probably better and definitely like getting worse. Her also said that the patient clearly is doing better. And she did not have any chest pain or diarrhea. I do not think there is any evidence of immune related side effects yet. I talked with the patient that I will continue current treatment. Plan to repeat C-scope and/or CT scan after 4 treatments with keytruda. Plan: 1. Ok to proceed to cycle 2# Keytruda today 2. CBC, CMP, TSH today 3. RTC in 3 weeks for CBC, CMP, TSH, CEA and C3# Keytruda (2) Constipation Assessment and Plan: Recommended miralax 17 gram daily prn. (3) Iron deficiency anemia due to chronic blood loss Problem details: Patient is to have iron infusion in the past. The etiology likely is related to the new diagnosis of the colon cancer. Patient has significant constipation while taking the oral iron. Assessment She has completely Venofer infusion weekly x 5 completed 05/17/2018. Her H/H have improved significantly, and now normalized. Plan: Monitor H/H and iron status with ferritin regularly. IV venofer PRN. (4) Personal history of colon cancer, stage III Problem details: s/p surgical resection followed by 6 months of treatment with 5 -FU Assessment Not sure the relationship with her current colon cancer diagnosis. In review of registry notes this is a new primary. Plan: No special intervention for now.
[2018-07-30 14:21] LABS: Add Manual Diff / Slide Review NO; Basophils Percent Auto 0.6 % (0-2); Eosinophils Percent Auto 0.7 % (2-4); Hematocrit 39.8 % (36-46); Hemoglobin 13.3 g/dL (12.0-16.0); Lymphocytes Percent Auto 19.6 % (25-40); Mean Corpuscular HGB Conc 33.3 % (30-36); Mean Corpuscular Hemoglobin 31.4 PG (26-34); Mean Corpuscular Volume 94.3 fL (80-100); Monocytes Percent Auto 6.4 % (3-14); Neutrophils Absolute Auto 6300 /uL (1500-7000); Neutrophils Percent Auto 72.7 % (50-75); Platelet Count 257 X10^3/uL (150-400); Red Blood Cell Count 4.22 X10^6/uL (4.0-5.2); Red Cell Distribution Width 14.1 % (11.6-14.8); White Blood Cell Count 8.7 X10^3/uL (4.5-11.0)
[2018-07-30 14:38] LABS: Alanine Aminotransferase 21 IU/L (9-52); Albumin 3.7 g/dL (3.5-5.0); Albumin Globulin Ratio 1.3 (1.0-2.8); Alkaline Phosphatase 68 U/L (38-126); Aspartate Aminotransferase 17 IU/L (14-36); BUN Creatinine Ratio 15.7 (6-22); Bilirubin Total 0.4 mg/dL (0.2-1.3); Blood Urea Nitrogen 11 mg/dL (7-17); Calcium 9.1 mg/dL (8.4-10.2); Carbon Dioxide 25 mmol/L (22-32); Chloride 104 mmol/L (98-107); Estimated Glomerular Filt Rate > 60.0 mL/min (>60); Globulin 2.8 g/dL (1.7-4.1); Glucose 198 mg/dL (80-110); HEMOLYSIS < 15 (0-50); Potassium 3.7 mmol/L (3.4-5.1); Sodium 140 mmol/L (137-145); Total Protein 6.5 g/dL (6.3-8.2)
[2018-07-30 15:08] LABS: Thyroid Stimulating Hormone 2.58 uIU/mL (0.47-4.68)
[2018-07-30] MEDS: ONDANSETRON 8 MG in SODIUM CHLORIDE 0.9% 50 ML 216 ML IV (15:22)
[2018-07-30] MEDS: PEMBROLIZUMAB 200 MG in SODIUM CHLORIDE 0.9% (CHEMO) 100 ML 216 ML IV (15:55)
--- NOTE | 2018-08-11 13:54 | ONC.NAV ---
Addendum entered and electronically signed by CHARITY Jessica 08/11/18 14:18: *Pt arrived and signed the papers as planned. This [employer] faxed them in to [employer] for eligibility renewal determination. Original Note: Description: T/C appt. reminder Activity: Called pt to find out if she is still coming in to sign the forms today for her Keyuda financial assistance. No answer, no voicemail option.
[2018-08-19 11:52] LABS: Add Manual Diff / Slide Review NO; Basophils Percent Auto 0.8 % (0-2); Eosinophils Percent Auto 3.8 % (2-4); Hematocrit 38.2 % (36-46); Hemoglobin 12.8 g/dL (12.0-16.0); Lymphocytes Percent Auto 27.5 % (25-40); Mean Corpuscular HGB Conc 33.4 % (30-36); Mean Corpuscular Hemoglobin 31.6 PG (26-34); Mean Corpuscular Volume 94.6 fL (80-100); Monocytes Percent Auto 7.2 % (3-14); Neutrophils Absolute Auto 4100 /uL (1500-7000); Neutrophils Percent Auto 60.7 % (50-75); Platelet Count 264 X10^3/uL (150-400); Red Blood Cell Count 4.04 X10^6/uL (4.0-5.2); Red Cell Distribution Width 12.9 % (11.6-14.8); White Blood Cell Count 6.7 X10^3/uL (4.5-11.0)
[2018-08-19 12:02] VITALS: BP 124/55; PULSE 52; RESP 18; TEMP 36.7; O2SAT 98
[2018-08-19 12:05] LABS: Alanine Aminotransferase 24 IU/L (9-52); Albumin 3.6 g/dL (3.5-5.0); Albumin Globulin Ratio 1.2 (1.0-2.8); Alkaline Phosphatase 58 U/L (38-126); Aspartate Aminotransferase 21 IU/L (14-36); BUN Creatinine Ratio 11.1 (6-22); Bilirubin Total 0.4 mg/dL (0.2-1.3); Blood Urea Nitrogen 10 mg/dL (7-17); Calcium 8.7 mg/dL (8.4-10.2); Carbon Dioxide 26 mmol/L (22-32); Chloride 106 mmol/L (98-107); Estimated Glomerular Filt Rate 59.9 mL/min (>60); Globulin 2.9 g/dL (1.7-4.1); Glucose 133 mg/dL (80-110); HEMOLYSIS 20 (0-50); Potassium 4.2 mmol/L (3.4-5.1); Sodium 141 mmol/L (137-145); Total Protein 6.5 g/dL (6.3-8.2)
--- NOTE | 2018-08-19 12:27 | ONC.APRN.PN ---
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 She was deemed not a surgical candidate due to performance status. She started Keytruda on 07/09/2018. Patient said overall, she is doing better. She goes on to report ongoing stress at home due to her husbands dementia, he is all over the place and I never really know what to expact.. her daughter has been helping. Still having constipation and bloating, she states I am uncomfortable. She is not taking daily bowel meds, states sometimes I take one orance pill. Also states she has tried the drink Dr Emery gave me but it didnt seem to help. When I asked if she is taking something every day for her bowels she states ?no?. Overall her fatigue is improving. She denies cough, fever, chills. No nausea. No abdominal pain. No blood is noted in her stools. No new pain. No new lumps or bumps. Appetite is excellent. Aside from the constipation patient states ?I think I am doing okay, I only wish we could do something with my . Oncological History: Ms. Morton is an 83 year old female, obse. She has a remote history of stage III colon cancer diagnosed in February 2002 with 2 or more mesenteric nodes being positive. The CEA was 18.9. Patient underwent resection followed by 6 months of leucovorin and 5 FU completed Aug 2002. She had a ?mild heart attack? in Jul 2017, and was hospitalized briefly. 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 Fecal transplant was proposed and she underwent pre-transplant C-scope on 03/11/[address] Bharti Jalloh. The colonoscopy revealed a malignant partially obstructing tumor at 47 cm proximal to the anus. There was evidence of previous surgery, distal to the current colon mass. 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 On Mar 12, 2018, CT chest, abdomen and pelvis with contrast showed findings concerning for short segment colitis of the right transverse colon versus a circumferential colon mass with surrounding mesenteric edema, multiple bilateral pulmonary nodules measuring up to 6 mm in greatest diameter. I went to radiology department and I talked with radiologist Dr. Smith and reviewed all the imaging studies. The pulmonary nodules have been present at least since December 2017. And the pulmonary nodules apparently have not changed in size, in number or in appearance. Most likely these pulmonary nodules represent granuloma changes rather than metastatic malignancy. We also looked at the liver images. There is no clear evidence of hepatic lesions or masses. Lab results from [facility] showed that the CEA level was 3.6 on March 11, 2018. CBC reviewed that the white cell count 8.4, hemoglobin 8.3, hematocrit 26.3, MCV 75.8 and platelets 371. She was started on Venofer weekly x 5 on 04/19/2018. She was started on 5FU/Leucovorin on 04/20/2018, and completed 4 cycles of 5FU/Leucovorin on 05/31/2018. Restaging CT on June 04, 2018 that showed enlarged heart. Otherwise segment of right colonic wall thickening was again demonstrated with surrounding inflammatory appearance is less conspicuous. Multiple bilateral subcentimeter pulmonary nodules are again noted may be slightly increased in size but that is within the realm slice registration artifact. The case was discussed at [facility] monthly tumor Board. And her case was deemed not a surgical candidate due to performance status. - Patient Self-Reported Symptoms SR Constitution: Weight loss/gain, Fatigue/Malaise SR ears, nose, mouth, throat issues: Cough (dry heaves) SR respiratory issues: Mucous SR Cardiovascular issues: Palpitations (before the blood tranfusion in early Apr. ), Extreme swelling, Dizzy/lightheaded SR Skin issues: Hair loss or scalp prob, Nail changes SR Gastrointestinal issues: Poor or no appetite, Nausea, Constipation, Blood in stool SR Genitourinary issues: Frequent urination, Incontinence SR Musculoskeletal issues: Cold hands or feet SR Neuro issues: Tremors or shaking SR Hematologic issues: Bleeding/bruising SR Endocrine issues: Excessive thirst Home Medications and Allergies Home Medications Medication Instructions Recorded Confirmed Type oxybutynin chloride 5 mg PO BID #0 10/13/16 06/16/18 History insulin glargine [Lantus Solostar 1 dose SQ QPM #0 11/11/17 04/19/18 History U-100 Insulin] nitroglycerin [Nitrostat] 0.4 mg SUBLINGUAL PRN PRN #0 11/11/17 04/19/18 History nystatin [Nystop] 100,000 unit TOPICAL QID #0 11/11/17 06/16/18 History insulin lispro [Humalog KwikPen 5 units SUB-Q TID 01/20/18 06/16/18 History Insulin] ondansetron 8 mg PO TID PRN 03/22/18 06/16/18 History polyethylene glycol 3350 [Miralax] 17 g PO DAILY #30 ea 08/19/18 Rx Allergies Allergy/AdvReac Type Severity Reaction Status Date / Time Sulfa (Sulfonamide Allergy Severe hives Verified 12/13/17 20:35 Antibiotics) [SULFA (SULFONAMIDE ANTIBIOTICS)] metformin Allergy Mild Diarrhea Verified 01/20/18 23:13 darifenacin [From Enablex] Allergy Unknown Verified 01/20/18 23:13 ketoconazole Allergy Unknown Verified 01/20/18 23:13 promethazine [From Phenergan] Allergy Verified 03/19/18 14:49 adhesive [ADHESIVE] AdvReac Severe tape Verified 12/13/17 20:35 causes blisters Exam - Constitutional positive no acute distress, positive obese - Routine HEENT Exam Eye: Present: conjunctivae pink. Absent: conjunctival icterus, scleral injection ENT: Present: mucous membranes moist, oropharynx clear - Routine Neck Exam Present: supple. Absent: lymphadenopathy - Routine Chest/Breast/Axilla Exam Axillae: Absent: lymphadenopathy, mass, tenderness - Routine Respiratory Exam Present: Clear to auscultation bilaterally. Absent: rales, rhonchi, wheezes - Routine Cardiovascular Exam Present: RRR, S1, S2. Absent: murmur, gallop, rubs, JVD - Routine Abdominal Exam Present: soft, normoactive bowel sounds, distended. Absent: tenderness, rebound, guarding, organomegaly Palpation/Percussion: Absent: fluid waves - Routine Extremities Exam Absent: edema - Routine Skin Exam Present: intact, normal turgor. Absent: rash - Routine Neurological Exam Present: alert, oriented X3 - Routine Psychiatric Exam Present: normal affect Results - Labs Laboratory Last Values WBC 6.7 X10^3/uL (4.5-11.0) 08/19/18 11:43 RBC 4.04 X10^6/uL (4.0-5.2) 08/19/18 11:43 Hgb 12.8 g/dL (12.0-16.0) 08/19/18 11:43 Hct 38.2 % (36-46) 08/19/18 11:43 MCV 94.6 fL (80-100) 08/19/18 11:43 MCH 31.6 PG (26-34) 08/19/18 11:43 MCHC 33.4 % (30-36) 08/19/18 11:43 RDW 12.9 % (11.6-14.8) 08/19/18 11:43 Plt Count 264 X10^3/uL (150-400) 08/19/18 11:43 Neut % (Auto) 60.7 % (50-75) 08/19/18 11:43 Lymph % (Auto) 27.5 % (25-40) 08/19/18 11:43 [place] % (Auto) 7.2 % (3-14) 08/19/18 11:43 Eos % (Auto) 3.8 % (2-4) 08/19/18 11:43 Baso % (Auto) 0.8 % (0-2) 08/19/18 11:43 Neut # (Auto) 4100 /uL (7059-7557) 08/19/18 11:43 RBC Morphology See below 05/31/18 08:24 Hypochromasia 1+ H 05/10/18 11:11 Poikilocytosis 1+ H 04/26/18 11:25 Anisocytosis 3+ H 05/31/18 08:24 Microcytosis 2+ H 05/10/18 11:11 Macrocytosis 1+ H 05/10/18 11:11 Sodium 141 mmol/L (137-145) 08/19/18 11:43 Potassium 4.2 mmol/L (3.4-5.1) 08/19/18 11:43 Chloride 106 mmol/L (98-107) 08/19/18 11:43 Carbon Dioxide 26 mmol/L (22-32) 08/19/18 11:43 BUN 10 mg/dL (7-17) 08/19/18 11:43 Creatinine 0.90 mg/dL (0.52-1.04) 08/19/18 11:43 Estimated GFR 59.9 mL/min (>60) L 08/19/18 11:43 BUN/Creatinine Ratio 11.1 (6-22) 08/19/18 11:43 Glucose 133 mg/dL (80-110) H 08/19/18 11:43 Calcium 8.7 mg/dL (8.4-10.2) 08/19/18 11:43 Magnesium 1.9 mg/dL (1.6-2.3) 04/14/18 11:17 Iron 24 ug/dL (37-170) L 04/05/18 10:28 TIBC 424 ug/dL (265-497) 04/05/18 10:28 % Saturation 6 % (15-50) L 04/05/18 10:28 Transferrin 337 mg/dL (206-381) 04/05/18 10:28 Ferritin 7.0 ng/mL (11.1-264) L 04/05/18 10:28 Total Bilirubin 0.4 mg/dL (0.2-1.3) 08/19/18 11:43 AST 21 IU/L (14-36) 08/19/18 11:43 ALT 24 IU/L (9-52) 08/19/18 11:43 Alkaline Phosphatase 58 U/L (38-126) 08/19/18 11:43 Total Protein 6.5 g/dL (6.3-8.2) 08/19/18 11:43 Albumin 3.6 g/dL (3.5-5.0) 08/19/18 11:43 Globulin 2.9 g/dL (1.7-4.1) 08/19/18 11:43 Albumin/Globulin Ratio 1.2 (1.0-2.8) 08/19/18 11:43 Carcinoembryonic Ag 2.6 ng/mL (0.1-3.0) 05/31/18 08:24 TSH 2.58 uIU/mL (0.47-4.68) 07/30/18 13:50 Ref Test (Refrig) 04/05/18 10:28 Blood Type A Positive 04/14/18 10:05 Antibody Screen Negative 04/14/18 10:05 Crossmatch See Detail 04/14/18 10:05 Assessment and Plan (1) Colon cancer Problem details: 1. Descending colon adenocarcinoma, moderately to poorly differentiated diagnosed 03/11/2018. 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 MSI-H by PCR. BRAF V600E mutation detected. KRAS/NRAS mutations not detected 2. Status post 5FU x 4 cycles 04/20/2018 to 05/31/2018. No CT image response. 3. Pembrolizumab started 07/09/2018 Assessment No evidence of immune related side effects yet. CBC and CMP are unremarkable. Green light today for Keytruda Plan to repeat C-scope and/or CT scan after 4 treatments with keytruda. Recommend scheduled routine daily Miralax, hold for loose and/or frequent stools. I provided pt with a RX with clear instructions. CEA and TSH are pending at time of dictation. Will follow. Plan: 1. Ok to proceed to cycle 3# Keytruda today 2. CBC, CMP, TSH today 3. RTC in 3 weeks for CBC, CMP, CEA and C4# Keytruda provider visit (2) Constipation Assessment and Plan: Patient is not taking any routine scheduled bowel meds. She is struggling with constipation. I have provided the patient with a prescription for MiraLax with clear instructions to take daily hold for loose and or frequent stools. (3) Iron deficiency anemia due to chronic blood loss Problem details: Patient is to have iron infusion in the past. The etiology likely is related to the new diagnosis of the colon cancer. Patient has significant constipation while taking the oral iron. Assessment She has completely Venofer infusion weekly x 5 completed 05/17/2018. Her H/H have improved significantly, and now normalized. Plan: Monitor H/H and iron status with ferritin regularly. IV venofer PRN. (4) Personal history of colon cancer, stage III Problem details: s/p surgical resection followed by 6 months of treatment with 5-FU Assessment Not sure the relationship with her current colon cancer diagnosis. In review of registry notes this is a new primary. Plan: No special intervention for now.
--- NOTE | 2018-08-19 12:32 | P.PNONC_ITS ---
PN -Subjective Interval history: 83 year old female with MMR deficient and [id number] positive colon cancer diagnosed 03/11/2018. She was deemed not a surgical candidate due to performance status. She started Keytruda on 07/09/2018. Patient said overall, she is doing better. She goes on to report ongoing stress at home due to her husbands dementia, he is all over the place and I never really know what to expact.. her daughter has been helping. Still having constipation and bloating , she states I am uncomfortable. She is not taking daily bowel meds, states sometimes I take one orance pill. Also states she has tried the drink Dr Emery gave me but it didnt seem to help. When I asked if she is taking something every day for her bowels she states ?no?. Overall her fatigue is improving. She denies cough, fever, chills. No nausea. No abdominal pain. No blood is noted in her stools. No new pain. No new lumps or bumps. Appetite is excellent. Aside from the constipation patient states ?I think I am doing okay, I only wish we could do something with my . Oncological History: Ms. Morton is an 83 year old female, obse. She has a remote history of stage III colon cancer diagnosed in February 2002 with 2 or more mesenteric nodes being positive. The CEA was 18.9. Patient underwent resection followed by 6 months of leucovorin and 5 FU completed Aug 2002. She had a ?mild heart attack? in Jul 2017, and was hospitalized briefly. 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 Fecal transplant was proposed and she underwent pre-transplant C-scope on 03/11/[address] Bharti Jalloh. The colonoscopy revealed a malignant partially obstructing tumor at 47 cm proximal to the anus. There was evidence of previous surgery, distal to the current colon mass. 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 On Mar 12, 2018, CT chest, abdomen and pelvis with contrast showed findings concerning for short segment colitis of the right transverse colon versus a circumferential colon mass with surrounding mesenteric edema, multiple bilateral pulmonary nodules measuring up to 6 mm in greatest diameter. I went to radiology department and I talked with radiologist Dr. Smith and reviewed all the imaging studies. The pulmonary nodules have been present at least since December 2017. And the pulmonary nodules apparently have not changed in size, in number or in appearance. Most likely these pulmonary nodules represent granuloma changes rather than metastatic malignancy. We also looked at the liver images. There is no clear evidence of hepatic lesions or masses. Lab results from [facility] showed that the CEA level was 3.6 on March 11, 2018. CBC reviewed that the white cell count 8.4, hemoglobin 8.3, hematocrit 26.3, MCV 75.8 and platelets 371. She was started on Venofer weekly x 5 on 04/19. She was started on 5FU/Leucovorin on 04/20/2018, and completed 4 cycles of 5FU/ Leucovorin on 05/31/2018. Restaging CT on June 04, 2018 that showed enlarged heart. Otherwise segment of right colonic wall thickening was again demonstrated with surrounding inflammatory appearance is less conspicuous. Multiple bilateral subcentimeter pulmonary nodules are again noted may be slightly increased in size but that is within the realm slice registration artifact. The case was discussed at [facility] monthly tumor Board. And her case was deemed not a surgical candidate due to performance status. - Patient Self-Reported Symptoms SR Constitution: Weight loss/gain, Fatigue/Malaise SR ears, nose, mouth, throat issues: Cough (dry heaves) SR respiratory issues: Mucous SR Cardiovascular issues: Palpitations (before the blood tranfusion in early Apr. ), Extreme swelling, Dizzy/lightheaded SR Skin issues: Hair loss or scalp prob, Nail changes SR Gastrointestinal issues: Poor or no appetite, Nausea, Constipation, Blood in stool SR Genitourinary issues: Frequent urination, Incontinence SR Musculoskeletal issues: Cold hands or feet SR Neuro issues: Tremors or shaking SR Hematologic issues: Bleeding/bruising SR Endocrine issues: Excessive thirst Home Medications and Allergies Home Medications Medication Instructions Recorded Confirmed Type oxybutynin chloride 5 mg PO BID #0 10/13/16 06/16/18 History insulin glargine [Lantus Solostar 1 dose SQ QPM #0 11/11/17 04/19/18 History U-100 Insulin] nitroglycerin [Nitrostat] 0.4 mg SUBLINGUAL PRN PRN #0 11/11/17 04/19/18 History nystatin [Nystop] 100,000 unit TOPICAL QID #0 11/11/17 06/16/18 History insulin lispro [Humalog KwikPen 5 units SUB-Q TID 01/20/18 06/16/18 History Insulin] ondansetron 8 mg PO TID PRN 03/22/18 06/16/18 History polyethylene glycol 3350 [Miralax] 17 g PO DAILY #30 ea 08/19/18 Rx Allergies Allergy/AdvReac Type Severity Reaction Status Date / Time Sulfa (Sulfonamide Allergy Severe hives Verified 12/13/17 20:35 Antibiotics) [SULFA (SULFONAMIDE ANTIBIOTICS)] metformin Allergy Mild Diarrhea Verified 01/20/18 23:13 darifenacin [From Enablex] Allergy Unknown Verified 01/20/18 23:13 ketoconazole Allergy Unknown Verified 01/20/18 23:13 promethazine [From Phenergan] Allergy Verified 03/19/18 14:49 adhesive [ADHESIVE] AdvReac Severe tape Verified 12/13/17 20:35 causes blisters Exam - Constitutional positive no acute distress, positive obese - Routine HEENT Exam Eye: Present: conjunctivae pink. Absent: conjunctival icterus, scleral injection ENT: Present: mucous membranes moist, oropharynx clear - Routine Neck Exam Present: supple. Absent: lymphadenopathy - Routine Chest/Breast/Axilla Exam Axillae: Absent: lymphadenopathy, mass, tenderness - Routine Respiratory Exam Present: Clear to auscultation bilaterally. Absent: rales, rhonchi, wheezes - Routine Cardiovascular Exam Present: RRR, S1, S2. Absent: murmur, gallop, rubs, JVD - Routine Abdominal Exam Present: soft, normoactive bowel sounds, distended. Absent: tenderness, rebound , guarding, organomegaly Palpation/Percussion: Absent: fluid waves - Routine Extremities Exam Absent: edema - Routine Skin Exam Present: intact, normal turgor. Absent: rash - Routine Neurological Exam Present: alert, oriented X3 - Routine Psychiatric Exam Present: normal affect Results - Labs Laboratory Last Values WBC 6.7 X10^3/uL (4.5-11.0) 08/19/18 11:43 RBC 4.04 X10^6/uL (4.0-5.2) 08/19/18 11:43 Hgb 12.8 g/dL (12.0-16.0) 08/19/18 11:43 Hct 38.2 % (36-46) 08/19/18 11:43 MCV 94.6 fL (80-100) 08/19/18 11:43 MCH 31.6 PG (26-34) 08/19/18 11:43 MCHC 33.4 % (30-36) 08/19/18 11:43 RDW 12.9 % (11.6-14.8) 08/19/18 11:43 Plt Count 264 X10^3/uL (150-400) 08/19/18 11:43 Neut % (Auto) 60.7 % (50-75) 08/19/18 11:43 Lymph % (Auto) 27.5 % (25-40) 08/19/18 11:43 [place] % (Auto) 7.2 % (3-14) 08/19/18 11:43 Eos % (Auto) 3.8 % (2-4) 08/19/18 11:43 Baso % (Auto) 0.8 % (0-2) 08/19/18 11:43 Neut # (Auto) 4100 /uL (2441-9695) 08/19/18 11:43 RBC Morphology See below 05/31/18 08:24 Hypochromasia 1+ H 05/10/18 11:11 Poikilocytosis 1+ H 04/26/18 11:25 Anisocytosis 3+ H 05/31/18 08:24 Microcytosis 2+ H 05/10/18 11:11 Macrocytosis 1+ H 05/10/18 11:11 Sodium 141 mmol/L (137-145) 08/19/18 11:43 Potassium 4.2 mmol/L (3.4-5.1) 08/19/18 11:43 Chloride 106 mmol/L (98-107) 08/19/18 11:43 Carbon Dioxide 26 mmol/L (22-32) 08/19/18 11:43 BUN 10 mg/dL (7-17) 08/19/18 11:43 Creatinine 0.90 mg/dL (0.52-1.04) 08/19/18 11:43 Estimated GFR 59.9 mL/min (>60) L 08/19/18 11:43 BUN/Creatinine Ratio 11.1 (6-22) 08/19/18 11:43 Glucose 133 mg/dL (80-110) H 08/19/18 11:43 Calcium 8.7 mg/dL (8.4-10.2) 08/19/18 11:43 Magnesium 1.9 mg/dL (1.6-2.3) 04/14/18 11:17 Iron 24 ug/dL (37-170) L 04/05/18 10:28 TIBC 424 ug/dL (265-497) 04/05/18 10:28 % Saturation 6 % (15-50) L 04/05/18 10:28 Transferrin 337 mg/dL (206-381) 04/05/18 10:28 Ferritin 7.0 ng/mL (11.1-264) L 04/05/18 10:28 Total Bilirubin 0.4 mg/dL (0.2-1.3) 08/19/18 11:43 AST 21 IU/L (14-36) 08/19/18 11:43 ALT 24 IU/L (9-52) 08/19/18 11:43 Alkaline Phosphatase 58 U/L (38-126) 08/19/18 11:43 Total Protein 6.5 g/dL (6.3-8.2) 08/19/18 11:43 Albumin 3.6 g/dL (3.5-5.0) 08/19/18 11:43 Globulin 2.9 g/dL (1.7-4.1) 08/19/18 11:43 Albumin/Globulin Ratio 1.2 (1.0-2.8) 08/19/18 11:43 Carcinoembryonic Ag 2.6 ng/mL (0.1-3.0) 05/31/18 08:24 TSH 2.58 uIU/mL (0.47-4.68) 07/30/18 13:50 Ref Test (Refrig) 04/05/18 10:28 Blood Type A Positive 04/14/18 10:05 Antibody Screen Negative 04/14/18 10:05 Crossmatch See Detail 04/14/18 10:05 Assessment and Plan (1) Colon cancer Problem details: 1. Descending colon adenocarcinoma, moderately to poorly differentiated diagnosed 03/11/2018. 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 MSI-H by PCR. BRAF V600E mutation detected. KRAS/NRAS mutations not detected 2. Status post 5FU x 4 cycles 04/20/2018 to 05/31/2018. No CT image response. 3. Pembrolizumab started 07/09/2018 Assessment No evidence of immune related side effects yet. CBC and CMP are unremarkable. Green light today for Keytruda Plan to repeat C-scope and/or CT scan after 4 treatments with keytruda. Recommend scheduled routine daily Miralax, hold for loose and/or frequent stools. I provided pt with a RX with clear instructions. CEA and TSH are pending at time of dictation. Will follow. Plan: 1. Ok to proceed to cycle 3# Keytruda today 2. CBC, CMP, TSH today 3. RTC in 3 weeks for CBC, CMP, CEA and C4# Keytruda provider visit (2) Constipation Assessment and Plan: Patient is not taking any routine scheduled bowel meds. She is struggling with constipation. I have provided the patient with a prescription for MiraLax with clear instructions to take daily hold for loose and or frequent stools. (3) Iron deficiency anemia due to chronic blood loss Problem details: Patient is to have iron infusion in the past. The etiology likely is related to the new diagnosis of the colon cancer. Patient has significant constipation while taking the oral iron. Assessment She has completely Venofer infusion weekly x 5 completed 05/17/2018. Her H/H have improved significantly, and now normalized. Plan: Monitor H/H and iron status with ferritin regularly. IV venofer PRN. (4) Personal history of colon cancer, stage III Problem details: s/p surgical resection followed by 6 months of treatment with 5 -FU Assessment Not sure the relationship with her current colon cancer diagnosis. In review of registry notes this is a new primary. Plan: No special intervention for now.
[2018-08-19 12:36] LABS: Carcinoembryonic Antigen 1.8 ng/mL (0.1-3.0)
[2018-08-19 12:58] LABS: Thyroid Stimulating Hormone 3.78 uIU/mL (0.47-4.68)
[2018-08-19] MEDS: PEMBROLIZUMAB 200 MG in SODIUM CHLORIDE 0.9% (CHEMO) 100 ML 216 ML IV (13:38)
[2018-08-19] MEDS: SODIUM CHLORIDE 0.9% 100 ML 21 ML IV (13:38)
--- NOTE | 2018-08-30 13:41 | ONC.NAV ---
Description: T/C-[facility] re: next delivery of Keytruda Activity: Returned call to [facility] confirming pt's next treatment date of 09/09. They will ship it out to us via UPS on 09/06.
[2018-09-09 11:37] LABS: Add Manual Diff / Slide Review NO; Basophils Absolute Auto 100 /uL (0-100); Eosinophils Absolute Auto 200 /uL (0-450); Eosinophils Percent Auto 3.5 % (2-4); Hematocrit 38.4 % (36-46); Hemoglobin 12.8 g/dL (12.0-16.0); Lymphocytes Absolute Auto 1700 /uL (1100-4500); Lymphocytes Percent Auto 27.7 % (25-40); Mean Corpuscular HGB Conc 33.2 % (30-36); Mean Corpuscular Hemoglobin 31.1 PG (26-34); Mean Corpuscular Volume 93.7 fL (80-100); Monocytes Absolute Auto 600 /uL (0-900); Monocytes Percent Auto 9.1 % (3-14); Neutrophils Absolute Auto 3700 /uL (1500-7000); Neutrophils Percent Auto 58.7 % (50-75); Platelet Count 292 X10^3/uL (150-400); Red Cell Distribution Width 12.7 % (11.6-14.8); White Blood Cell Count 6.2 X10^3/uL (4.5-11.0)
[2018-09-09 11:52] LABS: Alanine Aminotransferase 19 IU/L (9-52); Albumin 3.6 g/dL (3.5-5.0); Albumin Globulin Ratio 1.3 (1.0-2.8); Alkaline Phosphatase 59 U/L (38-126); Aspartate Aminotransferase 21 IU/L (14-36); BUN Creatinine Ratio 11.4 (6-22); Bilirubin Total 0.4 mg/dL (0.2-1.3); Blood Urea Nitrogen 8 mg/dL (7-17); Calcium 8.7 mg/dL (8.4-10.2); Carbon Dioxide 25 mmol/L (22-32); Chloride 106 mmol/L (98-107); Estimated Glomerular Filt Rate > 60.0 mL/min (>60); Globulin 2.8 g/dL (1.7-4.1); Glucose 114 mg/dL (80-110); HEMOLYSIS < 15 (0-50); Potassium 3.6 mmol/L (3.4-5.1); Sodium 140 mmol/L (137-145); Total Protein 6.4 g/dL (6.3-8.2)
--- NOTE | 2018-09-09 12:05 | ONC.PN ---
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 She was deemed not a surgical candidate due to performance status. She started Keytruda on 07/09/2018. Up until today, she has completed 3 cycles of treatment. She is here for cycle 4. Since her last treatment, she has been doing well except about 4 days ago when she had watery diarrhea x2 at night. She drove herself to our clinic today. She reports mild abdominal discomfort. She had UTI recently and completed about 10 days of cipro last weekend. Oncological History: Ms. Morton is an 83 year old female, obse. She has a remote history of stage III colon cancer diagnosed in February 2002 with 2 or more mesenteric nodes being positive. The CEA was 18.9. Patient underwent resection followed by 6 months of leucovorin and 5 FU completed Aug 2002. She had a ?mild heart attack? in Jul 2017, and was hospitalized briefly. 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 Fecal transplant was proposed and she underwent pre-transplant C-scope on 03/11/[address] Bharti Jalloh. The colonoscopy revealed a malignant partially obstructing tumor at 47 cm proximal to the anus. There was evidence of previous surgery, distal to the current colon mass. 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 On Mar 12, 2018, CT chest, abdomen and pelvis with contrast showed findings concerning for short segment colitis of the right transverse colon versus a circumferential colon mass with surrounding mesenteric edema, multiple bilateral pulmonary nodules measuring up to 6 mm in greatest diameter. I went to radiology department and I talked with radiologist Dr. Smith and reviewed all the imaging studies. The pulmonary nodules have been present at least since December 2017. And the pulmonary nodules apparently have not changed in size, in number or in appearance. Most likely these pulmonary nodules represent granuloma changes rather than metastatic malignancy. We also looked at the liver images. There is no clear evidence of hepatic lesions or masses. Lab results from [facility] showed that the CEA level was 3.6 on March 11, 2018. CBC reviewed that the white cell count 8.4, hemoglobin 8.3, hematocrit 26.3, MCV 75.8 and platelets 371. She was started on Venofer weekly x 5 on 04/19/2018. She was started on 5FU/Leucovorin on 04/20/2018, and completed 4 cycles of 5FU/Leucovorin on 05/31/2018. Restaging CT on June 04, 2018 that showed enlarged heart. Otherwise segment of right colonic wall thickening was again demonstrated with surrounding inflammatory appearance is less conspicuous. Multiple bilateral subcentimeter pulmonary nodules are again noted may be slightly increased in size but that is within the realm slice registration artifact. The case was discussed at [facility] monthly tumor Board. And her case was deemed not a surgical candidate due to performance status. - Patient Self-Reported Symptoms SR Constitution: Weight loss/gain, Fatigue/Malaise SR ears, nose, mouth, throat issues: Cough (dry heaves) SR respiratory issues: Mucous SR Cardiovascular issues: Palpitations (before the blood tranfusion in early Apr. ), Extreme swelling, Dizzy/lightheaded SR Skin issues: Hair loss or scalp prob, Nail changes SR Gastrointestinal issues: Poor or no appetite, Nausea, Constipation, Blood in stool SR Genitourinary issues: Frequent urination, Incontinence SR Musculoskeletal issues: Cold hands or feet SR Neuro issues: Tremors or shaking SR Hematologic issues: Bleeding/bruising SR Endocrine issues: Excessive thirst - Additional ROS All systems PM: reviewed and no additional remarkable complaints except as stated Home Medications and Allergies Home Medications Medication Instructions Recorded Confirmed Type oxybutynin chloride 5 mg PO BID #0 10/13/16 06/16/18 History insulin glargine [Lantus Solostar 1 dose SQ QPM #0 11/11/17 04/19/18 History U-100 Insulin] nitroglycerin [Nitrostat] 0.4 mg SUBLINGUAL PRN PRN #0 11/11/17 04/19/18 History nystatin [Nystop] 100,000 unit TOPICAL QID #0 11/11/17 06/16/18 History insulin lispro [Humalog KwikPen 5 units SUB-Q TID 01/20/18 06/16/18 History Insulin] ondansetron 8 mg PO TID PRN 03/22/18 06/16/18 History polyethylene glycol 3350 [Miralax] 17 g PO DAILY #30 ea 01/10/19 Rx atorvastatin 10 mg PO DAILY 09/09/18 09/09/18 History sertraline 50 mg PO DAILY 09/09/18 09/09/18 History Allergies Allergy/AdvReac Type Severity Reaction Status Date / Time Sulfa (Sulfonamide Allergy Severe hives Verified 12/13/17 20:35 Antibiotics) [SULFA (SULFONAMIDE ANTIBIOTICS)] metformin Allergy Mild Diarrhea Verified 01/20/18 23:13 darifenacin [From Enablex] Allergy Unknown Verified 01/20/18 23:13 ketoconazole Allergy Unknown Verified 01/20/18 23:13 promethazine [From Phenergan] Allergy Verified 03/19/18 14:49 adhesive [ADHESIVE] AdvReac Severe tape Verified 12/13/17 20:35 causes blisters Exam Vital signs: Last Vital Signs Temp 98.7 F 09/09/18 12:27 Pulse 61 09/09/18 12:27 Resp 18 09/09/18 12:27 BP 83/53 L 09/09/18 12:27 Pulse Ox 96 09/09/18 12:27 ECOG 1 Narrative: Constitutional positive no acute distress, positive obese - Routine HEENT Exam Eye: Present: conjunctivae pink. Absent: conjunctival icterus, scleral injection ENT: Present: mucous membranes moist, oropharynx clear - Routine Neck Exam Present: supple. Absent: lymphadenopathy - Routine Chest/Breast/Axilla Exam Axillae: Absent: lymphadenopathy, mass, tenderness - Routine Respiratory Exam Present: Clear to auscultation bilaterally. Absent: rales, rhonchi, wheezes - Routine Cardiovascular Exam Present: RRR, S1, S2. Absent: murmur, gallop, rubs, JVD - Routine Abdominal Exam Present: soft, normoactive bowel sounds, distended. Absent: tenderness, rebound, guarding, organomegaly Palpation/Percussion: Absent: fluid waves - Routine Extremities Exam Absent: edema - Routine Skin Exam Present: intact, normal turgor. Absent: rash - Routine Neurological Exam Present: alert, oriented X3 - Routine Psychiatric Exam Present: normal affect Results - Labs Laboratory Last Values WBC 6.2 X10^3/uL (4.5-11.0) 09/09/18 11:16 RBC 4.10 X10^6/uL (4.0-5.2) 09/09/18 11:16 Hgb 12.8 g/dL (12.0-16.0) 09/09/18 11:16 Hct 38.4 % (36-46) 09/09/18 11:16 MCV 93.7 fL (80-100) 09/09/18 11:16 MCH 31.1 PG (26-34) 09/09/18 11:16 MCHC 33.2 % (30-36) 09/09/18 11:16 RDW 12.7 % (11.6-14.8) 09/09/18 11:16 Plt Count 292 X10^3/uL (150-400) 09/09/18 11:16 Neut % (Auto) 58.7 % (50-75) 09/09/18 11:16 Lymph % (Auto) 27.7 % (25-40) 09/09/18 11:16 [place] % (Auto) 9.1 % (3-14) 09/09/18 11:16 Eos % (Auto) 3.5 % (2-4) 09/09/18 11:16 Baso % (Auto) 1.0 % (0-2) 09/09/18 11:16 Neut # (Auto) 3700 /uL (3436-5080) 09/09/18 11:16 Lymph # (Auto) 1700 /uL (8544-3531) 09/09/18 11:16 [place] # (Auto) 600 /uL (0-900) 09/09/18 11:16 Eos # (Auto) 200 /uL (0-450) 09/09/18 11:16 Baso # (Auto) 100 /uL (0-100) 09/09/18 11:16 RBC Morphology See below 05/31/18 08:24 Hypochromasia 1+ H 05/10/18 11:11 Poikilocytosis 1+ H 04/26/18 11:25 Anisocytosis 3+ H 05/31/18 08:24 Microcytosis 2+ H 05/10/18 11:11 Macrocytosis 1+ H 05/10/18 11:11 Sodium 140 mmol/L (137-145) 09/09/18 11:16 Potassium 3.6 mmol/L (3.4-5.1) 09/09/18 11:16 Chloride 106 mmol/L (98-107) 09/09/18 11:16 Carbon Dioxide 25 mmol/L (22-32) 09/09/18 11:16 BUN 8 mg/dL (7-17) 09/09/18 11:16 Creatinine 0.70 mg/dL (0.52-1.04) 09/09/18 11:16 Estimated GFR > 60.0 mL/min (>60) 09/09/18 11:16 BUN/Creatinine Ratio 11.4 (6-22) 09/09/18 11:16 Glucose 114 mg/dL (80-110) H 09/09/18 11:16 Calcium 8.7 mg/dL (8.4-10.2) 09/09/18 11:16 Magnesium 1.9 mg/dL (1.6-2.3) 04/14/18 11:17 Iron 24 ug/dL (37-170) L 04/05/18 10:28 TIBC 424 ug/dL (265-497) 04/05/18 10:28 % Saturation 6 % (15-50) L 04/05/18 10:28 Transferrin 337 mg/dL (206-381) 04/05/18 10:28 Ferritin 7.0 ng/mL (11.1-264) L 04/05/18 10:28 Total Bilirubin 0.4 mg/dL (0.2-1.3) 09/09/18 11:16 AST 21 IU/L (14-36) 09/09/18 11:16 ALT 19 IU/L (9-52) 09/09/18 11:16 Alkaline Phosphatase 59 U/L (38-126) 09/09/18 11:16 Total Protein 6.4 g/dL (6.3-8.2) 09/09/18 11:16 Albumin 3.6 g/dL (3.5-5.0) 09/09/18 11:16 Globulin 2.8 g/dL (1.7-4.1) 09/09/18 11:16 Albumin/Globulin Ratio 1.3 (1.0-2.8) 09/09/18 11:16 Carcinoembryonic Ag 1.8 ng/mL (0.1-3.0) 08/19/18 11:43 TSH 3.78 uIU/mL (0.47-4.68) D 08/19/18 11:43 Ref Test (Refrig) 04/05/18 10:28 Blood Type A Positive 04/14/18 10:05 Antibody Screen Negative 04/14/18 10:05 Crossmatch See Detail 04/14/18 10:05 Assessment and Plan (1) Colon cancer Problem details: 1. Descending colon adenocarcinoma, moderately to poorly differentiated diagnosed 03/11/2018. 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 MSI-H by PCR. BRAF V600E mutation detected. KRAS/NRAS mutations not detected 2. Status post 5FU x 4 cycles 04/20/2018 to 05/31/2018. No CT image response. 3. Pembrolizumab started 07/09/2018 Assessment He has tolerated pembrolizumab extremely well. Patient reported only 1 night of unexplained diarrhea twice. Otherwise patient reported some mild abdominal pain. No blood in the stool. Patient currently is driving herself to the clinic. Plan: 1. Ok to proceed to cycle 4# Keytruda today 2. CT CAP with contrast 3. RTC in 3 weeks for CBC, CMP, CEA, TSH, FT4, T3 and C5# Keytruda (2) Iron deficiency anemia due to chronic blood loss Problem details: Patient is to have iron infusion in the past. The etiology likely is related to the new diagnosis of the colon cancer. Patient has significant constipation while taking the oral iron. Assessment She has completely Venofer infusion weekly x 5 completed 05/17/2018. Her H/H have improved significantly, and now normalized. Plan: Monitor H/H and iron status with ferritin regularly. IV venofer PRN. (3) Personal history of colon cancer, stage III Problem details: s/p surgical resection followed by 6 months of treatment with 5-FU Assessment Not sure the relationship with her current colon cancer diagnosis. In review of registry notes this is a new primary. Plan: No special intervention for now.
--- NOTE | 2018-09-09 12:12 | P.PNONC_ITS ---
PN -Subjective Interval history: 83 year old female with MMR deficient and [id number] positive colon cancer diagnosed 03/11/2018. She was deemed not a surgical candidate due to performance status. She started Keytruda on 07/09/2018. Up until today, she has completed 3 cycles of treatment. She is here for cycle 4. Since her last treatment, she has been doing well except about 4 days ago when she had watery diarrhea x2 at night. She drove herself to our clinic today. She reports mild abdominal discomfort. She had UTI recently and completed about 10 days of cipro last weekend. Oncological History: Ms. Morton is an 83 year old female, obse. She has a remote history of stage III colon cancer diagnosed in February 2002 with 2 or more mesenteric nodes being positive. The CEA was 18.9. Patient underwent resection followed by 6 months of leucovorin and 5 FU completed Aug 2002. She had a ?mild heart attack? in Jul 2017, and was hospitalized briefly. 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 Fecal transplant was proposed and she underwent pre-transplant C-scope on 03/11/[address] Bharti Jalloh. The colonoscopy revealed a malignant partially obstructing tumor at 47 cm proximal to the anus. There was evidence of previous surgery, distal to the current colon mass. 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 On Mar 12, 2018, CT chest, abdomen and pelvis with contrast showed findings concerning for short segment colitis of the right transverse colon versus a circumferential colon mass with surrounding mesenteric edema, multiple bilateral pulmonary nodules measuring up to 6 mm in greatest diameter. I went to radiology department and I talked with radiologist Dr. Smith and reviewed all the imaging studies. The pulmonary nodules have been present at least since December 2017. And the pulmonary nodules apparently have not changed in size, in number or in appearance. Most likely these pulmonary nodules represent granuloma changes rather than metastatic malignancy. We also looked at the liver images. There is no clear evidence of hepatic lesions or masses. Lab results from [facility] showed that the CEA level was 3.6 on March 11, 2018. CBC reviewed that the white cell count 8.4, hemoglobin 8.3, hematocrit 26.3, MCV 75.8 and platelets 371. She was started on Venofer weekly x 5 on 04/19. She was started on 5FU/Leucovorin on 04/20/2018, and completed 4 cycles of 5FU/ Leucovorin on 05/31/2018. Restaging CT on June 04, 2018 that showed enlarged heart. Otherwise segment of right colonic wall thickening was again demonstrated with surrounding inflammatory appearance is less conspicuous. Multiple bilateral subcentimeter pulmonary nodules are again noted may be slightly increased in size but that is within the realm slice registration artifact. The case was discussed at [facility] monthly tumor Board. And her case was deemed not a surgical candidate due to performance status. - Patient Self-Reported Symptoms SR Constitution: Weight loss/gain, Fatigue/Malaise SR ears, nose, mouth, throat issues: Cough (dry heaves) SR respiratory issues: Mucous SR Cardiovascular issues: Palpitations (before the blood tranfusion in early Apr. ), Extreme swelling, Dizzy/lightheaded SR Skin issues: Hair loss or scalp prob, Nail changes SR Gastrointestinal issues: Poor or no appetite, Nausea, Constipation, Blood in stool SR Genitourinary issues: Frequent urination, Incontinence SR Musculoskeletal issues: Cold hands or feet SR Neuro issues: Tremors or shaking SR Hematologic issues: Bleeding/bruising SR Endocrine issues: Excessive thirst - Additional ROS All systems PM: reviewed and no additional remarkable complaints except as stated Home Medications and Allergies Home Medications Medication Instructions Recorded Confirmed Type oxybutynin chloride 5 mg PO BID #0 10/13/16 06/16/18 History insulin glargine [Lantus Solostar 1 dose SQ QPM #0 11/11/17 04/19/18 History U-100 Insulin] nitroglycerin [Nitrostat] 0.4 mg SUBLINGUAL PRN PRN #0 11/11/17 04/19/18 History nystatin [Nystop] 100,000 unit TOPICAL QID #0 11/11/17 06/16/18 History insulin lispro [Humalog KwikPen 5 units SUB-Q TID 01/20/18 06/16/18 History Insulin] ondansetron 8 mg PO TID PRN 03/22/18 06/16/18 History polyethylene glycol 3350 [Miralax] 17 g PO DAILY #30 ea 01/10/19 Rx atorvastatin 10 mg PO DAILY 09/09/18 09/09/18 History sertraline 50 mg PO DAILY 09/09/18 09/09/18 History Allergies Allergy/AdvReac Type Severity Reaction Status Date / Time Sulfa (Sulfonamide Allergy Severe hives Verified 12/13/17 20:35 Antibiotics) [SULFA (SULFONAMIDE ANTIBIOTICS)] metformin Allergy Mild Diarrhea Verified 01/20/18 23:13 darifenacin [From Enablex] Allergy Unknown Verified 01/20/18 23:13 ketoconazole Allergy Unknown Verified 01/20/18 23:13 promethazine [From Phenergan] Allergy Verified 03/19/18 14:49 adhesive [ADHESIVE] AdvReac Severe tape Verified 12/13/17 20:35 causes blisters Exam Vital signs: Last Vital Signs Temp 98.7 F 09/09/18 12:27 Pulse 61 09/09/18 12:27 Resp 18 09/09/18 12:27 BP 83/53 L 09/09/18 12:27 Pulse Ox 96 09/09/18 12:27 ECOG 1 Narrative: Constitutional positive no acute distress, positive obese - Routine HEENT Exam Eye: Present: conjunctivae pink. Absent: conjunctival icterus, scleral injection ENT: Present: mucous membranes moist, oropharynx clear - Routine Neck Exam Present: supple. Absent: lymphadenopathy - Routine Chest/Breast/Axilla Exam Axillae: Absent: lymphadenopathy, mass, tenderness - Routine Respiratory Exam Present: Clear to auscultation bilaterally. Absent: rales, rhonchi, wheezes - Routine Cardiovascular Exam Present: RRR, S1, S2. Absent: murmur, gallop, rubs, JVD - Routine Abdominal Exam Present: soft, normoactive bowel sounds, distended. Absent: tenderness, rebound , guarding, organomegaly Palpation/Percussion: Absent: fluid waves - Routine Extremities Exam Absent: edema - Routine Skin Exam Present: intact, normal turgor. Absent: rash - Routine Neurological Exam Present: alert, oriented X3 - Routine Psychiatric Exam Present: normal affect Results - Labs Laboratory Last Values WBC 6.2 X10^3/uL (4.5-11.0) 09/09/18 11:16 RBC 4.10 X10^6/uL (4.0-5.2) 09/09/18 11:16 Hgb 12.8 g/dL (12.0-16.0) 09/09/18 11:16 Hct 38.4 % (36-46) 09/09/18 11:16 MCV 93.7 fL (80-100) 09/09/18 11:16 MCH 31.1 PG (26-34) 09/09/18 11:16 MCHC 33.2 % (30-36) 09/09/18 11:16 RDW 12.7 % (11.6-14.8) 09/09/18 11:16 Plt Count 292 X10^3/uL (150-400) 09/09/18 11:16 Neut % (Auto) 58.7 % (50-75) 09/09/18 11:16 Lymph % (Auto) 27.7 % (25-40) 09/09/18 11:16 [place] % (Auto) 9.1 % (3-14) 09/09/18 11:16 Eos % (Auto) 3.5 % (2-4) 09/09/18 11:16 Baso % (Auto) 1.0 % (0-2) 09/09/18 11:16 Neut # (Auto) 3700 /uL (8111-4800) 09/09/18 11:16 Lymph # (Auto) 1700 /uL (4120-4068) 09/09/18 11:16 [place] # (Auto) 600 /uL (0-900) 09/09/18 11:16 Eos # (Auto) 200 /uL (0-450) 09/09/18 11:16 Baso # (Auto) 100 /uL (0-100) 09/09/18 11:16 RBC Morphology See below 05/31/18 08:24 Hypochromasia 1+ H 05/10/18 11:11 Poikilocytosis 1+ H 04/26/18 11:25 Anisocytosis 3+ H 05/31/18 08:24 Microcytosis 2+ H 05/10/18 11:11 Macrocytosis 1+ H 05/10/18 11:11 Sodium 140 mmol/L (137-145) 09/09/18 11:16 Potassium 3.6 mmol/L (3.4-5.1) 09/09/18 11:16 Chloride 106 mmol/L (98-107) 09/09/18 11:16 Carbon Dioxide 25 mmol/L (22-32) 09/09/18 11:16 BUN 8 mg/dL (7-17) 09/09/18 11:16 Creatinine 0.70 mg/dL (0.52-1.04) 09/09/18 11:16 Estimated GFR > 60.0 mL/min (>60) 09/09/18 11:16 BUN/Creatinine Ratio 11.4 (6-22) 09/09/18 11:16 Glucose 114 mg/dL (80-110) H 09/09/18 11:16 Calcium 8.7 mg/dL (8.4-10.2) 09/09/18 11:16 Magnesium 1.9 mg/dL (1.6-2.3) 04/14/18 11:17 Iron 24 ug/dL (37-170) L 04/05/18 10:28 TIBC 424 ug/dL (265-497) 04/05/18 10:28 % Saturation 6 % (15-50) L 04/05/18 10:28 Transferrin 337 mg/dL (206-381) 04/05/18 10:28 Ferritin 7.0 ng/mL (11.1-264) L 04/05/18 10:28 Total Bilirubin 0.4 mg/dL (0.2-1.3) 09/09/18 11:16 AST 21 IU/L (14-36) 09/09/18 11:16 ALT 19 IU/L (9-52) 09/09/18 11:16 Alkaline Phosphatase 59 U/L (38-126) 09/09/18 11:16 Total Protein 6.4 g/dL (6.3-8.2) 09/09/18 11:16 Albumin 3.6 g/dL (3.5-5.0) 09/09/18 11:16 Globulin 2.8 g/dL (1.7-4.1) 09/09/18 11:16 Albumin/Globulin Ratio 1.3 (1.0-2.8) 09/09/18 11:16 Carcinoembryonic Ag 1.8 ng/mL (0.1-3.0) 08/19/18 11:43 TSH 3.78 uIU/mL (0.47-4.68) D 08/19/18 11:43 Ref Test (Refrig) 04/05/18 10:28 Blood Type A Positive 04/14/18 10:05 Antibody Screen Negative 04/14/18 10:05 Crossmatch See Detail 04/14/18 10:05 Assessment and Plan (1) Colon cancer Problem details: 1. Descending colon adenocarcinoma, moderately to poorly differentiated diagnosed 03/11/2018. 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 MSI-H by PCR. BRAF V600E mutation detected. KRAS/NRAS mutations not detected 2. Status post 5FU x 4 cycles 04/20/2018 to 05/31/2018. No CT image response. 3. Pembrolizumab started 07/09/2018 Assessment He has tolerated pembrolizumab extremely well. Patient reported only 1 night of unexplained diarrhea twice. Otherwise patient reported some mild abdominal pain. No blood in the stool. Patient currently is driving herself to the clinic. Plan: 1. Ok to proceed to cycle 4# Keytruda today 2. CT CAP with contrast 3. RTC in 3 weeks for CBC, CMP, CEA, TSH, FT4, T3 and C5# Keytruda (2) Iron deficiency anemia due to chronic blood loss Problem details: Patient is to have iron infusion in the past. The etiology likely is related to the new diagnosis of the colon cancer. Patient has significant constipation while taking the oral iron. Assessment She has completely Venofer infusion weekly x 5 completed 05/17/2018. Her H/H have improved significantly, and now normalized. Plan: Monitor H/H and iron status with ferritin regularly. IV venofer PRN. (3) Personal history of colon cancer, stage III Problem details: s/p surgical resection followed by 6 months of treatment with 5 -FU Assessment Not sure the relationship with her current colon cancer diagnosis. In review of registry notes this is a new primary. Plan: No special intervention for now.
[2018-09-09 12:27] VITALS: BP 83/53; PULSE 61; RESP 18; TEMP 37.1; O2SAT 96
[2018-09-09] MEDS: PEMBROLIZUMAB 200 MG in SODIUM CHLORIDE 0.9% (CHEMO) 100 ML 216 ML IV (13:08)
[2018-09-09 14:45] LABS: RBC Urine None Seen (0-5/HPF)
[2018-09-09 14:56] LABS: Appearance Urine UA CLEAR; Bilirubin Urine UA NEGATIVE (NEGATIVE); Color Urine UA YELLOW; Glucose Urine UA NEGATIVE (Negative); Ketones Urine UA NEGATIVE (NEGATIVE); Leukocyte Esterase Urine UA NEGATIVE (NEGATIVE); Nitrite Urine UA NEGATIVE (Negative); Occult Blood Urine UA NEGATIVE (Negative); Protein Urine UA NEGATIVE (Negative); Specific Gravity Urine UA 1.025 (1.000-1.035); Urobilinogen Urine UA 0.2 E.U./dL (0.2)
[2018-09-09 15:14] LABS: Amorphous Sediment Urine 1+; Bacteria Urine Few (2-10); Squamous Epithelial Cell Urine 5-10 /HPF; WBC Urine 0-1/HPF (0-5/HPF)
[2018-09-09 15:15] LABS: Culture Indicated Urine Cult Not Indicated; Mucus Urine 3+ (Negative)
[2018-09-30 11:35] VITALS: BP 114/66; PULSE 74; RESP 18; TEMP 36.8; O2SAT 98
[2018-09-30 11:39] LABS: Add Manual Diff / Slide Review NO; Basophils Absolute Auto 100 /uL (0-100); Basophils Percent Auto 1.2 % (0-2); Eosinophils Absolute Auto 200 /uL (0-450); Eosinophils Percent Auto 3.2 % (2-4); Hematocrit 40.9 % (36-46); Hemoglobin 13.4 g/dL (12.0-16.0); Lymphocytes Absolute Auto 2100 /uL (1100-4500); Mean Corpuscular HGB Conc 32.7 % (30-36); Mean Corpuscular Hemoglobin 30.4 PG (26-34); Mean Corpuscular Volume 92.9 fL (80-100); Monocytes Absolute Auto 700 /uL (0-900); Monocytes Percent Auto 9.2 % (3-14); Neutrophils Absolute Auto 4200 /uL (1500-7000); Neutrophils Percent Auto 57.4 % (50-75); Platelet Count 333 X10^3/uL (150-400); Red Cell Distribution Width 12.4 % (11.6-14.8); White Blood Cell Count 7.3 X10^3/uL (4.5-11.0)
[2018-09-30 11:53] LABS: Alanine Aminotransferase 21 IU/L (9-52); Albumin 3.8 g/dL (3.5-5.0); Albumin Globulin Ratio 1.3 (1.0-2.8); Alkaline Phosphatase 66 U/L (38-126); Aspartate Aminotransferase 19 IU/L (14-36); BUN Creatinine Ratio 14.3 (6-22); Bilirubin Total 0.4 mg/dL (0.2-1.3); Blood Urea Nitrogen 10 mg/dL (7-17); Carbon Dioxide 27 mmol/L (22-32); Chloride 103 mmol/L (98-107); Estimated Glomerular Filt Rate > 60.0 mL/min (>60); Glucose 136 mg/dL (80-110); HEMOLYSIS < 15 (0-50); Potassium 4.3 mmol/L (3.4-5.1); Sodium 138 mmol/L (137-145); Total Protein 6.8 g/dL (6.3-8.2)
[2018-09-30 12:09] LABS: Free T3, Triiodothyronine Free 3.59 pg/mL (2.77-5.27); T4 Total Thyroxine 7.21 ug/dL (5.5-11.0)
[2018-09-30 12:23] LABS: Thyroid Stimulating Hormone 5.97 uIU/mL (0.47-4.68)
--- NOTE | 2018-09-30 12:25 | ONC.APRN.PN ---
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 She was deemed not a surgical candidate due to performance status. Initially treated with 4 cycles of 5FU with leucovorin followed by Keytruda with first cycle 07/09/2018. She overall has tolerated treatment exceedingly well. She has reported grade 1 nausea and diarrhea, both self limiting. Activity tolerance has been stable. Appetite has been stable as well. No cough, fever, chills. She does have a large ventral hernia which she reports is getting worse in that it is more noticeable. No associated pain. Pt reports today she is feeling just fine now eating a daily banana which helps her bowels. No acute complaints, denies cough , fever, chills, abd pain. CT scan dated 09/16/2018 demonstrates no significant changes from previous study, patient remains with stable subcentimeter bilateral pulmonary nodules. Also stable segmental right colonic wall thickening. Patient has known large ventral hernia which is again seen containing a segment of transverse colon without evidence of incarceration. These results were reviewed in detail with the patient. Oncological History: Ms. Morton is an 83 year old female, obse. She has a remote history of stage III colon cancer diagnosed in February 2002 with 2 or more mesenteric nodes being positive. The CEA was 18.9. Patient underwent resection followed by 6 months of leucovorin and 5 FU completed Aug 2002. She had a ?mild heart attack? in Jul 2017, and was hospitalized briefly. 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 Fecal transplant was proposed and she underwent pre-transplant C-scope on 03/11/[address] Bharti Jalloh. The colonoscopy revealed a malignant partially obstructing tumor at 47 cm proximal to the anus. There was evidence of previous surgery, distal to the current colon mass. 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 On Mar 12, 2018, CT chest, abdomen and pelvis with contrast showed findings concerning for short segment colitis of the right transverse colon versus a circumferential colon mass with surrounding mesenteric edema, multiple bilateral pulmonary nodules measuring up to 6 mm in greatest diameter. I went to radiology department and I talked with radiologist Dr. Smith and reviewed all the imaging studies. The pulmonary nodules have been present at least since December 2017. And the pulmonary nodules apparently have not changed in size, in number or in appearance. Most likely these pulmonary nodules represent granuloma changes rather than metastatic malignancy. We also looked at the liver images. There is no clear evidence of hepatic lesions or masses. Lab results from [facility] [place] showed that the CEA level was 3.6 on March 11, 2018. CBC reviewed that the white cell count 8.4, hemoglobin 8.3, hematocrit 26.3, MCV 75.8 and platelets 371. She was started on Venofer weekly x 5 on 04/19/2018. She was started on 5FU/Leucovorin on 04/20/2018, and completed 4 cycles of 5FU/Leucovorin on 05/31/2018. Restaging CT on June 04, 2018 that showed enlarged heart. Otherwise segment of right colonic wall thickening was again demonstrated with surrounding inflammatory appearance is less conspicuous. Multiple bilateral subcentimeter pulmonary nodules are again noted may be slightly increased in size but that is within the realm slice registration artifact. The case was discussed at [facility] monthly tumor Board. And her case was deemed not a surgical candidate due to performance status. - Patient Self-Reported Symptoms SR Constitution: Weight loss/gain, Fatigue/Malaise SR ears, nose, mouth, throat issues: Cough (dry heaves) SR respiratory issues: Mucous SR Cardiovascular issues: Palpitations (before the blood tranfusion in early Apr. ), Extreme swelling, Dizzy/lightheaded SR Skin issues: Hair loss or scalp prob, Nail changes SR Gastrointestinal issues: Poor or no appetite, Nausea, Constipation, Blood in stool SR Genitourinary issues: Frequent urination, Incontinence SR Musculoskeletal issues: Cold hands or feet SR Neuro issues: Tremors or shaking SR Hematologic issues: Bleeding/bruising SR Endocrine issues: Excessive thirst Home Medications and Allergies Home Medications Medication Instructions Recorded Confirmed Type oxybutynin chloride 5 mg PO BID #0 10/13/16 06/16/18 History insulin glargine [Lantus Solostar 1 dose SQ QPM #0 11/11/17 04/19/18 History U-100 Insulin] nitroglycerin [Nitrostat] 0.4 mg SUBLINGUAL PRN PRN #0 11/11/17 04/19/18 History nystatin [Nystop] 100,000 unit TOPICAL QID #0 11/11/17 06/16/18 History ondansetron 8 mg PO TID PRN 03/22/18 06/16/18 History polyethylene glycol 3350 [Miralax] 17 g PO DAILY #30 ea 08/19/18 Rx atorvastatin 10 mg PO DAILY 09/09/18 09/09/18 History sertraline 50 mg PO DAILY 09/09/18 09/09/18 History Allergies Allergy/AdvReac Type Severity Reaction Status Date / Time Sulfa (Sulfonamide Allergy Severe hives Verified 12/13/17 20:35 Antibiotics) [SULFA (SULFONAMIDE ANTIBIOTICS)] metformin Allergy Mild Diarrhea Verified 01/20/18 23:13 darifenacin [From Enablex] Allergy Unknown Verified 01/20/18 23:13 ketoconazole Allergy Unknown Verified 01/20/18 23:13 promethazine [From Phenergan] Allergy Verified 03/19/18 14:49 adhesive [ADHESIVE] AdvReac Severe tape Verified 12/13/17 20:35 causes blisters Exam - Constitutional positive no acute distress, positive obese - Routine HEENT Exam ENT: Present: mucous membranes moist, oropharynx clear - Routine Neck Exam Present: supple. Absent: lymphadenopathy - Routine Respiratory Exam Present: Clear to auscultation bilaterally. Absent: rales, rhonchi, wheezes - Routine Cardiovascular Exam Present: RRR, S1, S2. Absent: murmur, gallop, rubs, JVD - Routine Abdominal Exam Present: soft, normoactive bowel sounds, hernia. Absent: tenderness, distended, guarding, organomegaly Comments: obese abd w/o palpables masses, organomegaly - Routine Extremities Exam Absent: edema, calf tenderness - Routine Skin Exam Present: intact, normal turgor. Absent: rash - Routine Neurological Exam Present: alert, oriented X3 - Routine Psychiatric Exam Present: normal affect Results - Labs Laboratory Last Values WBC 7.3 X10^3/uL (4.5-11.0) 09/30/18 11:22 RBC 4.40 X10^6/uL (4.0-5.2) 09/30/18 11:22 Hgb 13.4 g/dL (12.0-16.0) 09/30/18 11:22 Hct 40.9 % (36-46) 09/30/18 11:22 MCV 92.9 fL (80-100) 09/30/18 11:22 MCH 30.4 PG (26-34) 09/30/18 11:22 MCHC 32.7 % (30-36) 09/30/18 11:22 RDW 12.4 % (11.6-14.8) 09/30/18 11:22 Plt Count 333 X10^3/uL (150-400) 09/30/18 11:22 Neut % (Auto) 57.4 % (50-75) 09/30/18 11:22 Lymph % (Auto) 29.0 % (25-40) 09/30/18 11:22 [place] % (Auto) 9.2 % (3-14) 09/30/18 11:22 Eos % (Auto) 3.2 % (2-4) 09/30/18 11:22 Baso % (Auto) 1.2 % (0-2) 09/30/18 11:22 Neut # (Auto) 4200 /uL (8623-3503) 09/30/18 11:22 Lymph # (Auto) 2100 /uL (2839-4756) 09/30/18 11:22 [place] # (Auto) 700 /uL (0-900) 09/30/18 11:22 Eos # (Auto) 200 /uL (0-450) 09/30/18 11:22 Baso # (Auto) 100 /uL (0-100) 09/30/18 11:22 RBC Morphology See below 05/31/18 08:24 Hypochromasia 1+ H 05/10/18 11:11 Poikilocytosis 1+ H 04/26/18 11:25 Anisocytosis 3+ H 05/31/18 08:24 Microcytosis 2+ H 05/10/18 11:11 Macrocytosis 1+ H 05/10/18 11:11 Sodium 138 mmol/L (137-145) 09/30/18 11:22 Potassium 4.3 mmol/L (3.4-5.1) 09/30/18 11:22 Chloride 103 mmol/L (98-107) 09/30/18 11:22 Carbon Dioxide 27 mmol/L (22-32) 09/30/18 11:22 BUN 10 mg/dL (7-17) 09/30/18 11:22 Creatinine 0.70 mg/dL (0.52-1.04) 09/30/18 11:22 Estimated GFR > 60.0 mL/min (>60) 09/30/18 11:22 BUN/Creatinine Ratio 14.3 (6-22) 09/30/18 11:22 Glucose 136 mg/dL (80-110) H 09/30/18 11:22 Calcium 9.0 mg/dL (8.4-10.2) 09/30/18 11:22 Magnesium 1.9 mg/dL (1.6-2.3) 04/14/18 11:17 Iron 24 ug/dL (37-170) L 04/05/18 10:28 TIBC 424 ug/dL (265-497) 04/05/18 10:28 % Saturation 6 % (15-50) L 04/05/18 10:28 Transferrin 337 mg/dL (206-381) 04/05/18 10:28 Ferritin 7.0 ng/mL (11.1-264) L 04/05/18 10:28 Total Bilirubin 0.4 mg/dL (0.2-1.3) 09/30/18 11:22 AST 19 IU/L (14-36) 09/30/18 11:22 ALT 21 IU/L (9-52) 09/30/18 11:22 Alkaline Phosphatase 66 U/L (38-126) 09/30/18 11:22 Total Protein 6.8 g/dL (6.3-8.2) 09/30/18 11:22 Albumin 3.8 g/dL (3.5-5.0) 09/30/18 11:22 Globulin 3.0 g/dL (1.7-4.1) 09/30/18 11:22 Albumin/Globulin Ratio 1.3 (1.0-2.8) 09/30/18 11:22 Carcinoembryonic Ag 2.0 ng/mL (0.1-3.0) 09/30/18 11:22 TSH 5.97 uIU/mL (0.47-4.68) H 09/30/18 11:23 Thyroxine (T4) 7.21 ug/dL (5.5-11.0) 09/30/18 11:23 Free T3 3.59 pg/mL (2.77-5.27) 09/30/18 11:23 Urine Color Yellow 09/09/18 14:45 Urine Appearance Clear 09/09/18 14:45 Urine pH 5.0 (4.5-8.0) 09/09/18 14:45 Ur Specific [place] 1.025 (1.000-1.035) 09/09/18 14:45 Urine Protein Negative (Negative) 09/09/18 14:45 Urine Glucose (UA) Negative g/dL (Negative) 09/09/18 14:45 Urine Ketones Negative (NEGATIVE) 09/09/18 14:45 Urine Occult Blood Negative (Negative) 09/09/18 14:45 Urine Nitrate Negative (Negative) 09/09/18 14:45 Urine Bilirubin Negative (NEGATIVE) 09/09/18 14:45 Urine Urobilinogen 0.2 E.U./dL (0.2) 09/09/18 14:45 Ur Leukocyte Esterase Negative (NEGATIVE) 09/09/18 14:45 Urine RBC None seen (0-5/HPF) 09/09/18 14:45 Urine WBC 0-1/hpf (0-5/HPF) 09/09/18 14:45 Ur Squamous Epith Cells 5-10 /hpf H 09/09/18 14:45 Amorphous Sediment 1+ 09/09/18 14:45 Urine Bacteria Few (2-10) (None) H 09/09/18 14:45 Urine Mucus 3+ (Negative) H D 09/09/18 14:45 Ur Culture Indicated? Cult not indicated 09/09/18 14:45 Ref Test (Refrig) 04/05/18 10:28 Blood Type A Positive 04/14/18 10:05 Antibody Screen Negative 04/14/18 10:05 Crossmatch See Detail 04/14/18 10:05 Assessment and Plan (1) Colon cancer Problem details: 1. Descending colon adenocarcinoma, moderately to poorly differentiated diagnosed 03/11/2018. 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 MSI-H by PCR. BRAF V600E mutation detected. KRAS/NRAS mutations not detected 2. Status post 5FU x 4 cycles 04/20/2018 to 05/31/2018. No CT image response. 3. Pembrolizumab started 07/09/2018 Assessment 83 year old female with MMR deficient and [id number] positive colon cancer diagnosed 03/11/2018. She was deemed not a surgical candidate due to performance status. Initially treated with 4 cycles of 5FU with leucovorin followed by Keytruda with first cycle 07/09/2018 which she has been tolerating quite well. Per pt reports bowels are normal if she eats a daily banana. NO fever or chills. No cough. We reviewed CT scan of chest abdomen pelvis dated September 16, 2018 which was without evidence of new or distant disease. Previously identified bilateral pulmonary nodules are stable, unchanged. I discussed with the patient we will likely repeat another CT scan in approximately 3 or 4 months if this remains stable will likely then repeat in 6 months. Plan: 1. Ok to proceed to cycle 5# Keytruda today (TSH pending at time of dictation, will follow) 2. RTC in 3 weeks for CBC, CMP, CEA, and C6# Keytruda also visit with Dr Emery (2) Iron deficiency anemia due to chronic blood loss Problem details: Patient is to have iron infusion in the past. The etiology likely is related to the new diagnosis of the colon cancer. Patient has significant constipation while taking the oral iron. Assessment She has completely Venofer infusion weekly x 5 completed 05/17/2018. Her H/H have improved significantly, and now normalized. Plan: Monitor H/H and iron status with ferritin regularly. IV venofer PRN. (3) Personal history of colon cancer, stage III Problem details: s/p surgical resection followed by 6 months of treatment with 5-FU Assessment Not sure the relationship with her current colon cancer diagnosis. In review of registry notes this is a new primary. Plan: No special intervention for now.
[2018-09-30] MEDS: SODIUM CHLORIDE 0.9% 100 ML 21 ML IV (12:32)
[2018-09-30] MEDS: PEMBROLIZUMAB 200 MG in SODIUM CHLORIDE 0.9% (CHEMO) 100 ML 216 ML IV (13:10)
--- NOTE | 2018-10-25 10:39 | P.PNONC_ITS ---
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 She is not on immunotherapy with embolism ab. Patient came in here today by herself. She said she drove herself here without any difficulties. Clinically patient reported that she has had not on and off constipation. She denies any diarrhea. She denies any shortness of breath. However she does report occasional left chest pain which is mild and lasts about 10 min. She has history of heart disease. She has not had appointment to see her heart doctor yet. Oncological History: Ms. Morton is an 83 year old female, obse. She has a remote history of stage III colon cancer diagnosed in February 2002 with 2 or more mesenteric nodes being positive. The CEA was 18.9. Patient underwent resection followed by 6 months of leucovorin and 5 FU completed Aug 2002. She had a ?mild heart attack? in Jul 2017, and was hospitalized briefly. 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 Fecal transplant was proposed and she underwent pre-transplant C-scope on 03/11/[address] Ree Jalloh. The colonoscopy revealed a malignant partially obstructing tumor at 47 cm proximal to the anus. There was evidence of previous surgery, distal to the current colon mass. 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 On Mar 12, 2018, CT chest, abdomen and pelvis with contrast showed findings concerning for short segment colitis of the right transverse colon versus a circumferential colon mass with surrounding mesenteric edema, multiple bilateral pulmonary nodules measuring up to 6 mm in greatest diameter. I went to radiology department and I talked with radiologist Dr. Smith and reviewed all the imaging studies. The pulmonary nodules have been present at least since December 2017. And the pulmonary nodules apparently have not changed in size, in number or in appearance. Most likely these pulmonary nodules represent granuloma changes rather than metastatic malignancy. We also looked at the liver images. There is no clear evidence of hepatic lesions or masses. Lab results from [facility], [place] showed that the CEA level was 3.6 on March 11, 2018. CBC reviewed that the white cell count 8.4, hemoglobin 8.3, hematocrit 26.3, MCV 75.8 and platelets 371. She was started on Venofer weekly x 5 on 04/19/2018. She was started on 5FU/Leucovorin on 04/20/2018, and completed 4 cycles of 5FU/Leucovorin on 05/31/2018. Restaging CT on June 04, 2018 that showed enlarged heart. Otherwise segment of right colonic wall thickening was again demonstrated with surrounding inflammatory appearance is less conspicuous. Multiple bilateral subcentimeter pulmonary nodules are again noted may be slightly increased in size but that is within the realm slice registration artifact. The case was discussed at [facility] monthly tumor Board. And her case was deemed not a surgical candidate due to performance status. Then, on 07/09/2018, 5FU was stopped and she was started on Keytruda with first cycle 07/09/2018. After 4 cycles, CT scan dated 09/16/2018 demonstrates no significant changes from previous study, patient remains with stable subcentimeter bilateral pulmonary nodules. Also stable segmental right colonic wall thickening. Patient has known large ventral hernia which is again seen containing a segment of transverse colon without evidence of incarceration. These results were reviewed in detail with the patient. - Patient Self-Reported Symptoms SR Constitution: Weight loss/gain, Fatigue/Malaise SR ears, nose, mouth, throat issues: Cough (dry heaves) SR respiratory issues: Mucous SR Cardiovascular issues: Palpitations (before the blood tranfusion in early Apr. ), Extreme swelling, Dizzy/lightheaded SR Skin issues: Hair loss or scalp prob, Nail changes SR Gastrointestinal issues: Poor or no appetite, Nausea, Constipation, Blood in stool SR Genitourinary issues: Frequent urination, Incontinence SR Musculoskeletal issues: Cold hands or feet SR Neuro issues: Tremors or shaking SR Hematologic issues: Bleeding/bruising SR Endocrine issues: Excessive thirst - Additional ROS All systems PM: reviewed and no additional remarkable complaints except as stated Home Medications and Allergies Home Medications Medication Instructions Recorded Confirmed Type oxybutynin chloride 5 mg PO BID #0 10/13/16 10/25/18 History Lantus Solostar U-100 Insulin 1 dose SQ QPM #0 11/11/17 10/25/18 History nitroglycerin [Nitrostat] 0.4 mg SUBLINGUAL PRN PRN #0 11/11/17 10/25/18 History nystatin [Nystop] 100,000 unit TOPICAL QID #0 04/04/18 03/18/19 History ondansetron 8 mg PO TID PRN 03/22/18 10/25/18 History polyethylene glycol 3350 [Miralax] 17 g PO DAILY #30 ea 08/19/18 10/25/18 Rx atorvastatin 10 mg PO DAILY 09/09/18 10/25/18 History sertraline 50 mg PO DAILY 09/09/18 10/25/18 History Allergies Allergy/AdvReac Type Severity Reaction Status Date / Time Sulfa (Sulfonamide Allergy Severe hives Verified 12/13/17 20:35 Antibiotics) [SULFA (SULFONAMIDE ANTIBIOTICS)] metformin Allergy Mild Diarrhea Verified 01/20/18 23:13 darifenacin [From Enablex] Allergy Unknown Verified 01/20/18 23:13 ketoconazole Allergy Unknown Verified 01/20/18 23:13 promethazine [From Phenergan] Allergy Verified 03/19/18 14:49 adhesive [ADHESIVE] AdvReac Severe tape Verified 12/13/17 20:35 causes blisters Exam Vital signs: Last Vital Signs Temp 97.6 F 10/25/18 10:43 Pulse 53 L 10/25/18 10:43 Resp 16 10/25/18 10:43 BP 131/56 L 10/25/18 10:43 Pulse Ox 95 10/25/18 10:43 ECOG 1 Narrative: Constitutional: WDWN, NAD, well groomed, pleasant and cooperative, obese. HEENT: NCAT, EOMI, PERRLA, anicteric sclera. Neck: Supple, No palpable thyromegaly or lymphadenopathy. Respiratory: Clear to auscultation, and no wheezes or rales or rubs. Cardiovascular: RRR, S1 and S2 normal, no M/G/R. No JVD. Abdomen: Soft, NTND, BS normal, no palpable organomegaly, hernia noted, no palpable masses. Extremities: No LE pitting edema. Musculoskeletal: normal gait and station, slow and is using walker Skin: no rashes, no ulcers, no petechiae Neurological: AOx3, CN II-XII grossly intact. No focal motor or sensory deficit. Psychiatric: Good judgment and insight; normal affect; normal thought process; cooperative, no depression, no anxiety. Results - Labs Laboratory Last Values WBC 7.9 X10^3/uL (4.5-11.0) 10/25/18 10:41 RBC 4.26 X10^6/uL (4.0-5.2) 10/25/18 10:41 Hgb 12.5 g/dL (12.0-16.0) 10/25/18 10:41 Hct 38.6 % (36-46) 10/25/18 10:41 MCV 90.6 fL (80-100) 10/25/18 10:41 MCH 29.4 PG (26-34) 10/25/18 10:41 MCHC 32.4 % (30-36) 10/25/18 10:41 RDW 12.7 % (11.6-14.8) 10/25/18 10:41 Plt Count 324 X10^3/uL (150-400) 10/25/18 10:41 Neut % (Auto) 63.4 % (50-75) 10/25/18 10:41 Lymph % (Auto) 26.1 % (25-40) 10/25/18 10:41 [place] % (Auto) 6.9 % (3-14) 10/25/18 10:41 Eos % (Auto) 2.7 % (2-4) 10/25/18 10:41 Baso % (Auto) 0.9 % (0-2) 10/25/18 10:41 Neut # (Auto) 5000 /uL (9038-1239) 10/25/18 10:41 Lymph # (Auto) 2100 /uL (4023-1455) 10/25/18 10:41 [place] # (Auto) 500 /uL (0-900) 10/25/18 10:41 Eos # (Auto) 200 /uL (0-450) 10/25/18 10:41 Baso # (Auto) 100 /uL (0-100) 10/25/18 10:41 RBC Morphology See below 05/31/18 08:24 Hypochromasia 1+ H 05/10/18 11:11 Poikilocytosis 1+ H 04/26/18 11:25 Anisocytosis 3+ H 05/31/18 08:24 Microcytosis 2+ H 05/10/18 11:11 Macrocytosis 1+ H 05/10/18 11:11 Sodium 139 mmol/L (137-145) 10/25/18 10:41 Potassium 4.1 mmol/L (3.4-5.1) 10/25/18 10:41 Chloride 101 mmol/L (98-107) 10/25/18 10:41 Carbon Dioxide 27 mmol/L (22-32) 10/25/18 10:41 BUN 11 mg/dL (7-17) 10/25/18 10:41 Creatinine 0.60 mg/dL (0.52-1.04) 10/25/18 10:41 Estimated GFR > 60.0 mL/min (>60) 10/25/18 10:41 BUN/Creatinine Ratio 18.3 (6-22) 10/25/18 10:41 Glucose 146 mg/dL (80-110) H 10/25/18 10:41 Calcium 8.6 mg/dL (8.4-10.2) 10/25/18 10:41 Magnesium 1.9 mg/dL (1.6-2.3) 04/14/18 11:17 Iron 24 ug/dL (37-170) L 04/05/18 10:28 TIBC 424 ug/dL (265-497) 04/05/18 10:28 % Saturation 6 % (15-50) L 04/05/18 10:28 Transferrin 337 mg/dL (206-381) 04/05/18 10:28 Ferritin 7.0 ng/mL (11.1-264) L 04/05/18 10:28 Total Bilirubin 0.4 mg/dL (0.2-1.3) 10/25/18 10:41 AST 20 IU/L (14-36) 10/25/18 10:41 ALT 19 IU/L (9-52) 10/25/18 10:41 Alkaline Phosphatase 66 U/L (38-126) 10/25/18 10:41 Total Protein 6.4 g/dL (6.3-8.2) 10/25/18 10:41 Albumin 3.4 g/dL (3.5-5.0) L 10/25/18 10:41 Globulin 3.0 g/dL (1.7-4.1) 10/25/18 10:41 Albumin/Globulin Ratio 1.1 (1.0-2.8) 10/25/18 10:41 Carcinoembryonic Ag 2.0 ng/mL (0.1-3.0) 09/30/18 11:22 TSH 5.97 uIU/mL (0.47-4.68) H 09/30/18 11:23 Thyroxine (T4) 7.21 ug/dL (5.5-11.0) 09/30/18 11:23 Free T3 3.59 pg/mL (2.77-5.27) 09/30/18 11:23 Urine Color Yellow 09/09/18 14:45 Urine Appearance Clear 09/09/18 14:45 Urine pH 5.0 (4.5-8.0) 09/09/18 14:45 Ur Specific [place] 1.025 (1.000-1.035) 09/09/18 14:45 Urine Protein Negative (Negative) 09/09/18 14:45 Urine Glucose (UA) Negative g/dL (Negative) 09/09/18 14:45 Urine Ketones Negative (NEGATIVE) 09/09/18 14:45 Urine Occult Blood Negative (Negative) 09/09/18 14:45 Urine Nitrate Negative (Negative) 09/09/18 14:45 Urine Bilirubin Negative (NEGATIVE) 09/09/18 14:45 Urine Urobilinogen 0.2 E.U./dL (0.2) 09/09/18 14:45 Ur Leukocyte Esterase Negative (NEGATIVE) 09/09/18 14:45 Urine RBC None seen (0-5/HPF) 09/09/18 14:45 Urine WBC 0-1/hpf (0-5/HPF) 09/09/18 14:45 Ur Squamous Epith Cells 5-10 /hpf H 09/09/18 14:45 Amorphous Sediment 1+ 09/09/18 14:45 Urine Bacteria Few (2-10) (None) H 09/09/18 14:45 Urine Mucus 3+ (Negative) H D 09/09/18 14:45 Ur Culture Indicated? Cult not indicated 09/09/18 14:45 Ref Test (Refrig) 04/05/18 10:28 Blood Type A Positive 04/14/18 10:05 Antibody Screen Negative 04/14/18 10:05 Crossmatch See Detail 04/14/18 10:05 Assessment and Plan (1) Colon cancer Problem details: 1. Descending colon adenocarcinoma, moderately to poorly differentiated diagnosed 03/11/2018. 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 MSI-H by PCR. BRAF V600E mutation detected. KRAS/NRAS mutations not detected 2. Status post 5FU x 4 cycles 04/20/2018 to 05/31/2018. No CT image response. 3. Pembrolizumab started 07/09/2018 Assessment 83 year old female with MMR deficient and [id number] positive colon cancer diagnosed 03/11/2018. She was deemed not a surgical candidate due to performance status. Initially treated with 4 cycles of 5FU with leucovorin followed by Keytruda with first cycle 07/09/2018 which she has been tolerating quite well. Clinically, patient is having mild constipation. No diarrhea. I talked with the patient today in depth about the necessity of obtaining a repeat colonoscopy. Previously she had a colonoscopy in March of [address] Ree Jalloh at [facility], [place]. I told her that I can refer her back to Dr. Ree Shea for a repeat colonoscopy. I talked with all that this is the best since Dr. Ree Jalloh performed the initial colonoscopy. However patient is adamant that she [facility] not [facility]. Next I talked with her to referred to [facility] surgeons for consideration of colonoscopy. However patient does not want to get the scope done in here. Lastly I talked with her that I can refer her to the food service driver in [facility] for evaluation of possible colonoscopy. Patient voiced understanding. She said her daughter can drive her to [facility]. Plan: 1. Ok to proceed to cycle 6# Keytruda today 2. Referral to [facility] for repeat C-scope 2. RTC in 3 weeks for CBC, CMP, CEA, TSH and C7# Keytruda (2) Iron deficiency anemia due to chronic blood loss Problem details: Patient is to have iron infusion in the past. The etiology likely is related to the new diagnosis of the colon cancer. Patient has significant constipation while taking the oral iron. Assessment She has completely Venofer infusion weekly x 5 completed 05/17/2018. Her H/H have improved significantly, and now normalized. Plan: Monitor H/H and iron status with ferritin regularly. IV venofer PRN. (3) Personal history of colon cancer, stage III Problem details: s/p surgical resection followed by 6 months of treatment with 5-FU Assessment Not sure the relationship with her current colon cancer diagnosis. In review of registry notes this is a new primary. Plan: No special intervention for now. (4) High serum thyroid stimulating hormone (TSH) Assessment and plan: Patient has a borderline increased TSH level during her previous visit in September 2018. I will add on a TSH test to today's blood drawn. Will follow up on the results. I am suspicious that patient may be developing immune related thyroiditis after the treatment with Pembrolizumab (5) Chest pain Assessment and Plan: Patient has a occasional mild left-sided chest pain which resolves by itself. Patient has history of heart disease in the past. I talked with the patient to make sure to follow up with her aerospace engineer officer armament. Patient voiced understanding and intention to comply. At present, patient does not have chest pain.
[2018-10-25 10:43] VITALS: BP 131/56; PULSE 53; RESP 16; TEMP 36.4; O2SAT 95
[2018-10-25 10:50] LABS: Add Manual Diff / Slide Review NO; Basophils Absolute Auto 100 /uL (0-100); Basophils Percent Auto 0.9 % (0-2); Eosinophils Absolute Auto 200 /uL (0-450); Eosinophils Percent Auto 2.7 % (2-4); Hematocrit 38.6 % (36-46); Hemoglobin 12.5 g/dL (12.0-16.0); Lymphocytes Absolute Auto 2100 /uL (1100-4500); Lymphocytes Percent Auto 26.1 % (25-40); Mean Corpuscular HGB Conc 32.4 % (30-36); Mean Corpuscular Hemoglobin 29.4 PG (26-34); Mean Corpuscular Volume 90.6 fL (80-100); Monocytes Absolute Auto 500 /uL (0-900); Monocytes Percent Auto 6.9 % (3-14); Neutrophils Absolute Auto 5000 /uL (1500-7000); Neutrophils Percent Auto 63.4 % (50-75); Platelet Count 324 X10^3/uL (150-400); Red Blood Cell Count 4.26 X10^6/uL (4.0-5.2); Red Cell Distribution Width 12.7 % (11.6-14.8); White Blood Cell Count 7.9 X10^3/uL (4.5-11.0)
[2018-10-25 11:08] LABS: Alanine Aminotransferase 19 IU/L (9-52); Albumin 3.4 g/dL (3.5-5.0); Albumin Globulin Ratio 1.1 (1.0-2.8); Alkaline Phosphatase 66 U/L (38-126); Aspartate Aminotransferase 20 IU/L (14-36); BUN Creatinine Ratio 18.3 (6-22); Bilirubin Total 0.4 mg/dL (0.2-1.3); Blood Urea Nitrogen 11 mg/dL (7-17); Calcium 8.6 mg/dL (8.4-10.2); Carbon Dioxide 27 mmol/L (22-32); Chloride 101 mmol/L (98-107); Estimated Glomerular Filt Rate > 60.0 mL/min (>60); Glucose 146 mg/dL (80-110); HEMOLYSIS < 15 (0-50); Potassium 4.1 mmol/L (3.4-5.1); Sodium 139 mmol/L (137-145); Total Protein 6.4 g/dL (6.3-8.2)
[2018-10-25 11:38] LABS: Carcinoembryonic Antigen 1.9 ng/mL (0.1-3.0)
[2018-10-25] MEDS: SODIUM CHLORIDE 0.9% 100 ML 21 ML IV (12:01)
[2018-10-25] MEDS: PEMBROLIZUMAB 200 MG in SODIUM CHLORIDE 0.9% (CHEMO) 100 ML 216 ML IV (12:03)
[2018-10-25 13:21] LABS: Thyroid Stimulating Hormone 3.85 uIU/mL (0.47-4.68)
--- NOTE | 2018-10-25 13:23 | ONC.NAV ---
Description: Check-in Activity: Pt indicated a (10) on her distress screening, indicating wanting help speaking with partner, and depression. In meeting with her, pt was found to be smiling, well-groomed, and had driven herself to her appointment today. Pt states that nothing new is happening in terms of distress, that she has an ongoing challenging dynamic with her spouse, who has advanced dementia. She feels that she is coping well, is feeling well, with the exception of ongoing fatigue. SENIOR MOBILE APPLICATION DEVELOPER encouraged her so speak with Dr. Emery re: her concerns for fatigue, as well as a recent outbreak that she had with cold sores. SENIOR MOBILE APPLICATION DEVELOPER provided encouragement and emotional support. She verbalized feeling like she is adjuting to immunotherapy treatment well, and has no other concerns at this time. Plan: Ongoing monitoring for resources/support as needed.
--- NOTE | 2018-11-08 15:13 | PC.NURSE ---
Tricia pts dtr called to report her mother awoke to periperhal edema most notable to her DEVANG/BLL extremities. I reviewed the Keytruda monitoring parameters, but it does not specifically state that edema may be experienced. I told her that each pt was different and it may have an effect just based on that. We discussed which provider pt should f/u with and it was decided she would be seen at [facility] for a much faster review.
[2018-11-15 11:19] LABS: Add Manual Diff / Slide Review NO; Basophils Absolute Auto 100 /uL (0-100); Basophils Percent Auto 1.1 % (0-2); Eosinophils Absolute Auto 200 /uL (0-450); Eosinophils Percent Auto 2.3 % (2-4); Hematocrit 39.1 % (36-46); Lymphocytes Absolute Auto 2500 /uL (1100-4500); Lymphocytes Percent Auto 24.5 % (25-40); Mean Corpuscular HGB Conc 33.3 % (30-36); Mean Corpuscular Hemoglobin 29.9 PG (26-34); Mean Corpuscular Volume 89.8 fL (80-100); Monocytes Absolute Auto 600 /uL (0-900); Monocytes Percent Auto 5.7 % (3-14); Neutrophils Absolute Auto 6900 /uL (1500-7000); Neutrophils Percent Auto 66.4 % (50-75); Platelet Count 356 X10^3/uL (150-400); Red Blood Cell Count 4.35 X10^6/uL (4.0-5.2); Red Cell Distribution Width 12.7 % (11.6-14.8); White Blood Cell Count 10.3 X10^3/uL (4.5-11.0)
[2018-11-15 11:41] VITALS: BP 112/72; PULSE 49; RESP 18; TEMP 36.1; O2SAT 96
[2018-11-15 12:04] LABS: Alanine Aminotransferase 20 IU/L (9-52); Albumin 3.4 g/dL (3.5-5.0); Albumin Globulin Ratio 1.2 (1.0-2.8); Alkaline Phosphatase 66 U/L (38-126); Aspartate Aminotransferase 24 IU/L (14-36); BUN Creatinine Ratio 18.6 (6-22); Bilirubin Total 0.4 mg/dL (0.2-1.3); Blood Urea Nitrogen 13 mg/dL (7-17); Calcium 8.7 mg/dL (8.4-10.2); Carbon Dioxide 28 mmol/L (22-32); Chloride 100 mmol/L (98-107); Estimated Glomerular Filt Rate > 60.0 mL/min (>60); Globulin 2.9 g/dL (1.7-4.1); Glucose 158 mg/dL (80-110); HEMOLYSIS < 15 (0-50); Potassium 3.8 mmol/L (3.4-5.1); Sodium 138 mmol/L (137-145); Total Protein 6.3 g/dL (6.3-8.2)
--- NOTE | 2018-11-15 12:04 | ONC.PN ---
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 She is now on immunotherapy with pembrolizumab. She presents today for cycle 7 treatment. Overall patient has tolerated well. She reported that one morning, she woke up and could not open hands, both sides with terrible pain, more on the right than the left. She went to see Dr. Wang, her previous PCP. He prescribed prednisone 10 mg daily to start with. Hand pain is better right away. She is now tapering prednisone, and is taking 5 mg daily. Appetite is getting better. She is getting more weight. No shortness of breath. She gets constipated. C-scope is still pending. Oncological History: Ms. Morton is an 83 year old female, obse. She has a remote history of stage III colon cancer diagnosed in February 2002 with 2 or more mesenteric nodes being positive. The CEA was 18.9. Patient underwent resection followed by 6 months of leucovorin and 5 FU completed Aug 2002. She had a ?mild heart attack? in Jul 2017, and was hospitalized briefly. 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 Fecal transplant was proposed and she underwent pre-transplant C-scope on 03/11/[address] Ree Jalloh. The colonoscopy revealed a malignant partially obstructing tumor at 47 cm proximal to the anus. There was evidence of previous surgery, distal to the current colon mass. 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 On Mar 12, 2018, CT chest, abdomen and pelvis with contrast showed findings concerning for short segment colitis of the right transverse colon versus a circumferential colon mass with surrounding mesenteric edema, multiple bilateral pulmonary nodules measuring up to 6 mm in greatest diameter. I went to radiology department and I talked with radiologist Dr. Smith and reviewed all the imaging studies. The pulmonary nodules have been present at least since December 2017. And the pulmonary nodules apparently have not changed in size, in number or in appearance. Most likely these pulmonary nodules represent granuloma changes rather than metastatic malignancy. We also looked at the liver images. There is no clear evidence of hepatic lesions or masses. Lab results from [facility] showed that the CEA level was 3.6 on March 11, 2018. CBC reviewed that the white cell count 8.4, hemoglobin 8.3, hematocrit 26.3, MCV 75.8 and platelets 371. She was started on Venofer weekly x 5 on 04/19/2018. She was started on 5FU/Leucovorin on 04/20/2018, and completed 4 cycles of 5FU/Leucovorin on 05/31/2018. Restaging CT on June 04, 2018 that showed enlarged heart. Otherwise segment of right colonic wall thickening was again demonstrated with surrounding inflammatory appearance is less conspicuous. Multiple bilateral subcentimeter pulmonary nodules are again noted may be slightly increased in size but that is within the realm slice registration artifact. The case was discussed at [facility] monthly tumor Board. And her case was deemed not a surgical candidate due to performance status. Then, on 07/09/2018, 5FU was stopped and she was started on Keytruda with first cycle 07/09/2018. After 4 cycles, CT scan dated 09/16/2018 demonstrates no significant changes from previous study, patient remains with stable subcentimeter bilateral pulmonary nodules. Also stable segmental right colonic wall thickening. Patient has known large ventral hernia which is again seen containing a segment of transverse colon without evidence of incarceration. These results were reviewed in detail with the patient. - Patient Self-Reported Symptoms SR Constitution: Weight loss/gain SR ears, nose, mouth, throat issues: Changes in taste SR respiratory issues: Mucous SR Cardiovascular issues: Palpitations (before the blood tranfusion in early Apr. ), Extreme swelling, Dizzy/lightheaded SR Skin issues: Dry skin, Hair loss or scalp prob SR Gastrointestinal issues: Constipation SR Genitourinary issues: Frequent urination, Incontinence SR Musculoskeletal issues: Joint pain or swelling, Difficulty walking SR Neuro issues: Tremors or shaking SR Hematologic issues: Bleeding/bruising SR Endocrine issues: Excessive thirst - Additional ROS All systems PM: reviewed and no additional remarkable complaints except as stated Home Medications and Allergies Home Medications Medication Instructions Recorded Confirmed Type oxybutynin chloride 5 mg PO BID #0 10/13/16 10/25/18 History Lantus Solostar U-100 Insulin 1 dose SQ QPM #0 11/11/17 10/25/18 History nitroglycerin [Nitrostat] 0.4 mg SUBLINGUAL PRN PRN #0 11/11/17 10/25/18 History nystatin [Nystop] 100,000 unit TOPICAL QID #0 11/11/17 10/25/18 History ondansetron 8 mg PO TID PRN 03/22/18 10/25/18 History polyethylene glycol 3350 [Miralax] 17 g PO DAILY #30 ea 08/19/18 10/25/18 Rx atorvastatin 10 mg PO DAILY 09/09/18 10/25/18 History sertraline 50 mg PO DAILY 09/09/18 10/25/18 History prednisone 11/15/18 History Allergies Allergy/AdvReac Type Severity Reaction Status Date / Time Sulfa (Sulfonamide Allergy Severe hives Verified 12/13/17 20:35 Antibiotics) [SULFA (SULFONAMIDE ANTIBIOTICS)] metformin Allergy Mild Diarrhea Verified 01/20/18 23:13 darifenacin [From Enablex] Allergy Unknown Verified 01/20/18 23:13 ketoconazole Allergy Unknown Verified 01/20/18 23:13 promethazine [From Phenergan] Allergy Verified 03/19/18 14:49 adhesive [ADHESIVE] AdvReac Severe tape Verified 12/13/17 20:35 causes blisters Exam Vital signs: Vital Signs Temp Pulse Resp BP Pulse Ox 11/15/18 11:41 97.0 F L 49 L 18 112/72 96 Intake and Output 11/14/18 11/15/18 11/15/18 23:59 07:59 15:59 Other: Weight 100.2 kg Patient Weight 11/15/18 23:59 Weight 100.2 kg ECOG 1 Narrative: Constitutional: WDWN, NAD, well groomed, pleasant and cooperative, obese. HEENT: NCAT, EOMI, PERRLA, anicteric sclera. Neck: Supple, No palpable thyromegaly or lymphadenopathy. Respiratory: Clear to auscultation, and no wheezes or rales or rubs. Cardiovascular: RRR, S1 and S2 normal, no M/G/R. No JVD. Abdomen: Soft, NTND, BS normal, no palpable organomegaly, hernia noted, no palpable masses. Extremities: No LE pitting edema. Musculoskeletal: normal gait and station, slow and is using walker Skin: no rashes, no ulcers, no petechiae Neurological: AOx3, CN II-XII grossly intact. No focal motor or sensory deficit. Psychiatric: Good judgment and insight; normal affect; normal thought process; cooperative, no depression, no anxiety. Results - Labs Laboratory Last Values WBC 10.3 X10^3/uL (4.5-11.0) 11/15/18 11:02 RBC 4.35 X10^6/uL (4.0-5.2) 11/15/18 11:02 Hgb 13.0 g/dL (12.0-16.0) 11/15/18 11:02 Hct 39.1 % (36-46) 11/15/18 11:02 MCV 89.8 fL (80-100) 11/15/18 11:02 MCH 29.9 PG (26-34) 11/15/18 11:02 MCHC 33.3 % (30-36) 11/15/18 11:02 RDW 12.7 % (11.6-14.8) 11/15/18 11:02 Plt Count 356 X10^3/uL (150-400) 11/15/18 11:02 Neut % (Auto) 66.4 % (50-75) 11/15/18 11:02 Lymph % (Auto) 24.5 % (25-40) L 11/15/18 11:02 [place] % (Auto) 5.7 % (3-14) 11/15/18 11:02 Eos % (Auto) 2.3 % (2-4) 11/15/18 11:02 Baso % (Auto) 1.1 % (0-2) 11/15/18 11:02 Neut # (Auto) 6900 /uL (5134-1261) 11/15/18 11:02 Lymph # (Auto) 2500 /uL (1200-0293) 11/15/18 11:02 [place] # (Auto) 600 /uL (0-900) 11/15/18 11:02 Eos # (Auto) 200 /uL (0-450) 11/15/18 11:02 Baso # (Auto) 100 /uL (0-100) 11/15/18 11:02 RBC Morphology See below 05/31/18 08:24 Hypochromasia 1+ H 05/10/18 11:11 Poikilocytosis 1+ H 04/26/18 11:25 Anisocytosis 3+ H 05/31/18 08:24 Microcytosis 2+ H 05/10/18 11:11 Macrocytosis 1+ H 05/10/18 11:11 Sodium 138 mmol/L (137-145) 11/15/18 11:02 Potassium 3.8 mmol/L (3.4-5.1) 11/15/18 11:02 Chloride 100 mmol/L (98-107) 11/15/18 11:02 Carbon Dioxide 28 mmol/L (22-32) 11/15/18 11:02 BUN 13 mg/dL (7-17) 11/15/18 11:02 Creatinine 0.70 mg/dL (0.52-1.04) 11/15/18 11:02 Estimated GFR > 60.0 mL/min (>60) 11/15/18 11:02 BUN/Creatinine Ratio 18.6 (6-22) 11/15/18 11:02 Glucose 158 mg/dL (80-110) H 11/15/18 11:02 Calcium 8.7 mg/dL (8.4-10.2) 11/15/18 11:02 Magnesium 1.9 mg/dL (1.6-2.3) 04/14/18 11:17 Iron 24 ug/dL (37-170) L 04/05/18 10:28 TIBC 424 ug/dL (265-497) 04/05/18 10:28 % Saturation 6 % (15-50) L 04/05/18 10:28 Transferrin 337 mg/dL (206-381) 04/05/18 10:28 Ferritin 7.0 ng/mL (11.1-264) L 04/05/18 10:28 Total Bilirubin 0.4 mg/dL (0.2-1.3) 11/15/18 11:02 AST 24 IU/L (14-36) 11/15/18 11:02 ALT 20 IU/L (9-52) 11/15/18 11:02 Alkaline Phosphatase 66 U/L (38-126) 11/15/18 11:02 Total Protein 6.3 g/dL (6.3-8.2) 11/15/18 11:02 Albumin 3.4 g/dL (3.5-5.0) L 11/15/18 11:02 Globulin 2.9 g/dL (1.7-4.1) 11/15/18 11:02 Albumin/Globulin Ratio 1.2 (1.0-2.8) 11/15/18 11:02 Carcinoembryonic Ag 1.9 ng/mL (0.1-3.0) 10/25/18 10:41 TSH 3.85 uIU/mL (0.47-4.68) 10/25/18 00:00 Thyroxine (T4) 7.21 ug/dL (5.5-11.0) 09/30/18 11:23 Free T3 3.59 pg/mL (2.77-5.27) 09/30/18 11:23 Urine Color Yellow 09/09/18 14:45 Urine Appearance Clear 09/09/18 14:45 Urine pH 5.0 (4.5-8.0) 09/09/18 14:45 Ur Specific [place] 1.025 (1.000-1.035) 09/09/18 14:45 Urine Protein Negative (Negative) 09/09/18 14:45 Urine Glucose (UA) Negative g/dL (Negative) 09/09/18 14:45 Urine Ketones Negative (NEGATIVE) 09/09/18 14:45 Urine Occult Blood Negative (Negative) 09/09/18 14:45 Urine Nitrate Negative (Negative) 09/09/18 14:45 Urine Bilirubin Negative (NEGATIVE) 09/09/18 14:45 Urine Urobilinogen 0.2 E.U./dL (0.2) 09/09/18 14:45 Ur Leukocyte Esterase Negative (NEGATIVE) 09/09/18 14:45 Urine RBC None seen (0-5/HPF) 09/09/18 14:45 Urine WBC 0-1/hpf (0-5/HPF) 09/09/18 14:45 Ur Squamous Epith Cells 5-10 /hpf H 09/09/18 14:45 Amorphous Sediment 1+ 09/09/18 14:45 Urine Bacteria Few (2-10) (None) H 09/09/18 14:45 Urine Mucus 3+ (Negative) H D 09/09/18 14:45 Ur Culture Indicated? Cult not indicated 09/09/18 14:45 Ref Test (Refrig) 04/05/18 10:28 Blood Type A Positive 04/14/18 10:05 Antibody Screen Negative 04/14/18 10:05 Crossmatch See Detail 04/14/18 10:05 Assessment and Plan (1) Colon cancer Problem details: 1. Descending colon adenocarcinoma, moderately to poorly differentiated diagnosed 03/11/2018. 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 MSI-H by PCR. BRAF V600E mutation detected. KRAS/NRAS mutations not detected 2. Status post 5FU x 4 cycles 04/20/2018 to 05/31/2018. No CT image response. 3. Pembrolizumab started 07/09/2018 Assessment 83 year old female with MMR deficient and [id number] positive colon cancer diagnosed 03/11/2018. She was deemed not a surgical candidate due to performance status. Initially treated with 4 cycles of 5FU with leucovorin followed by Keytruda with first cycle 07/09/2018 which she has been tolerating quite well. Clinically, patient is having mild constipation. No diarrhea. I talked with her that I will continue current treatment without any changes. Patient has not had a colonoscopy done yet. I will putting as second referral to position classification manager at [facility] for evaluation. Plan: 1. Ok to proceed to cycle 7# Keytruda today 2. Referral to [facility] for repeat C-scope 2. RTC in 3 weeks for CBC, CMP, CEA, TSH and C8# Keytruda (2) Iron deficiency anemia due to chronic blood loss Problem details: Patient is to have iron infusion in the past. The etiology likely is related to the new diagnosis of the colon cancer. Patient has significant constipation while taking the oral iron. Assessment She has completely Venofer infusion weekly x 5 completed 05/17/2018. Her H/H have improved significantly, and now normalized. Plan: Monitor H/H and iron status with ferritin regularly. IV venofer PRN. (3) Personal history of colon cancer, stage III Problem details: s/p surgical resection followed by 6 months of treatment with 5-FU Assessment Not sure the relationship with her current colon cancer diagnosis. In review of registry notes this is a new primary. Plan: No special intervention for now. (4) High serum thyroid stimulating hormone (TSH) Assessment and plan: Patient has a borderline increased TSH level during her previous visit in September 2018. Repeat testing of TSH showed normal results. Since patient is on immunotherapy, I will continue monitoring of the TSH every 3-4 weeks.
[2018-11-15 12:42] LABS: Thyroid Stimulating Hormone 9.26 uIU/mL (0.47-4.68)
[2018-11-15] MEDS: SODIUM CHLORIDE 0.9% 100 ML 21 ML IV (13:11)
[2018-11-15] MEDS: PEMBROLIZUMAB 200 MG in SODIUM CHLORIDE 0.9% (CHEMO) 100 ML 216 ML IV (13:11)
--- NOTE | 2018-12-06 08:26 | ONC.PN ---
PN -Subjective Interval history: 83 year old female with MMR deficient and [id number] positive colon cancer diagnosed 03/11/2018. She is now on immunotherapy with pembrolizumab. She presents today for cycle 8 treatment. She is complaining little bit more tired than before. Patient has not had a colonoscopy done yet. Patient is to see cobol developer visit tomorrow at [facility]. She came in here today accompanied by her daughter Hanh. Oncological History: Ms. Morton is an 83 year old female, obse. She has a remote history of stage III colon cancer diagnosed in February 2002 with 2 or more mesenteric nodes being positive. The CEA was 18.9. Patient underwent resection followed by 6 months of leucovorin and 5 FU completed Aug 2002. She had a ?mild heart attack? in Jul 2017, and was hospitalized briefly. 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 Fecal transplant was proposed and she underwent pre-transplant C-scope on 03/11/[address] Ree Jalloh. The colonoscopy revealed a malignant partially obstructing tumor at 47 cm proximal to the anus. There was evidence of previous surgery, distal to the current colon mass. 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 On Mar 12, 2018, CT chest, abdomen and pelvis with contrast showed findings concerning for short segment colitis of the right transverse colon versus a circumferential colon mass with surrounding mesenteric edema, multiple bilateral pulmonary nodules measuring up to 6 mm in greatest diameter. I went to radiology department and I talked with radiologist Dr. Smith and reviewed all the imaging studies. The pulmonary nodules have been present at least since December 2017. And the pulmonary nodules apparently have not changed in size, in number or in appearance. Most likely these pulmonary nodules represent granuloma changes rather than metastatic malignancy. We also looked at the liver images. There is no clear evidence of hepatic lesions or masses. Lab results from [facility] showed that the CEA level was 3.6 on March 11, 2018. CBC reviewed that the white cell count 8.4, hemoglobin 8.3, hematocrit 26.3, MCV 75.8 and platelets 371. She was started on Venofer weekly x 5 on 04/19/2018. She was started on 5FU/Leucovorin on 04/20/2018, and completed 4 cycles of 5FU/Leucovorin on 05/31/2018. Restaging CT on June 04, 2018 that showed enlarged heart. Otherwise segment of right colonic wall thickening was again demonstrated with surrounding inflammatory appearance is less conspicuous. Multiple bilateral subcentimeter pulmonary nodules are again noted may be slightly increased in size but that is within the realm slice registration artifact. The case was discussed at [facility] monthly tumor Board. And her case was deemed not a surgical candidate due to performance status. Then, on 07/09/2018, 5FU was stopped and she was started on Keytruda with first cycle 07/09/2018. After 4 cycles, CT scan dated 09/16/2018 demonstrates no significant changes from previous study, patient remains with stable subcentimeter bilateral pulmonary nodules. Also stable segmental right colonic wall thickening. Patient has known large ventral hernia which is again seen containing a segment of transverse colon without evidence of incarceration. These results were reviewed in detail with the patient. - Patient Self-Reported Symptoms SR Constitution: Weight loss/gain SR ears, nose, mouth, throat issues: Changes in taste SR respiratory issues: Mucous SR Cardiovascular issues: Palpitations (before the blood tranfusion in early Apr. ), Extreme swelling, Dizzy/lightheaded SR Skin issues: Dry skin, Hair loss or scalp prob SR Gastrointestinal issues: Constipation SR Genitourinary issues: Frequent urination, Incontinence SR Musculoskeletal issues: Joint pain or swelling, Difficulty walking SR Neuro issues: Tremors or shaking SR Hematologic issues: Bleeding/bruising SR Endocrine issues: Excessive thirst - Additional ROS All systems PM: reviewed and no additional remarkable complaints except as stated Home Medications and Allergies Home Medications Medication Instructions Recorded Confirmed Type oxybutynin chloride 5 mg PO BID #0 10/13/16 12/06/18 History Lantus Solostar U-100 Insulin 1 dose SQ QPM #0 11/11/17 12/06/18 History nitroglycerin [Nitrostat] 0.4 mg SUBLINGUAL PRN PRN #0 11/11/17 12/06/18 History nystatin [Nystop] 100,000 unit TOPICAL QID #0 11/11/17 12/06/18 History ondansetron 8 mg PO TID PRN 03/22/18 12/06/18 History polyethylene glycol 3350 [Miralax] 17 g PO DAILY #30 ea 08/19/18 12/06/18 Rx atorvastatin 10 mg PO DAILY 09/09/18 12/06/18 History sertraline 50 mg PO DAILY 09/09/18 10/25/18 History prednisone 11/15/18 History levothyroxine 50 mcg PO DAILY #60 tab 12/06/18 Rx Allergies Allergy/AdvReac Type Severity Reaction Status Date / Time Sulfa (Sulfonamide Allergy Severe hives Verified 12/13/17 20:35 Antibiotics) [SULFA (SULFONAMIDE ANTIBIOTICS)] metformin Allergy Mild Diarrhea Verified 01/20/18 23:13 darifenacin [From Enablex] Allergy Unknown Verified 01/20/18 23:13 ketoconazole Allergy Unknown Verified 01/20/18 23:13 promethazine [From Phenergan] Allergy Verified 03/19/18 14:49 adhesive [ADHESIVE] AdvReac Severe tape Verified 12/13/17 20:35 causes blisters Exam Vital signs: Last Vital Signs Temp 98.2 F 12/06/18 10:03 Pulse 80 12/06/18 10:03 Resp 18 12/06/18 10:03 BP 108/64 12/06/18 10:03 Pulse Ox 95 12/06/18 10:03 ECOG 1 Narrative: Constitutional: WDWN, NAD, well groomed, pleasant and cooperative, obese. HEENT: NCAT, EOMI, PERRLA, anicteric sclera. Neck: Supple, No palpable thyromegaly or lymphadenopathy. Respiratory: Clear to auscultation, and no wheezes or rales or rubs. Cardiovascular: RRR, S1 and S2 normal, no M/G/R. No JVD. Abdomen: Soft, NTND, BS normal, no palpable organomegaly, hernia noted, no palpable masses. Extremities: No LE pitting edema. Musculoskeletal: normal gait and station, slow and is using walker Skin: no rashes, no ulcers, no petechiae Neurological: AOx3, CN II-XII grossly intact. No focal motor or sensory deficit. Psychiatric: Good judgment and insight; normal affect; normal thought process; cooperative, no depression, no anxiety. Results - Labs Laboratory Last Values WBC 10.4 X10^3/uL (4.5-11.0) 12/06/18 08:51 RBC 4.20 X10^6/uL (4.0-5.2) 12/06/18 08:51 Hgb 12.7 g/dL (12.0-16.0) 12/06/18 08:51 Hct 38.0 % (36-46) 12/06/18 08:51 MCV 90.5 fL (80-100) 12/06/18 08:51 MCH 30.3 PG (26-34) 12/06/18 08:51 MCHC 33.5 % (30-36) 12/06/18 08:51 RDW 13.8 % (11.6-14.8) 12/06/18 08:51 Plt Count 242 X10^3/uL (150-400) 12/06/18 08:51 Neut % (Auto) 75.1 % (50-75) H 12/06/18 08:51 Lymph % (Auto) 16.8 % (25-40) L 12/06/18 08:51 [place] % (Auto) 5.8 % (3-14) 12/06/18 08:51 Eos % (Auto) 1.7 % (2-4) L 12/06/18 08:51 Baso % (Auto) 0.6 % (0-2) 12/06/18 08:51 Neut # (Auto) 7800 /uL (9416-6619) H 12/06/18 08:51 Lymph # (Auto) 1700 /uL (6967-6189) 12/06/18 08:51 [place] # (Auto) 600 /uL (0-900) 12/06/18 08:51 Eos # (Auto) 200 /uL (0-450) 12/06/18 08:51 Baso # (Auto) 100 /uL (0-100) 12/06/18 08:51 RBC Morphology See below 05/31/18 08:24 Hypochromasia 1+ H 05/10/18 11:11 Poikilocytosis 1+ H 04/26/18 11:25 Anisocytosis 3+ H 05/31/18 08:24 Microcytosis 2+ H 05/10/18 11:11 Macrocytosis 1+ H 05/10/18 11:11 Sodium 138 mmol/L (137-145) 12/06/18 08:51 Potassium 3.8 mmol/L (3.4-5.1) 12/06/18 08:51 Chloride 101 mmol/L (98-107) 12/06/18 08:51 Carbon Dioxide 28 mmol/L (22-32) 12/06/18 08:51 BUN 11 mg/dL (7-17) 12/06/18 08:51 Creatinine 0.60 mg/dL (0.52-1.04) 12/06/18 08:51 Estimated GFR > 60.0 mL/min (>60) 12/06/18 08:51 BUN/Creatinine Ratio 18.3 (6-22) 12/06/18 08:51 Glucose 181 mg/dL (80-110) H 12/06/18 08:51 Calcium 8.9 mg/dL (8.4-10.2) 12/06/18 08:51 Magnesium 1.9 mg/dL (1.6-2.3) 04/14/18 11:17 Iron 24 ug/dL (37-170) L 04/05/18 10:28 TIBC 424 ug/dL (265-497) 04/05/18 10:28 % Saturation 6 % (15-50) L 04/05/18 10:28 Transferrin 337 mg/dL (206-381) 04/05/18 10:28 Ferritin 7.0 ng/mL (11.1-264) L 04/05/18 10:28 Total Bilirubin 0.6 mg/dL (0.2-1.3) 12/06/18 08:51 AST 23 IU/L (14-36) 12/06/18 08:51 ALT 29 IU/L (9-52) 12/06/18 08:51 Alkaline Phosphatase 65 U/L (38-126) 12/06/18 08:51 Total Protein 6.2 g/dL (6.3-8.2) L 12/06/18 08:51 Albumin 3.5 g/dL (3.5-5.0) 12/06/18 08:51 Globulin 2.7 g/dL (1.7-4.1) 12/06/18 08:51 Albumin/Globulin Ratio 1.3 (1.0-2.8) 12/06/18 08:51 Carcinoembryonic Ag 2.0 ng/mL (0.1-3.0) 11/15/18 11:02 TSH 9.26 uIU/mL (0.47-4.68) H 11/15/18 11:02 Thyroxine (T4) 7.21 ug/dL (5.5-11.0) 09/30/18 11:23 Free T3 3.59 pg/mL (2.77-5.27) 09/30/18 11:23 Urine Color Yellow 09/09/18 14:45 Urine Appearance Clear 09/09/18 14:45 Urine pH 5.0 (4.5-8.0) 09/09/18 14:45 Ur Specific [place] 1.025 (1.000-1.035) 09/09/18 14:45 Urine Protein Negative (Negative) 09/09/18 14:45 Urine Glucose (UA) Negative g/dL (Negative) 09/09/18 14:45 Urine Ketones Negative (NEGATIVE) 09/09/18 14:45 Urine Occult Blood Negative (Negative) 09/09/18 14:45 Urine Nitrate Negative (Negative) 09/09/18 14:45 Urine Bilirubin Negative (NEGATIVE) 09/09/18 14:45 Urine Urobilinogen 0.2 E.U./dL (0.2) 09/09/18 14:45 Ur Leukocyte Esterase Negative (NEGATIVE) 09/09/18 14:45 Urine RBC None seen (0-5/HPF) 09/09/18 14:45 Urine WBC 0-1/hpf (0-5/HPF) 09/09/18 14:45 Ur Squamous Epith Cells 5-10 /hpf H 09/09/18 14:45 Amorphous Sediment 1+ 09/09/18 14:45 Urine Bacteria Few (2-10) (None) H 09/09/18 14:45 Urine Mucus 3+ (Negative) H D 09/09/18 14:45 Ur Culture Indicated? Cult not indicated 09/09/18 14:45 Ref Test (Refrig) 04/05/18 10:28 Blood Type A Positive 04/14/18 10:05 Antibody Screen Negative 04/14/18 10:05 Crossmatch See Detail 04/14/18 10:05 Assessment and Plan (1) Colon cancer Assessment 83 year old female with MMR deficient and [id number] positive colon cancer diagnosed 03/11/2018. She was deemed not a surgical candidate due to performance status. Initially treated with 4 cycles of 5FU with leucovorin without response by PRADEEP ojeda. She then was started on Keytruda from 07/09/2018 which she has been tolerating quite well. Patient has been doing very well. She came in here today accompanied by her daughter Hanh. We will continue current treatment without any changes. Plan: 1. Ok to proceed to cycle 8# Keytruda today 2. Follow with [facility] for repeat C-scope as scheduled. 2. RTC in 3 weeks for CBC, CMP, CEA, TSH and C9# Keytruda (2) Iron deficiency anemia due to chronic blood loss Assessment She has completely Venofer infusion weekly x 5 completed 05/17/2018. Her H/H have improved significantly, and now normalized. Plan: Monitor H/H and iron status with ferritin regularly. IV venofer PRN. (3) Personal history of colon cancer, stage III Assessment s/p surgical resection followed by 6 months of treatment with 5-FU. Not sure the relationship with her current colon cancer diagnosis. In review of registry notes this is a new primary. Plan: No special intervention for now. (4) High serum thyroid stimulating hormone (TSH) Assessment: Patient has a borderline increased TSH level during her previous visit in September 2018. Repeat testing of TSH showed normal results. However, further repeat of the test showed that TSH has increased significantly. Patient clinically is complaining more tired. Plan: I will initiate the patient on levothyroxine 50 mcg once a day. Repeat TSH in 3 weeks.
--- NOTE | 2018-12-06 08:29 | P.PNONC_ITS ---
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 She is now on immunotherapy with pembrolizumab. She presents today for cycle 8 treatment. She is complaining little bit more tired than before. Patient has not had a colonoscopy done yet. Patient is to see farm general manager visit tomorrow at [facility]. She came in here today accompanied by her daughter Hanh. Oncological History: Ms. Morton is an 83 year old female, obse. She has a remote history of stage III colon cancer diagnosed in February 2002 with 2 or more mesenteric nodes being positive. The CEA was 18.9. Patient underwent resection followed by 6 months of leucovorin and 5 FU completed Aug 2002. She had a ?mild heart attack? in Jul 2017, and was hospitalized briefly. 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 Fecal transplant was proposed and she underwent pre-transplant C-scope on 03/11/[address] Ree Jalloh. The colonoscopy revealed a malignant partially obstructing tumor at 47 cm proximal to the anus. There was evidence of previous surgery, distal to the current colon mass. 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 On Mar 12, 2018, CT chest, abdomen and pelvis with contrast showed findings concerning for short segment colitis of the right transverse colon versus a circumferential colon mass with surrounding mesenteric edema, multiple bilateral pulmonary nodules measuring up to 6 mm in greatest diameter. I went to radiology department and I talked with radiologist Dr. Smith and reviewed all the imaging studies. The pulmonary nodules have been present at least since December 2017. And the pulmonary nodules apparently have not changed in size, in number or in appearance. Most likely these pulmonary nodules represent granuloma changes rather than metastatic malignancy. We also looked at the liver images. There is no clear evidence of hepatic lesions or masses. Lab results from [facility] showed that the CEA level was 3.6 on March 11, 2018. CBC reviewed that the white cell count 8.4, hemoglobin 8.3, hematocrit 26.3, MCV 75.8 and platelets 371. She was started on Venofer weekly x 5 on 04/19/2018. She was started on 5FU/Leucovorin on 04/20/2018, and completed 4 cycles of 5FU/Leucovorin on 05/31/2018. Restaging CT on June 04, 2018 that showed enlarged heart. Otherwise segment of right colonic wall thickening was again demonstrated with surrounding inflammatory appearance is less conspicuous. Multiple bilateral subcentimeter pulmonary nodules are again noted may be slightly increased in size but that is within the realm slice registration artifact. The case was discussed at [facility] monthly tumor Board. And her case was deemed not a surgical candidate due to performance status. Then, on 07/09/2018, 5FU was stopped and she was started on Keytruda with first cycle 07/09/2018. After 4 cycles, CT scan dated 09/16/2018 demonstrates no significant changes from previous study, patient remains with stable subcentimeter bilateral pulmonary nodules. Also stable segmental right colonic wall thickening. Patient has known large ventral hernia which is again seen containing a segment of transverse colon without evidence of incarceration. These results were reviewed in detail with the patient. - Patient Self-Reported Symptoms SR Constitution: Weight loss/gain SR ears, nose, mouth, throat issues: Changes in taste SR respiratory issues: Mucous SR Cardiovascular issues: Palpitations (before the blood tranfusion in early Apr. ), Extreme swelling, Dizzy/lightheaded SR Skin issues: Dry skin, Hair loss or scalp prob SR Gastrointestinal issues: Constipation SR Genitourinary issues: Frequent urination, Incontinence SR Musculoskeletal issues: Joint pain or swelling, Difficulty walking SR Neuro issues: Tremors or shaking SR Hematologic issues: Bleeding/bruising SR Endocrine issues: Excessive thirst - Additional ROS All systems PM: reviewed and no additional remarkable complaints except as stated Home Medications and Allergies Home Medications Medication Instructions Recorded Confirmed Type oxybutynin chloride 5 mg PO BID #0 10/13/16 12/06/18 History Lantus Solostar U-100 Insulin 1 dose SQ QPM #0 11/11/17 12/06/18 History nitroglycerin [Nitrostat] 0.4 mg SUBLINGUAL PRN PRN #0 11/11/17 12/06/18 History nystatin [Nystop] 100,000 unit TOPICAL QID #0 11/11/17 12/06/18 History ondansetron 8 mg PO TID PRN 03/22/18 12/06/18 History polyethylene glycol 3350 [Miralax] 17 g PO DAILY #30 ea 08/19/18 12/06/18 Rx atorvastatin 10 mg PO DAILY 09/09/18 12/06/18 History sertraline 50 mg PO DAILY 09/09/18 10/25/18 History prednisone 11/15/18 History levothyroxine 50 mcg PO DAILY #60 tab 12/06/18 Rx Allergies Allergy/AdvReac Type Severity Reaction Status Date / Time Sulfa (Sulfonamide Allergy Severe hives Verified 12/13/17 20:35 Antibiotics) [SULFA (SULFONAMIDE ANTIBIOTICS)] metformin Allergy Mild Diarrhea Verified 01/20/18 23:13 darifenacin [From Enablex] Allergy Unknown Verified 01/20/18 23:13 ketoconazole Allergy Unknown Verified 01/20/18 23:13 promethazine [From Phenergan] Allergy Verified 03/19/18 14:49 adhesive [ADHESIVE] AdvReac Severe tape Verified 12/13/17 20:35 causes blisters Exam Vital signs: Last Vital Signs Temp 98.2 F 12/06/18 10:03 Pulse 80 12/06/18 10:03 Resp 18 12/06/18 10:03 BP 108/64 12/06/18 10:03 Pulse Ox 95 12/06/18 10:03 ECOG 1 Narrative: Constitutional: WDWN, NAD, well groomed, pleasant and cooperative, obese. HEENT: NCAT, EOMI, PERRLA, anicteric sclera. Neck: Supple, No palpable thyromegaly or lymphadenopathy. Respiratory: Clear to auscultation, and no wheezes or rales or rubs. Cardiovascular: RRR, S1 and S2 normal, no M/G/R. No JVD. Abdomen: Soft, NTND, BS normal, no palpable organomegaly, hernia noted, no palpable masses. Extremities: No LE pitting edema. Musculoskeletal: normal gait and station, slow and is using walker Skin: no rashes, no ulcers, no petechiae Neurological: AOx3, CN II-XII grossly intact. No focal motor or sensory deficit. Psychiatric: Good judgment and insight; normal affect; normal thought process; cooperative, no depression, no anxiety. Results - Labs Laboratory Last Values WBC 10.4 X10^3/uL (4.5-11.0) 12/06/18 08:51 RBC 4.20 X10^6/uL (4.0-5.2) 12/06/18 08:51 Hgb 12.7 g/dL (12.0-16.0) 12/06/18 08:51 Hct 38.0 % (36-46) 12/06/18 08:51 MCV 90.5 fL (80-100) 12/06/18 08:51 MCH 30.3 PG (26-34) 12/06/18 08:51 MCHC 33.5 % (30-36) 12/06/18 08:51 RDW 13.8 % (11.6-14.8) 12/06/18 08:51 Plt Count 242 X10^3/uL (150-400) 12/06/18 08:51 Neut % (Auto) 75.1 % (50-75) H 12/06/18 08:51 Lymph % (Auto) 16.8 % (25-40) L 12/06/18 08:51 [place] % (Auto) 5.8 % (3-14) 12/06/18 08:51 Eos % (Auto) 1.7 % (2-4) L 12/06/18 08:51 Baso % (Auto) 0.6 % (0-2) 12/06/18 08:51 Neut # (Auto) 7800 /uL (0172-5977) H 12/06/18 08:51 Lymph # (Auto) 1700 /uL (2052-6237) 12/06/18 08:51 [place] # (Auto) 600 /uL (0-900) 12/06/18 08:51 Eos # (Auto) 200 /uL (0-450) 12/06/18 08:51 Baso # (Auto) 100 /uL (0-100) 12/06/18 08:51 RBC Morphology See below 05/31/18 08:24 Hypochromasia 1+ H 05/10/18 11:11 Poikilocytosis 1+ H 04/26/18 11:25 Anisocytosis 3+ H 05/31/18 08:24 Microcytosis 2+ H 05/10/18 11:11 Macrocytosis 1+ H 05/10/18 11:11 Sodium 138 mmol/L (137-145) 12/06/18 08:51 Potassium 3.8 mmol/L (3.4-5.1) 12/06/18 08:51 Chloride 101 mmol/L (98-107) 12/06/18 08:51 Carbon Dioxide 28 mmol/L (22-32) 12/06/18 08:51 BUN 11 mg/dL (7-17) 12/06/18 08:51 Creatinine 0.60 mg/dL (0.52-1.04) 12/06/18 08:51 Estimated GFR > 60.0 mL/min (>60) 12/06/18 08:51 BUN/Creatinine Ratio 18.3 (6-22) 12/06/18 08:51 Glucose 181 mg/dL (80-110) H 12/06/18 08:51 Calcium 8.9 mg/dL (8.4-10.2) 12/06/18 08:51 Magnesium 1.9 mg/dL (1.6-2.3) 04/14/18 11:17 Iron 24 ug/dL (37-170) L 04/05/18 10:28 TIBC 424 ug/dL (265-497) 04/05/18 10:28 % Saturation 6 % (15-50) L 04/05/18 10:28 Transferrin 337 mg/dL (206-381) 04/05/18 10:28 Ferritin 7.0 ng/mL (11.1-264) L 04/05/18 10:28 Total Bilirubin 0.6 mg/dL (0.2-1.3) 12/06/18 08:51 AST 23 IU/L (14-36) 12/06/18 08:51 ALT 29 IU/L (9-52) 12/06/18 08:51 Alkaline Phosphatase 65 U/L (38-126) 12/06/18 08:51 Total Protein 6.2 g/dL (6.3-8.2) L 12/06/18 08:51 Albumin 3.5 g/dL (3.5-5.0) 12/06/18 08:51 Globulin 2.7 g/dL (1.7-4.1) 12/06/18 08:51 Albumin/Globulin Ratio 1.3 (1.0-2.8) 12/06/18 08:51 Carcinoembryonic Ag 2.0 ng/mL (0.1-3.0) 11/15/18 11:02 TSH 9.26 uIU/mL (0.47-4.68) H 11/15/18 11:02 Thyroxine (T4) 7.21 ug/dL (5.5-11.0) 09/30/18 11:23 Free T3 3.59 pg/mL (2.77-5.27) 09/30/18 11:23 Urine Color Yellow 09/09/18 14:45 Urine Appearance Clear 09/09/18 14:45 Urine pH 5.0 (4.5-8.0) 09/09/18 14:45 Ur Specific [place] 1.025 (1.000-1.035) 09/09/18 14:45 Urine Protein Negative (Negative) 09/09/18 14:45 Urine Glucose (UA) Negative g/dL (Negative) 09/09/18 14:45 Urine Ketones Negative (NEGATIVE) 09/09/18 14:45 Urine Occult Blood Negative (Negative) 09/09/18 14:45 Urine Nitrate Negative (Negative) 09/09/18 14:45 Urine Bilirubin Negative (NEGATIVE) 09/09/18 14:45 Urine Urobilinogen 0.2 E.U./dL (0.2) 09/09/18 14:45 Ur Leukocyte Esterase Negative (NEGATIVE) 09/09/18 14:45 Urine RBC None seen (0-5/HPF) 09/09/18 14:45 Urine WBC 0-1/hpf (0-5/HPF) 09/09/18 14:45 Ur Squamous Epith Cells 5-10 /hpf H 09/09/18 14:45 Amorphous Sediment 1+ 09/09/18 14:45 Urine Bacteria Few (2-10) (None) H 09/09/18 14:45 Urine Mucus 3+ (Negative) H D 09/09/18 14:45 Ur Culture Indicated? Cult not indicated 09/09/18 14:45 Ref Test (Refrig) 04/05/18 10:28 Blood Type A Positive 04/14/18 10:05 Antibody Screen Negative 04/14/18 10:05 Crossmatch See Detail 04/14/18 10:05 Assessment and Plan (1) Colon cancer Assessment 83 year old female with MMR deficient and [id number] positive colon cancer diagnosed 03/11/2018. She was deemed not a surgical candidate due to performance status. Initially treated with 4 cycles of 5FU with leucovorin without response by PRADEEP ojeda. She then was started on Keytruda from 07/09/2018 which she has been tolerating quite well. Patient has been doing very well. She came in here today accompanied by her daughter Hanh. We will continue current treatment without any changes. Plan: 1. Ok to proceed to cycle 8# Keytruda today 2. Follow with [facility] for repeat C-scope as scheduled. 2. RTC in 3 weeks for CBC, CMP, CEA, TSH and C9# Keytruda (2) Iron deficiency anemia due to chronic blood loss Assessment She has completely Venofer infusion weekly x 5 completed 05/17/2018. Her H/H have improved significantly, and now normalized. Plan: Monitor H/H and iron status with ferritin regularly. IV venofer PRN. (3) Personal history of colon cancer, stage III Assessment s/p surgical resection followed by 6 months of treatment with 5-FU. Not sure the relationship with her current colon cancer diagnosis. In review of registry notes this is a new primary. Plan: No special intervention for now. (4) High serum thyroid stimulating hormone (TSH) Assessment: Patient has a borderline increased TSH level during her previous visit in September 2018. Repeat testing of TSH showed normal results. However, further repeat of the test showed that TSH has increased significantly. Patient clinically is complaining more tired. Plan: I will initiate the patient on levothyroxine 50 mcg once a day. Repeat TSH in 3 weeks.
[2018-12-06 10:03] VITALS: BP 108/64; PULSE 80; RESP 18; TEMP 36.8; O2SAT 95
[2018-12-06 11:04] LABS: Add Manual Diff / Slide Review NO; Basophils Absolute Auto 100 /uL (0-100); Basophils Percent Auto 0.6 % (0-2); Eosinophils Absolute Auto 200 /uL (0-450); Eosinophils Percent Auto 1.7 % (2-4); Hemoglobin 12.7 g/dL (12.0-16.0); Lymphocytes Absolute Auto 1700 /uL (1100-4500); Lymphocytes Percent Auto 16.8 % (25-40); Mean Corpuscular HGB Conc 33.5 % (30-36); Mean Corpuscular Hemoglobin 30.3 PG (26-34); Mean Corpuscular Volume 90.5 fL (80-100); Monocytes Absolute Auto 600 /uL (0-900); Monocytes Percent Auto 5.8 % (3-14); Neutrophils Absolute Auto 7800 /uL (1500-7000); Neutrophils Percent Auto 75.1 % (50-75); Platelet Count 242 X10^3/uL (150-400); Red Cell Distribution Width 13.8 % (11.6-14.8); White Blood Cell Count 10.4 X10^3/uL (4.5-11.0)
[2018-12-06 11:15] LABS: Alanine Aminotransferase 29 IU/L (9-52); Albumin 3.5 g/dL (3.5-5.0); Albumin Globulin Ratio 1.3 (1.0-2.8); Alkaline Phosphatase 65 U/L (38-126); Aspartate Aminotransferase 23 IU/L (14-36); BUN Creatinine Ratio 18.3 (6-22); Bilirubin Total 0.6 mg/dL (0.2-1.3); Blood Urea Nitrogen 11 mg/dL (7-17); Calcium 8.9 mg/dL (8.4-10.2); Carbon Dioxide 28 mmol/L (22-32); Chloride 101 mmol/L (98-107); Estimated Glomerular Filt Rate > 60.0 mL/min (>60); Globulin 2.7 g/dL (1.7-4.1); Glucose 181 mg/dL (80-110); HEMOLYSIS < 15 (0-50); Potassium 3.8 mmol/L (3.4-5.1); Sodium 138 mmol/L (137-145); Total Protein 6.2 g/dL (6.3-8.2)
[2018-12-06 11:47] LABS: Carcinoembryonic Antigen 2.9 ng/mL (0.1-3.0)
[2018-12-06 12:05] LABS: Thyroid Stimulating Hormone 3.98 uIU/mL (0.47-4.68)
[2018-12-06] MEDS: PEMBROLIZUMAB 200 MG in SODIUM CHLORIDE 0.9% (CHEMO) 100 ML 216 ML IV (12:25)
[2018-12-06] MEDS: SODIUM CHLORIDE 0.9% 100 ML 21 ML IV (12:25)
--- NOTE | 2018-12-27 08:31 | P.PNONC_ITS ---
PN -Subjective Interval history: 83 year old female with MMR deficient and [id number] positive colon cancer diagnosed 03/11/2018. She is now on immunotherapy with pembrolizumab. She presents today for cycle 9 treatment. She came in here today accompanied by her daughter Hanh. Dr. Emerson did c-scope on 12/13/2018. Serrated adenoma and the sigmoid colon polyp was noted. Anastomosis showed hyperplastic and reactive changes. Anastomosis showed moderate strictures with reactive hyperplastic changes and inflammation. I talked over the phone with Dr. Emerson today about the colonoscopy. Dr. Sexton said that he did not see any apparent masses but a stricture which was biopsied. Dr. Emerson is planning to repeat the colonoscopy and the biopsy. Oncological History: Ms. Morton is an 83 year old female, obese. She has a remote history of stage III colon cancer diagnosed in February 2002 with 2 or more mesenteric nodes being positive. The CEA was 18.9. Patient underwent resection followed by 6 months of leucovorin and 5 FU completed Aug 2002. She had a ?mild heart attack? in Jul 2017, and was hospitalized briefly. 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 Fecal transplant was proposed and she underwent pre-transplant C-scope on 03/11/[address] Ree Jalloh. The colonoscopy revealed a malignant partially obstructing tumor at 47 cm proximal to the anus. There was evidence of previous surgery, distal to the current colon mass. 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 On Mar 12, 2018, CT chest, abdomen and pelvis with contrast showed findings concerning for short segment colitis of the right transverse colon versus a circumferential colon mass with surrounding mesenteric edema, multiple bilateral pulmonary nodules measuring up to 6 mm in greatest diameter. I went to radiology department and I talked with radiologist Dr. Smith and reviewed all the imaging studies. The pulmonary nodules have been present at least since December 2017. And the pulmonary nodules apparently have not changed in size, in number or in appearance. Most likely these pulmonary nodules represent granuloma changes rather than metastatic malignancy. We also looked at the liver images. There is no clear evidence of hepatic lesions or masses. Lab results from [facility] showed that the CEA level was 3.6 on March 11, 2018. CBC reviewed that the white cell count 8.4, hemoglobin 8.3, hematocrit 26.3, MCV 75.8 and platelets 371. She was started on Venofer weekly x 5 on 04/19/2018. She was started on 5FU/Leucovorin on 04/20/2018, and completed 4 cycles of 5FU/Leucovorin on 05/31/2018. Restaging CT on June 04, 2018 that showed enlarged heart. Otherwise segment of right colonic wall thickening was again demonstrated with surrounding inflammatory appearance is less conspicuous. Multiple bilateral subcentimeter pulmonary nodules are again noted may be slightly increased in size but that is within the realm slice registration artifact. The case was discussed at [facility] monthly tumor Board. And her case was deemed not a surgical candidate due to performance status. Then, on 07/09/2018, 5FU was stopped and she was started on Keytruda with first cycle 07/09/2018. After 4 cycles, CT scan dated 09/16/2018 demonstrates no significant changes from previous study, patient remains with stable subcentimeter bilateral pulmonary nodules. Also stable segmental right colonic wall thickening. Patient has known large ventral hernia which is again seen containing a segment of transverse colon without evidence of incarceration. These results were reviewed in detail with the patient. - Patient Self-Reported Symptoms SR Constitution: Weight loss/gain SR ears, nose, mouth, throat issues: Changes in taste SR respiratory issues: Mucous SR Cardiovascular issues: Palpitations (before the blood tranfusion in early Apr. ), Extreme swelling, Dizzy/lightheaded SR Skin issues: Dry skin, Hair loss or scalp prob SR Gastrointestinal issues: Constipation SR Genitourinary issues: Frequent urination, Incontinence SR Musculoskeletal issues: Joint pain or swelling, Difficulty walking SR Neuro issues: Tremors or shaking SR Hematologic issues: Bleeding/bruising SR Endocrine issues: Excessive thirst - Additional ROS All systems PM: reviewed and no additional remarkable complaints except as stated Home Medications and Allergies Home Medications Medication Instructions Recorded Confirmed Type oxybutynin chloride 5 mg PO BID #0 10/13/16 12/06/18 History Lantus Solostar U-100 Insulin 1 dose SQ QPM #0 11/11/17 12/06/18 History nitroglycerin [Nitrostat] 0.4 mg SUBLINGUAL PRN PRN #0 11/11/17 12/06/18 History nystatin [Nystop] 100,000 unit TOPICAL QID #0 11/11/17 12/06/18 History ondansetron 8 mg PO TID PRN 03/22/18 12/06/18 History polyethylene glycol 3350 [Miralax] 17 g PO DAILY #30 ea 08/19/18 12/06/18 Rx atorvastatin 10 mg PO DAILY 09/09/18 12/06/18 History sertraline 50 mg PO DAILY 09/09/18 10/25/18 History prednisone 11/15/18 History levothyroxine 50 mcg PO DAILY #60 tab 12/06/18 Rx Allergies Allergy/AdvReac Type Severity Reaction Status Date / Time Sulfa (Sulfonamide Allergy Severe hives Verified 12/13/17 20:35 Antibiotics) [SULFA (SULFONAMIDE ANTIBIOTICS)] metformin Allergy Mild Diarrhea Verified 01/20/18 23:13 darifenacin [From Enablex] Allergy Unknown Verified 01/20/18 23:13 ketoconazole Allergy Unknown Verified 01/20/18 23:13 promethazine [From Phenergan] Allergy Verified 03/19/18 14:49 adhesive [ADHESIVE] AdvReac Severe tape Verified 12/13/17 20:35 causes blisters Exam Vital signs: Last Vital Signs Temp 97.5 F L 12/27/18 10:06 Pulse 73 12/27/18 10:06 Resp 16 12/27/18 10:06 BP 143/57 H 12/27/18 10:06 Pulse Ox 95 12/27/18 10:06 ECOG 1 Narrative: Constitutional: WDWN, NAD, well groomed, pleasant and cooperative, obese. HEENT: NCAT, EOMI, PERRLA, anicteric sclera. Neck: Supple, No palpable thyromegaly or lymphadenopathy. Respiratory: Clear to auscultation, and no wheezes or rales or rubs. Cardiovascular: RRR, S1 and S2 normal, no M/G/R. No JVD. Abdomen: Soft, NTND, BS normal, no palpable organomegaly, hernia noted, no pa lpable masses. Extremities: No LE pitting edema. Musculoskeletal: normal gait and station, slow and is using walker Skin: no rashes, no ulcers, no petechiae Neurological: AOx3, CN II-XII grossly intact. No focal motor or sensory deficit. Psychiatric: Good judgment and insight; normal affect; normal thought process; cooperative, no depression, no anxiety. Results - Labs Laboratory Last Values WBC 7.2 X10^3/uL (4.5-11.0) 12/27/18 11:10 RBC 4.10 X10^6/uL (4.0-5.2) 12/27/18 11:10 Hgb 12.4 g/dL (12.0-16.0) 12/27/18 11:10 Hct 37.3 % (36-46) 12/27/18 11:10 MCV 91.0 fL (80-100) 12/27/18 11:10 MCH 30.3 PG (26-34) 12/27/18 11:10 MCHC 33.3 % (30-36) 12/27/18 11:10 RDW 14.2 % (11.6-14.8) 12/27/18 11:10 Plt Count 247 X10^3/uL (150-400) 12/27/18 11:10 Neut % (Auto) 63.0 % (50-75) 12/27/18 11:10 Lymph % (Auto) 24.7 % (25-40) L 12/27/18 11:10 [place] % (Auto) 8.4 % (3-14) 12/27/18 11:10 Eos % (Auto) 2.9 % (2-4) 12/27/18 11:10 Baso % (Auto) 1.0 % (0-2) 12/27/18 11:10 Neut # (Auto) 4600 /uL (4410-1484) 12/27/18 11:10 Lymph # (Auto) 1800 /uL (4136-7215) 12/27/18 11:10 [place] # (Auto) 600 /uL (0-900) 12/27/18 11:10 Eos # (Auto) 200 /uL (0-450) 12/27/18 11:10 Baso # (Auto) 100 /uL (0-100) 12/27/18 11:10 RBC Morphology See below 05/31/18 08:24 Hypochromasia 1+ H 05/10/18 11:11 Poikilocytosis 1+ H 04/26/18 11:25 Anisocytosis 3+ H 05/31/18 08:24 Microcytosis 2+ H 05/10/18 11:11 Macrocytosis 1+ H 05/10/18 11:11 Sodium 139 mmol/L (137-145) 12/27/18 11:10 Potassium 3.8 mmol/L (3.4-5.1) 12/27/18 11:10 Chloride 105 mmol/L (98-107) 12/27/18 11:10 Carbon Dioxide 29 mmol/L (22-32) 12/27/18 11:10 BUN 14 mg/dL (7-17) 12/27/18 11:10 Creatinine 0.70 mg/dL (0.52-1.04) 12/27/18 11:10 Estimated GFR > 60.0 mL/min (>60) 12/27/18 11:10 BUN/Creatinine Ratio 20.0 (6-22) 12/27/18 11:10 Glucose 145 mg/dL (80-110) H 12/27/18 11:10 Calcium 9.0 mg/dL (8.4-10.2) 12/27/18 11:10 Magnesium 1.9 mg/dL (1.6-2.3) 04/14/18 11:17 Iron 24 ug/dL (37-170) L 04/05/18 10:28 TIBC 424 ug/dL (265-497) 04/05/18 10:28 % Saturation 6 % (15-50) L 04/05/18 10:28 Transferrin 337 mg/dL (206-381) 04/05/18 10:28 Ferritin 7.0 ng/mL (11.1-264) L 04/05/18 10:28 Total Bilirubin 0.6 mg/dL (0.2-1.3) 12/27/18 11:10 AST 20 IU/L (14-36) 12/27/18 11:10 ALT 15 IU/L (9-52) 12/27/18 11:10 Alkaline Phosphatase 68 U/L (38-126) 12/27/18 11:10 Total Protein 6.1 g/dL (6.3-8.2) L 12/27/18 11:10 Albumin 3.4 g/dL (3.5-5.0) L 12/27/18 11:10 Globulin 2.7 g/dL (1.7-4.1) 12/27/18 11:10 Albumin/Globulin Ratio 1.3 (1.0-2.8) 12/27/18 11:10 Carcinoembryonic Ag 2.7 ng/mL (0.1-3.0) 12/27/18 11:10 TSH 3.42 uIU/mL (0.47-4.68) 12/27/18 11:10 Thyroxine (T4) 7.21 ug/dL (5.5-11.0) 09/30/18 11:23 Free T3 3.59 pg/mL (2.77-5.27) 09/30/18 11:23 Urine Color Yellow 09/09/18 14:45 Urine Appearance Clear 09/09/18 14:45 Urine pH 5.0 (4.5-8.0) 09/09/18 14:45 Ur Specific [place] 1.025 (1.000-1.035) 09/09/18 14:45 Urine Protein Negative (Negative) 09/09/18 14:45 Urine Glucose (UA) Negative g/dL (Negative) 09/09/18 14:45 Urine Ketones Negative (NEGATIVE) 09/09/18 14:45 Urine Occult Blood Negative (Negative) 09/09/18 14:45 Urine Nitrate Negative (Negative) 09/09/18 14:45 Urine Bilirubin Negative (NEGATIVE) 09/09/18 14:45 Urine Urobilinogen 0.2 E.U./dL (0.2) 09/09/18 14:45 Ur Leukocyte Esterase Negative (NEGATIVE) 09/09/18 14:45 Urine RBC None seen (0-5/HPF) 09/09/18 14:45 Urine WBC 0-1/hpf (0-5/HPF) 09/09/18 14:45 Ur Squamous Epith Cells 5-10 /hpf H 09/09/18 14:45 Amorphous Sediment 1+ 09/09/18 14:45 Urine Bacteria Few (2-10) (None) H 09/09/18 14:45 Urine Mucus 3+ (Negative) H D 09/09/18 14:45 Ur Culture Indicated? Cult not indicated 09/09/18 14:45 Ref Test (Refrig) 04/05/18 10:28 Blood Type A Positive 04/14/18 10:05 Antibody Screen Negative 04/14/18 10:05 Crossmatch See Detail 04/14/18 10:05 Assessment and Plan (1) Colon cancer Assessment 83 year old female with MMR deficient and [id number] positive colon cancer diagnosed 03/11/2018. She was deemed not a surgical candidate due to performance status. Initially treated with 4 cycles of 5FU with leucovorin without response by CT [facility]. She then was started on Keytruda from 07/09/2018 which she has been tolerating quite well. After 8 cycles of Ki to the, patient repeated colonoscopy by Dr. Emerson. No apparent cancers reported except stricture. Biopsy of the previous anastomosis as well as the stricture showed no evidence of malignancy. I talked over the phone with Dr. Emerson who is planning to repeat the colonoscopy with biopsy. Plan: 1. Ok to proceed to cycle 9# Keytruda today 2. Follow with Dr. Emerson regarding repeat C-scope. 2. RTC in 3 weeks for CBC, CMP, CEA, TSH and C10# Keytruda (2) Iron deficiency anemia due to chronic blood loss Assessment She has completely Venofer infusion weekly x 5 completed 05/17/2018. Her H/H have improved significantly, and now normalized. Plan: Monitor H/H and iron status with ferritin regularly. IV venofer PRN. (3) Personal history of colon cancer, stage III Assessment s/p surgical resection followed by 6 months of treatment with 5-FU. Not sure the relationship with her current colon cancer diagnosis. In review of registry notes this is a new primary. Plan: No special intervention for now. (4) High serum thyroid stimulating hormone (TSH) Assessment: Patient has a borderline increased TSH level during her previous visit in September 2018. Repeat testing of TSH showed normal results. However, further repeat of the test showed that TSH has increased significantly. Patient clinically is complaining more tired. Plan: Continue levothyroxine 50 mcg once a day. Repeat TSH in 3 weeks.
[2018-12-27 10:06] VITALS: BP 143/57; PULSE 73; RESP 16; TEMP 36.4; O2SAT 95
[2018-12-27 11:25] LABS: Add Manual Diff / Slide Review NO; Basophils Absolute Auto 100 /uL (0-100); Eosinophils Absolute Auto 200 /uL (0-450); Eosinophils Percent Auto 2.9 % (2-4); Hematocrit 37.3 % (36-46); Hemoglobin 12.4 g/dL (12.0-16.0); Lymphocytes Absolute Auto 1800 /uL (1100-4500); Lymphocytes Percent Auto 24.7 % (25-40); Mean Corpuscular HGB Conc 33.3 % (30-36); Mean Corpuscular Hemoglobin 30.3 PG (26-34); Monocytes Absolute Auto 600 /uL (0-900); Monocytes Percent Auto 8.4 % (3-14); Neutrophils Absolute Auto 4600 /uL (1500-7000); Platelet Count 247 X10^3/uL (150-400); Red Cell Distribution Width 14.2 % (11.6-14.8); White Blood Cell Count 7.2 X10^3/uL (4.5-11.0)
[2018-12-27 11:36] LABS: Alanine Aminotransferase 15 IU/L (9-52); Albumin 3.4 g/dL (3.5-5.0); Albumin Globulin Ratio 1.3 (1.0-2.8); Alkaline Phosphatase 68 U/L (38-126); Aspartate Aminotransferase 20 IU/L (14-36); Bilirubin Total 0.6 mg/dL (0.2-1.3); Blood Urea Nitrogen 14 mg/dL (7-17); Carbon Dioxide 29 mmol/L (22-32); Chloride 105 mmol/L (98-107); Estimated Glomerular Filt Rate > 60.0 mL/min (>60); Globulin 2.7 g/dL (1.7-4.1); Glucose 145 mg/dL (80-110); HEMOLYSIS < 15 (0-50); Potassium 3.8 mmol/L (3.4-5.1); Sodium 139 mmol/L (137-145); Total Protein 6.1 g/dL (6.3-8.2)
[2018-12-27 12:06] LABS: Carcinoembryonic Antigen 2.7 ng/mL (0.1-3.0)
[2018-12-27] MEDS: SODIUM CHLORIDE 0.9% 100 ML 21 ML IV (12:15)
[2018-12-27] MEDS: PEMBROLIZUMAB 200 MG in SODIUM CHLORIDE 0.9% (CHEMO) 100 ML 216 ML IV (12:19)
[2018-12-27 12:25] LABS: Thyroid Stimulating Hormone 3.42 uIU/mL (0.47-4.68)
[2019-01-17 12:11] VITALS: BP 148/84; PULSE 78; RESP 20; TEMP 36.9; O2SAT 96
[2019-01-17 12:49] LABS: Add Manual Diff / Slide Review NO; Basophils Absolute Auto 100 /uL (0-100); Basophils Percent Auto 1.3 % (0-2); Eosinophils Absolute Auto 200 /uL (0-450); Hematocrit 38.2 % (36-46); Hemoglobin 12.9 g/dL (12.0-16.0); Lymphocytes Absolute Auto 1700 /uL (1100-4500); Lymphocytes Percent Auto 27.3 % (25-40); Mean Corpuscular HGB Conc 33.7 % (30-36); Mean Corpuscular Hemoglobin 30.5 PG (26-34); Mean Corpuscular Volume 90.7 fL (80-100); Monocytes Absolute Auto 500 /uL (0-900); Monocytes Percent Auto 7.5 % (3-14); Neutrophils Absolute Auto 3800 /uL (1500-7000); Neutrophils Percent Auto 59.9 % (50-75); Platelet Count 261 X10^3/uL (150-400); Red Blood Cell Count 4.21 X10^6/uL (4.0-5.2); Red Cell Distribution Width 14.8 % (11.6-14.8); White Blood Cell Count 6.3 X10^3/uL (4.5-11.0)
--- NOTE | 2019-01-17 12:57 | ONC.PN ---
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 She is now on immunotherapy with pembrolizumab. She presents today for cycle 10 treatment. She came in here today accompanied by her daughter Hanh. Dr. Emerson did c-scope on 12/13/2018. Serrated adenoma and the sigmoid colon polyp was noted. Anastomosis showed hyperplastic and reactive changes. Anastomosis showed moderate strictures with reactive hyperplastic changes and inflammation. Since her last visit here, she has been feeling generally well. She did have an episode of diarrhea about 2 days ago but it has since resolved. She has not noted any blood in the stool. She is not having any abdominal pain currently but she did a few days ago. Appetite and energy level have been stable. She denies any dizziness or lightheadedness. No fevers chills or sweats. No shortness of breath or cough. She has not noticed any skin rash or itching. She continues to tolerate the Keytruda quite well. Oncological History: Ms. Morton is an 83 year old female, obese. She has a remote history of stage III colon cancer diagnosed in February 2002 with 2 or more mesenteric nodes being positive. The CEA was 18.9. Patient underwent resection followed by 6 months of leucovorin and 5 FU completed Aug 2002. She had a ?mild heart attack? in Jul 2017, and was hospitalized briefly. 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 Fecal transplant was proposed and she underwent pre-transplant C-scope on 03/11/[address] Ree Jalloh. The colonoscopy revealed a malignant partially obstructing tumor at 47 cm proximal to the anus. There was evidence of previous surgery, distal to the current colon mass. 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 On Mar 12, 2018, CT chest, abdomen and pelvis with contrast showed findings concerning for short segment colitis of the right transverse colon versus a circumferential colon mass with surrounding mesenteric edema, multiple bilateral pulmonary nodules measuring up to 6 mm in greatest diameter. I went to radiology department and I talked with radiologist Dr. Smith and reviewed all the imaging studies. The pulmonary nodules have been present at least since December 2017. And the pulmonary nodules apparently have not changed in size, in number or in appearance. Most likely these pulmonary nodules represent granuloma changes rather than metastatic malignancy. We also looked at the liver images. There is no clear evidence of hepatic lesions or masses. Lab results from [facility] showed that the CEA level was 3.6 on March 11, 2018. CBC reviewed that the white cell count 8.4, hemoglobin 8.3, hematocrit 26.3, MCV 75.8 and platelets 371. She was started on Venofer weekly x 5 on 04/19/2018. She was started on 5FU/Leucovorin on 04/20/2018, and completed 4 cycles of 5FU/Leucovorin on 05/31/2018. Restaging CT on June 04, 2018 that showed enlarged heart. Otherwise segment of right colonic wall thickening was again demonstrated with surrounding inflammatory appearance is less conspicuous. Multiple bilateral subcentimeter pulmonary nodules are again noted may be slightly increased in size but that is within the realm slice registration artifact. The case was discussed at [facility] monthly tumor Board. And her case was deemed not a surgical candidate due to performance status. Then, on 07/09/2018, 5FU was stopped and she was started on Keytruda with first cycle 07/09/2018. After 4 cycles, CT scan dated 09/16/2018 demonstrates no significant changes from previous study, patient remains with stable subcentimeter bilateral pulmonary nodules. Also stable segmental right colonic wall thickening. Patient has known large ventral hernia which is again seen containing a segment of transverse colon without evidence of incarceration. These results were reviewed in detail with the patient. - Patient Self-Reported Symptoms SR Constitution: Weight loss/gain SR ears, nose, mouth, throat issues: Changes in taste SR respiratory issues: Cough SR Cardiovascular issues: Palpitations (before the blood tranfusion in early Apr. ), Extreme swelling, Dizzy/lightheaded SR Skin issues: Dry skin, Hair loss or scalp prob SR Gastrointestinal issues: Change in bowel pattern, Diarrhea, Constipation SR Genitourinary issues: Frequent urination, Incontinence SR Musculoskeletal issues: Joint pain or swelling, Difficulty walking SR Neuro issues: Tremors or shaking SR Hematologic issues: Bleeding/bruising SR Endocrine issues: Excessive thirst Home Medications and Allergies Home Medications Medication Instructions Recorded Confirmed Type oxybutynin chloride 5 mg PO BID #0 10/13/16 01/17/19 History Lantus Solostar U-100 Insulin 1 dose SQ QPM #0 11/11/17 01/17/19 History nitroglycerin [Nitrostat] 0.4 mg SUBLINGUAL PRN PRN #0 11/11/17 01/17/19 History nystatin [Nystop] 100,000 unit TOPICAL QID #0 11/11/17 01/17/19 History ondansetron 8 mg PO TID PRN 03/22/18 01/17/19 History polyethylene glycol 3350 [Miralax] 17 g PO DAILY #30 ea 08/19/18 01/17/19 Rx atorvastatin 10 mg PO DAILY 09/09/18 01/17/19 History sertraline 50 mg PO DAILY 09/09/18 01/17/19 History levothyroxine 50 mcg PO DAILY #60 tab 12/06/18 01/17/19 Rx Allergies Allergy/AdvReac Type Severity Reaction Status Date / Time Sulfa (Sulfonamide Allergy Severe hives Verified 12/13/17 20:35 Antibiotics) [SULFA (SULFONAMIDE ANTIBIOTICS)] metformin Allergy Mild Diarrhea Verified 01/20/18 23:13 darifenacin [From Enablex] Allergy Unknown Verified 01/20/18 23:13 ketoconazole Allergy Unknown Verified 01/20/18 23:13 promethazine [From Phenergan] Allergy Verified 03/19/18 14:49 adhesive [ADHESIVE] AdvReac Severe tape Verified 12/13/17 20:35 causes blisters Exam Vital signs: Vital Signs Temp Pulse Resp BP Pulse Ox 01/17/19 12:11 98.4 F 78 20 148/84 H 96 Intake and Output 01/16/19 01/17/19 01/17/19 23:59 07:59 15:59 Other: Weight 101.8 kg Patient Weight 01/17/19 23:59 Weight 101.8 kg - Constitutional positive no acute distress, positive obese - Routine HEENT Exam Head: Present: normocephalic, atraumatic Eye: Present: EOMI, PERRL. Absent: conjunctival icterus, scleral injection ENT: Present: mucous membranes moist, oropharynx clear - Routine Neck Exam Present: supple. Absent: lymphadenopathy, thyromegaly - Routine Respiratory Exam Present: Clear to auscultation bilaterally. Absent: rales, wheezes - Routine Cardiovascular Exam Present: RRR, S1, S2. Absent: murmur - Routine Abdominal Exam Present: soft, normoactive bowel sounds. Absent: tenderness, organomegaly, mass - Routine Extremities Exam Absent: cyanosis, clubbing, edema - Routine Skin Exam Present: intact. Absent: petechiae, rash - Routine Neurological Exam Present: alert, oriented X3 - Routine Psychiatric Exam Present: normal affect, normal thought process Results - Labs Laboratory Last Values WBC 6.3 X10^3/uL (4.5-11.0) 01/17/19 12: RBC 4.21 X10^6/uL (4.0-5.2) 01/17/19 12: Hgb 12.9 g/dL (12.0-16.0) 01/17/19 12: Hct 38.2 % (36-46) 01/17/19 12: MCV 90.7 fL (80-100) 01/17/19 12: MCH 30.5 PG (26-34) 01/17/19 12: MCHC 33.7 % (30-36) 01/17/19 12: RDW 14.8 % (11.6-14.8) 01/17/19 12: Plt Count 261 X10^3/uL (150-400) 01/17/19 12:01 Neut % (Auto) 59.9 % (50-75) 01/17/19 12:01 Lymph % (Auto) 27.3 % (25-40) 01/17/19 12:01 [place] % (Auto) 7.5 % (3-14) 01/17/19 12: Eos % (Auto) 4.0 % (2-4) 01/17/19 12:01 Baso % (Auto) 1.3 % (0-2) 01/17/19 12: Neut # (Auto) 3800 /uL (6954-0828) 01/17/19 12: Lymph # (Auto) 1700 /uL (1412-1465) 01/17/19 12:01 [place] # (Auto) 500 /uL (0-900) 01/17/19 12:01 Eos # (Auto) 200 /uL (0-450) 01/17/19 12: Baso # (Auto) 100 /uL (0-100) 01/17/19 12:01 RBC Morphology See below 05/31/18 08:24 Hypochromasia 1+ H 05/10/18 11:11 Poikilocytosis 1+ H 04/26/18 11:25 Anisocytosis 3+ H 05/31/18 08:24 Microcytosis 2+ H 05/10/18 11:11 Macrocytosis 1+ H 05/10/18 11:11 Sodium 139 mmol/L (137-145) 12/27/18 11:10 Potassium 3.8 mmol/L (3.4-5.1) 12/27/18 11:10 Chloride 105 mmol/L (98-107) 12/27/18 11:10 Carbon Dioxide 29 mmol/L (22-32) 12/27/18 11:10 BUN 14 mg/dL (7-17) 12/27/18 11:10 Creatinine 0.70 mg/dL (0.52-1.04) 12/27/18 11:10 Estimated GFR > 60.0 mL/min (>60) 12/27/18 11:10 BUN/Creatinine Ratio 20.0 (6-22) 12/27/18 11:10 Glucose 145 mg/dL (80-110) H 12/27/18 11:10 Calcium 9.0 mg/dL (8.4-10.2) 12/27/18 11:10 Magnesium 1.9 mg/dL (1.6-2.3) 04/14/18 11:17 Iron 24 ug/dL (37-170) L 04/05/18 10:28 TIBC 424 ug/dL (265-497) 04/05/18 10:28 % Saturation 6 % (15-50) L 04/05/18 10:28 Transferrin 337 mg/dL (206-381) 04/05/18 10:28 Ferritin 7.0 ng/mL (11.1-264) L 04/05/18 10:28 Total Bilirubin 0.6 mg/dL (0.2-1.3) 12/27/18 11:10 AST 20 IU/L (14-36) 12/27/18 11:10 ALT 15 IU/L (9-52) 12/27/18 11:10 Alkaline Phosphatase 68 U/L (38-126) 12/27/18 11:10 Total Protein 6.1 g/dL (6.3-8.2) L 12/27/18 11:10 Albumin 3.4 g/dL (3.5-5.0) L 12/27/18 11:10 Globulin 2.7 g/dL (1.7-4.1) 12/27/18 11:10 Albumin/Globulin Ratio 1.3 (1.0-2.8) 12/27/18 11:10 Carcinoembryonic Ag 2.7 ng/mL (0.1-3.0) 12/27/18 11:10 TSH 3.42 uIU/mL (0.47-4.68) 12/27/18 11:10 Thyroxine (T4) 7.21 ug/dL (5.5-11.0) 09/30/18 11:23 Free T3 3.59 pg/mL (2.77-5.27) 09/30/18 11:23 Urine Color Yellow 09/09/18 14:45 Urine Appearance Clear 09/09/18 14:45 Urine pH 5.0 (4.5-8.0) 09/09/18 14:45 Ur Specific [place] 1.025 (1.000-1.035) 09/09/18 14:45 Urine Protein Negative (Negative) 09/09/18 14:45 Urine Glucose (UA) Negative g/dL (Negative) 09/09/18 14:45 Urine Ketones Negative (NEGATIVE) 09/09/18 14:45 Urine Occult Blood Negative (Negative) 09/09/18 14:45 Urine Nitrate Negative (Negative) 09/09/18 14:45 Urine Bilirubin Negative (NEGATIVE) 09/09/18 14:45 Urine Urobilinogen 0.2 E.U./dL (0.2) 09/09/18 14:45 Ur Leukocyte Esterase Negative (NEGATIVE) 09/09/18 14:45 Urine RBC None seen (0-5/HPF) 09/09/18 14:45 Urine WBC 0-1/hpf (0-5/HPF) 09/09/18 14:45 Ur Squamous Epith Cells 5-10 /hpf H 09/09/18 14:45 Amorphous Sediment 1+ 09/09/18 14:45 Urine Bacteria Few (2-10) (None) H 09/09/18 14:45 Urine Mucus 3+ (Negative) H D 09/09/18 14:45 Ur Culture Indicated? Cult not indicated 09/09/18 14:45 Ref Test (Refrig) 04/05/18 10:28 Blood Type A Positive 04/14/18 10:05 Antibody Screen Negative 04/14/18 10:05 Crossmatch See Detail 04/14/18 10:05 Assessment and Plan (1) Colon cancer Assessment 83 year old female with MMR deficient and [id number] positive colon cancer diagnosed 03/11/2018. She was deemed not a surgical candidate due to performance status. Initially treated with 4 cycles of 5FU with leucovorin without response by CT imagine stueides. She then was started on Keytruda from 07/09/2018 which she has been tolerating quite well. Her recent colonoscopy showed no evidence of disease. Plan: 1. Ok to proceed to cycle 10# Keytruda today 2. Follow with Dr. Emerson regarding repeat C-scope. 2. RTC in 3 weeks for CBC, CMP, CEA, TSH and C11# Keytruda (2) Iron deficiency anemia due to chronic blood loss Assessment She has completely Venofer infusion weekly x 5 completed 05/17/2018. Her H/H have improved significantly, and now normalized. Plan: Monitor H/H and iron status with ferritin regularly. IV venofer PRN. (3) Personal history of colon cancer, stage III Assessment s/p surgical resection followed by 6 months of treatment with 5-FU. Not sure the relationship with her current colon cancer diagnosis. In review of registry notes this is a new primary. Plan: No special intervention for now. (4) High serum thyroid stimulating hormone (TSH) Assessment: Patient has a borderline increased TSH level during her previous visit in September 2018. Repeat testing of TSH showed normal results. However, further repeat of the test showed that TSH has increased significantly. Patient clinically is complaining more tired. Plan: Continue levothyroxine 50 mcg once a day. Repeat TSH in 3 weeks.
[2019-01-17 13:02] LABS: Alanine Aminotransferase 11 IU/L (9-52); Albumin 3.5 g/dL (3.5-5.0); Albumin Globulin Ratio 1.3 (1.0-2.8); Alkaline Phosphatase 64 U/L (38-126); Aspartate Aminotransferase 20 IU/L (14-36); BUN Creatinine Ratio 18.6 (6-22); Bilirubin Total 0.4 mg/dL (0.2-1.3); Blood Urea Nitrogen 13 mg/dL (7-17); Carbon Dioxide 26 mmol/L (22-32); Chloride 105 mmol/L (98-107); Estimated Glomerular Filt Rate > 60.0 mL/min (>60); Globulin 2.7 g/dL (1.7-4.1); Glucose 153 mg/dL (80-110); HEMOLYSIS < 15 (0-50); Potassium 3.5 mmol/L (3.4-5.1); Sodium 140 mmol/L (137-145); Total Protein 6.2 g/dL (6.3-8.2)
[2019-01-17 13:32] LABS: Carcinoembryonic Antigen 2.7 ng/mL (0.1-3.0)
[2019-01-17 13:50] LABS: Thyroid Stimulating Hormone 2.47 uIU/mL (0.47-4.68)
[2019-01-17] MEDS: PEMBROLIZUMAB 200 MG in SODIUM CHLORIDE 0.9% (CHEMO) 100 ML 216 ML IV (13:55)
--- NOTE | 2019-02-07 10:07 | P.PNONC_ITS ---
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 She is now on immunotherapy with pembrolizumab. She presents today for cycle 10 treatment. She came in here today accompanied by her daughter Hanh. Dr. Emerson did c-scope on 12/13/2018. Serrated adenoma and the sigmoid colon polyp was noted. Anastomosis showed hyperplastic and reactive changes. Anastomosis showed moderate strictures with reactive hyperplastic changes and inflammation. Since her last visit here, she has been feeling generally well. Patient said that she has mild epigastric pain. But no nausea, and no vomiting. No diarrhea. She has some constipation and is taking docusate as-needed. Patient said that her now is in hospice care and she was quite stressed out. According to her daughter, she decided and canceled the follow-up visit with Dr. Carlton Patterson and canceled the scheduled colonoscopy with Dr. Emerson. She continues to tolerate the Keytruda quite well. Oncological History: Ms. Morton is an 83 year old female, obese. She has a remote history of stage III colon cancer diagnosed in February 2002 with 2 or more mesenteric nodes being positive. The CEA was 18.9. Patient underwent resection followed by 6 months of leucovorin and 5 FU completed Aug 2002. She had a ?mild heart attack? in Jul 2017, and was hospitalized briefly. 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 Fecal transplant was proposed and she underwent pre-transplant C-scope on 03/11/[address] Ree Jalloh. The colonoscopy revealed a malignant partially obstructing tumor at 47 cm proximal to the anus. There was evidence of previous surgery, distal to the current colon mass. 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 On Mar 12, 2018, CT chest, abdomen and pelvis with contrast showed findings conc erning for short segment colitis of the right transverse colon versus a circumferential colon mass with surrounding mesenteric edema, multiple bilateral pulmonary nodules measuring up to 6 mm in greatest diameter. I went to radiology department and I talked with radiologist Dr. Smith and reviewed all the imaging studies. The pulmonary nodules have been present at least since December 2017. And the pulmonary nodules apparently have not changed in size, in number or in appearance. Most likely these pulmonary nodules represent granuloma changes rather than metastatic malignancy. We also looked at the liver images. There is no clear evidence of hepatic lesions or masses. Lab results from [facility] showed that the CEA level was 3.6 on March 11, 2018. CBC reviewed that the white cell count 8.4, hemoglobin 8.3, hematocrit 26.3, MCV 75.8 and platelets 371. She was started on Venofer weekly x 5 on 04/19/2018. She was started on 5FU/Leucovorin on 04/20/2018, and completed 4 cycles of 5FU/ Leucovorin on 05/31/2018. Restaging CT on June 04, 2018 that showed enlarged heart. Otherwise segment of right colonic wall thickening was again demonstrated with surrounding inflammatory appearance is less conspicuous. Multiple bilateral subcentimeter pulmonary nodules are again noted may be slightly increased in size but that is within the realm slice registration artifact. The case was discussed at [facility] monthly tumor Board. And her case was deemed not a surgical candidate due to performance status. Then, on 07/09/2018, 5FU was stopped and she was started on Keytruda with first cycle 07/09/2018. After 4 cycles, CT scan dated 09/16/2018 demonstrates no significant changes from previous study, patient remains with stable subcentimeter bilateral pulmonary nodules. Also stable segmental right colonic wall thickening. Patient has known large ventral hernia which is again seen containing a segment of transverse colon without evidence of incarceration. These results were reviewed in detail with the patient. - Patient Self-Reported Symptoms SR Constitution: Weight loss/gain SR ears, nose, mouth, throat issues: Changes in taste SR respiratory issues: Cough SR Cardiovascular issues: Palpitations (before the blood tranfusion in early Apr. ), Extreme swelling, Dizzy/lightheaded SR Skin issues: Dry skin, Hair loss or scalp prob SR Gastrointestinal issues: Change in bowel pattern, Diarrhea, Constipation SR Genitourinary issues: Frequent urination, Incontinence SR Musculoskeletal issues: Joint pain or swelling, Difficulty walking SR Neuro issues: Tremors or shaking SR Hematologic issues: Bleeding/bruising SR Endocrine issues: Excessive thirst - Additional ROS All systems PM: reviewed and no additional remarkable complaints except as stated Home Medications and Allergies Home Medications Medication Instructions Recorded Confirmed Type oxybutynin chloride 5 mg PO BID #0 03/06/17 07/01/19 History Lantus Solostar U-100 Insulin 1 dose SQ QPM #0 11/11/17 02/07/19 History nitroglycerin [Nitrostat] 0.4 mg SUBLINGUAL PRN PRN #0 11/11/17 02/07/19 History nystatin [Nystop] 100,000 unit TOPICAL QID #0 11/11/17 02/07/19 History ondansetron 8 mg PO TID PRN 03/22/18 02/07/19 History polyethylene glycol 3350 [Miralax] 17 g PO DAILY #30 ea 08/19/18 02/07/19 Rx atorvastatin 10 mg PO DAILY 09/09/18 02/07/19 History sertraline 50 mg PO DAILY 09/09/18 02/07/19 History levothyroxine 50 mcg PO DAILY #60 tab 12/06/18 02/07/19 Rx Allergies Allergy/AdvReac Type Severity Reaction Status Date / Time Sulfa (Sulfonamide Allergy Severe hives Verified 12/13/17 20:35 Antibiotics) [SULFA (SULFONAMIDE ANTIBIOTICS)] metformin Allergy Mild Diarrhea Verified 01/20/18 23:13 darifenacin [From Enablex] Allergy Unknown Verified 01/20/18 23:13 ketoconazole Allergy Unknown Verified 01/20/18 23:13 promethazine [From Phenergan] Allergy Verified 03/19/18 14:49 adhesive [ADHESIVE] AdvReac Severe tape Verified 12/13/17 20:35 causes blisters Exam Vital signs: Last Vital Signs Temp 97.3 F L 02/07/19 10:10 Pulse 70 02/07/19 10:10 Resp 18 02/07/19 10:10 BP 139/75 02/07/19 10:10 Pulse Ox 96 02/07/19 10:10 ECOG 1 Narrative: Constitutional: WDWN, NAD, well groomed, pleasant and cooperative, obese. HEENT: NCAT, EOMI, PERRLA, anicteric sclera. Neck: Supple, No palpable thyromegaly or lymphadenopathy. Respiratory: Clear to auscultation, and no wheezes or rales or rubs. Cardiovascular: RRR, S1 and S2 normal, no M/G/R. No JVD. Abdomen: Soft, NTND, BS normal, no palpable organomegaly, hernia noted, no palpable masses. Extremities: No LE pitting edema. Musculoskeletal: normal gait and station, slow and is using walker Skin: no rashes, no ulcers, no petechiae Neurological: AOx3, CN II-XII grossly intact. No focal motor or sensory deficit. Psychiatric: Good judgment and insight; normal affect; normal thought process; cooperative, no depression, no anxiety. Results - Labs Laboratory Last Values WBC 8.2 X10^3/uL (4.5-11.0) 02/07/19 10:00 RBC 4.31 X10^6/uL (4.0-5.2) 02/07/19 10:00 Hgb 13.0 g/dL (12.0-16.0) 02/07/19 10:00 Hct 39.8 % (36-46) 02/07/19 10:00 MCV 92.3 fL (80-100) 02/07/19 10:00 MCH 30.2 PG (26-34) 02/07/19 10:00 MCHC 32.7 % (30-36) 02/07/19 10:00 RDW 14.2 % (11.6-14.8) 02/07/19 10:00 Plt Count 264 X10^3/uL (150-400) 02/07/19 10:00 Neut % (Auto) 56.5 % (50-75) 02/07/19 10:00 Lymph % (Auto) 29.9 % (25-40) 02/07/19 10:00 [place] % (Auto) 8.6 % (3-14) 02/07/19 10:00 Eos % (Auto) 3.8 % (2-4) 02/07/19 10:00 Baso % (Auto) 1.2 % (0-2) 02/07/19 10:00 Neut # (Auto) 4600 /uL (0314-2183) 02/07/19 10:00 Lymph # (Auto) 2500 /uL (1281-3141) 02/07/19 10:00 [place] # (Auto) 700 /uL (0-900) 02/07/19 10:00 Eos # (Auto) 300 /uL (0-450) 02/07/19 10:00 Baso # (Auto) 100 /uL (0-100) 02/07/19 10:00 RBC Morphology See below 05/31/18 08:24 Hypochromasia 1+ H 05/10/18 11:11 Poikilocytosis 1+ H 04/26/18 11:25 Anisocytosis 3+ H 05/31/18 08:24 Microcytosis 2+ H 05/10/18 11:11 Macrocytosis 1+ H 05/10/18 11:11 Sodium 140 mmol/L (137-145) 02/07/19 10:00 Potassium 4.0 mmol/L (3.4-5.1) 02/07/19 10:00 Chloride 105 mmol/L (98-107) 02/07/19 10:00 Carbon Dioxide 27 mmol/L (22-32) 02/07/19 10:00 BUN 13 mg/dL (7-17) 02/07/19 10:00 Creatinine 0.70 mg/dL (0.52-1.04) 02/07/19 10:00 Estimated GFR > 60.0 mL/min (>60) 02/07/19 10:00 BUN/Creatinine Ratio 18.6 (6-22) 02/07/19 10:00 Glucose 102 mg/dL (80-110) 02/07/19 10:00 Calcium 9.2 mg/dL (8.4-10.2) 02/07/19 10:00 Magnesium 1.9 mg/dL (1.6-2.3) 04/14/18 11:17 Iron 24 ug/dL (37-170) L 04/05/18 10:28 TIBC 424 ug/dL (265-497) 04/05/18 10:28 % Saturation 6 % (15-50) L 04/05/18 10:28 Transferrin 337 mg/dL (206-381) 04/05/18 10:28 Ferritin 7.0 ng/mL (11.1-264) L 04/05/18 10:28 Total Bilirubin 0.5 mg/dL (0.2-1.3) 02/07/19 10:00 AST 20 IU/L (14-36) 02/07/19 10:00 ALT 17 IU/L (9-52) 02/07/19 10:00 Alkaline Phosphatase 78 U/L (38-126) 02/07/19 10:00 Total Protein 6.8 g/dL (6.3-8.2) 02/07/19 10:00 Albumin 3.7 g/dL (3.5-5.0) 02/07/19 10:00 Globulin 3.1 g/dL (1.7-4.1) 02/07/19 10:00 Albumin/Globulin Ratio 1.2 (1.0-2.8) 02/07/19 10:00 Carcinoembryonic Ag 2.7 ng/mL (0.1-3.0) 01/17/19 12:01 TSH 2.47 uIU/mL (0.47-4.68) 01/17/19 12:01 Thyroxine (T4) 7.21 ug/dL (5.5-11.0) 09/30/18 11:23 Free T3 3.59 pg/mL (2.77-5.27) 09/30/18 11:23 Urine Color Yellow 09/09/18 14:45 Urine Appearance Clear 09/09/18 14:45 Urine pH 5.0 (4.5-8.0) 09/09/18 14:45 Ur Specific [place] 1.025 (1.000-1.035) 09/09/18 14:45 Urine Protein Negative (Negative) 09/09/18 14:45 Urine Glucose (UA) Negative g/dL (Negative) 09/09/18 14:45 Urine Ketones Negative (NEGATIVE) 09/09/18 14:45 Urine Occult Blood Negative (Negative) 09/09/18 14:45 Urine Nitrate Negative (Negative) 09/09/18 14:45 Urine Bilirubin Negative (NEGATIVE) 09/09/18 14:45 Urine Urobilinogen 0.2 E.U./dL (0.2) 09/09/18 14:45 Ur Leukocyte Esterase Negative (NEGATIVE) 09/09/18 14:45 Urine RBC None seen (0-5/HPF) 09/09/18 14:45 Urine WBC 0-1/hpf (0-5/HPF) 09/09/18 14:45 Ur Squamous Epith Cells 5-10 /hpf H 09/09/18 14:45 Amorphous Sediment 1+ 09/09/18 14:45 Urine Bacteria Few (2-10) (None) H 09/09/18 14:45 Urine Mucus 3+ (Negative) H D 09/09/18 14:45 Ur Culture Indicated? Cult not indicated 09/09/18 14:45 Ref Test (Refrig) 04/05/18 10:28 Blood Type A Positive 04/14/18 10:05 Antibody Screen Negative 04/14/18 10:05 Crossmatch See Detail 04/14/18 10:05 Assessment and Plan (1) Colon cancer Assessment 83 year old female with MMR deficient and [id number] positive colon cancer diagnosed 03/11/2018. She was deemed not a surgical candidate due to performance status. Initially treated with 4 cycles of 5FU with leucovorin without response by CT imagine stueides. She then was started on Keytruda from 07/09/2018 which she has been tolerating quite well. Her recent colonoscopy showed no evidence of disease. I talked with her about the recommendation by Dr. Emerson for repeat colonoscopy. I would highly recommend we follow his recommendation. Patient's daughter said that she is going to call Dr. Emerson's office for the follow-up visit. Plan: 1. Ok to proceed to cycle 11# Keytruda today 2. Encourage her to follow with Dr. Emerson regarding repeat C-scope. 2. RTC in 3 weeks for CBC, CMP, CEA, TSH and C12# Keytruda (2) Iron deficiency anemia due to chronic blood loss Assessment She has completely Venofer infusion weekly x 5 completed 05/17/2018. Her H/H have improved significantly, and now normalized. Plan: Monitor H/H and iron status with ferritin regularly. IV venofer PRN. (3) High serum thyroid stimulating hormone (TSH) Assessment: Patient has a borderline increased TSH level during her previous visit in September 2018. Repeat testing of TSH showed normal results. However, further repeat of the test showed that TSH has increased significantly. Patient clinically taking levothyroxine. I talked with her that I will follow-up on the TSH result from today and will make adjustment of the dosage accordingly. Plan: Continue levothyroxine 50 mcg once a day. Repeat TSH in 3 weeks. (4) Personal history of colon cancer, stage III Assessment s/p surgical resection followed by 6 months of treatment with 5-FU. Not sure the relationship with her current colon cancer diagnosis. In review of registry notes this is a new primary. Plan: No special intervention for now.
[2019-02-07 10:10] VITALS: BP 139/75; PULSE 70; RESP 18; TEMP 36.3; O2SAT 96
[2019-02-07 10:12] LABS: Add Manual Diff / Slide Review NO; Basophils Absolute Auto 100 /uL (0-100); Basophils Percent Auto 1.2 % (0-2); Eosinophils Absolute Auto 300 /uL (0-450); Eosinophils Percent Auto 3.8 % (2-4); Hematocrit 39.8 % (36-46); Lymphocytes Absolute Auto 2500 /uL (1100-4500); Lymphocytes Percent Auto 29.9 % (25-40); Mean Corpuscular HGB Conc 32.7 % (30-36); Mean Corpuscular Hemoglobin 30.2 PG (26-34); Mean Corpuscular Volume 92.3 fL (80-100); Monocytes Absolute Auto 700 /uL (0-900); Monocytes Percent Auto 8.6 % (3-14); Neutrophils Absolute Auto 4600 /uL (1500-7000); Neutrophils Percent Auto 56.5 % (50-75); Platelet Count 264 X10^3/uL (150-400); Red Blood Cell Count 4.31 X10^6/uL (4.0-5.2); Red Cell Distribution Width 14.2 % (11.6-14.8); White Blood Cell Count 8.2 X10^3/uL (4.5-11.0)
[2019-02-07 10:23] LABS: Alanine Aminotransferase 17 IU/L (9-52); Albumin 3.7 g/dL (3.5-5.0); Albumin Globulin Ratio 1.2 (1.0-2.8); Alkaline Phosphatase 78 U/L (38-126); Aspartate Aminotransferase 20 IU/L (14-36); BUN Creatinine Ratio 18.6 (6-22); Bilirubin Total 0.5 mg/dL (0.2-1.3); Blood Urea Nitrogen 13 mg/dL (7-17); Calcium 9.2 mg/dL (8.4-10.2); Carbon Dioxide 27 mmol/L (22-32); Chloride 105 mmol/L (98-107); Estimated Glomerular Filt Rate > 60.0 mL/min (>60); Globulin 3.1 g/dL (1.7-4.1); Glucose 102 mg/dL (80-110); HEMOLYSIS < 15 (0-50); Sodium 140 mmol/L (137-145); Total Protein 6.8 g/dL (6.3-8.2)
[2019-02-07 10:54] LABS: Carcinoembryonic Antigen 2.7 ng/mL (0.1-3.0)
[2019-02-07] MEDS: SODIUM CHLORIDE 0.9% 100 ML 21 ML IV (11:59)
[2019-02-07] MEDS: PEMBROLIZUMAB 200 MG in SODIUM CHLORIDE 0.9% (CHEMO) 100 ML 216 ML IV (11:59)
[2019-02-07 12:28] LABS: Thyroid Stimulating Hormone 2.16 uIU/mL (0.47-4.68)
[2019-03-10 16:01] LABS: Add Manual Diff / Slide Review NO; Basophils Absolute Auto 100 /uL (0-100); Basophils Percent Auto 1.1 % (0-2); Eosinophils Absolute Auto 300 /uL (0-450); Eosinophils Percent Auto 2.8 % (2-4); Hemoglobin 12.9 g/dL (12.0-16.0); Lymphocytes Absolute Auto 2600 /uL (1100-4500); Lymphocytes Percent Auto 24.9 % (25-40); Mean Corpuscular HGB Conc 33.1 % (30-36); Mean Corpuscular Hemoglobin 30.7 PG (26-34); Mean Corpuscular Volume 92.6 fL (80-100); Monocytes Absolute Auto 800 /uL (0-900); Monocytes Percent Auto 7.3 % (3-14); Neutrophils Absolute Auto 6700 /uL (1500-7000); Neutrophils Percent Auto 63.9 % (50-75); Platelet Count 298 X10^3/uL (150-400); Red Blood Cell Count 4.22 X10^6/uL (4.0-5.2); Red Cell Distribution Width 13.2 % (11.6-14.8); White Blood Cell Count 10.5 X10^3/uL (4.5-11.0)
[2019-03-10 16:12] LABS: Alanine Aminotransferase 14 IU/L (9-52); Albumin 3.7 g/dL (3.5-5.0); Albumin Globulin Ratio 1.2 (1.0-2.8); Alkaline Phosphatase 83 U/L (38-126); Aspartate Aminotransferase 18 IU/L (14-36); Bilirubin Total 0.4 mg/dL (0.2-1.3); Blood Urea Nitrogen 14 mg/dL (7-17); Carbon Dioxide 27 mmol/L (22-32); Chloride 103 mmol/L (98-107); Estimated Glomerular Filt Rate > 60.0 mL/min (>60); Globulin 3.2 g/dL (1.7-4.1); Glucose 145 mg/dL (80-110); HEMOLYSIS < 15 (0-50); Potassium 4.1 mmol/L (3.4-5.1); Sodium 139 mmol/L (137-145); Total Protein 6.9 g/dL (6.3-8.2)
--- NOTE | 2019-03-10 16:30 | ONC.PN ---
PN -Subjective Interval history: 83 year old female with MMR deficient and [id number] positive colon cancer diagnosed 03/11/2018. She is now on immunotherapy with pembrolizumab. She presents today for cycle 12 treatment. She came in here today by herself. Her daughter had to go to [place] to see her own doctor. Kajal's supervisor ovens Riana helped her here today. About 2 weeks ago, her suddenly. Patient therefore cancelled scheduled colonoscopy. Kajal has been doing well. 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 No erythema. She denies nausea. On the contrary, she has complained of constipation. Oncological History: Ms. Morton is an 83 year old female, obese. She has a remote history of stage III colon cancer diagnosed in February 2002 with 2 or more mesenteric nodes being positive. The CEA was 18.9. Patient underwent resection followed by 6 months of leucovorin and 5 FU completed Aug 2002. She had a ?mild heart attack? in Jul 2017, and was hospitalized briefly. 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 Fecal transplant was proposed and she underwent pre-transplant C-scope on 03/11/[address] Ree Jalloh. The colonoscopy revealed a malignant partially obstructing tumor at 47 cm proximal to the anus. There was evidence of previous surgery, distal to the current colon mass. 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 On Mar 12, 2018, CT chest, abdomen and pelvis with contrast showed findings concerning for short segment colitis of the right transverse colon versus a circumferential colon mass with surrounding mesenteric edema, multiple bilateral pulmonary nodules measuring up to 6 mm in greatest diameter. I went to radiology department and I talked with radiologist Dr. Smith and reviewed all the imaging studies. The pulmonary nodules have been present at least since December 2017. And the pulmonary nodules apparently have not changed in size, in number or in appearance. Most likely these pulmonary nodules represent granuloma changes rather than metastatic malignancy. We also looked at the liver images. There is no clear evidence of hepatic lesions or masses. Lab results from [facility] showed that the CEA level was 3.6 on March 11, 2018. CBC reviewed that the white cell count 8.4, hemoglobin 8.3, hematocrit 26.3, MCV 75.8 and platelets 371. She was started on Venofer weekly x 5 on 04/19/2018. She was started on 5FU/Leucovorin on 04/20/2018, and completed 4 cycles of 5FU/Leucovorin on 05/31/2018. Restaging CT on June 04, 2018 that showed enlarged heart. Otherwise segment of right colonic wall thickening was again demonstrated with surrounding inflammatory appearance is less conspicuous. Multiple bilateral subcentimeter pulmonary nodules are again noted may be slightly increased in size but that is within the realm slice registration artifact. The case was discussed at [facility] monthly tumor Board. And her case was deemed not a surgical candidate due to performance status. Then, on 07/09/2018, 5FU was stopped and she was started on Keytruda with first cycle 07/09/2018. After 4 cycles, CT scan dated 09/16/2018 demonstrates no significant changes from previous study, patient remains with stable subcentimeter bilateral pulmonary nodules. Also stable segmental right colonic wall thickening. Patient has known large ventral hernia which is again seen containing a segment of transverse colon without evidence of incarceration. These results were reviewed in detail with the patient. - Patient Self-Reported Symptoms SR Constitution: Weight loss/gain SR ears, nose, mouth, throat issues: Changes in taste SR respiratory issues: Cough SR Cardiovascular issues: Palpitations (before the blood tranfusion in early Apr. ), Extreme swelling, Dizzy/lightheaded SR Skin issues: Dry skin, Skin rash or itching, Hair loss or scalp prob SR Gastrointestinal issues: Change in bowel pattern, Diarrhea, Constipation SR Genitourinary issues: Frequent urination, Incontinence SR Musculoskeletal issues: Joint pain or swelling, Difficulty walking SR Neuro issues: Tremors or shaking SR Hematologic issues: Bleeding/bruising SR Endocrine issues: Excessive thirst - Additional ROS All systems PM: reviewed and no additional remarkable complaints except as stated Home Medications and Allergies Home Medications Medication Instructions Recorded Confirmed Type oxybutynin chloride 5 mg PO BID #0 10/13/16 02/07/19 History Lantus Solostar U-100 Insulin 1 dose SQ QPM #0 11/11/17 02/07/19 History nitroglycerin [Nitrostat] 0.4 mg SUBLINGUAL PRN PRN #0 11/11/17 02/07/19 History nystatin [Nystop] 100,000 unit TOPICAL QID #0 11/11/17 02/07/19 History ondansetron 8 mg PO TID PRN 03/22/18 02/07/19 History polyethylene glycol 3350 [Miralax] 17 g PO DAILY #30 ea 08/19/18 02/07/19 Rx atorvastatin 10 mg PO DAILY 09/09/18 02/07/19 History sertraline 50 mg PO DAILY 09/09/18 02/07/19 History levothyroxine 50 mcg PO DAILY #60 tab 12/06/18 02/07/19 Rx Allergies Allergy/AdvReac Type Severity Reaction Status Date / Time Sulfa (Sulfonamide Allergy Severe hives Verified 12/13/17 20:35 Antibiotics) [SULFA (SULFONAMIDE ANTIBIOTICS)] metformin Allergy Mild Diarrhea Verified 01/20/18 23:13 darifenacin [From Enablex] Allergy Unknown Verified 01/20/18 23:13 ketoconazole Allergy Unknown Verified 01/20/18 23:13 promethazine [From Phenergan] Allergy Verified 03/19/18 14:49 adhesive [ADHESIVE] AdvReac Severe tape Verified 12/13/17 20:35 causes blisters Exam Vital signs: Last Vital Signs Temp 97.3 F L 02/07/19 10:10 Pulse 70 02/07/19 10:10 Resp 18 02/07/19 10:10 BP 139/75 02/07/19 10:10 Pulse Ox 96 02/07/19 10:10 Narrative: ECOG 1 Constitutional: WDWN, NAD, well groomed, pleasant and cooperative, obese. HEENT: NCAT, EOMI, PERRLA, anicteric sclera. Neck: Supple, No palpable thyromegaly or lymphadenopathy. Respiratory: Clear to auscultation, and no wheezes or rales or rubs. Cardiovascular: RRR, S1 and S2 normal, no M/G/R. No JVD. Abdomen: Soft, NTND, BS normal, no palpable organomegaly, hernia noted, no palpable masses. Extremities: No LE pitting edema. Musculoskeletal: normal gait and station, slow and is using wheel chair Skin: no rashes, no ulcers, no petechiae Neurological: AOx3, CN II-XII grossly intact. No focal motor or sensory deficit. Psychiatric: Good judgment and insight; normal affect; normal thought process; cooperative. Results - Labs Laboratory Last Values WBC 10.5 X10^3/uL (4.5-11.0) 03/10/19 15:45 RBC 4.22 X10^6/uL (4.0-5.2) 03/10/19 15:45 Hgb 12.9 g/dL (12.0-16.0) 03/10/19 15:45 Hct 39.0 % (36-46) 03/10/19 15:45 MCV 92.6 fL (80-100) 03/10/19 15:45 MCH 30.7 PG (26-34) 03/10/19 15:45 MCHC 33.1 % (30-36) 03/10/19 15:45 RDW 13.2 % (11.6-14.8) 03/10/19 15:45 Plt Count 298 X10^3/uL (150-400) 03/10/19 15:45 Neut % (Auto) 63.9 % (50-75) 03/10/19 15:45 Lymph % (Auto) 24.9 % (25-40) L 03/10/19 15:45 Ray % (Auto) 7.3 % (3-14) 03/10/19 15:45 Eos % (Auto) 2.8 % (2-4) 03/10/19 15:45 Baso % (Auto) 1.1 % (0-2) 03/10/19 15:45 Neut # (Auto) 6700 /uL (9242-3034) 03/10/19 15:45 Lymph # (Auto) 2600 /uL (5338-4427) 03/10/19 15:45 Ray # (Auto) 800 /uL (0-900) 03/10/19 15:45 Eos # (Auto) 300 /uL (0-450) 03/10/19 15:45 Baso # (Auto) 100 /uL (0-100) 03/10/19 15:45 RBC Morphology See below 05/31/18 08:24 Hypochromasia 1+ H 05/10/18 11:11 Poikilocytosis 1+ H 04/26/18 11:25 Anisocytosis 3+ H 05/31/18 08:24 Microcytosis 2+ H 05/10/18 11:11 Macrocytosis 1+ H 05/10/18 11:11 Sodium 139 mmol/L (137-145) 03/10/19 15:45 Potassium 4.1 mmol/L (3.4-5.1) 03/10/19 15:45 Chloride 103 mmol/L (98-107) 03/10/19 15:45 Carbon Dioxide 27 mmol/L (22-32) 03/10/19 15:45 BUN 14 mg/dL (7-17) 03/10/19 15:45 Creatinine 0.70 mg/dL (0.52-1.04) 03/10/19 15:45 Estimated GFR > 60.0 mL/min (>60) 03/10/19 15:45 BUN/Creatinine Ratio 20.0 (6-22) 03/10/19 15:45 Glucose 145 mg/dL (80-110) H 03/10/19 15:45 Calcium 9.0 mg/dL (8.4-10.2) 03/10/19 15:45 Magnesium 1.9 mg/dL (1.6-2.3) 04/14/18 11:17 Iron 24 ug/dL (37-170) L 04/05/18 10:28 TIBC 424 ug/dL (265-497) 04/05/18 10:28 % Saturation 6 % (15-50) L 04/05/18 10:28 Transferrin 337 mg/dL (206-381) 04/05/18 10:28 Ferritin 7.0 ng/mL (11.1-264) L 04/05/18 10:28 Total Bilirubin 0.4 mg/dL (0.2-1.3) 03/10/19 15:45 AST 18 IU/L (14-36) 03/10/19 15:45 ALT 14 IU/L (9-52) 03/10/19 15:45 Alkaline Phosphatase 83 U/L (38-126) 03/10/19 15:45 Total Protein 6.9 g/dL (6.3-8.2) 03/10/19 15:45 Albumin 3.7 g/dL (3.5-5.0) 03/10/19 15:45 Globulin 3.2 g/dL (1.7-4.1) 03/10/19 15:45 Albumin/Globulin Ratio 1.2 (1.0-2.8) 03/10/19 15:45 Carcinoembryonic Ag 2.7 ng/mL (0.1-3.0) 02/07/19 10:00 TSH 2.16 uIU/mL (0.47-4.68) 02/07/19 10:00 Thyroxine (T4) 7.21 ug/dL (5.5-11.0) 09/30/18 11:23 Free T3 3.59 pg/mL (2.77-5.27) 09/30/18 11:23 Urine Color Yellow 09/09/18 14:45 Urine Appearance Clear 09/09/18 14:45 Urine pH 5.0 (4.5-8.0) 09/09/18 14:45 Ur Specific [place] 1.025 (1.000-1.035) 09/09/18 14:45 Urine Protein Negative (Negative) 09/09/18 14:45 Urine Glucose (UA) Negative g/dL (Negative) 09/09/18 14:45 Urine Ketones Negative (NEGATIVE) 09/09/18 14:45 Urine Occult Blood Negative (Negative) 09/09/18 14:45 Urine Nitrate Negative (Negative) 09/09/18 14:45 Urine Bilirubin Negative (NEGATIVE) 09/09/18 14:45 Urine Urobilinogen 0.2 E.U./dL (0.2) 09/09/18 14:45 Ur Leukocyte Esterase Negative (NEGATIVE) 09/09/18 14:45 Urine RBC None seen (0-5/HPF) 09/09/18 14:45 Urine WBC 0-1/hpf (0-5/HPF) 09/09/18 14:45 Ur Squamous Epith Cells 5-10 /hpf H 09/09/18 14:45 Amorphous Sediment 1+ 09/09/18 14:45 Urine Bacteria Few (2-10) (None) H 09/09/18 14:45 Urine Mucus 3+ (Negative) H D 09/09/18 14:45 Ur Culture Indicated? Cult not indicated 09/09/18 14:45 Ref Test (Refrig) 04/05/18 10:28 Blood Type A Positive 04/14/18 10:05 Antibody Screen Negative 04/14/18 10:05 Crossmatch See Detail 04/14/18 10:05 Assessment and Plan (1) Colon cancer Assessment 83 year old female with MMR deficient and [id number] positive colon cancer diagnosed 03/11/2018. She was deemed not a surgical candidate due to performance status. Initially treated with 4 cycles of 5FU with leucovorin without response by CT ben oejda. She then was started on Keytruda from 07/09/2018 which she has been tolerating quite well. Patient canceled the colonoscopy because her recently suddenly. She said she is going to call Dr. Emerson's office and reschedule. Otherwise patient is complaining more hand joint pain but no erythema no swelling. Patient denies any previous history of rheumatoid arthritis. She denies any diarrhea or new rashes. I will proceed with scheduled treatment. Plan: 1. Ok to proceed to cycle 12# Keytruda today 2. She will call Dr. Emerson's office to reschedule C-scope. 2. RTC in 3 weeks for CBC, CMP, CEA, TSH and C13# Keytruda (2) Iron deficiency anemia due to chronic blood loss Assessment She has completely Venofer infusion weekly x 5 completed 05/17/2018. Her H/H have improved significantly, and now normalized. Plan: Monitor H/H and iron status with ferritin regularly. IV venofer PRN. (3) High serum thyroid stimulating hormone (TSH) Assessment: Her thyroid function has been monitored closely. Most recent TSH level on 02/07/2019 was 2.16. Plan: Continue levothyroxine 50 mcg once a day. Repeat TSH in 3 weeks. (4) Personal history of colon cancer, stage III Assessment s/p surgical resection followed by 6 months of treatment with 5-FU. Not sure the relationship with her current colon cancer diagnosis. In review of registry notes this is a new primary. Plan: No special intervention for now.
--- NOTE | 2019-03-10 16:39 | P.PNONC_ITS ---
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 She is now on immunotherapy with pembrolizumab. She presents today for cycle 12 treatment. She came in here today by herself. Her daughter had to go to [place] to see her own doctor. Kajal's senior control systems engineer Riana helped her here today. About 2 weeks ago, her suddenly. Patient therefore cancelled scheduled colonoscopy. Kajal has been doing well. 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 No erythema. She denies nausea. On the contrary, she has complained of constipation. Oncological History: Ms. Morton is an 83 year old female, obese. She has a remote history of stage III colon cancer diagnosed in February 2002 with 2 or more mesenteric nodes being positive. The CEA was 18.9. Patient underwent resection followed by 6 months of leucovorin and 5 FU completed Aug 2002. She had a ?mild heart attack? in Jul 2017, and was hospitalized briefly. 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 Fecal transplant was proposed and she underwent pre-transplant C-scope on 03/11/[address] Ree Jalloh. The colonoscopy revealed a malignant partially obstructing tumor at 47 cm proximal to the anus. There was evidence of previous surgery, distal to the current colon mass. 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 On Mar 12, 2018, CT chest, abdomen and pelvis with contrast showed findings concerning for short segment colitis of the right transverse colon versus a circumferential colon mass with surrounding mesenteric edema, multiple bilateral pulmonary nodules measuring up to 6 mm in greatest diameter. I went to radiology department and I talked with radiologist Dr. Smith and reviewed all the imaging studies. The pulmonary nodules have been present at least since December 2017. And the pulmonary nodules apparently have not changed in size, in number or in appearance. Most likely these pulmonary nodules represent granuloma changes rather than metastatic malignancy. We also looked at the liver images. There is no clear evidence of hepatic lesions or masses. Lab results from [facility] showed that the CEA level was 3.6 on March 11, 2018. CBC reviewed that the white cell count 8.4, hemoglobin 8.3, hematocrit 26.3, MCV 75.8 and platelets 371. She was started on Venofer weekly x 5 on 04/19/2018. She was started on 5FU/Leucovorin on 04/20/2018, and completed 4 cycles of 5FU/Leucovorin on 05/31/2018. Restaging CT on June 04, 2018 that showed enlarged heart. Otherwise segment of right colonic wall thickening was again demonstrated with surrounding inflammatory appearance is less conspicuous. Multiple bilateral subcentimeter pulmonary nodules are again noted may be slightly increased in size but that is within the realm slice registration artifact. The case was discussed at [facility] monthly tumor Board. And her case was deemed not a surgical candidate due to performance status. Then, on 07/09/2018, 5FU was stopped and she was started on Keytruda with first cycle 07/09/2018. After 4 cycles, CT scan dated 09/16/2018 demonstrates no significant changes from previous study, patient remains with stable subcentimeter bilateral pulmonary nodules. Also stable segmental right colonic wall thickening. Patient has known large ventral hernia which is again seen containing a segment of transverse colon without evidence of incarceration. These results were reviewed in detail with the patient. - Patient Self-Reported Symptoms SR Constitution: Weight loss/gain SR ears, nose, mouth, throat issues: Changes in taste SR respiratory issues: Cough SR Cardiovascular issues: Palpitations (before the blood tranfusion in early Apr. ), Extreme swelling, Dizzy/lightheaded SR Skin issues: Dry skin, Skin rash or itching, Hair loss or scalp prob SR Gastrointestinal issues: Change in bowel pattern, Diarrhea, Constipation SR Genitourinary issues: Frequent urination, Incontinence SR Musculoskeletal issues: Joint pain or swelling, Difficulty walking SR Neuro issues: Tremors or shaking SR Hematologic issues: Bleeding/bruising SR Endocrine issues: Excessive thirst - Additional ROS All systems PM: reviewed and no additional remarkable complaints except as stated Home Medications and Allergies Home Medications Medication Instructions Recorded Confirmed Type oxybutynin chloride 5 mg PO BID #0 10/13/16 02/07/19 History Lantus Solostar U-100 Insulin 1 dose SQ QPM #0 11/11/17 02/07/19 History nitroglycerin [Nitrostat] 0.4 mg SUBLINGUAL PRN PRN #0 11/11/17 02/07/19 History nystatin [Nystop] 100,000 unit TOPICAL QID #0 11/11/17 02/07/19 History ondansetron 8 mg PO TID PRN 03/22/18 02/07/19 History polyethylene glycol 3350 [Miralax] 17 g PO DAILY #30 ea 08/19/18 02/07/19 Rx atorvastatin 10 mg PO DAILY 09/09/18 02/07/19 History sertraline 50 mg PO DAILY 09/09/18 02/07/19 History levothyroxine 50 mcg PO DAILY #60 tab 12/06/18 02/07/19 Rx Allergies Allergy/AdvReac Type Severity Reaction Status Date / Time Sulfa (Sulfonamide Allergy Severe hives Verified 12/13/17 20:35 Antibiotics) [SULFA (SULFONAMIDE ANTIBIOTICS)] metformin Allergy Mild Diarrhea Verified 01/20/18 23:13 darifenacin [From Enablex] Allergy Unknown Verified 01/20/18 23:13 ketoconazole Allergy Unknown Verified 01/20/18 23:13 promethazine [From Phenergan] Allergy Verified 03/19/18 14:49 adhesive [ADHESIVE] AdvReac Severe tape Verified 12/13/17 20:35 causes blisters Exam Vital signs: Last Vital Signs Temp 97.3 F L 02/07/19 10:10 Pulse 70 02/07/19 10:10 Resp 18 02/07/19 10:10 BP 139/75 02/07/19 10:10 Pulse Ox 96 02/07/19 10:10 Narrative: ECOG 1 Constitutional: WDWN, NAD, well groomed, pleasant and cooperative, obese. HEENT: NCAT, EOMI, PERRLA, anicteric sclera. Neck: Supple, No palpable thyromegaly or lymphadenopathy. Respiratory: Clear to auscultation, and no wheezes or rales or rubs. Cardiovascular: RRR, S1 and S2 normal, no M/G/R. No JVD. Abdomen: Soft, NTND, BS normal, no palpable organomegaly, hernia noted, no palpable masses. Extremities: No LE pitting edema. Musculoskeletal: normal gait and station, slow and is using wheel chair Skin: no rashes, no ulcers, no petechiae Neurological: AOx3, CN II-XII grossly intact. No focal motor or sensory deficit. Psychiatric: Good judgment and insight; normal affect; normal thought process; cooperative. Results - Labs Laboratory Last Values WBC 10.5 X10^3/uL (4.5-11.0) 03/10/19 15:45 RBC 4.22 X10^6/uL (4.0-5.2) 03/10/19 15:45 Hgb 12.9 g/dL (12.0-16.0) 03/10/19 15:45 Hct 39.0 % (36-46) 03/10/19 15:45 MCV 92.6 fL (80-100) 03/10/19 15:45 MCH 30.7 PG (26-34) 03/10/19 15:45 MCHC 33.1 % (30-36) 03/10/19 15:45 RDW 13.2 % (11.6-14.8) 03/10/19 15:45 Plt Count 298 X10^3/uL (150-400) 03/10/19 15:45 Neut % (Auto) 63.9 % (50-75) 03/10/19 15:45 Lymph % (Auto) 24.9 % (25-40) L 03/10/19 15:45 [place] % (Auto) 7.3 % (3-14) 03/10/19 15:45 Eos % (Auto) 2.8 % (2-4) 03/10/19 15:45 Baso % (Auto) 1.1 % (0-2) 03/10/19 15:45 Neut # (Auto) 6700 /uL (8116-9250) 03/10/19 15:45 Lymph # (Auto) 2600 /uL (0694-2890) 03/10/19 15:45 [place] # (Auto) 800 /uL (0-900) 03/10/19 15:45 Eos # (Auto) 300 /uL (0-450) 03/10/19 15:45 Baso # (Auto) 100 /uL (0-100) 03/10/19 15:45 RBC Morphology See below 05/31/18 08:24 Hypochromasia 1+ H 05/10/18 11:11 Poikilocytosis 1+ H 04/26/18 11:25 Anisocytosis 3+ H 05/31/18 08:24 Microcytosis 2+ H 05/10/18 11:11 Macrocytosis 1+ H 05/10/18 11:11 Sodium 139 mmol/L (137-145) 03/10/19 15:45 Potassium 4.1 mmol/L (3.4-5.1) 03/10/19 15:45 Chloride 103 mmol/L (98-107) 03/10/19 15:45 Carbon Dioxide 27 mmol/L (22-32) 03/10/19 15:45 BUN 14 mg/dL (7-17) 03/10/19 15:45 Creatinine 0.70 mg/dL (0.52-1.04) 03/10/19 15:45 Estimated GFR > 60.0 mL/min (>60) 03/10/19 15:45 BUN/Creatinine Ratio 20.0 (6-22) 03/10/19 15:45 Glucose 145 mg/dL (80-110) H 03/10/19 15:45 Calcium 9.0 mg/dL (8.4-10.2) 03/10/19 15:45 Magnesium 1.9 mg/dL (1.6-2.3) 04/14/18 11:17 Iron 24 ug/dL (37-170) L 04/05/18 10:28 TIBC 424 ug/dL (265-497) 04/05/18 10:28 % Saturation 6 % (15-50) L 04/05/18 10:28 Transferrin 337 mg/dL (206-381) 04/05/18 10:28 Ferritin 7.0 ng/mL (11.1-264) L 04/05/18 10:28 Total Bilirubin 0.4 mg/dL (0.2-1.3) 03/10/19 15:45 AST 18 IU/L (14-36) 03/10/19 15:45 ALT 14 IU/L (9-52) 03/10/19 15:45 Alkaline Phosphatase 83 U/L (38-126) 03/10/19 15:45 Total Protein 6.9 g/dL (6.3-8.2) 03/10/19 15:45 Albumin 3.7 g/dL (3.5-5.0) 03/10/19 15:45 Globulin 3.2 g/dL (1.7-4.1) 03/10/19 15:45 Albumin/Globulin Ratio 1.2 (1.0-2.8) 03/10/19 15:45 Carcinoembryonic Ag 2.7 ng/mL (0.1-3.0) 02/07/19 10:00 TSH 2.16 uIU/mL (0.47-4.68) 02/07/19 10:00 Thyroxine (T4) 7.21 ug/dL (5.5-11.0) 09/30/18 11:23 Free T3 3.59 pg/mL (2.77-5.27) 09/30/18 11:23 Urine Color Yellow 09/09/18 14:45 Urine Appearance Clear 09/09/18 14:45 Urine pH 5.0 (4.5-8.0) 09/09/18 14:45 Ur Specific [place] 1.025 (1.000-1.035) 09/09/18 14:45 Urine Protein Negative (Negative) 09/09/18 14:45 Urine Glucose (UA) Negative g/dL (Negative) 09/09/18 14:45 Urine Ketones Negative (NEGATIVE) 09/09/18 14:45 Urine Occult Blood Negative (Negative) 09/09/18 14:45 Urine Nitrate Negative (Negative) 09/09/18 14:45 Urine Bilirubin Negative (NEGATIVE) 09/09/18 14:45 Urine Urobilinogen 0.2 E.U./dL (0.2) 09/09/18 14:45 Ur Leukocyte Esterase Negative (NEGATIVE) 09/09/18 14:45 Urine RBC None seen (0-5/HPF) 09/09/18 14:45 Urine WBC 0-1/hpf (0-5/HPF) 09/09/18 14:45 Ur Squamous Epith Cells 5-10 /hpf H 09/09/18 14:45 Amorphous Sediment 1+ 09/09/18 14:45 Urine Bacteria Few (2-10) (None) H 09/09/18 14:45 Urine Mucus 3+ (Negative) H D 09/09/18 14:45 Ur Culture Indicated? Cult not indicated 09/09/18 14:45 Ref Test (Refrig) 04/05/18 10:28 Blood Type A Positive 04/14/18 10:05 Antibody Screen Negative 04/14/18 10:05 Crossmatch See Detail 04/14/18 10:05 Assessment and Plan (1) Colon cancer Assessment 83 year old female with MMR deficient and [id number] positive colon cancer diagnosed 03/11/2018. She was deemed not a surgical candidate due to performance status. Initially treated with 4 cycles of 5FU with leucovorin without response by CT ben ojeda. She then was started on Keytruda from 07/09/2018 which she has been tolerating quite well. Patient canceled the colonoscopy because her recently suddenly. She said she is going to call Dr. Emerson's office and reschedule. Otherwise patient is complaining more hand joint pain but no erythema no swelling. Patient denies any previous history of rheumatoid arthritis. She denies any diarrhea or new rashes. I will proceed with scheduled treatment. Plan: 1. Ok to proceed to cycle 12# Keytruda today 2. She will call Dr. Emerson's office to reschedule C-scope. 2. RTC in 3 weeks for CBC, CMP, CEA, TSH and C13# Keytruda (2) Iron deficiency anemia due to chronic blood loss Assessment She has completely Venofer infusion weekly x 5 completed 05/17/2018. Her H/H have improved significantly, and now normalized. Plan: Monitor H/H and iron status with ferritin regularly. IV venofer PRN. (3) High serum thyroid stimulating hormone (TSH) Assessment: Her thyroid function has been monitored closely. Most recent TSH level on 02/07/2019 was 2.16. Plan: Continue levothyroxine 50 mcg once a day. Repeat TSH in 3 weeks. (4) Personal history of colon cancer, stage III Assessment s/p surgical resection followed by 6 months of treatment with 5-FU. Not sure the relationship with her current colon cancer diagnosis. In review of registry notes this is a new primary. Plan: No special intervention for now.
[2019-03-10 16:43] LABS: Carcinoembryonic Antigen 2.4 ng/mL (0.1-3.0)
[2019-03-10 16:49] LABS: Thyroid Stimulating Hormone 1.63 uIU/mL (0.47-4.68)
[2019-03-10] MEDS: PEMBROLIZUMAB 200 MG in SODIUM CHLORIDE 0.9% (CHEMO) 100 ML 216 ML IV (17:00)
[2019-03-10] MEDS: SODIUM CHLORIDE 0.9% 100 ML 21 ML IV (17:05)
[2019-03-10 17:10] VITALS: BP 134/68; PULSE 67; RESP 18; TEMP 36.9; O2SAT 98
[2019-04-04 11:18] VITALS: BP 113/77; PULSE 71; RESP 16; TEMP 37.1; O2SAT 98
[2019-04-04 11:27] LABS: Alanine Aminotransferase 14 IU/L (9-52); Albumin 3.6 g/dL (3.5-5.0); Albumin Globulin Ratio 1.2 (1.0-2.8); Alkaline Phosphatase 80 U/L (38-126); Aspartate Aminotransferase 23 IU/L (14-36); BUN Creatinine Ratio 15.7 (6-22); Bilirubin Total 0.5 mg/dL (0.2-1.3); Blood Urea Nitrogen 11 mg/dL (7-17); Calcium 9.1 mg/dL (8.4-10.2); Carbon Dioxide 27 mmol/L (22-32); Chloride 104 mmol/L (98-107); Estimated Glomerular Filt Rate > 60.0 mL/min (>60); Globulin 3.1 g/dL (1.7-4.1); Glucose 170 mg/dL (80-110); HEMOLYSIS < 15 (0-50); Sodium 139 mmol/L (137-145); Total Protein 6.7 g/dL (6.3-8.2)
--- NOTE | 2019-04-04 11:27 | ONC.PN ---
PN -Subjective Interval history: 83 year old female with MMR deficient and [id number] positive colon cancer diagnosed 03/11/2018. She is now on immunotherapy with pembrolizumab. Jade has been doing well. She is due in the process of morning. Her suddenly. She said she has ?heart pain? and she was having poor appetite. She is losing weight. She denies any chest pain. She denies any shortness of breath. She denies abdominal pain. She denies nausea or vomiting. She denies any constipation. She denies any blood in the stool. She denies any diarrhea either. No skin rashes. She said she is in the process of moving to [facility]. Oncological History: Ms. Morton is an 83 year old female, obese. She has a remote history of stage III colon cancer diagnosed in February 2002 with 2 or more mesenteric nodes being positive. The CEA was 18.9. Patient underwent resection followed by 6 months of leucovorin and 5 FU completed Aug 2002. She had a ?mild heart attack? in Jul 2017, and was hospitalized briefly. 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 Fecal transplant was proposed and she underwent pre-transplant C-scope on 03/11/[address] Ree Jalloh. The colonoscopy revealed a malignant partially obstructing tumor at 47 cm proximal to the anus. There was evidence of previous surgery, distal to the current colon mass. 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 On Mar 12, 2018, CT chest, abdomen and pelvis with contrast showed findings concerning for short segment colitis of the right transverse colon versus a circumferential colon mass with surrounding mesenteric edema, multiple bilateral pulmonary nodules measuring up to 6 mm in greatest diameter. I went to radiology department and I talked with radiologist Dr. Smith and reviewed all the imaging studies. The pulmonary nodules have been present at least since December 2017. And the pulmonary nodules apparently have not changed in size, in number or in appearance. Most likely these pulmonary nodules represent granuloma changes rather than metastatic malignancy. We also looked at the liver images. There is no clear evidence of hepatic lesions or masses. Lab results from [facility] showed that the CEA level was 3.6 on March 11, 2018. CBC reviewed that the white cell count 8.4, hemoglobin 8.3, hematocrit 26.3, MCV 75.8 and platelets 371. She was started on Venofer weekly x 5 on 04/19/2018. She was started on 5FU/Leucovorin on 04/20/2018, and completed 4 cycles of 5FU/Leucovorin on 05/31/2018. Restaging CT on June 04, 2018 that showed enlarged heart. Otherwise segment of right colonic wall thickening was again demonstrated with surrounding inflammatory appearance is less conspicuous. Multiple bilateral subcentimeter pulmonary nodules are again noted may be slightly increased in size but that is within the realm slice registration artifact. The case was discussed at [facility] monthly tumor Board. And her case was deemed not a surgical candidate due to performance status. Then, on 07/09/2018, 5FU was stopped and she was started on Keytruda with first cycle 07/09/2018. After 4 cycles, CT scan dated 09/16/2018 demonstrates no significant changes from previous study, patient remains with stable subcentimeter bilateral pulmonary nodules. Also stable segmental right colonic wall thickening. Patient has known large ventral hernia which is again seen containing a segment of transverse colon without evidence of incarceration. These results were reviewed in detail with the patient. - Patient Self-Reported Symptoms SR Constitution: Weight loss/gain SR eye issues: Vision changes, Eye pain SR ears, nose, mouth, throat issues: Changes in taste SR respiratory issues: Cough SR Cardiovascular issues: Palpitations (before the blood tranfusion in early Apr. ), Extreme swelling, Dizzy/lightheaded SR Skin issues: Skin rash or itching, Hair loss or scalp prob SR Gastrointestinal issues: Constipation SR Genitourinary issues: Frequent urination, Incontinence SR Musculoskeletal issues: Difficulty walking SR Neuro issues: Tremors or shaking SR Hematologic issues: Bleeding/bruising SR Endocrine issues: Excessive thirst - Additional ROS All systems PM: reviewed and no additional remarkable complaints except as stated Home Medications and Allergies Home Medications Medication Instructions Recorded Confirmed Type oxybutynin chloride 5 mg PO BID #0 10/13/16 03/10/19 History Lantus Solostar U-100 Insulin 1 dose SQ QPM #0 11/11/17 03/10/19 History nitroglycerin [Nitrostat] 0.4 mg SUBLINGUAL PRN PRN #0 11/11/17 03/10/19 History nystatin [Nystop] 100,000 unit TOPICAL QID #0 11/11/17 03/10/19 History ondansetron 8 mg PO TID PRN 03/22/18 03/10/19 History polyethylene glycol 3350 [Miralax] 17 g PO DAILY #30 ea 08/19/18 03/10/19 Rx atorvastatin 10 mg PO DAILY 09/09/18 03/10/19 History sertraline 50 mg PO DAILY 09/09/18 03/10/19 History levothyroxine 50 mcg PO DAILY #60 tab 12/06/18 03/10/19 Rx Allergies Allergy/AdvReac Type Severity Reaction Status Date / Time Sulfa (Sulfonamide Allergy Severe hives Verified 12/13/17 20:35 Antibiotics) [SULFA (SULFONAMIDE ANTIBIOTICS)] metformin Allergy Mild Diarrhea Verified 01/20/18 23:13 darifenacin [From Enablex] Allergy Unknown Verified 01/20/18 23:13 ketoconazole Allergy Unknown Verified 01/20/18 23:13 promethazine [From Phenergan] Allergy Verified 03/19/18 14:49 adhesive [ADHESIVE] AdvReac Severe tape Verified 12/13/17 20:35 causes blisters Exam Vital signs: Vital Signs Temp Pulse Resp BP Pulse Ox 04/04/19 11:18 98.8 F 71 16 113/77 98 Intake and Output 04/03/19 04/04/19 04/04/19 23:59 07:59 15:59 Other: Weight 99.3 kg Patient Weight 04/04/19 23:59 Weight 99.3 kg Narrative: ECOG 1 Constitutional: WDWN, NAD, well groomed, pleasant and cooperative, obese. HEENT: NCAT, EOMI, PERRLA, anicteric sclera. Neck: Supple, No palpable thyromegaly or lymphadenopathy. Respiratory: Clear to auscultation, and no wheezes or rales or rubs. Cardiovascular: RRR, S1 and S2 normal, no M/G/R. No JVD. Abdomen: Soft, NTND, BS normal, no palpable organomegaly, hernia noted, no palpable masses. Extremities: No LE pitting edema. Musculoskeletal: normal gait and station, slow and is using wheel chair Skin: no rashes, no ulcers, no petechiae Neurological: AOx3, CN II-XII grossly intact. No focal motor or sensory deficit. Psychiatric: Normal affect; normal thought process; cooperative. Results - Labs Laboratory Last Values WBC 7.4 X10^3/uL (4.5-11.0) 04/04/19 11:00 RBC 4.38 X10^6/uL (4.0-5.2) 04/04/19 11:00 Hgb 13.4 g/dL (12.0-16.0) 04/04/19 11:00 Hct 40.1 % (36-46) 04/04/19 11:00 MCV 91.7 fL (80-100) 04/04/19 11:00 MCH 30.7 PG (26-34) 04/04/19 11:00 MCHC 33.4 % (30-36) 04/04/19 11:00 RDW 13.1 % (11.6-14.8) 04/04/19 11:00 Plt Count 289 X10^3/uL (150-400) 04/04/19 11:00 Neut % (Auto) 60.7 % (50-75) 04/04/19 11:00 Lymph % (Auto) 26.4 % (25-40) 04/04/19 11:00 [place] % (Auto) 8.0 % (3-14) 04/04/19 11:00 Eos % (Auto) 3.5 % (2-4) 04/04/19 11:00 Baso % (Auto) 1.4 % (0-2) 04/04/19 11:00 Neut # (Auto) 4500 /uL (5987-5575) 04/04/19 11:00 Lymph # (Auto) 1900 /uL (0276-6776) 04/04/19 11:00 [place] # (Auto) 600 /uL (0-900) 04/04/19 11:00 Eos # (Auto) 300 /uL (0-450) 04/04/19 11:00 Baso # (Auto) 100 /uL (0-100) 04/04/19 11:00 RBC Morphology See below 05/31/18 08:24 Hypochromasia 1+ H 05/10/18 11:11 Poikilocytosis 1+ H 04/26/18 11:25 Anisocytosis 3+ H 05/31/18 08:24 Microcytosis 2+ H 05/10/18 11:11 Macrocytosis 1+ H 05/10/18 11:11 Sodium 139 mmol/L (137-145) 04/04/19 11:00 Potassium 4.0 mmol/L (3.4-5.1) 04/04/19 11:00 Chloride 104 mmol/L (98-107) 04/04/19 11:00 Carbon Dioxide 27 mmol/L (22-32) 04/04/19 11:00 BUN 11 mg/dL (7-17) 04/04/19 11:00 Creatinine 0.70 mg/dL (0.52-1.04) 04/04/19 11:00 Estimated GFR > 60.0 mL/min (>60) 04/04/19 11:00 BUN/Creatinine Ratio 15.7 (6-22) 04/04/19 11:00 Glucose 170 mg/dL (80-110) H 04/04/19 11:00 Calcium 9.1 mg/dL (8.4-10.2) 04/04/19 11:00 Magnesium 1.9 mg/dL (1.6-2.3) 04/14/18 11:17 Iron 24 ug/dL (37-170) L 04/05/18 10:28 TIBC 424 ug/dL (265-497) 04/05/18 10:28 % Saturation 6 % (15-50) L 04/05/18 10:28 Transferrin 337 mg/dL (206-381) 04/05/18 10:28 Ferritin 7.0 ng/mL (11.1-264) L 04/05/18 10:28 Total Bilirubin 0.5 mg/dL (0.2-1.3) 04/04/19 11:00 AST 23 IU/L (14-36) 04/04/19 11:00 ALT 14 IU/L (9-52) 04/04/19 11:00 Alkaline Phosphatase 80 U/L (38-126) 04/04/19 11:00 Total Protein 6.7 g/dL (6.3-8.2) 04/04/19 11:00 Albumin 3.6 g/dL (3.5-5.0) 04/04/19 11:00 Globulin 3.1 g/dL (1.7-4.1) 04/04/19 11:00 Albumin/Globulin Ratio 1.2 (1.0-2.8) 04/04/19 11:00 Carcinoembryonic Ag 2.4 ng/mL (0.1-3.0) 03/10/19 15:45 TSH 1.63 uIU/mL (0.47-4.68) 03/10/19 15:45 Thyroxine (T4) 7.21 ug/dL (5.5-11.0) 09/30/18 11:23 Free T3 3.59 pg/mL (2.77-5.27) 09/30/18 11:23 Urine Color Yellow 09/09/18 14:45 Urine Appearance Clear 09/09/18 14:45 Urine pH 5.0 (4.5-8.0) 09/09/18 14:45 Ur Specific [place] 1.025 (1.000-1.035) 09/09/18 14:45 Urine Protein Negative (Negative) 09/09/18 14:45 Urine Glucose (UA) Negative g/dL (Negative) 09/09/18 14:45 Urine Ketones Negative (NEGATIVE) 09/09/18 14:45 Urine Occult Blood Negative (Negative) 09/09/18 14:45 Urine Nitrate Negative (Negative) 09/09/18 14:45 Urine Bilirubin Negative (NEGATIVE) 09/09/18 14:45 Urine Urobilinogen 0.2 E.U./dL (0.2) 09/09/18 14:45 Ur Leukocyte Esterase Negative (NEGATIVE) 09/09/18 14:45 Urine RBC None seen (0-5/HPF) 09/09/18 14:45 Urine WBC 0-1/hpf (0-5/HPF) 09/09/18 14:45 Ur Squamous Epith Cells 5-10 /hpf H 09/09/18 14:45 Amorphous Sediment 1+ 09/09/18 14:45 Urine Bacteria Few (2-10) (None) H 09/09/18 14:45 Urine Mucus 3+ (Negative) H D 09/09/18 14:45 Ur Culture Indicated? Cult not indicated 09/09/18 14:45 Ref Test (Refrig) 04/05/18 10:28 Blood Type A Positive 04/14/18 10:05 Antibody Screen Negative 04/14/18 10:05 Crossmatch See Detail 04/14/18 10:05 Assessment and Plan (1) Colon cancer Assessment 83 year old female with MMR deficient and [id number] positive colon cancer diagnosed 03/11/2018. She was deemed not a surgical candidate due to performance status. Initially treated with 4 cycles of 5FU with leucovorin without response by CT [facility]. She then was started on Keytruda from 07/09/2018 which she has been tolerating quite well. She did not get the colonoscopy because she was afraid of the prep procedure. Clinically she does not have any worrisome signs or symptoms. Will temporarily hold off on colonoscopy. Will continue current maintenance Keytruda. Plan: 1. Ok to proceed to cycle 13# Keytruda today 2. RTC in 3 weeks for CBC, CMP, CEA, TSH and C14# Keytruda (2) Iron deficiency anemia due to chronic blood loss Assessment She has completely Venofer infusion weekly x 5 completed 05/17/2018. Her H/H have improved significantly, and now normalized. Plan: Monitor H/H and iron status with ferritin regularly. IV venofer PRN. (3) High serum thyroid stimulating hormone (TSH) Assessment: Her thyroid function has been monitored closely. Most recent TSH level on 02/07/2019 was 2.16. Plan: Continue levothyroxine 50 mcg once a day. Repeat TSH in 3 weeks. (4) Personal history of colon cancer, stage III Assessment s/p surgical resection followed by 6 months of treatment with 5-FU. Not sure the relationship with her current colon cancer diagnosis. In review of registry notes this is a new primary. Plan: No special intervention for now. (5) Port-A-Cath in place Flush every 3-4 weeks
[2019-04-04 11:32] LABS: Add Manual Diff / Slide Review NO; Basophils Absolute Auto 100 /uL (0-100); Basophils Percent Auto 1.4 % (0-2); Eosinophils Absolute Auto 300 /uL (0-450); Eosinophils Percent Auto 3.5 % (2-4); Hematocrit 40.1 % (36-46); Hemoglobin 13.4 g/dL (12.0-16.0); Lymphocytes Absolute Auto 1900 /uL (1100-4500); Lymphocytes Percent Auto 26.4 % (25-40); Mean Corpuscular HGB Conc 33.4 % (30-36); Mean Corpuscular Hemoglobin 30.7 PG (26-34); Mean Corpuscular Volume 91.7 fL (80-100); Monocytes Absolute Auto 600 /uL (0-900); Neutrophils Absolute Auto 4500 /uL (1500-7000); Neutrophils Percent Auto 60.7 % (50-75); Platelet Count 289 X10^3/uL (150-400); Red Blood Cell Count 4.38 X10^6/uL (4.0-5.2); Red Cell Distribution Width 13.1 % (11.6-14.8); White Blood Cell Count 7.4 X10^3/uL (4.5-11.0)
[2019-04-04 11:57] LABS: Carcinoembryonic Antigen 2.7 ng/mL (0.1-3.0)
[2019-04-04 12:21] LABS: Thyroid Stimulating Hormone 1.94 uIU/mL (0.47-4.68)
[2019-04-04] MEDS: SODIUM CHLORIDE 0.9% 100 ML 21 ML IV (12:26)
[2019-04-04] MEDS: PEMBROLIZUMAB 200 MG in SODIUM CHLORIDE 0.9% (CHEMO) 100 ML 216 ML IV (12:27)
--- NOTE | 2019-04-04 13:47 | ONC.MSW ---
Description: Grief Support Activity: Met with pt to offer emotional/coping support as she continues to struggle with complicated grief following her spouse's . She is considering moving to an assisted living, which would actually be a really good plan for her, given her health, physical limitations and limited amount of family support available locally. CLINICAL APPEALS REVIEWER will contact the engineering patternmaker, Nathan Watson, to please f/u with pt. Most of her grief relates to spiritual pain and not understanding why he had to before me? *after her treatment today, this CLINICAL APPEALS REVIEWER assisted in obtaining her cg's phone number to notify her that pt is ready to be picked up. Updated the EMR with both the cg phone number and her dtr, Tricia's phone number.
[2019-04-21 15:28] LABS: Add Manual Diff / Slide Review NO; Basophils Absolute Auto 100 /uL (0-100); Basophils Percent Auto 0.8 % (0-2); Eosinophils Absolute Auto 100 /uL (0-450); Eosinophils Percent Auto 1.3 % (2-4); Hematocrit 38.5 % (36-46); Hemoglobin 12.8 g/dL (12.0-16.0); Lymphocytes Absolute Auto 1900 /uL (1100-4500); Lymphocytes Percent Auto 16.8 % (25-40); Mean Corpuscular HGB Conc 33.3 % (30-36); Mean Corpuscular Hemoglobin 30.7 PG (26-34); Mean Corpuscular Volume 92.2 fL (80-100); Monocytes Absolute Auto 700 /uL (0-900); Monocytes Percent Auto 6.5 % (3-14); Neutrophils Absolute Auto 8300 /uL (1500-7000); Neutrophils Percent Auto 74.6 % (50-75); Platelet Count 270 X10^3/uL (150-400); Red Blood Cell Count 4.17 X10^6/uL (4.0-5.2); White Blood Cell Count 11.1 X10^3/uL (4.5-11.0)
[2019-04-21 15:44] LABS: Alanine Aminotransferase 23 IU/L (9-52); Albumin 3.7 g/dL (3.5-5.0); Albumin Globulin Ratio 1.2 (1.0-2.8); Alkaline Phosphatase 73 U/L (38-126); Aspartate Aminotransferase 29 IU/L (14-36); BUN Creatinine Ratio 21.4 (6-22); Bilirubin Total 0.5 mg/dL (0.2-1.3); Blood Urea Nitrogen 15 mg/dL (7-17); Carbon Dioxide 26 mmol/L (22-32); Chloride 103 mmol/L (98-107); Estimated Glomerular Filt Rate > 60.0 mL/min (>60); Globulin 3.1 g/dL (1.7-4.1); Glucose 211 mg/dL (80-110); HEMOLYSIS < 15 (0-50); Sodium 138 mmol/L (137-145); Total Protein 6.8 g/dL (6.3-8.2)
[2019-04-21 16:02] VITALS: BP 119/73; PULSE 66; RESP 18; TEMP 36.6; O2SAT 98
[2019-04-21 16:15] LABS: Carcinoembryonic Antigen 2.8 ng/mL (0.1-3.0)
--- NOTE | 2019-04-21 16:25 | ONC.PN ---
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 She is now on immunotherapy with pembrolizumab. 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 She was deemed not a surgical candidate due to performance status. Initially she received 4 cycles of 5FU with leucovorin from 04/20/2018 to 05/31/[address] [facility]. From 07/09/2018, she was started on Keytruda q3w. She endorsed a history of stage III colon cancer diagnosed in 02/2002, s/p resection followed by 5FU/leucovorin x 6 mon completed 08/2002. Interim Events: Jade has been doing well. She is here accompanied by her daughter. Her daughter said that her mother probably is still in the process of grief, and has been complaining weakness of legs and is having problems walking at home. Otherwise, she has good appetite. Today, she is complaining mild RUQ and epigastric pain, mild. Jade thought that she was hurt when her daughter's picked her up from the car. - Patient Self-Reported Symptoms SR Constitution: Weight loss/gain SR eye issues: Vision changes, Eye pain SR ears, nose, mouth, throat issues: Changes in taste SR respiratory issues: Cough SR Cardiovascular issues: Palpitations (before the blood tranfusion in early ), Extreme swelling, Dizzy/lightheaded SR Skin issues: Skin rash or itching, Hair loss or scalp prob SR Gastrointestinal issues: Constipation SR Genitourinary issues: Frequent urination, Incontinence SR Musculoskeletal issues: Difficulty walking SR Neuro issues: Tremors or shaking SR Hematologic issues: Bleeding/bruising SR Endocrine issues: Excessive thirst - Additional ROS All systems PM: reviewed and no additional remarkable complaints except as stated Home Medications and Allergies Home Medications Medication Instructions Recorded Confirmed Type oxybutynin chloride 5 mg PO BID #0 10/13/16 03/10/19 History Lantus Solostar U-100 Insulin 1 dose SQ QPM #0 11/11/17 03/10/19 History nitroglycerin [Nitrostat] 0.4 mg SUBLINGUAL PRN PRN #0 11/11/17 03/10/19 History nystatin [Nystop] 100,000 unit TOPICAL QID #0 11/11/17 03/10/19 History ondansetron 8 mg PO TID PRN 03/22/18 03/10/19 History polyethylene glycol 3350 [Miralax] 17 g PO DAILY #30 ea 08/19/18 03/10/19 Rx atorvastatin 10 mg PO DAILY 09/09/18 03/10/19 History sertraline 50 mg PO DAILY 09/09/18 03/10/19 History levothyroxine 50 mcg PO DAILY #60 tab 12/06/18 03/10/19 Rx Allergies Allergy/AdvReac Type Severity Reaction Status Date / Time Sulfa (Sulfonamide Allergy Severe hives Verified 12/13/17 20:35 Antibiotics) [SULFA (SULFONAMIDE ANTIBIOTICS)] metformin Allergy Mild Diarrhea Verified 01/20/18 23:13 darifenacin [From Enablex] Allergy Unknown Verified 01/20/18 23:13 ketoconazole Allergy Unknown Verified 01/20/18 23:13 promethazine [From Phenergan] Allergy Verified 03/19/18 14:49 adhesive [ADHESIVE] AdvReac Severe tape Verified 12/13/17 20:35 causes blisters Exam Vital signs: Last Vital Signs Temp 98 F 04/21/19 16:02 Pulse 66 04/21/19 16:02 Resp 18 04/21/19 16:02 BP 119/73 04/21/19 16:02 Pulse Ox 98 04/21/19 16:02 Narrative: ECOG 1 Constitutional: WDWN, NAD, well groomed, pleasant and cooperative, obese. HEENT: NCAT, EOMI, PERRLA, anicteric sclera. Neck: Supple, No palpable thyromegaly or lymphadenopathy. Respiratory: Clear to auscultation, and no wheezes or rales or rubs. Cardiovascular: RRR, S1 and S2 normal, no M/G/R. No JVD. Abdomen: Soft, mild tenderness on palpation at RUG and epigastric area. Extremities: No LE pitting edema. Musculoskeletal: in wheel chair Skin: no rashes, no ulcers, no petechiae Neurological: AOx3, CN II-XII grossly intact. No focal motor or sensory deficit. Psychiatric: Normal affect; normal thought process; cooperative. Results - Labs Laboratory Last Values WBC 11.1 X10^3/uL (4.5-11.0) H 04/21/19 15:09 RBC 4.17 X10^6/uL (4.0-5.2) 04/21/19 15:09 Hgb 12.8 g/dL (12.0-16.0) 04/21/19 15:09 Hct 38.5 % (36-46) 04/21/19 15:09 MCV 92.2 fL (80-100) 04/21/19 15:09 MCH 30.7 PG (26-34) 04/21/19 15:09 MCHC 33.3 % (30-36) 04/21/19 15:09 RDW 13.0 % (11.6-14.8) 04/21/19 15:09 Plt Count 270 X10^3/uL (150-400) 04/21/19 15:09 Neut % (Auto) 74.6 % (50-75) 04/21/19 15:09 Lymph % (Auto) 16.8 % (25-40) L 04/21/19 15:09 [place] % (Auto) 6.5 % (3-14) 04/21/19 15:09 Eos % (Auto) 1.3 % (2-4) L 04/21/19 15:09 Baso % (Auto) 0.8 % (0-2) 04/21/19 15:09 Neut # (Auto) 8300 /uL (4358-7213) H 04/21/19 15:09 Lymph # (Auto) 1900 /uL (2804-7451) 04/21/19 15:09 [place] # (Auto) 700 /uL (0-900) 04/21/19 15:09 Eos # (Auto) 100 /uL (0-450) 04/21/19 15:09 Baso # (Auto) 100 /uL (0-100) 04/21/19 15:09 RBC Morphology See below 05/31/18 08:24 Hypochromasia 1+ H 05/10/18 11:11 Poikilocytosis 1+ H 04/26/18 11:25 Anisocytosis 3+ H 05/31/18 08:24 Microcytosis 2+ H 05/10/18 11:11 Macrocytosis 1+ H 05/10/18 11:11 Sodium 138 mmol/L (137-145) 04/21/19 15:09 Potassium 4.0 mmol/L (3.4-5.1) 04/21/19 15:09 Chloride 103 mmol/L (98-107) 04/21/19 15:09 Carbon Dioxide 26 mmol/L (22-32) 04/21/19 15:09 BUN 15 mg/dL (7-17) 04/21/19 15:09 Creatinine 0.70 mg/dL (0.52-1.04) 04/21/19 15:09 Estimated GFR > 60.0 mL/min (>60) 04/21/19 15:09 BUN/Creatinine Ratio 21.4 (6-22) 04/21/19 15:09 Glucose 211 mg/dL (80-110) H 04/21/19 15:09 Calcium 9.0 mg/dL (8.4-10.2) 04/21/19 15:09 Magnesium 1.9 mg/dL (1.6-2.3) 04/14/18 11:17 Iron 24 ug/dL (37-170) L 04/05/18 10:28 TIBC 424 ug/dL (265-497) 04/05/18 10:28 % Saturation 6 % (15-50) L 04/05/18 10:28 Transferrin 337 mg/dL (206-381) 04/05/18 10:28 Ferritin 7.0 ng/mL (11.1-264) L 04/05/18 10:28 Total Bilirubin 0.5 mg/dL (0.2-1.3) 04/21/19 15:09 AST 29 IU/L (14-36) 04/21/19 15:09 ALT 23 IU/L (9-52) 04/21/19 15:09 Alkaline Phosphatase 73 U/L (38-126) 04/21/19 15:09 Total Protein 6.8 g/dL (6.3-8.2) 04/21/19 15:09 Albumin 3.7 g/dL (3.5-5.0) 04/21/19 15:09 Globulin 3.1 g/dL (1.7-4.1) 04/21/19 15:09 Albumin/Globulin Ratio 1.2 (1.0-2.8) 04/21/19 15:09 Carcinoembryonic Ag 2.8 ng/mL (0.1-3.0) 04/21/19 15:09 TSH 1.94 uIU/mL (0.47-4.68) 04/04/19 11:00 Thyroxine (T4) 7.21 ug/dL (5.5-11.0) 09/30/18 11:23 Free T3 3.59 pg/mL (2.77-5.27) 09/30/18 11:23 Urine Color Yellow 09/09/18 14:45 Urine Appearance Clear 09/09/18 14:45 Urine pH 5.0 (4.5-8.0) 09/09/18 14:45 Ur Specific [place] 1.025 (1.000-1.035) 09/09/18 14:45 Urine Protein Negative (Negative) 09/09/18 14:45 Urine Glucose (UA) Negative g/dL (Negative) 09/09/18 14:45 Urine Ketones Negative (NEGATIVE) 09/09/18 14:45 Urine Occult Blood Negative (Negative) 09/09/18 14:45 Urine Nitrate Negative (Negative) 09/09/18 14:45 Urine Bilirubin Negative (NEGATIVE) 09/09/18 14:45 Urine Urobilinogen 0.2 E.U./dL (0.2) 09/09/18 14:45 Ur Leukocyte Esterase Negative (NEGATIVE) 09/09/18 14:45 Urine RBC None seen (0-5/HPF) 09/09/18 14:45 Urine WBC 0-1/hpf (0-5/HPF) 09/09/18 14:45 Ur Squamous Epith Cells 5-10 /hpf H 09/09/18 14:45 Amorphous Sediment 1+ 09/09/18 14:45 Urine Bacteria Few (2-10) (None) H 09/09/18 14:45 Urine Mucus 3+ (Negative) H D 09/09/18 14:45 Ur Culture Indicated? Cult not indicated 09/09/18 14:45 Ref Test (Refrig) 04/05/18 10:28 Blood Type A Positive 04/14/18 10:05 Antibody Screen Negative 04/14/18 10:05 Crossmatch See Detail 04/14/18 10:05 Assessment and Plan (1) Colon cancer Overview: 84 year old female with MMR deficient and [id number] positive colon cancer diagnosed 03/11/2018. She was deemed not a surgical candidate due to performance status. Initially treated with 4 cycles of 5FU with leucovorin without response by CT [facility]. She then was started on Keytruda from 07/09/2018 which she has been tolerating quite well. Assessment: She refused repeat colonoscopy because she was afraid of the prep procedure. Clinically she is complaining right upper quardrant and epigastric tenderness on palpation. Her previous CT scan was in Sep 2018. I told her her daughter I will consider repeating a repeat staging study while we continue the treatment with Keytruda. Plan: 1. Ok to proceed to cycle 14# Keytruda today 2. CT CAP w/contrast 2. RTC in 3 weeks for CBC, CMP, CEA, TSH and C15# Keytruda, and review the scan result. (2) Iron deficiency anemia due to chronic blood loss Assessment She has completely Venofer infusion weekly x 5 completed 05/17/2018. Her H/H have improved significantly, and now normalized. Plan: Monitor H/H and iron status with ferritin regularly. IV venofer PRN. (3) High serum thyroid stimulating hormone (TSH) Assessment: Her thyroid function has been monitored closely. Most recent TSH level on 02/07/2019 was 2.16. Plan: Continue levothyroxine 50 mcg once a day. Repeat TSH in 3 weeks. (4) Personal history of colon cancer, stage III Assessment s/p surgical resection followed by 6 months of treatment with 5-FU. Not sure the relationship with her current colon cancer diagnosis. In review of registry notes this is a new primary. Plan: No special intervention for now. (5) Port-A-Cath in place Flush every 3-4 weeks
[2019-04-21 16:27] LABS: Thyroid Stimulating Hormone 1.15 uIU/mL (0.47-4.68)
[2019-04-21] MEDS: PEMBROLIZUMAB 200 MG in SODIUM CHLORIDE 0.9% (CHEMO) 100 ML 216 ML IV (16:50)
[2019-04-21] MEDS: SODIUM CHLORIDE 0.9% 100 ML 21 ML IV (16:51)
[2019-04-25 20:03] VITALS: BMI 37.9
[2019-05-12 14:00] VITALS: BP 124/71; PULSE 61; RESP 20; TEMP 36.5; O2SAT 97
--- NOTE | 2019-05-12 14:05 | ONC.PN ---
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 She is now on immunotherapy with pembrolizumab. 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 She was deemed not a surgical candidate due to performance status. Initially she received 4 cycles of 5FU with leucovorin from 04/20/2018 to 05/31/[address] imagine. From 07/09/2018, she was started on Keytruda q3w. She endorsed a history of stage III colon cancer diagnosed in 02/2002, s/p resection followed by 5FU/leucovorin x 6 mon completed 08/2002. Interim Events: Jade has been doing well. She is here accompanied by her daughter. Jade currently is residing at [facility]. She is planning to move to [place] next month. Clinically, patient has been doing well. No abdominal pain no diarrhea and no constipation. Patient underwent CT of the chest abdomen pelvis it did not show any evidence disease recurrence or metastasis. - Patient Self-Reported Symptoms SR Constitution: Weight loss/gain SR eye issues: Vision changes SR ears, nose, mouth, throat issues: Changes in taste SR respiratory issues: Mucous SR Cardiovascular issues: Palpitations (before the blood tranfusion in early ), Extreme swelling, Dizzy/lightheaded SR Skin issues: Skin rash or itching SR Gastrointestinal issues: Change in bowel pattern SR Genitourinary issues: Frequent urination, Incontinence SR Musculoskeletal issues: Difficulty walking SR Neuro issues: Tremors or shaking SR Hematologic issues: Bleeding/bruising SR Endocrine issues: Excessive thirst - Additional ROS All systems PM: reviewed and no additional remarkable complaints except as stated Home Medications and Allergies Home Medications Medication Instructions Recorded Confirmed Type oxybutynin chloride 10 mg PO BID #0 10/13/16 05/12/19 History Lantus Solostar U-100 Insulin 15 unit SQ QPM #0 11/11/17 05/12/19 History nitroglycerin [Nitrostat] 0.4 mg SUBLINGUAL PRN PRN #0 11/11/17 05/12/19 History polyethylene glycol 3350 [Miralax] 17 g PO DAILY #30 ea 08/19/18 05/12/19 Rx atorvastatin 10 mg PO DAILY 09/09/18 05/12/19 History levothyroxine 50 mcg PO DAILY #60 tab 12/06/18 05/12/19 Rx nystatin 1 applic TOPICAL BID 04/25/19 05/12/19 History aspirin 325 mg PO DAILY #30 tab 04/28/19 05/12/19 Rx methylphenidate HCl 5 mg PO DAILY #30 tab 04/28/19 05/12/19 Rx sertraline [Zoloft] 150 mg PO BEDTIME 30 Days tab 04/28/19 05/12/19 Rx Allergies Allergy/AdvReac Type Severity Reaction Status Date / Time Sulfa (Sulfonamide Allergy Severe hives Verified 04/25/19 15:01 Antibiotics) [SULFA (SULFONAMIDE ANTIBIOTICS)] metformin Allergy Mild Diarrhea Verified 04/25/19 15:01 darifenacin [From Enablex] Allergy Unknown Verified 04/25/19 15:01 ketoconazole Allergy Unknown Verified 04/25/19 15:01 promethazine [From Phenergan] Allergy Verified 04/25/19 15:01 adhesive [ADHESIVE] AdvReac Severe tape Verified 04/25/19 15:01 causes blisters Exam Vital signs: Vital Signs Temp Pulse Resp BP Pulse Ox 05/12/19 14:00 97.7 F 61 20 124/71 97 Intake and Output 05/11/19 05/12/19 05/12/19 23:59 07:59 15:59 Other: Weight 102.6 kg Patient Weight 05/12/19 23:59 Weight 102.6 kg - Constitutional positive no acute distress, positive morbidly obese, positive cooperative - Routine HEENT Exam Head: Present: normocephalic, atraumatic Eye: Present: EOMI, PERRL, normal accommodation. Absent: conjunctival icterus ENT: Present: mucous membranes moist - Routine Neck Exam Present: supple - Routine Respiratory Exam Present: Clear to auscultation bilaterally. Absent: wheezes - Routine Cardiovascular Exam Present: RRR, S1, S2. Absent: murmur, gallop, rubs - Routine Abdominal Exam Present: soft. Absent: tenderness, distended, organomegaly - Routine Neurological Exam Present: alert, oriented X3, CN II-XII intact. Absent: sensory deficit, motor deficit - Routine Psychiatric Exam Present: normal affect Results - Labs Laboratory Last Values WBC 11.1 X10^3/uL (4.5-11.0) H 04/21/19 15:09 RBC 4.17 X10^6/uL (4.0-5.2) 04/21/19 15:09 Hgb 12.8 g/dL (12.0-16.0) 04/21/19 15:09 Hct 38.5 % (36-46) 04/21/19 15:09 MCV 92.2 fL (80-100) 04/21/19 15:09 MCH 30.7 PG (26-34) 04/21/19 15:09 MCHC 33.3 % (30-36) 04/21/19 15:09 RDW 13.0 % (11.6-14.8) 04/21/19 15:09 Plt Count 270 X10^3/uL (150-400) 04/21/19 15:09 Neut % (Auto) 74.6 % (50-75) 04/21/19 15:09 Lymph % (Auto) 16.8 % (25-40) L 04/21/19 15:09 [place] % (Auto) 6.5 % (3-14) 04/21/19 15:09 Eos % (Auto) 1.3 % (2-4) L 04/21/19 15:09 Baso % (Auto) 0.8 % (0-2) 04/21/19 15:09 Neut # (Auto) 8300 /uL (4692-6963) H 04/21/19 15:09 Lymph # (Auto) 1900 /uL (2799-5793) 04/21/19 15:09 [place] # (Auto) 700 /uL (0-900) 04/21/19 15:09 Eos # (Auto) 100 /uL (0-450) 04/21/19 15:09 Baso # (Auto) 100 /uL (0-100) 04/21/19 15:09 RBC Morphology See below 05/31/18 08:24 Hypochromasia 1+ H 05/10/18 11:11 Poikilocytosis 1+ H 04/26/18 11:25 Anisocytosis 3+ H 05/31/18 08:24 Microcytosis 2+ H 05/10/18 11:11 Macrocytosis 1+ H 05/10/18 11:11 Sodium 138 mmol/L (137-145) 04/21/19 15:09 Potassium 4.0 mmol/L (3.4-5.1) 04/21/19 15:09 Chloride 103 mmol/L (98-107) 04/21/19 15:09 Carbon Dioxide 26 mmol/L (22-32) 04/21/19 15:09 BUN 15 mg/dL (7-17) 04/21/19 15:09 Creatinine 0.70 mg/dL (0.52-1.04) 04/21/19 15:09 Estimated GFR > 60.0 mL/min (>60) 04/21/19 15:09 BUN/Creatinine Ratio 21.4 (6-22) 04/21/19 15:09 Glucose 211 mg/dL (80-110) H 04/21/19 15:09 Calcium 9.0 mg/dL (8.4-10.2) 04/21/19 15:09 Magnesium 1.9 mg/dL (1.6-2.3) 04/14/18 11:17 Iron 24 ug/dL (37-170) L 04/05/18 10:28 TIBC 424 ug/dL (265-497) 04/05/18 10:28 % Saturation 6 % (15-50) L 04/05/18 10:28 Transferrin 337 mg/dL (206-381) 04/05/18 10:28 Ferritin 7.0 ng/mL (11.1-264) L 04/05/18 10:28 Total Bilirubin 0.5 mg/dL (0.2-1.3) 04/21/19 15:09 AST 29 IU/L (14-36) 04/21/19 15:09 ALT 23 IU/L (9-52) 04/21/19 15:09 Alkaline Phosphatase 73 U/L (38-126) 04/21/19 15:09 Total Protein 6.8 g/dL (6.3-8.2) 04/21/19 15:09 Albumin 3.7 g/dL (3.5-5.0) 04/21/19 15:09 Globulin 3.1 g/dL (1.7-4.1) 04/21/19 15:09 Albumin/Globulin Ratio 1.2 (1.0-2.8) 04/21/19 15:09 Carcinoembryonic Ag 2.8 ng/mL (0.1-3.0) 04/21/19 15:09 TSH 1.15 uIU/mL (0.47-4.68) D 04/21/19 15:09 Thyroxine (T4) 7.21 ug/dL (5.5-11.0) 09/30/18 11:23 Free T3 3.59 pg/mL (2.77-5.27) 09/30/18 11:23 Urine Color Yellow 09/09/18 14:45 Urine Appearance Clear 09/09/18 14:45 Urine pH 5.0 (4.5-8.0) 09/09/18 14:45 Ur Specific [place] 1.025 (1.000-1.035) 09/09/18 14:45 Urine Protein Negative (Negative) 09/09/18 14:45 Urine Glucose (UA) Negative g/dL (Negative) 09/09/18 14:45 Urine Ketones Negative (NEGATIVE) 09/09/18 14:45 Urine Occult Blood Negative (Negative) 09/09/18 14:45 Urine Nitrate Negative (Negative) 09/09/18 14:45 Urine Bilirubin Negative (NEGATIVE) 09/09/18 14:45 Urine Urobilinogen 0.2 E.U./dL (0.2) 09/09/18 14:45 Ur Leukocyte Esterase Negative (NEGATIVE) 09/09/18 14:45 Urine RBC None seen (0-5/HPF) 09/09/18 14:45 Urine WBC 0-1/hpf (0-5/HPF) 09/09/18 14:45 Ur Squamous Epith Cells 5-10 /hpf H 09/09/18 14:45 Amorphous Sediment 1+ 09/09/18 14:45 Urine Bacteria Few (2-10) (None) H 09/09/18 14:45 Urine Mucus 3+ (Negative) H D 09/09/18 14:45 Ur Culture Indicated? Cult not indicated 09/09/18 14:45 Ref Test (Refrig) 04/05/18 10:28 Blood Type A Positive 04/14/18 10:05 Antibody Screen Negative 04/14/18 10:05 Crossmatch See Detail 04/14/18 10:05 Assessment and Plan (1) Colon cancer Overview: 84 year old female with MMR deficient and [id number] positive colon cancer diagnosed 03/11/2018. She was deemed not a surgical candidate due to performance status. Initially treated with 4 cycles of 5FU with leucovorin without response by CT imagine stueides. She then was started on Keytruda from 07/09/2018 which she has been tolerating quite well. Assessment: I reviewed the CT scan with her and her daughter. No evidence of recurrence or metastasis. We will continue the treatment with Keytruda. Plan: 1. Ok to proceed to cycle 15# Keytruda today 2. RTC in 3 weeks for CBC, CMP, CEA, TSH and C16# Keytruda, and review the scan result. (2) Iron deficiency anemia due to chronic blood loss Assessment She has completely Venofer infusion weekly x 5 completed 05/17/2018. Her H/H have improved significantly, and now normalized. Plan: Monitor H/H and iron status with ferritin regularly. IV venofer PRN. (3) High serum thyroid stimulating hormone (TSH) Assessment: Her thyroid function has been monitored closely. Most recent TSH level on 02/07/2019 was 2.16. Plan: Continue levothyroxine 50 mcg once a day. Repeat TSH in 3 weeks. (4) Personal history of colon cancer, stage III Assessment s/p surgical resection followed by 6 months of treatment with 5-FU. Not sure the relationship with her current colon cancer diagnosis. In review of registry notes this is a new primary. Plan: No special intervention for now. (5) Port-A-Cath in place Flush every 3-4 weeks
--- NOTE | 2019-05-12 14:14 | ONC.MSW ---
Description: Closure visit/Care Coordination Activity: Pt presents today with her dtr for her last provider visit here at [facility], is transferring her care to [facility] in order to see pt there-she's in the process of moving to [facility] living [facility] in [place]. Met with dtr and pt and was able to offer counseling in the context of closure with her care and relationships here, and encouragement in moving forward. Front office staff will move forward with transferring her clinicals to [facility].
[2019-05-12 14:18] LABS: Add Manual Diff / Slide Review NO; Basophils Absolute Auto 100 /uL (0-100); Basophils Percent Auto 1.2 % (0-2); Eosinophils Absolute Auto 400 /uL (0-450); Eosinophils Percent Auto 4.2 % (2-4); Hematocrit 37.9 % (36-46); Hemoglobin 12.6 g/dL (12.0-16.0); Lymphocytes Absolute Auto 2200 /uL (1100-4500); Lymphocytes Percent Auto 23.2 % (25-40); Mean Corpuscular HGB Conc 33.2 % (30-36); Mean Corpuscular Hemoglobin 30.5 PG (26-34); Mean Corpuscular Volume 91.8 fL (80-100); Monocytes Absolute Auto 700 /uL (0-900); Monocytes Percent Auto 7.3 % (3-14); Neutrophils Absolute Auto 6100 /uL (1500-7000); Neutrophils Percent Auto 64.1 % (50-75); Platelet Count 343 X10^3/uL (150-400); Red Blood Cell Count 4.13 X10^6/uL (4.0-5.2); Red Cell Distribution Width 13.7 % (11.6-14.8); White Blood Cell Count 9.5 X10^3/uL (4.5-11.0)
[2019-05-12 14:31] LABS: Alanine Aminotransferase 24 IU/L (9-52); Albumin 3.7 g/dL (3.5-5.0); Albumin Globulin Ratio 1.1 (1.0-2.8); Alkaline Phosphatase 93 U/L (38-126); Aspartate Aminotransferase 31 IU/L (14-36); BUN Creatinine Ratio 22.9 (6-22); Bilirubin Total 0.4 mg/dL (0.2-1.3); Blood Urea Nitrogen 16 mg/dL (7-17); Calcium 9.3 mg/dL (8.4-10.2); Carbon Dioxide 26 mmol/L (22-32); Chloride 105 mmol/L (98-107); Estimated Glomerular Filt Rate > 60.0 mL/min (>60); Globulin 3.3 g/dL (1.7-4.1); Glucose 168 mg/dL (80-110); HEMOLYSIS < 15 (0-50); Potassium 4.3 mmol/L (3.4-5.1); Sodium 140 mmol/L (137-145)
[2019-05-12 15:01] LABS: Carcinoembryonic Antigen 2.9 ng/mL (0.1-3.0)
[2019-05-12] MEDS: PEMBROLIZUMAB 200 MG in SODIUM CHLORIDE 0.9% (CHEMO) 100 ML 216 ML IV (15:09)
[2019-05-12] MEDS: SODIUM CHLORIDE 0.9% 100 ML 21 ML IV (15:09)
[2019-05-12 15:11] LABS: Thyroid Stimulating Hormone 2.03 uIU/mL (0.47-4.68)
--- NOTE | 2019-05-12 15:40 | PC.NURSE ---
Patient's yasmeene Tricia called and made aware that patient is almost ready for transport home.
--- NOTE | 2019-05-16 11:03 | ONC.SCHED ---
Tried to call patient to schedule follow up and treatment but no answer on phone.
--- NOTE | 2019-05-16 11:19 | ONC.SCHED ---
Tried to reach patient regarding scheduling. I called Tricia the patient's daughter and she said she thinks that her mom should stop treatment. Daughter states mom is very sick and also probably has the flu. Patient's daughter did not have the time to speak with triage now as she was driving but asked me to give triage the note to contact both Tricia the daughter and [facility] regarding the state of Jade's condition at present. I will give this info to triage.
--- NOTE | 2019-05-16 11:39 | ONC.SCHED ---
Gave the message to triage about Jade and the call from her daughter. Giovanna Aguilar jumped in and said she spoke with them and that triage would take care of it. At this point I told Hui I can't schedule her until I here from someone clinical.
--- NOTE | 2019-06-08 16:06 | ONC.SCHED ---
per Sonja @ [facility] Onc, Jade moved to [place] and will see Dr Emery over there . . . she is getting records from our MR department
== END ==
PROVIDERS: Nurse Practitioner Gerontology; Family Provider Internal Medicine; PCP Internal Medicine; Visit Provider Internal Medicine Hematology & Oncology
DX: Z51.11 Encounter for antineoplastic chemotherapy (principal); C18.6 Malignant neoplasm of descending colon; D50.0 Iron deficiency anemia secondary to blood loss (chronic); R79.89 Other specified abnormal findings of blood chemistry; Z85.038 Personal history of other malignant neoplasm of large intestine; Z95.828 Presence of other vascular implants and grafts
CPT/HCPCS: 36415; 36430; 36591; 36592; 71046; 71260; 74177; 80053; 81001; 81292; 81294; 81297; 81298; 81300; 81317; 81319; 82378; 82728; 83540; 83550; 83735; 84436; 84443; 84481; 85025; 86850; 86900; 86901; 96361; 96365; 96366; 96367; 96374; 96375; 96376; 96409; 96411; 96413; 96415; 96523; 99211; 99214; 99215; P9016; J0640; J1100; J1756; J2405; J3480; J9190; J9271; Q9967